=== PATIENT | female | born 1950 | race Two or more races ===

== ENCOUNTER 2024-05-07 12:50 | Inpatient (IN) | payer MEDICARE, BC ==
[~2024-05-07] VITALS: Ht 177.8 cm; Wt 71.5 kg
[2024-05-07] VITALS (29 sets, daily range): BP systolic 95–155; BP diastolic 56–80; PULSE 52–111; RESP 21–24; TEMP 95.5–99.7; O2SAT 87–100
--- NOTE | 2024-05-07 13:06 | ED.PDOC ---
CPR-HPI HPI Comments 74 year old female LINCOLN presents to the ED with chief complaint of cardiac arrest with ROSC. EMS reports patient was found unresponsive by son at home around 30 minutes ago, calling 911 right away. EMS relays that the last well known of the patient was around 10:30am. EMS states that the patient was receiving CPR from infantry weapons crewmember on scene before hooking her up to a monitor, showing ROSC. EMS notes patient was intubated, given an IO and IV before coming on route to the ED. EMS reports patient's only known history is of a recent remission of lung cancer. EMS denies any further history at this time. 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 History: Unknown Family History Family History: Unknown Social History Smoker: Unknown Alcohol: Unknown Drugs: Unknown Lives In: Home Unable to Obtain due to: Medical Urgency, Intubated All Other Systems: Reviewed and Negative Physical Exam General Appearance: Normal, Severe Distress HEENT: Other (Pupils sluggish) Neck: Full Range of Motion, Non-Tender, Normal, Normal Inspection Respiratory: Chest Non-Tender, Respiratory Distress (Intubated) Cardiovascular: No Edema, No JVD, No Murmur, No Gallop, Normal Peripheral Pulses, Regular Rate/Rhythm Breast Exam: Deferred Gastrointestinal: No Organomegaly, Non Tender, No Pulsatile Mass, Normal Bowel Sounds, Soft Genitalia: Deferred Pelvic: Deferred Rectal: Deferred Extremities: No calf tenderness, Normal capillary refill, Normal inspection, Normal range of motion, Non-tender, No pedal edema Musculoskeletal : Apperance: Normal Neurologic: Other (Intubated) Cerebellar Function: NOT DONE Reflexes: NOT DONE Skin: Dry, Normal Color, Warm Peripheral Pulses: 3+ Radial (R), 3+ Radial (L) Lymphatic: No Adenopathy Was a procedure done? Was a procedure done?: Yes Sedation Sedation?: Yes Informed consent obtained: Yes Sedation start time: 13:00 Sedation end time: 13:10 Sedation total time: 10 minutes Sedation provider statement: 5mg Versed IV Central Line Recorder of insertion practice: Observer Occupation of manager market intelligence: Other (Resident) Indication: Hypotension, CVP monitoring, Volume resuscitation Room prepared for procedure: Yes Color Print Inspector performed hand hygien: Yes Maximal sterile barrier precau: Mask/Eye shield, Sterile gown, Cap, Sterlie gloves, Large sterlie drape Skin Preparation: Chlorhexidine gluconate Skin preparation completely dr: Yes Insertion site: Right, Internal jugular Central line catheter type: [id number] dialysis Number of lumens: 3 Central line exchanged over a: No Antiseptic ointment applied to: No Post Assessment: Chest X-Ray, Proper placement Informed consent obtained: Yes Risks/benefits/alt described: Yes Intubation Indication: Respiratory Insufficiency, Airway Protection Prep: Preoxygenation Pretreated with: Nothing Intubation Approach: Orotracheal Intubation size: cm (7.5) Informed consent obtained: Yes Risks/benefits/alt described: Yes Notes Replaced 7cm tube placed by EMS with 7.5cm tube. Differential Dx CPR Differential Diagnosis: Cardiopulmonary arrest X-Ray, Labs, Meds, VS Vital Signs Date Time Temp Pulse Resp B/P (MAP) Pulse Ox O2 Delivery O2 Flow Rate FiO2 05/07/24 15:11 65 05/07/24 13:43 103/77 05/07/24 13:43 52/31 05/07/24 13:30 103/77 05/07/24 12:58 68 05/07/24 12:50 95.5 76 22 103/77 (86) 88 Lab Test 05/07/24 15:06 05/07/24 14:45 05/07/24 14:20 Range/Units Urine Color Dark-yellow Yellow Urine Clarity Turbid H Clear Urine pH 5.5 5.0-9.0 Urine Specific [place] 1.021 1.001-1.035 Urine Protein 2+ H Negative Urine Ketones Negative Negative Urine Blood 1+ H Negative /uL Urine Nitrite Negative Negative Urine Bilirubin Negative Negative Urine Urobilinogen 2 H Negative mg/dL Urine Leukocyte Esterase Negative Negative /uL Urine RBC 28 0 - 4 /hpf Urine Microscopic WBC 4 0-5 /HPF Urine Squamous Epithelial Cells Few <5 /hpf Urine Bacteria Few H None Seen /hpf Urine Hyaline Casts Many 0 - 2 /lpf Urine Mucus Few None Seen Urine Yeast (Budding) Occasional None Seen /hpf Urine Glucose 1+ H Normal mg/dL Urine Opiates Screen Pending Urine Fentanyl Screen Pending Urine Barbiturates Screen Pending Urine Phencyclidine Screen Pending Urine Amphetamines Screen Pending Urine Benzodiazepines Screen Pending Urine Cocaine Screen Pending Urine Cannabinoids Screen Pending Blood Gas Specimen Type Arterial Blood Gas Sample Site Right radial Blood Gas Patient Temperature 37.0 Arterial Blood Date Drawn [id number] Arterial Blood pH 7.092 *L 7.350-7.450 Arterial Blood Partial Pressure CO2 61.8 *H 32.0-45.0 mmHg Arterial Blood Partial Pressure O2 56.0 L 83.0-108.0 mmHg Arterial Blood HCO3 18.4 L 21.0-28.0 mmol/L Arterial Blood Oxygen Saturation 79.7 *L 94.0-98.0 % Arterial Blood Base Excess -12.3 L -2.0-3.0 mmol/L Arterial Blood Oxyhemoglobin 78.4 L 94.0-98.0 % Arterial Blood Carboxyhemoglobin 1.1 0.5-1.5 % Arterial Blood Methemoglobin 0.5 0.0-1.5 % Germán Test Modified Blood Gas Total Hemoglobin 16.10 H 12.0-16.0 g/dL Blood Gas Set Respiration Rate 24.0 Blood Gas Modality Vent - ac FiO2 % 100.0 Blood Gas Tidal Volume 450.0 Blood Gas PEEP or CPAP 5.0 Blood Gas Critical Value Read Back Yes Blood Gas Notified Whom Blood Gas Notified Time [id number] Blood Gas Notified By Pili hernandez rt White Blood Count 22.6 H 4.4-10.8 10^3/uL Red Blood Count 4.47 4.0-5.20 10^6/uL Hemoglobin 14.9 12.2-16.2 g/dL Hematocrit 45.2 36.0-46.0 % Mean Corpuscular Volume 101.3 H 80.0-100.0 fL Mean Corpuscular Hemoglobin 33.4 H 28.0-32.0 pg Mean Corpuscular Hemoglobin Concent 33.0 32.0-36.0 g/dL Red Cell Distribution Width 13.9 11.8-14.3 % Platelet Count 295 140-450 10^3/uL Mean Platelet Volume 7.7 6.9-10.8 fL Neutrophils (%) (Auto) 91.1 H 37.0-80.0 % Lymphocytes (%) (Auto) 6.3 L 10.0-50.0 % Monocytes (%) (Auto) 2.1 0.0-12.0 % Eosinophils (%) (Auto) 0.3 0.0-7.0 % Basophils (%) (Auto) 0.2 0.0-2.0 % Neutrophils # (Auto) 20.5 H 1.6-8.6 10 ^3/uL Lymphocytes # (Auto) 1.4 0.4-5.4 10 ^3/uL Monocytes # (Auto) 0.5 0-1.3 10 ^3/uL Eosinophils # (Auto) 0.1 0-0.8 10 ^3/uL Basophils # (Auto) 0 0-0.2 10 ^3/uL Nucleated Red Blood Cells 0.1 % Prothrombin Time Pending Prothrombin Time INR Pending Activated Partial Thromboplast Time Pending D-Dimer, Quantitative Pending Sodium Level Pending Potassium Level Pending Chloride Level Pending Carbon Dioxide Level Pending Anion Gap Pending Blood Urea Nitrogen Pending Creatinine Pending Glomerular Filtration Rate Calc Pending BUN/Creatinine Ratio Pending Serum Glucose Pending Lactic Acid Level Pending Calcium Level Pending Magnesium Level Pending Total Bilirubin Pending Aspartate Amino Transferase (AST) Pending Alanine Aminotransferase (ALT) Pending Alkaline Phosphatase Pending Troponin I High Sensitivity Pending Total Protein Pending Albumin Pending Current Medications Medications (Trade) Dose Ordered Sig/Jerome Route Start Time Stop Time Status Last Admin Sodium Chloride 1,000 ml @ 1,000 mls/hr Q1H ONCE IV 05/07/24 13:15 05/07/24 14:14 DC 05/07/24 13:42 Sodium Chloride 1,000 ml @ 150 mls/hr Q6H40M ONCE IV 05/07/24 13:15 05/07/24 19:54 05/07/24 13:15 Piperacillin Sod/ Tazobactam Sod 100 ml @ 100 mls/hr ONCE ONCE IV 05/07/24 13:15 05/07/24 14:14 DC 05/07/24 15:18 Insulin Human Regular (InsuLIN R) 2 units ONCE ONCE IV 05/07/24 13:15 05/07/24 13:16 DC 05/07/24 15:27 Norepinephrine Bitartrate 250 ml @ 3.75 mls/hr Q24H IV 05/07/24 13:30 05/07/24 13:43 Midazolam HCl 50 ml @ 1 mls/hr Q24H IV 05/07/24 13:30 05/07/24 13:43 Midazolam HCl (Versed Injection) 5 mg ONCE ONCE IV 05/07/24 13:30 05/07/24 13:31 DC 05/07/24 13:45 Chest XR: FINDINGS: Lines and Tubes: Endotracheal tube in satisfactory position. Right chest port in satisfactory position. Lungs: Multifocal airspace disease. Pleura: No effusion. No pneumothorax. Cardiomediastinal contours: Unremarkable Bones: Unremarkable IMPRESSION: Endotracheal tube in satisfactory position. Multifocal airspace disease. Patient unconscious. Has a need G-tube in place. Blood pressure in the low side. Good skin color. Had to exchange the tube. Placed a central line. Possible sepsis. Possible cardiac event. EKG reviewed does show left bundle branch block. Spoke with Cardiology. Possibly will need angiogram. Started Versed. Was given fluids. Was given insulin. WBC elevated. Hemoglobin within normal limits. She is having difficulty with ventilation. Was given Zosyn. Was given clindamycin. Waiting for family. Continue cardiac monitoring. Images Reviewed?: Images reviewed and evaluated by me Time of 1ST Reevaluation: 15:33 Reevaluation 1ST: Improved Patient Education/Counseling: Diagnosis, Treatment Family Education/Counseling: No Family Present Additional Information I reviewed the following notes from patient's past medical encounters: None The following tests were ordered, and results were reviewed by me: ABG, CBC, BMP I reviewed and agreed with the following test results read by other providers: Additional Information was gathered from interviewing the following independent historians: EMS I discussed treatment and results with medical personnel. Departure 1 Departure Time of Disposition: 15:35 Impression: Primary Impression: Cardiac arrest Additional Impressions: Uncontrolled diabetes mellitus Qualified Codes: E13.65 - Other specified diabetes mellitus with hyperglycemia Respiratory failure Qualified Codes: J96.21 - Acute and chronic respiratory failure with hypoxia Sepsis, unspecified organism Qualified Codes: A41.9 - Sepsis, unspecified organism Disposition: ADMITTED INPATIENT Admit to: ICU Condition: Guarded Critical Care Note Critical Care Time?: Yes (90 min-critical care time only) Heart Score Heart Score: Heart Score Response (Comments) Value History Slightly Suspicious 0 EKG Normal 0 Age >65 2 Risk Factors >3 or Hx ASHD 2 Troponin Normal limit 0 Total 4 Stability Stability form required: No I personally scribed for OMEGA MINAYA MD ([email or web address]) on 05/07/24 at 13:06. Electronically submitted by Edgardo Whipple ([email or web address]). I personally scribed for OMEGA MINAYA MD ([email or web address]) on 05/07/24 at 13:18. Electronically submitted by Edgardo Whipple ([email or web address]). I personally scribed for OMEGA MINAYA MD ([email or web address]) on 05/07/24 at 13:26. Electronically submitted by Edgardo Whipple ([email or web address]). OMEGA MINAYA MD May 07, 2024 13:06
[2024-05-07] MEDS: SODIUM CHLORIDE 0.9% 1,000 ML IV ONE ×2 (13:15→13:42)
--- NOTE | 2024-05-07 13:22 | DVH ---
CHEST RADIOGRAPH Indication: POST INTUBATION Technique: Single frontal view of the chest was obtained COMPARISON: None FINDINGS: Lines and Tubes: Endotracheal tube in satisfactory position. Right chest port in satisfactory positi on. Lungs: Multifocal airspace disease. Pleura: No effusion. No pneumothorax. Cardiomediastinal contours: Unremarkable Bones: Unremarkable IMPRESSION: Endotracheal tube in satisfactory position. Multifocal airspace disease.
[2024-05-07] MEDS: fentaNYL Drip 2500mCg/250mlNS 250 ML IV SCH (13:30)
[2024-05-07] MEDS: NOREPINEPHRINE 8 MG/250ML KIT 250 ML IV SCH (13:43)
[2024-05-07] MEDS: MIDAZOLAM DRIP 50 mg/50mL 50 ML IV SCH (13:43)
[2024-05-07] MEDS: MIDAZOLAM HCL 5 MG/ML-1ML VIAL IV ONE (13:45)
[2024-05-07 14:53] LABS: Base Excess -12.3 mmol/L (-2.0-3.0)
[2024-05-07 14:58] LABS: Basophils # (auto) 0 10 ^3/uL (0-0.2); Basophils % (auto) 0.2 % (0.0-2.0); Eosinophils # (auto) 0.1 10 ^3/uL (0-0.8); Eosinophils % (auto) 0.3 % (0.0-7.0); Hematocrit 45.2 % (36.0-46.0); Hemoglobin 14.9 g/dL (12.2-16.2); Lymphocytes # (auto) 1.4 10 ^3/uL (0.4-5.4); Lymphocytes % (auto) 6.3 % (10.0-50.0); Mean Corpuscular Hemoglobin 33.4 pg (28.0-32.0); Mean Corpuscular Volume 101.3 fL (80.0-100.0); Monocytes # (auto) 0.5 10 ^3/uL (0-1.3); Monocytes % (auto) 2.1 % (0.0-12.0); Neutrophils # (auto) 20.5 10 ^3/uL (1.6-8.6); Neutrophils % (auto) 91.1 % (37.0-80.0); Nucleated Red Blood Cells % 0.1 %; Platelet Count (auto) 295 10^3/uL (140-450); Red Blood Cells 4.47 10^6/uL (4.0-5.20); Red Cell Distribution Width 13.9 % (11.8-14.3); White Blood Cell 22.6 10^3/uL (4.4-10.8)
--- NOTE | 2024-05-07 15:07 | DVH ---
CHEST RADIOGRAPH Indication: POST INTUBATION Technique: Single frontal view of the chest was obtained Comparison: XY CHEST PORTABLE on DOS: 05/07/24, XY CHEST PORTABLE on DOS: 05/07/24 FINDINGS: Lines and Tubes: Endotracheal tube in satisfactory position. Right chest port in satisfactory positi on. Lungs: Multifocal airspace disease. Pleura: No effusion. No pneumothorax. Cardiomediastinal contours: Unremarkable Bones: Unremarkable IMPRESSION: Endotracheal tube in satisfactory position. Multifocal airspace disease.
[2024-05-07] MEDS: PIPERACILLIN-TAZOB 3.375GM 100 ML IV ONE (15:18)
[2024-05-07 15:22] LABS: Urine Bacteria FEW /hpf (None Seen); Urine Blood 1+ /uL (Negative); Urine Budding Yeast OCCASIONAL /hpf (None Seen); Urine Clarity Turbid (Clear); Urine Color Dark-Yellow (Yellow); Urine Hyaline Cast MANY /lpf (0 - 2); Urine Mucus FEW (None Seen); Urine Protein, UAD 2+ (Negative); Urine Specific Gravity 1.021 (1.001-1.035); Urine Squamous Epithelial Cell FEW /hpf (<5); Urine Urobilinogen 2 mg/dL (Negative); Urine WBC 4 /HPF (0-5); Urine pH 5.5 (5.0-9.0)
[2024-05-07 15:25] LABS: INR 1.08 (0.9-1.15); Partial Thromboplastin Time 27.3 SEC (24.5-34.5); Prothrombin Time 11.4 sec (9.3-11.8)
[2024-05-07] MEDS: InsuLIN REG 1unit/0.01ml Soln (100units/ml) IV ONE ×2 (15:27→19:32)
[2024-05-07 15:45] LABS: Anion Gap 9 (5-15); BUN/Creatinine Ratio 12.1 (10.0-20.0); Bilirubin, Total 0.4 mg/dL (0.2-1.0); Blood Urea Nitrogen 17 mg/dL (9-23); Calcium 9.1 mg/dL (8.7-10.4); Carbon Dioxide 22 mmol/L (20-31); Chloride 107 mmol/L (98-107); Magnesium 1.9 mg/dL (1.6-2.6); Sodium 138 mmol/L (136-145); Total Protein 6.2 g/dL (5.7-8.2)
[2024-05-07 15:49] LABS: Alanine Aminotransferase 364 U/L (7-40); Alkaline Phosphatase 129 U/L (46-116); Aspartate Aminotransferase 464 U/L (13-40); Glucose 212 mg/dL (74-106); Lactic Acid w/Reflex 3.4 mmol/L (0.4-2.0); Potassium 5.5 mmol/L (3.5-5.1)
[2024-05-07 16:01] LABS: Cocaine Screen, Urine Neg (NEGATIVE)
[2024-05-07 16:03] LABS: Amphetamine Screen, Urine Neg (NEGATIVE); Barbiturate Scree,Urine Neg (NEGATIVE); Benzodiazephine Screen, Urine Pos (NEGATIVE); Cannabinoid Screen, Urine Neg (NEGATIVE); Opiate Scree,Urine Neg (NEGATIVE); Phencyclidine Screen, Urine Neg (NEGATIVE)
[2024-05-07] MEDS: CLINDAMYCIN 600MG IV 50 ML IV ONE (16:40)
[2024-05-07] MEDS: SODIUM BICARB 50mEq/50ml Vial 150 ML in D5W 5% 1,000 ML IV SCH (17:15)
[2024-05-07] MEDS: VASOPRESSIN 20 UNITS in SODIUM CHL 0.9% 99 ML IV SCH (17:15)
[2024-05-07] MEDS ORDERED: VANCOMYCIN PER PHARMACY 0 MG IV SCH (17:15)
[2024-05-07] MEDS ORDERED: NITROGLYCERIN 0.4 MG SL TAB SL PRN (17:15)
--- NOTE | 2024-05-07 17:21 | DVHHP2 ---
History of Present Illness Reason for Visit: Unresponsive, cardiac arrest History of Present Illness The patient was a 74-year-old female transport to the emergency room by EMS after being found unresponsive. Bystander CPR was performed by the patient was son as well as the vacuum truck driver's, with the patient having ROSC min route to the hospital. Patient was endotracheally intubated in the field. According to the patient's daughters, the patient is visiting this area and only recalls the patient having some dyspnea walking up stairs. They deny any other symptoms prior to today's events. 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 Last treatment was two years ago. Patient was being followed by oncology services at [facility]. Patient was reported to have atrial fibrillation, currently being treated with Eliquis as well as hypertension. Cardiovascular: AFIB, HTN Heme/Onc: Cancer (Small-cell lung carcinoma) Past Surgical History: None Family History: None Smoke: No ALCOHOL: none Drugs: None Lives: with Family Review of Systems Review of Systems Patient intubated and sedated. Allergies: Coded Allergies: NO KNOWN ALLERGIES (Unverified , 05/07/24) Medications Current Medications Medications Dose Ordered Sig/Jerome Route Start Time Stop Time Status Last Admin Dose Admin Norepinephrine Bitartrate 250 ml @ 3.75 mls/hr Q24H IV 05/07/24 13:30 05/07/24 13:43 56.25 MLS/HR Midazolam HCl 50 ml @ 1 mls/hr Q24H IV 05/07/24 13:30 05/07/24 13:43 1 MLS/HR Fentanyl Citrate 250 ml @ 2.5 mls/hr Q24H IV 05/07/24 13:30 05/07/24 15:00 2.5 MLS/HR Nitroglycerin 0.4 mg Q5MINP PRN SL 05/07/24 17:15 UNV Morphine Sulfate 2 mg Q30M PRN IV 05/07/24 17:15 UNV Cefepime HCl 50 ml @ 12.5 mls/hr Q12HR IV 05/07/24 22:00 UNV Vancomycin HCl 0 ml @ 0 mls/hr UD IV 05/07/24 17:15 UNV Sodium Bicarbonate 150 ml/Dextrose 1,150 ml @ 100 mls/hr [id number] IV 05/07/24 17:15 UNV Albuterol 2.5 mg Q6HR NEB 05/07/24 18:00 UNV Ipratropium [place] 0.5 mg Q6HR NEB 05/07/24 18:00 UNV Pantoprazole Sodium 40 mg DAILY IV 05/08/24 10:00 UNV Enoxaparin Sodium 40 mg DAILY SC 05/08/24 10:00 UNV Vasopressin 20 units/Sodium Chloride 100 ml @ 9 mls/hr Q11H7M IV 05/07/24 17:15 UNV Exam Vital Signs Vital Signs Date Time Temp Pulse Resp B/P (MAP) Pulse Ox O2 Delivery O2 Flow Rate FiO2 05/07/24 15:15 68 24 114/55 (74) 05/07/24 14:45 73 05/07/24 14:15 100 05/07/24 13:00 95.5 95.5 General Appearance: severe distress, Other (Patient encephalopathic) HEENT: Atraumatic, PERRLA Respiratory: Other (Mechanical ventilation. Bilateral rhonchi) Cardiovascular: Normal S1, Normal S2, Other (Peaked T-waves) Neuro: Other (Pupils pinpoint, unreactive) Psych/Mental Status: Other (Unable to assess) Labs/Xrays Labs Test 05/07/24 16:22 05/07/24 15:26 05/07/24 15:06 05/07/24 14:20 Range/Units Blood Gas Specimen Type Arterial Blood Gas Sample Site Right radial Blood Gas Patient Temperature 37.0 Arterial Blood Date Drawn [id number] Arterial Blood pH 7.096 *L 7.350-7.450 Arterial Blood Partial Pressure CO2 62.1 *H 32.0-45.0 mmHg Arterial Blood Partial Pressure O2 80.4 L 83.0-108.0 mmHg Arterial Blood HCO3 18.7 L 21.0-28.0 mmol/L Arterial Blood Oxygen Saturation 92.0 L 94.0-98.0 % Arterial Blood Base Excess -12.0 L -2.0-3.0 mmol/L Arterial Blood Oxyhemoglobin 90.6 L 94.0-98.0 % Arterial Blood Carboxyhemoglobin 1.0 0.5-1.5 % Arterial Blood Methemoglobin 0.5 0.0-1.5 % Germán Test Modified Blood Gas Total Hemoglobin 16.00 12.0-16.0 g/dL Blood Gas Set Respiration Rate 24.0 Blood Gas Modality Vent - ac FiO2 % 100.0 Blood Gas Tidal Volume 550.0 Blood Gas PEEP or CPAP 8.0 Blood Gas Critical Value Read Back Yes Blood Gas Notified Whom ethan Calabrese Blood Gas Notified Time [id number] Blood Gas Notified By Private Secretary jorge a vela Troponin I High Sensitivity 183 *H </=34 ng/L Urine Color Dark-yellow Yellow Urine Clarity Turbid H Clear Urine pH 5.5 5.0-9.0 Urine Specific [place] 1.021 1.001-1.035 Urine Protein 2+ H Negative Urine Ketones Negative Negative Urine Blood 1+ H Negative /uL Urine Nitrite Negative Negative Urine Bilirubin Negative Negative Urine Urobilinogen 2 H Negative mg/dL Urine Leukocyte Esterase Negative Negative /uL Urine RBC 28 0 - 4 /hpf Urine Microscopic WBC 4 0-5 /HPF Urine Squamous Epithelial Cells Few <5 /hpf Urine Bacteria Few H None Seen /hpf Urine Hyaline Casts Many 0 - 2 /lpf Urine Mucus Few None Seen Urine Yeast (Budding) Occasional None Seen /hpf Urine Glucose 1+ H Normal mg/dL Urine Opiates Screen Neg NEGATIVE Urine Fentanyl Screen Pos NEGATIVE Urine Barbiturates Screen Neg NEGATIVE Urine Phencyclidine Screen Neg NEGATIVE Urine Amphetamines Screen Neg NEGATIVE Urine Benzodiazepines Screen Pos NEGATIVE Urine Cocaine Screen Neg NEGATIVE Urine Cannabinoids Screen Neg NEGATIVE White Blood Count 22.6 H 4.4-10.8 10^3/uL Red Blood Count 4.47 4.0-5.20 10^6/uL Hemoglobin 14.9 12.2-16.2 g/dL Hematocrit 45.2 36.0-46.0 % Mean Corpuscular Volume 101.3 H 80.0-100.0 fL Mean Corpuscular Hemoglobin 33.4 H 28.0-32.0 pg Mean Corpuscular Hemoglobin Concent 33.0 32.0-36.0 g/dL Red Cell Distribution Width 13.9 11.8-14.3 % Platelet Count 295 140-450 10^3/uL Mean Platelet Volume 7.7 6.9-10.8 fL Neutrophils (%) (Auto) 91.1 H 37.0-80.0 % Lymphocytes (%) (Auto) 6.3 L 10.0-50.0 % Monocytes (%) (Auto) 2.1 0.0-12.0 % Eosinophils (%) (Auto) 0.3 0.0-7.0 % Basophils (%) (Auto) 0.2 0.0-2.0 % Neutrophils # (Auto) 20.5 H 1.6-8.6 10 ^3/uL Lymphocytes # (Auto) 1.4 0.4-5.4 10 ^3/uL Monocytes # (Auto) 0.5 0-1.3 10 ^3/uL Eosinophils # (Auto) 0.1 0-0.8 10 ^3/uL Basophils # (Auto) 0 0-0.2 10 ^3/uL Nucleated Red Blood Cells 0.1 % Prothrombin Time 11.4 9.3-11.8 sec Prothrombin Time INR 1.08 0.9-1.15 Activated Partial Thromboplast Time 27.3 24.5-34.5 SEC D-Dimer, Quantitative 16.00 H 0.0-0.49 mg/L FEU Sodium Level 138 136-145 mmol/L Potassium Level 5.5 H 3.5-5.1 mmol/L Chloride Level 107 98-107 mmol/L Carbon Dioxide Level 22 20-31 mmol/L Anion Gap 9 5-15 Blood Urea Nitrogen 17 9-23 mg/dL Creatinine 1.40 H 0.550-1.02 mg/dL Glomerular Filtration Rate Calc 39 >90 mL/min BUN/Creatinine Ratio 12.1 10.0-20.0 Serum Glucose 212 H 74-106 mg/dL Lactic Acid Level 3.4 *H 0.4-2.0 mmol/L Calcium Level 9.1 8.7-10.4 mg/dL Magnesium Level 1.9 1.6-2.6 mg/dL Total Bilirubin 0.4 0.2-1.0 mg/dL Aspartate Amino Transferase (AST) 464 H 13-40 U/L Alanine Aminotransferase (ALT) 364 H 7-40 U/L Alkaline Phosphatase 129 H 46-116 U/L Total Protein 6.2 5.7-8.2 g/dL Albumin 4.0 3.2-4.8 g/dL Assessment/Plan Assessment/Plan Impression: -cardiopulmonary arrest in the field -acute hypoxic and hypercarbic respiratory failure with mechanical ventilation -full mouth pulmonary embolism -NSTEMI, rule out type 1 -hyperkalemia -acute kidney injury -shock liver -septic shock -community-acquired pneumonia, questionable aspiration etiology -primary hypertension -history of atrial fibrillation with anticoagulation Plan: -admit to ICU -continue vasopressor therapy with norepinephrine. Add vasopressin to keep map greater than 65 mmHg -CT angiogram of the chest -DVT study -CT scan of the head -sodium bicarbonate, two amps IV push now, followed by D5W with three amps sodium bicarbonate at 100 mL/hr -bronchodilators -cardiology consultation -echocardiogram -DVT prophylaxis, consider increasing to full anticoagulation if positive for DVT/PE -repeat BNP this evening -repeat labs, chest x-ray, ABG in a.m. -continue current ventilator settings until repeat ABG was performed. Critical care time spent with patient discussing and formulating plan of care: 90 minutes. This does not include time spent performing procedures. This medical document was created using an electronic medical record system with 1-[employer] All dictation system. Although this document has been carefully reviewed, there may still be some phonetic and typographical errors. These areas are purely typographical due to imperfections of the software programs, and do not reflect any compromise in the patient's medical care. Plan discussed with: Daughter, Other (RN) My Orders Orders - KELLEY GARCIA TIMBER ROBBER Procedure Category Date Status Time Admit ADMIT 05/07/24 Transmitted 17:02 Nitroglycerin PHA 05/07/24 Logged Sublingual (Ntrostat 17:15 Morphine Sulfate PHA 05/07/24 Logged Injection 17:15 Stat Ekg For Chest [facility] 05/07/24 In Process Pain 17:02 Notify Md Of Changes [facility] 05/07/24 In Process From Base 17:02 Pump Erector Helper For [facility] 05/07/24 In Process 24 Hours 17:02 Emergency Dysrhythmia [facility] 05/07/24 In Process Protocol 17:02 Rhythm Strips Once [facility] 05/07/24 In Process Every Shift 17:02 Oxygen By Nasal RT 05/07/24 Transmitted Cannula 17:02 Cefepime 1gm/ 50ml [facility] 05/07/24 Logged (Maxipime 1gm/50ml) 22:00 Vancomycin Per PHA 05/07/24 Logged Pharmacy 17:15 Urine Bacterial [facility] 05/07/24 Logged Culture 17:[address] 05/07/24 Logged 17:[address] 05/07/24 Logged Contrast 17:02 Echo 2d Mode Cardiac US 05/07/24 Logged DOP 17:02 Sodium Bicarb PHA 05/07/24 Logged 50meq/50ml Vial 17:15 D5w 5% (Dextrose 5%) [facility] 05/07/24 Logged W/Sodium Bicarb 50m 17:15 Albuterol Medneb PHA 05/07/24 Logged (Ventolin Medneb) 18:00 Ipratropium Medneb PHA 05/07/24 Logged (Atrovent Medneb) 18:00 Pantoprazole PHA 05/08/24 Transmitted (Protonix) 10:00 Enoxaparin Sodium PHA 05/08/24 Transmitted (Lovenox) 10:00 Basic Metabolic Panel LAB 05/07/24 Transmitted 19:00 Comprehensive LAB 05/08/24 Verified Metabolic Panel 04:00 Complete Blood Count LAB 05/08/24 Verified 04:00 Hemoglobin A1c LAB 05/07/24 Transmitted 17:08 Erythrocyte LAB 05/07/24 Transmitted Sedimentation Rate 17:08 C-Reactive Protein LAB 05/07/24 Transmitted 17:08 Vasopressin Drip PHA 05/07/24 Transmitted 17:15 Date of Service: May 07, 2024 Billing Provider: KELLEY GARCIA NP Common Visit Codes: [id number] CARE 30-74 MIN, [id number] CARE-EACH +30MIN KELLEY GARCIA NP May 07, 2024 17:21
[2024-05-07] MEDS: IPRATROPIUM BROM 0.5 MG/2.5ML INH SOL NEB SCH (18:00)
[2024-05-07] MEDS: SODIUM ZIRCONIUM CYCL 10 GM PAK PO ONE (18:00)
[2024-05-07] MEDS: ALBUTEROL SULF 2.5 MG/0.5ML(0.5%) NEB SOLN NEB SCH (18:00)
--- NOTE | 2024-05-07 18:06 | DVHINCON2 ---
PAULETTE QUINTERO [facility] 05/07/24 1805: Date Seen: May 07, 2024 Referring Physician MD Mercedez Reason for Consultation NSTEMI History of Present Illness This is a 74-year-old female patient who presents to the emergency room with cardiopulmonary arrest status post CPR with return of spontaneous circulation. At the time of assessment, the patient remains chemically sedated and mechanically ventilated. History obtained from patient's daughter, Sophie, who was at bedside. According to patient's daughter, the patient was last seen john g to the restroom. The patient was then found unresponsive and the family is estimating that her downtime is approximately 10 minutes, but they are not completely sure. CPR was initiated by the patient's son and 911 was called. ROSC was achieved prior to emergency room arrival. It is unclear how long the patient underwent CPR. Initial twelve lead electrocardiogram reveals normal sinus rhythm with right bundle branch block and and peaked T-waves. Initial troponin level of 120ng/L with peak level at 183ng/L (pending third troponin). Significant past medical history includes hypertension, unspecified atrial fibrillation (on Eliquis), lung cancer, brain tumor, colon cancer 18 year ago s/p colon resection, and tobacco use. The patient's daughter reports that the patient was recently told that she is in remission from her lung cancer and is being closely followed by the [facility]. She reports last treatment of chemo therapy and radiation approximately two years ago. The patient's daughter confirms that the patient previously saw a bill clerk in [place], but has not seen them within the last year. Past Medical History Past medical history reviewed. No other significant than mentioned above. Past Surgical History Colon resection approximately 18 years ago Hysterectomy Family History Family history reviewed. Social History Previous tobacco use (unable to calculate pack-year history), quit in 2020 per daughter Patient has a previous history of alcoholism, has been sober for 23 years according to daughter Denies any illicit drug use Allergies: Coded Allergies: NO KNOWN ALLERGIES (Unverified , 05/07/24) Home Meds Home medications reviewed. Current Medications Current Medications Medications (Trade) Dose Ordered Sig/Jerome Route PRN Reason Start Time Stop Time Status Last Admin Norepinephrine Bitartrate 250 ml @ 3.75 mls/hr Q24H IV 05/07/24 13:30 05/07/24 13:43 Midazolam HCl 50 ml @ 1 mls/hr Q24H IV 05/07/24 13:30 05/07/24 13:43 Fentanyl Citrate 250 ml @ 2.5 mls/hr Q24H IV 05/07/24 13:30 05/07/24 15:00 Nitroglycerin (Ntrostat Sublingual) 0.4 mg Q5MINP PRN SL FOR CHEST PAIN 05/07/24 17:15 Morphine Sulfate 2 mg Q30M PRN IV FOR CHEST PAIN 05/07/24 17:15 UNV Cefepime HCl 50 ml @ 12.5 mls/hr Q12HR IV 05/07/24 22:00 UNV Vancomycin HCl 0 ml @ 0 mls/hr UD IV 05/07/24 17:15 UNV Sodium Bicarbonate 150 ml/Dextrose 1,150 ml @ 100 mls/hr [id number] IV 05/07/24 17:15 UNV Albuterol (Ventolin Medneb) 2.5 mg Q6HR NEB 05/07/24 18:00 Ipratropium [place] (Atrovent Medneb) 0.5 mg Q6HR NEB 05/07/24 18:00 Pantoprazole Sodium (Protonix) 40 mg DAILY IV 05/08/24 10:00 Enoxaparin Sodium (Lovenox) 40 mg DAILY SC 05/08/24 10:00 UNV Vasopressin 20 units/Sodium Chloride 100 ml @ 9 mls/hr Q11H7M IV 05/07/24 17:15 UNV Review of Systems Constitutional: No symptom reported Ears, Nose, & Throat: No symptom reported Eyes: No symptom reported Neurological: No symptoms reported Pulmonary/Respiratory: Cardiopulmonary arrest Cardiovascular: Cardiopulmonary arrest Gastrointestinal: No symptom reported Genitourinary: No symptom reported Musculoskeletal: No symptom reported Skin: No symptom reported Psychiatric: No symptom reported Endocrine: No symptom reported Hematologic/Lymphatic: No symptom reported Vital Signs Vital Signs Date Time Temp Pulse Resp B/P (MAP) Pulse Ox O2 Delivery O2 Flow Rate FiO2 05/07/24 15:15 68 24 114/55 (74) 05/07/24 14:45 73 05/07/24 14:15 100 05/07/24 13:00 95.5 95.5 Physical Exam General Appearance: Calm, relaxed Pulmonary/Respiratory: Clear, bilateral breaths sounds. Mechanically ventilated Cardiovascular/Chest: Regular rate and rhythm. Peripheral Pulses: 2+ Radial (R). 2+ Radial (L). 2+ Pedal (R). 2+ Pedal (L) Abdominal Exam: Normal bowel sounds. Ankle Exam: Negative ankle edema Lower extremities: Negative lower extremity edema Neuro/Mental Status: Chemically sedated. Pupils sluggish bilaterally Thoughts/Psych: Defer Appearance: No acute distress. Skin Exam: Normal inspection. Normal color. Warm and dry. Labs/Diagnostic Data Labs Test 05/07/24 16:50 05/07/24 16:22 05/07/24 15:06 05/07/24 14:20 Range/Units Blood Gas Specimen Type Arterial Blood Gas Sample Site Right radial Blood Gas Patient Temperature 37.0 Arterial Blood Date Drawn [id number] Arterial Blood pH 7.096 *L 7.350-7.450 Arterial Blood Partial Pressure CO2 62.1 *H 32.0-45.0 mmHg Arterial Blood Partial Pressure O2 80.4 L 83.0-108.0 mmHg Arterial Blood HCO3 18.7 L 21.0-28.0 mmol/L Arterial Blood Oxygen Saturation 92.0 L 94.0-98.0 % Arterial Blood Base Excess -12.0 L -2.0-3.0 mmol/L Arterial Blood Oxyhemoglobin 90.6 L 94.0-98.0 % Arterial Blood Carboxyhemoglobin 1.0 0.5-1.5 % Arterial Blood Methemoglobin 0.5 0.0-1.5 % Germán Test Modified Blood Gas Total Hemoglobin 16.00 12.0-16.0 g/dL Blood Gas Set Respiration Rate 24.0 Blood Gas Modality Vent - ac FiO2 % 100.0 Blood Gas Tidal Volume 550.0 Blood Gas PEEP or CPAP 8.0 Blood Gas Critical Value Read Back Yes Blood Gas Notified Whom ethan Calabrese Blood Gas Notified Time [id number] Blood Gas Notified By Domestic Violence Advocate jorge a vela Urine Color Dark-yellow Yellow Urine Clarity Turbid H Clear Urine pH 5.5 5.0-9.0 Urine Specific [place] 1.021 1.001-1.035 Urine Protein 2+ H Negative Urine Ketones Negative Negative Urine Blood 1+ H Negative /uL Urine Nitrite Negative Negative Urine Bilirubin Negative Negative Urine Urobilinogen 2 H Negative mg/dL Urine Leukocyte Esterase Negative Negative /uL Urine RBC 28 0 - 4 /hpf Urine Microscopic WBC 4 0-5 /HPF Urine Squamous Epithelial Cells Few <5 /hpf Urine Bacteria Few H None Seen /hpf Urine Hyaline Casts Many 0 - 2 /lpf Urine Mucus Few None Seen Urine Yeast (Budding) Occasional None Seen /hpf Urine Glucose 1+ H Normal mg/dL Urine Opiates Screen Neg NEGATIVE Urine Fentanyl Screen Pos NEGATIVE Urine Barbiturates Screen Neg NEGATIVE Urine Phencyclidine Screen Neg NEGATIVE Urine Amphetamines Screen Neg NEGATIVE Urine Benzodiazepines Screen Pos NEGATIVE Urine Cocaine Screen Neg NEGATIVE Urine Cannabinoids Screen Neg NEGATIVE White Blood Count 22.6 H 4.4-10.8 10^3/uL Red Blood Count 4.47 4.0-5.20 10^6/uL Hemoglobin 14.9 12.2-16.2 g/dL Hematocrit 45.2 36.0-46.0 % Mean Corpuscular Volume 101.3 H 80.0-100.0 fL Mean Corpuscular Hemoglobin 33.4 H 28.0-32.0 pg Mean Corpuscular Hemoglobin Concent 33.0 32.0-36.0 g/dL Red Cell Distribution Width 13.9 11.8-14.3 % Platelet Count 295 140-450 10^3/uL Mean Platelet Volume 7.7 6.9-10.8 fL Neutrophils (%) (Auto) 91.1 H 37.0-80.0 % Lymphocytes (%) (Auto) 6.3 L 10.0-50.0 % Monocytes (%) (Auto) 2.1 0.0-12.0 % Eosinophils (%) (Auto) 0.3 0.0-7.0 % Basophils (%) (Auto) 0.2 0.0-2.0 % Neutrophils # (Auto) 20.5 H 1.6-8.6 10 ^3/uL Lymphocytes # (Auto) 1.4 0.4-5.4 10 ^3/uL Monocytes # (Auto) 0.5 0-1.3 10 ^3/uL Eosinophils # (Auto) 0.1 0-0.8 10 ^3/uL Basophils # (Auto) 0 0-0.2 10 ^3/uL Nucleated Red Blood Cells 0.1 % Prothrombin Time 11.4 9.3-11.8 sec Prothrombin Time INR 1.08 0.9-1.15 Activated Partial Thromboplast Time 27.3 24.5-34.5 SEC D-Dimer, Quantitative 16.00 H 0.0-0.49 mg/L FEU Sodium Level 138 136-145 mmol/L Potassium Level 5.5 H 3.5-5.1 mmol/L Chloride Level 107 98-107 mmol/L Carbon Dioxide Level 22 20-31 mmol/L Anion Gap 9 5-15 Blood Urea Nitrogen 17 9-23 mg/dL Creatinine 1.40 H 0.550-1.02 mg/dL Glomerular Filtration Rate Calc 39 >90 mL/min BUN/Creatinine Ratio 12.1 10.0-20.0 Serum Glucose 212 H 74-106 mg/dL Calcium Level 9.1 8.7-10.4 mg/dL Magnesium Level 1.9 1.6-2.6 mg/dL Total Bilirubin 0.4 0.2-1.0 mg/dL Aspartate Amino Transferase (AST) 464 H 13-40 U/L Alanine Aminotransferase (ALT) 364 H 7-40 U/L Alkaline Phosphatase 129 H 46-116 U/L Total Protein 6.2 5.7-8.2 g/dL Albumin 4.0 3.2-4.8 g/dL Assessment NSTEMI, rule out type 1 Cardiopulmonary arrest status post CPR with return of spontaneous circulation Rule out structural heart disease Hypertension Unspecified atrial fibrillation (on Eliquis) Rule out pulmonary embolism Septic shock Shock liver Acute kidney injury Hyperkalemia History of lung cancer History of brain tumor History of colon cancer status post resection Tobacco use Plan/Recommendation Continue with the following plan/recommendations (Dr. Mccauley): Case discussed and reviewed with . At this time, we will proceed with obtaining a transthoracic echocardiogram to evaluate cardiac function and assess for wall motion abnormalities. Continue with vasopressors for hemodynamic support, we will switch to quad strength concentration to prevent fluid overload. Continue with close cardiac surveillance. Given unknown length of downtime, we will need to further assess neurological status before proceeding with any invasive cardiac procedures. Pending CT angiogram and head CT results. Further recommendations per clinical course and progression. Thank you for allowing us to care for this patient. Please call with any questions or concerns. Critical care time spent: 44 minutes This medical document was created using an electronic medical record system with voice recognition software and computerized dictation system. Although this document has been carefully reviewed, there might still be some phonetic and typographical errors. Occasional wrong-word or ``sound-alike substitutions may have occurred due to the inherent limitations of voice recognition software. These areas are purely typographical due to imperfections of the software programs and do not reflect any compromise in the patient's medical care. Please read the chart carefully and recognize, using context, where these substitutions have occurred. Plan discussed with: Patient NYHA Physical activity limitations: NA Date of Service: May 07, 2024 Billing Provider: PAULETTE QUINTERO Cardiology Common Codes: 36200-CSXROYJ INP/OBS CARE (High) Cardiology Consultation Codes: 32930-[id number] CONSULT <45MIN NATE MCCAULEY MD 05/08/24 1547: Allergies: Coded Allergies: NO KNOWN ALLERGIES (Unverified , 05/07/24) Plan/Recommendation urgent eval for out of hospital code arrest recommend heat ct once stable and if negative consider anticoag for very high d dimer high risk pt check echo 40 mins critical care time spent PAULETTE QUINTERO May 07, 2024 18:05 NATE MCCAULEY MD May 08, 2024 15:47
[2024-05-07] MEDS: ALBUTEROL SULF 2.5 MG/0.5ML(0.5%) NEB SOLN NEB ONE (18:14)
--- NOTE | 2024-05-07 18:14 | DVHNC2 ---
Procedure - Central Line Location: Right Femoral Vein Procedure Bottling Line Attendant: Dr. Bianchi resident Attending Physician: Dr. Newsome Present During Procedure?: Yes PROCEDURE SUMMARY: The [facility] Central Line Insertion Practices form was completed by me during and immediately following the procedure. A time out was performed. My hands were washed immediately prior to the procedure. I wore a surgical cap, mask with protective eyewear, full gown and sterile gloves throughout the procedure. The patient was placed in Trendelenburg position. The Right groin was prepped using chlorhexidine scrub and draped in sterile fashion using a three quarter sheet drape and sterile towels. Skin preparation was allowed to dry prior to skin puncture. Anatomic landmarks were identified. Anesthesia was achieved over the vein using 1% lidocaine. Using real-time ultrasound, with sterile probe cover and sterile gel, the introducer needle was inserted into the vein under direct ultrasound visualization. Venous blood was withdrawn. The syringe was removed and a guidewire was advanced into the introducer needle. The guidewire was visualized in the appropriate vein by ultrasound. A small incision was made at the skin surface with a scalpel and the introducer needle was exchanged for a dilator over the guidewire. After appropriate dilation was obtained, the dilator was exchanged over the wire for a central venous catheter. The wire was removed and the catheter was sutured in place. A biopatch was placed at the insertion site. A sterile op-site was placed over the catheter and biopatch. The patient tolerated the procedure without any hemodynamic compromise. At time of procedure completion, all ports aspirated and flushed properly. Post-procedure chest x-ray : Shows adequate positioning of the catheter for use. DAMIÁN BIANCHI RESIDENT May 07, 2024 18:14
[2024-05-07] MEDS: NOREPINEPHRINE BITARTRATE 32 MG in SODIUM CHL 0.9% 218 ML IV SCH (18:25)
[2024-05-07] MEDS: CALCIUM GLUC 1,000mg/50ml-NS 50 ML IV ONE (19:01)
[2024-05-07] MEDS: FUROSEMIDE 20 MG/2 ML VIAL IV ONE (19:11)
[2024-05-07] MEDS: DEXTROSE (50%) 50ML SYRG IV ONE (19:11)
[2024-05-07 19:19] LABS: Erythrocyte Sedimentation Rate 30 mm/hr (0-20)
[2024-05-07] MEDS: SODIUM BICARB 8.4% 50Meq/50ml SYR Vial IV ONE (19:22)
[2024-05-07 19:25] LABS: Triglycerides 143 mg/dL (< 150)
[2024-05-07 19:26] LABS: LDL Cholesterol 85 mg/dL (< 100)
[2024-05-07 19:27] LABS: Cholesterol 177 mg/dL (< 200)
[2024-05-07 19:30] LABS: HDL Cholesterol 67 mg/dL (40-59)
--- NOTE | 2024-05-07 20:53 | ECG ---
[facility] Test Date: 2024-05-07 Test Time: 20:49:13 Pat Name: JONNA OLIVAREZ Department: Room: [address] [place] [address] A Gender: F Site Safety Representative: JAUN : 1950 Requested By: OMEGA MINAYA Order Number: [id number] Reading MD: Robin Betts Measurements Intervals [place] Rate: 98 P: 80 NM: 136 QRS: 58 QRSD: 76 T: 100 QT: 446 QTc: 569 Interpretive Statements Sinus rhythm with premature atrial complexes Possible Left atrial enlargement Nonspecific ST abnormality Prolonged QT Electronically Signed On 05-09-2024 21:07:49 PST by Robin Betts Please click the below link to view image of tracing.
[2024-05-07 20:56] LABS: Base Excess -9.3 mmol/L (-2.0-3.0)
[2024-05-07] MEDS ORDERED: CEFEPIME 1GM/ 50ML 50 ML IV SCH (22:00)
[2024-05-07] MEDS: VANCOMYCIN 1.25GM/250ML 250 ML IV ONE (22:11)
[2024-05-07] MEDS: SODIUM BICARB 8.4% 50Meq/50ml SYR INJ IV ONE (22:11)
[2024-05-07] MEDS: CEFEPIME 2GM/50ML NS 50 ML IV ONE (22:11)
[2024-05-07 22:35] LABS: Albumin 3.8 g/dL (3.2-4.8); Alkaline Phosphatase 95 U/L (46-116); Anion Gap 15 (5-15); BUN/Creatinine Ratio 12.7 (10.0-20.0); Blood Urea Nitrogen 22 mg/dL (9-23); Calcium 9.5 mg/dL (8.7-10.4); Carbon Dioxide 22 mmol/L (20-31); Chloride 107 mmol/L (98-107); Sodium 144 mmol/L (136-145)
[2024-05-07 22:36] LABS: Bilirubin, Total 0.4 mg/dL (0.2-1.0); Total Protein 6.1 g/dL (5.7-8.2)
[2024-05-07 22:40] LABS: Alanine Aminotransferase 280 U/L (7-40); Aspartate Aminotransferase 340 U/L (13-40); Glucose 191 mg/dL (74-106)
[2024-05-07 22:44] LABS: Potassium 2.4 mmol/L (3.5-5.1)
[2024-05-07 23:27] LABS: Lactic Acid w/Reflex 6.8 mmol/L (0.4-2.0)
[2024-05-08] VITALS (120 sets, daily range): BP systolic 89–145; BP diastolic 38–124; PULSE 69–123; RESP 12–82; TEMP 99.3–100.4; O2SAT 91–100
[2024-05-08] MEDS ORDERED: POTASSIUM CHLORIDE 40 MEQ, LIDOCAINE 1% (LOCAL ANESTH.) 4 ML in SODIUM CHL 0.9% 250 ML IV ONE (00:15)
[2024-05-08] MEDS: SODIUM CHLORIDE 0.9% 1,000 ML IV ONE (01:02)
[2024-05-08] MEDS: POTASSIUM CHL 20MEQ/100ML 100 ML IV SCH (01:06)
--- NOTE | 2024-05-08 06:27 | ECG ---
[facility] Test Date: 2024-05-07 Test Time: 12:58:17 Pat Name: JONNA OLIVAREZ Department: er Room: [address] [place] [address] A Gender: F Cloth Feeder: adela : 1950 Requested By: OMEGA MINAYA Order Number: [id number] Reading MD: Robin Betts Measurements Intervals [place] Rate: 68 P: 74 MS: 170 QRS: 112 QRSD: 141 T: 81 QT: 481 QTc: 512 Interpretive Statements Sinus rhythm Nonspecific intraventricular conduction delay Minimal ST depression, anterolateral leads Electronically Signed On 05-09-2024 22:07:47 PST by Robin Betts Please click the below link to view image of tracing.
[2024-05-08 07:03] LABS: Basophils # (auto) 0 10 ^3/uL (0-0.2); Eosinophils # (auto) 0 10 ^3/uL (0-0.8); Hematocrit 39.4 % (36.0-46.0); Hemoglobin 12.9 g/dL (12.2-16.2); Lymphocytes # (auto) 0.6 10 ^3/uL (0.4-5.4); Lymphocytes % (auto) 3.2 % (10.0-50.0); Mean Corpuscular Hemoglobin 32.6 pg (28.0-32.0); Mean Corpuscular Hgb Conc. 32.7 g/dL (32.0-36.0); Mean Corpuscular Volume 99.8 fL (80.0-100.0); Monocytes # (auto) 0.6 10 ^3/uL (0-1.3); Monocytes % (auto) 3.1 % (0.0-12.0); Neutrophils # (auto) 18.9 10 ^3/uL (1.6-8.6); Neutrophils % (auto) 93.7 % (37.0-80.0); Platelet Count (auto) 249 10^3/uL (140-450); Red Blood Cells 3.95 10^6/uL (4.0-5.20); Red Cell Distribution Width 13.7 % (11.8-14.3); White Blood Cell 20.1 10^3/uL (4.4-10.8)
[2024-05-08 07:12] LABS: Albumin 3.6 g/dL (3.2-4.8); Alkaline Phosphatase 75 U/L (46-116); Anion Gap 15 (5-15); BUN/Creatinine Ratio 16.8 (10.0-20.0); Calcium 8.7 mg/dL (8.7-10.4); Carbon Dioxide 25 mmol/L (20-31); Chloride 104 mmol/L (98-107); Sodium 144 mmol/L (136-145)
[2024-05-08 07:13] LABS: Bilirubin, Total 0.5 mg/dL (0.2-1.0)
[2024-05-08 07:14] LABS: Alanine Aminotransferase 210 U/L (7-40); Aspartate Aminotransferase 187 U/L (13-40); Blood Urea Nitrogen 23 mg/dL (9-23); Glucose 234 mg/dL (74-106); Potassium 3.2 mmol/L (3.5-5.1); Total Protein 5.6 g/dL (5.7-8.2)
[2024-05-08 08:16] LABS: Base Excess -1.3 mmol/L (-2.0-3.0)
[2024-05-08] MEDS: POTASSIUM CHLORIDE 40 MEQ in SOD CHL 0.45% 1,000 ML IV SCH (08:30)
--- NOTE | 2024-05-08 08:34 | DVH ---
CHEST RADIOGRAPH Indication: PT intubated Technique: Single frontal view of the chest was obtained Comparison: XY CHEST XRAY 1 VIEW on DOS: 05/07/24, XY CHEST PORTABLE on DOS: 05/07/24, XY CHEST XRAY 1 VIEW on DOS: 05/07/24 FINDINGS: Lines and Tubes: Endotracheal tube in satisfactory position. Right chest port in satisfactory positi on. Lungs: Multifocal airspace disease. Pleura: No effusion. No pneumothorax. Cardiomediastinal contours: Unremarkable Bones: Unremarkable IMPRESSION: Endotracheal tube in satisfactory position. Multifocal airspace disease.
--- NOTE | 2024-05-08 08:35 | DVHPN2 ---
Subjective Patient chemically sedated Reviewed: Care Plan, H&P, Labs Changes from previous H/P or p: No Changes General: Per HPI Objective Vitals Vital Signs Date Time Temp Pulse Resp B/P (MAP) Pulse Ox O2 Delivery O2 Flow Rate FiO2 05/08/24 06:58 71 24 123/82 (96) 100 50 05/08/24 06:43 100.0 100.0 05/07/24 21:58 Mechanical Ventilator+ Intake/Output Intake and Output 05/08/24 07:00 Intake Total 3815.503 ml Output Total 925 ml Balance 2890.503 ml Intake Oral 20 ml IV Total 3795.503 ml Output Urine Total 925 ml General Appearance: moderate distress, Other (Encephalopathic) HEENT: Atraumatic, PERRLA Lungs: Other (Mechanical ventilation. Bilateral rhonchi) Cardiovascular: Normal S1, Normal S2 Genitourinary: No Apparent Abnormalities (Case catheter) Neuro: Other (Withdraws to painful stimuli. Positive coughing gag) Skin: Dry, Intact Medications Current Medications Medications Dose Ordered Sig/Jerome Route Start Time Stop Time Status Last Admin Dose Admin Midazolam HCl 50 ml @ 1 mls/hr Q24H IV 05/07/24 13:30 05/08/24 06:37 6 MLS/HR Fentanyl Citrate 250 ml @ 2.5 mls/hr Q24H IV 05/07/24 13:30 05/07/24 15:00 2.5 MLS/HR Nitroglycerin 0.4 mg Q5MINP PRN SL 05/07/24 17:15 Morphine Sulfate 2 mg Q30M PRN IV 05/07/24 17:15 Cefepime HCl 50 ml @ 12.5 mls/hr Q12HR IV 05/07/24 22:00 UNV Vancomycin HCl 0 ml @ 0 mls/hr UD IV 05/07/24 17:15 Sodium Bicarbonate 150 ml/Dextrose 1,150 ml @ 100 mls/hr [id number] IV 05/07/24 17:15 05/08/24 06:39 100 MLS/HR Albuterol 2.5 mg Q6HR NEB 05/07/24 18:00 05/08/24 06:58 2.5 MG Ipratropium [place] 0.5 mg Q6HR NEB 05/07/24 18:00 05/08/24 06:58 0.5 MG Pantoprazole Sodium 40 mg DAILY IV 05/08/24 10:00 Enoxaparin Sodium 40 mg DAILY SC 05/08/24 10:00 Vasopressin 20 units/Sodium Chloride 100 ml @ 9 mls/hr Q11H7M IV 05/07/24 17:15 Norepinephrine Bitartrate 32 mg/ Sodium Chloride 250 ml @ 0.938 mls/ hr Q24H IV 05/07/24 18:00 05/07/24 18:25 13.125 MLS/HR Cefepime HCl 50 ml @ 12.5 mls/hr Q12HR IV 05/08/24 10:00 Laboratory Results Laboratory Tests 05/08/24 06:20 Chemistry Test 05/07/24 14:20 05/07/24 22:00 05/08/24 06:20 Albumin 4.0 g/dL (3.2-4.8) 3.8 g/dL (3.2-4.8) 3.6 g/dL (3.2-4.8) Calcium Level 9.1 mg/dL (8.7-10.4) 9.5 mg/dL (8.7-10.4) 8.7 mg/dL (8.7-10.4) Magnesium Level 1.9 mg/dL (1.6-2.6) Total Protein 6.2 g/dL (5.7-8.2) 6.1 g/dL (5.7-8.2) 5.6 g/dL (5.7-8.2) L Coagulation Test 05/07/24 14:20 Prothrombin Time 11.4 sec (9.3-11.8) Prothrombin Time INR 1.08 (0.9-1.15) Activated Partial Thromboplast Time 27.3 SEC (24.5-34.5) D-Dimer, Quantitative 16.00 mg/L FEU (0.0-0.49) H Lipid panel Test 05/07/24 16:50 Cholesterol Level 177 mg/dL (< 200) HDL Cholesterol 67 mg/dL (40-59) H Triglycerides Level 143 mg/dL (< 150) Cardiac Markers Test 05/08/24 06:20 B-Type Natriuretic Peptide 560.10 pg/mL (0-100) LFT Test 05/07/24 14:20 05/07/24 22:00 05/08/24 06:20 Alanine Aminotransferase (ALT) 364 U/L (7-40) H 280 U/L (7-40) H 210 U/L (7-40) H Alkaline Phosphatase 129 U/L (46-116) H 95 U/L (46-116) 75 U/L (46-116) Aspartate Amino Transferase (AST) 464 U/L (13-40) H 340 U/L (13-40) H 187 U/L (13-40) H Total Bilirubin 0.4 mg/dL (0.2-1.0) 0.4 mg/dL (0.2-1.0) 0.5 mg/dL (0.2-1.0) HgA1c, TSH Test 05/07/24 14:20 05/07/24 16:50 Hemoglobin A1c 5.4 % A1C (<5.7) Thyroid Stimulating Hormone (TSH) 3.46 uIU/mL (0.55-4.78) Urinalysis Test 05/07/24 15:06 Urine Color Dark-yellow (Yellow) Urine Clarity Turbid (Clear) H Urine pH 5.5 (5.0-9.0) Urine Specific [place] 1.021 (1.001-1.035) Urine Protein 2+ (Negative) H Urine Ketones Negative (Negative) Urine Blood 1+ /uL (Negative) H Urine Nitrite Negative (Negative) Urine Bilirubin Negative (Negative) Urine Urobilinogen 2 mg/dL (Negative) H Urine Leukocyte Esterase Negative /uL (Negative) Urine RBC 28 /hpf (0 - 4) Urine Microscopic WBC 4 /HPF (0-5) Urine Squamous Epithelial Cells Few /hpf (<5) Urine Bacteria Few /hpf (None Seen) H Urine Hyaline Casts Many /lpf (0 - 2) Urine Mucus Few (None Seen) Urine Yeast (Budding) Occasional /hpf (None Urine Glucose 1+ mg/dL (Normal) H Blood Gas Results Test 05/07/24 14:45 05/07/24 16:22 05/07/24 20:52 05/08/24 08:03 Arterial Blood pH 7.092 (7.350-7.450) 7.096 (7.350-7.450) 7.276 (7.350-7.450) 7.451 (7.350-7.450) FiO2 % 100.0 100.0 85.0 50.0 Labs and/or images reviewed: Labs reviewed by me, Image(s) reviewed by me Assessment/Plan Assessment/Plan Impression: -cardiopulmonary arrest in the field -acute hypoxic and hypercarbic respiratory failure with mechanical ventilation -full mouth pulmonary embolism -NSTEMI, rule out type 1 -hyperkalemia -acute kidney injury -shock liver -septic shock -community-acquired pneumonia, questionable aspiration etiology -primary hypertension -history of atrial fibrillation with anticoagulation Plan: Events: No events overnight. Patient with improvement with neurological status. Acidosis improved. Patient was found to be hypokalemic. Continues to be on norepinephrine. -continue vasopressor therapy with norepinephrine. Add vasopressin to keep map greater than 65 mmHg -CT angiogram of the chest: Pending -DVT study -CT scan of the head -ABG reviewed. A sodium bicarbonate drip will be stopped at this time. -IV fluids with potassium replacement -bronchodilators -cardiology consultation : Recommendations reviewed -echocardiogram: Pending -DVT prophylaxis, consider increasing to full anticoagulation if positive for DVT/PE -repeat labs, chest x-ray, ABG in a.m. Critical care time spent with patient discussing and formulating plan of care: 40 minutes. This does not include time spent performing procedures. This medical document was created using an electronic medical record system with [employer] dictation system. Although this document has been carefully reviewed, there may still be some phonetic and typographical errors. These areas are purely typographical due to imperfections of the software programs, and do not reflect any compromise in the patient's medical care. Plan discussed with: Patient, Other (RN) My Orders Orders - KELLEY GARCIA MD SENIOR RESEARCH SCIENTIST Procedure Category Date Status Time Admit ADMIT 05/07/24 Transmitted 17:02 Nitroglycerin PHA 05/07/24 In Process Sublingual (Ntrostat 17:15 Morphine Sulfate PHA 05/07/24 In Process Injection 17:15 Stat Ekg For Chest SHANIQUA 05/07/24 In Process Pain 17:02 Notify Of Changes SHANIQUA 05/07/24 In Process From Base 17:02 Aircraft De Icer Installer For SHANIQUA 05/07/24 In Process 24 Hours 17:02 Emergency Dysrhythmia SHANIQUA 05/07/24 In Process Protocol 17:02 Rhythm Strips Once SHANIQUA 05/07/24 In Process Every Shift 17:02 Oxygen By Nasal RT 05/07/24 Transmitted Cannula 17:02 Vancomycin Per PHA 05/07/24 In Process Pharmacy 17:15 Urine Bacterial RUDOLPH 05/07/24 In Process Culture 17:[address] 05/07/24 Logged 17:02 D5w 5% (Dextrose 5%) PHA 05/07/24 In Process W/Sodium Bicarb 50m 17:15 Albuterol Medneb PHA 05/07/24 In Process (Ventolin Medneb) 18:00 Ipratropium Medneb PHA 05/07/24 In Process (Atrovent Medneb) 18:00 Pantoprazole PHA 05/08/24 In Process (Protonix) 10:00 Enoxaparin Sodium PHA 05/08/24 In Process (Lovenox) 10:00 Sodium Chl 0.9% PHA 05/07/24 In Process (So... W/Vasopressin 17:15 Pharmacy SHANIQUA 05/07/24 In Process Clarification: 17:55 Vancomycin Per SHANIQUA 05/07/24 In Process Pharmacy Protoc 17:55 Cefepime 2gm/50ml Ns PHA 05/08/24 In Process (Maxipime 2gm/50ml) 10:00 Mrsa Screen RUDOLPH 05/07/24 In Process 19:10 Abg W/ Co-Ox RT 05/08/24 Logged 06:00 Ct Chest/Ab/Pl W Con- CT 05/07/24 Logged Iv Only 17:02 Chest Portable XY 05/08/24 Taken 07:50 Ventilator Orders RT 05/08/24 Transmitted 08:25 Troponin-I Hs LAB 05/08/24 Transmitted 08:25 1/2 Ns W Potassium PHA 05/08/24 Transmitted 40meq 08:30 Acetaminophen PHA 05/08/24 Transmitted Solution Oral 08:30 Date of Service: May 08, 2024 Billing Provider: KELLEY GARCIA NP Common Visit Codes: [id number] CARE 30-74 MIN KELLEY GARCIA NP May 08, 2024 08:35
[2024-05-08] MEDS: PANTOPRAZOLE 40 MG/10 ML VIAL INJ IV SCH (10:06)
[2024-05-08] MEDS: ENOXAPARIN SOD 40 MG/0.4 ML SYRINGE SC SCH (10:07)
[2024-05-08] MEDS: CEFEPIME 2GM/50ML NS 50 ML IV SCH (10:08)
--- NOTE | 2024-05-08 10:28 | DVHPN2 ---
PAULETTE QUINTERO PROSTHETIST 05/08/24 1028: Consult Progress Note Subjective Other Systems: The patient remains in normal sinus rhythm on library monitor. No events reported overnight Objective vital signs Vital Sign Date Time Temp Pulse Resp B/P (MAP) Pulse Ox O2 Delivery O2 Flow Rate FiO2 05/08/24 09:37 100.0 83 24 114/57 (76) 99 212.0 05/08/24 08:47 40 05/08/24 08:00 Mechanical Ventilator+ Total Intake and Output 05/07/24 05/07/24 05/08/24 15:00 23:00 07:00 Intake Total 1203.5 ml 1327.877 ml 1347.626 ml Output Total 925 ml Balance 1203.5 ml 1327.877 ml 422.626 ml medications Current Medications Medications Dose Ordered Sig/Jerome Route Start Time Stop Time Status Last Admin Dose Admin Midazolam HCl 50 ml @ 1 mls/hr Q24H IV 05/07/24 13:30 05/08/24 06:37 6 MLS/HR Fentanyl Citrate 250 ml @ 2.5 mls/hr Q24H IV 05/07/24 13:30 05/07/24 15:00 2.5 MLS/HR Nitroglycerin 0.4 mg Q5MINP PRN SL 05/07/24 17:15 Morphine Sulfate 2 mg Q30M PRN IV 05/07/24 17:15 Cefepime HCl 50 ml @ 12.5 mls/hr Q12HR IV 05/07/24 22:00 UNV Vancomycin HCl 0 ml @ 0 mls/hr UD IV 05/07/24 17:15 Albuterol 2.5 mg Q6HR NEB 05/07/24 18:00 05/08/24 06:58 2.5 MG Ipratropium [place] 0.5 mg Q6HR NEB 05/07/24 18:00 05/08/24 06:58 0.5 MG Pantoprazole Sodium 40 mg DAILY IV 05/08/24 10:00 05/08/24 10:06 40 MG Enoxaparin Sodium 40 mg DAILY SC 05/08/24 10:00 05/08/24 10:07 40 MG Vasopressin 20 units/Sodium Chloride 100 ml @ 9 mls/hr Q11H7M IV 05/07/24 17:15 Norepinephrine Bitartrate 32 mg/ Sodium Chloride 250 ml @ 0.938 mls/ hr Q24H IV 05/07/24 18:00 05/07/24 18:25 13.125 MLS/HR Cefepime HCl 50 ml @ 12.5 mls/hr Q12HR IV 05/08/24 10:00 05/08/24 10:08 12.5 MLS/HR Potassium Chloride 40 meq/ Sodium Chloride 1,020 ml @ 100 mls/hr [id number] IV 05/08/24 08:30 05/08/24 18:41 05/08/24 08:30 100 MLS/HR Acetaminophen 650 mg Q6HP PRN GT 05/08/24 08:30 Examination: GENERAL:Abnormal, LUNGS:Abnormal (Mechanically ventilated), CVS:Normal, NEURO:Abnormal (Chemically sedated) laboratory and microbiology Laboratory Tests 05/08/24 06:20 Test 05/08/24 06:20 Range/Units Serum Glucose 234 H 74-106 mg/dL Problem List/Assessment/Plan Problem List/Assessment/Plan NSTEMI, rule out type 1 Cardiopulmonary arrest status post CPR with return of spontaneous circulation Hypertension Unspecified atrial fibrillation (on Eliquis) Septic shock Pneumonia Shock liver Rule out acute CVA Bilateral adrenal masses Acute kidney injury Hyperkalemia, now with hypokalemia History of lung cancer History of brain tumor History of colon cancer status post resection Tobacco use Plan/Recommendation (Dr. cMcauley): Patient seen and examined at bedside with . Transthoracic echocardiogram reveals EF 55% with severe septal hypertrophy. Continue with vasopressors for hemodynamic support. Continue with close cardiac surveillance. Head CT reveals age-indeterminate infarcts in the left basal ganglia, possibly subacute. Patient now pending brain MRI. Chest/abdominal CT angiogram reveals no pulmonary embolism. Further recommendations per clinical course and progression. Thank you for allowing us to care for this patient. Please call with any questions or concerns. Critical care time spent: 38 minutes. This medical document was created using an electronic medical record system with voice recognition software and computerized dictation system. Although this document has been carefully reviewed, there might still be some phonetic and typographical errors. Occasional wrong-word or ``sound-alike substitutions may have occurred due to the inherent limitations of voice recognition software. These areas are purely typographical due to imperfections of the software programs and do not reflect any compromise in the patient's medical care. Please read the chart carefully and recognize, using context, where these substitutions have occurred. Plan discussed with: Son, Other (Bedside RN) Date of Service: May 08, 2024 Billing Provider: PAULETTE QUINTERO Common Visit Codes: 87771-GXEOGILA CARE 30-74 MIN NATE MCCAULEY MD 05/08/24 1552: Consult Progress Note Problem List/Assessment/Plan Problem List/Assessment/Plan pt seen with CV team and RN, head ct shows infarcts, cta was - for PE , venous US done, cont supportive care , echo done normal lvef PAULETTE QUINTERO May 08, 2024 10:28 NATE MCCAULEY MD May 08, 2024 15:52
--- NOTE | 2024-05-08 11:06 | DVH ---
US BiLat Lower DVT HISTORY: rule out DVT COMPARISON: None TECHNIQUE: Duplex Doppler evaluation of the deep venous system of the lower extremity from the common femoral veins, superficial femoral vein, great saphenous vein, deep femoral vein, popliteal vein, an d calf veins, including color Doppler and spectral/pulsed waveform analysis, was performed. FINDINGS: Right: - Common femoral vein: Compressible - Deep femoral vein: Compressible - Femoral vein: Compressible - Popliteal vein: Compressible - Posterior tibial vein: Waveforms present - Other: Nothing Left: - Common femoral vein: Compressible - Deep femoral vein: Compressible - Femoral vein: Compressible - Popliteal vein: Compressible - Posterior tibial vein: Waveforms present - Other: Nothing IMPRESSION: No right or left lower extremity deep venous thrombosis.
[2024-05-08] MEDS: IOHEXOL 350 MG/ML 100ML IJ ONE (11:11)
--- NOTE | 2024-05-08 11:36 | DVHSR ---
APPROVED REPORT EXAM: Two-dimensional and M-mode echocardiogram with Doppler and color Doppler. Blood Pressure: 114/55 mmHg INDICATION Cardiac arrest NSTEMI RISK FACTORS Height: 5'10", Weight: 170 DIMENSIONS LVDd3.4 (3.8-5.7cm)LA (2D)3.2 (1.9-4.0cm)Aortic Root2.7 (2.0-3.7cm) LVDs2.3 (2.5-4.0cm)LA (MM) (1.9-4.0cm)Aortic Cusp Exc1.6 (1.5-2.0cm) EF (%) 55.0 (55-70%)Rt. Atrium3.2 (1.9-4.0cm)Asc. Aorta cm IVSd1.0 (0.7-1.1cm)RV (D) (1.8-2.4cm) PWd1.1 (0.7-1.1cm) Mitral Valve MitralMitral Stenosis E wave0.54m/sMV Mean GR.mmHg A wave0.74m/sMV Peak GR.mmHg E/A ratio0.72D MVAcm2 DECEL [id number] 1/2 Timems Aortic Valve Aortic ValveAortic Stenosis V11.02m/Yulissa Mean GR.3mmHg V21.37m/Yulissa Peak GR.7mmHg LVOT Diameter1.8 (1.8-2.4cm)Doppler AVA1.89cm2 AI P 1/2 Dgfx322.76ms Pulmonic Valve V20.75m/s Tricuspid Valve TR Velocity3.25m/s [id number] Conclusion lvef 55% by visaul estimate severe septal hypertrophy RV enlarged mild, normal function left atrium enlarged mild aortic sclerosis
--- NOTE | 2024-05-08 12:08 | DVH ---
EXAM: CT HEAD WITHOUT CONTRAST INDICATION: S/P cardiac arrest TECHNIQUE: CT of the head without intravenous contrast. Coronal and sagittal reformatted images are submitted. Radiation Dose : 1. Head: CT Dose: CTDI volume is 23.1 mGy. Dose-length product is 442.5 mGy*cm The dose indicators for CT are the volume Computed Tomography (CT) Dose Index (CTDIvol) and the Dose Length Product (DLP), and are measured in units of mGy and mGy-cm, respectively. These indicators are not patient dose, but values generated from the CT scanner acquisition factors. The report includes radiation exposure data for exposures received during this examination. All CT scans at this medical facility are performed using dose modulation techniques as appropriate to a performed exam including the following: Automated exposure control was utilized; adjustment of the MA and/or KV according to patient size; and use of iterative reconstruction technique. COMPARISON: None FINDINGS: There is no evidence of acute intracranial hemorrhage, extra-axial collection, mass effect, midline s hift, herniation or hydrocephalus. There are periventricular and subcortical hypodensities, nonspecific, but likely reflecting sequelae of chronic microvascular ischemic changes. The ventricles, sulci and cisterns are age appropriate. The selby-white differentiation is intact. There is age-indeterminate infarct in the left basal gangli a. The bilateral mastoid sinuses are under pneumatized. Mucosal thickening in the right maxillary sinus . Bilateral lens replacements. No depressed calvarial fracture. The surrounding soft tissues are unremarkable. IMPRESSION: 1. Age-indeterminate infarcts in the left basal ganglia, possibly subacute. MRI of the brain without intravenous contrast is recommended for further evaluation. 2. No evidence of acute intracranial hemorrhage.
--- NOTE | 2024-05-08 12:59 | DVH ---
Procedure: CT CT CHEST/AB/PL W CON- IV ONLY 05/08/2024 11:35 AM Indication: Rule out PE Comparison Study: None Technique: Axial images were obtained and reformatted in coronal and sagittal planes. All CT scans at this medical facility are performed using dose modulation techniques as appropriate t o a performed exam including the following: Automated exposure control was utilized; adjustment of th e MA and/or KV according to patient size; and use of iterative reconstruction technique. CT Dose: CTDI volume is 52 mGy. Dose-length product is 2932 mGy*cm FINDINGS: Vasculature: No pulmonary emboli. No aortic aneurysm or dissection. Scattered calcified plaques of the aorta noted. Coronary artery calcification. The abdominal aorta is normal in caliber with no ev idence of aneurysm or dissection. Diffuse atherosclerotic calcification of mid to distal abdominal ao rta noted. Mild calcified plaque formation at the origin of the bilateral renal arteries and celiac trunk. The SMA and JAIMEE are unremarkable. Lower neck: Unremarkable. Cardiomediastinal: The heart is normal in size. Soft tissue fullness subcentimeter calcifications in the left anterior mediastinum uncertain etiology. Adjacent sclerotic changes of the ribs from old fra ctures noted. Mild mediastinal lymphadenopathy measuring up to 1.4 x 1 cm. Right IJ line ends in the distal SVC. Respiratory: The ETT ends above the level of filemon. Moderate bilateral pulmonary opacities, more pro minent in the left lower lobe. Few scattered nodular opacities are seen. No pleural effusion. No pneu mothorax. Hepatobiliary: Moderately distended gallbladder. No calcified gallstone. No gallbladder wall thickeni ng. No intrahepatic or extrahepatic ductal dilatation. Spleen: Unremarkable. Pancreas: Unremarkable. Adrenal Glands: A 2.7 cm heterogeneous left adrenal mass is seen. A 1 cm right adrenal nodule noted. tract: The kidneys are normal in size bilaterally without hydronephrosis or nephrolithiasis. Blad chung is decompressed with a Case catheter and cannot be adequately assessed. GI tract: The NG tube extends to the stomach. Some contrast is seen in the gastric lumen. The stomac h is grossly normal in appearance. No evidence of small bowel obstruction. Suboptimal evaluation of t he large bowel due to lack of distention. No pericolonic inflammation noted. A rectal tube is in leilani ce. Suggestion of prior appendectomy. Lymphatics: No mesenteric, retroperitoneal or periportal lymphadenopathy. Vasculature: The abdominal aorta is normal in in caliber. Pelvic Organs: Unremarkable. Bones/soft tissues: Acute appearing fractures of the anterior 3rd, 4th and 5th ribs with displacement of the 4th rib noted. Sclerotic changes of the 3rd and 4th ribs at the costochondral junction noted . Flowing anterior ossification is noted in the thoracic spine at several levels with preservation of disc spaces contiguous compatible with diffuse idiopathic skeletal hyperostosis. Multilevel degenera tive disc disease and posterior facet arthropathy of the lumbar spine. Other: None. IMPRESSION: 1. No pulmonary emboli, aortic aneurysm or dissection. 2. Bilateral pulmonary opacities, severe in the left lower lobe most compatible with pneumonia. Few s cattered nodules noted which may reflect metastasis. Recommend clinical correlation and follow-up to ensure resolution no underlying mass. No significant pleural effusion. No pneumothorax. 3. Moderate soft tissue fullness and calcification in the left anterior upper mediastinum with areas of calcification and adjacent sclerotic changes of the 3rd and 4th ribs and acute appearing fractures of the 3rd, 4th and 5th ribs. This is of uncertain etiology. Correlate with history of prior radiat ion therapy. No evidence of pneumothorax. 4. Bilateral adrenal masses measuring 2.7 cm in the left adrenal gland concerning for metastasis.
[2024-05-08] MEDS: ACETAMINOPHEN 650 mg PER 20.3 mL UD GT PRN (13:53)
[2024-05-08] MEDS: VANCOMYCIN 1.25GM/250ML 250 ML IV SCH (20:14)
--- NOTE | 2024-05-08 20:58 | DVHINCON2 ---
Date of service: May 08, 2024 Referring Physician Ananth Reason for Consultation Acute stroke History of Present Illness Ms. Aquino is a 74 years old right-handed female with a history of hypertension, AFib, colon cancer, lung cancer with brain metastatic disease status post chemo and radiation treatment, she was brought to the [facility] on 05/07/2024 with a chief complaint of cardiac arrest with ROSC. The history is obtained from her daughter, I have also reviewed the chart and talked to her nurse Her son found her down nonresponsive and he started CPR right away, when EMS came over, the took over the CPR and the patient was intubated in the ambulance. She was lung cancer with brain metastatic disease, she went through chemotherapy and radiation with good results UDS, 05/07/2024: Fentanyl, benzo Urinalysis, 05/07/2024: WBC: 4, urine leukocyte esterase: Negative ABG, 05/07/2024: Combined metabolic and respiratory acidosis, WBC/HB/PLT/MCV, 04/28/2024: 20.1/12.9/249/99.8 K, 05/07/2024: 2.4, 205, 05/08/2024: 3.2 BUN/CR, 05/07/2024: 22/1.73, 05/08/2024: 23/1.37 TBI/AST/ALT/AP, 05/08/2024: 0.5/187/210/75 TG/HDL/LDL/HDL, 05/07/2024: 143/177/85/67 TSH, 05/07/2024: 3.46 Venous Doppler, 05/08/2024: No right or left lower extremity deep venous thrombosis Echocardiogram, 05/08/2024: lvef 55% by visaul estimate severe septal hypertrophy RV enlarged mild, normal function left atrium enlarged mild aortic sclerosis CT head, 05/08/2024: 1. Age-indeterminate infarcts in the left basal ganglia, possibly subacute. MRI of the brain without intravenous contrast is recommended for further evaluation. 2. No evidence of acute intracranial hemorrhage Past Medical History Hypertension, AFib, colon cancer, lung cancer with brain metastatic disease Past Surgical History Colon cancer resection Family History: Colon cancer G8 FATHER, Onset:50's - 60 Myocardial infarction G8 MOTHER, Onset:50's - 60 Family History Heart disease, cancer Social History She was tobacco smoke, but no history of alcohol or recreational substance abuse Allergies: Coded Allergies: NO KNOWN ALLERGIES (Unverified , 05/07/24) Current Medications Current Medications Medications (Trade) Dose Ordered Sig/Jerome Route PRN Reason Start Time Stop Time Status Last Admin Cefepime HCl 50 ml @ 12.5 mls/hr Q12HR IV 05/07/24 22:00 UNV Pantoprazole Sodium (Protonix) 40 mg DAILY IV 05/08/24 10:00 05/08/24 10:06 Enoxaparin Sodium (Lovenox) 40 mg DAILY SC 05/08/24 10:00 05/08/24 10:07 Cefepime HCl 50 ml @ 12.5 mls/hr Q12HR IV 05/08/24 10:00 05/08/24 10:08 Potassium Chloride 100 ml @ 50 mls/hr Q2H IV 05/08/24 00:30 05/08/24 04:29 DC 05/08/24 03:00 Potassium Chloride 40 meq/ Sodium Chloride 1,020 ml @ 100 mls/hr [id number] IV 05/08/24 08:30 05/08/24 18:41 DC 05/08/24 08:30 Acetaminophen (Tylenol Solution Oral) 650 mg Q6HP PRN GT PAIN SCALE 1-3 OR TEMP>100.4 05/08/24 08:30 05/08/24 13:53 Vancomycin HCl 250 ml @ 200 mls/hr Q24H IV 05/08/24 20:00 05/08/24 20:14 Review of Systems As above, the other systems are negative Vital Signs Vital Signs Date Time Temp Pulse Resp B/P (MAP) Pulse Ox O2 Delivery O2 Flow Rate FiO2 05/08/24 20:06 94 24 109/45 (66) 93 30 05/08/24 18:37 100.0 212.0 05/08/24 08:00 Mechanical Ventilator+ Physical Exam The patient is well-nourished and well-developed with no distress. The patient is intubated HEENT: Normocephalic, neck supple, no carotid bruits Lungs: Clear to auscultation Cardiovascular: Regular rate and region, S1, S2, no murmurs Abdomen: Soft, nontender, normal bowel sounds MENTAL STATUS: She was responsive to light painful stimuli, CRANIAL NERVES: Pupils are equal, round and slightly reactive.There are corneal reflexes and doll's eyes phenomenon. No signs of facial weakness. There are gagging or coughing reflexes SENSATION: Responses to pain stimuli. MOTOR: Normal tone in the upper and lower extremity. Normal muscle bulk. No fasciculations. A little bit of movement in the lower extremities noticed. REFLEXES: Deep tendon reflexes are symmetrical. No pathological reflexes. CEREBELLAR/COORDINATION: Deferred GAIT/STATION: deferred. Labs/Diagnostic Data Labs Test 05/08/24 08:03 05/08/24 06:20 05/07/24 22:00 05/07/24 19:05 Range/Units Blood Gas Specimen Type Arterial Blood Gas Sample Site Right brachial Blood Gas Patient Temperature 37.0 Arterial Blood Date Drawn [id number] Arterial Blood pH 7.451 H 7.350-7.450 Arterial Blood Partial Pressure CO2 32.0 32.0-45.0 mmHg Arterial Blood Partial Pressure O2 98.1 83.0-108.0 mmHg Arterial Blood HCO3 21.8 21.0-28.0 mmol/L Arterial Blood Oxygen Saturation 97.5 94.0-98.0 % Arterial Blood Base Excess -1.3 -2.0-3.0 mmol/L Arterial Blood Oxyhemoglobin 95.9 94.0-98.0 % Arterial Blood Carboxyhemoglobin 1.5 0.5-1.5 % Arterial Blood Methemoglobin 0.1 0.0-1.5 % Germán Test N/a Blood Gas Total Hemoglobin 13.30 12.0-16.0 g/dL Blood Gas Set Respiration Rate 24.0 Blood Gas Modality Vent - ac FiO2 % 50.0 Blood Gas Tidal Volume 600.0 Blood Gas PEEP or CPAP 8.0 White Blood Count 20.1 H 4.4-10.8 10^3/uL Red Blood Count 3.95 L 4.0-5.20 10^6/uL Hemoglobin 12.9 12.2-16.2 g/dL Hematocrit 39.4 # 36.0-46.0 % Mean Corpuscular Volume 99.8 80.0-100.0 fL Mean Corpuscular Hemoglobin 32.6 H 28.0-32.0 pg Mean Corpuscular Hemoglobin Concent 32.7 32.0-36.0 g/dL Red Cell Distribution Width 13.7 11.8-14.3 % Platelet Count 249 140-450 10^3/uL Mean Platelet Volume 7.3 6.9-10.8 fL Neutrophils (%) (Auto) 93.7 H 37.0-80.0 % Lymphocytes (%) (Auto) 3.2 L 10.0-50.0 % Monocytes (%) (Auto) 3.1 0.0-12.0 % Eosinophils (%) (Auto) 0.0 0.0-7.0 % Basophils (%) (Auto) 0.0 0.0-2.0 % Neutrophils # (Auto) 18.9 H 1.6-8.6 10 ^3/uL Lymphocytes # (Auto) 0.6 0.4-5.4 10 ^3/uL Monocytes # (Auto) 0.6 0-1.3 10 ^3/uL Eosinophils # (Auto) 0 0-0.8 10 ^3/uL Basophils # (Auto) 0 0-0.2 10 ^3/uL Nucleated Red Blood Cells 0.0 % Sodium Level 144 136-145 mmol/L Potassium Level 3.2 L 3.5-5.1 mmol/L Chloride Level 104 98-107 mmol/L Carbon Dioxide Level 25 20-31 mmol/L Anion Gap 15 5-15 Blood Urea Nitrogen 23 9-23 mg/dL Creatinine 1.37 H 0.550-1.02 mg/dL Glomerular Filtration Rate Calc 41 >90 mL/min BUN/Creatinine Ratio 16.8 10.0-20.0 Serum Glucose 234 H 74-106 mg/dL Calcium Level 8.7 8.7-10.4 mg/dL Total Bilirubin 0.5 0.2-1.0 mg/dL Aspartate Amino Transferase (AST) 187 H 13-40 U/L Alanine Aminotransferase (ALT) 210 H 7-40 U/L Alkaline Phosphatase 75 46-116 U/L Troponin I High Sensitivity 172 *H </=34 ng/L B-Type Natriuretic Peptide 560.10 0-100 pg/mL Total Protein 5.6 L 5.7-8.2 g/dL Albumin 3.6 3.2-4.8 g/dL Random Vancomycin Level 13.1 H 5-10 ug/mL Lactic Acid Level 6.8 *H 0.4-2.0 mmol/L POC Glucose 142 H 70-106 mg/dl Test 05/07/24 16:50 05/07/24 16:22 05/07/24 15:06 05/07/24 14:20 Range/Units Triglycerides Level 143 < 150 mg/dL Cholesterol Level 177 < 200 mg/dL LDL Cholesterol 85 < 100 mg/dL HDL Cholesterol 67 H 40-59 mg/dL Thyroid Stimulating Hormone (TSH) 3.46 0.55-4.78 uIU/mL Blood Gas Critical Value Read Back Yes Blood Gas Notified Whom ethan Calabrese Blood Gas Notified Time [id number] Blood Gas Notified By [facility]ist jorge a vela Urine Color Dark-yellow Yellow Urine Clarity Turbid H Clear Urine pH 5.5 5.0-9.0 Urine Specific [place] 1.021 1.001-1.035 Urine Protein 2+ H Negative Urine Ketones Negative Negative Urine Blood 1+ H Negative /uL Urine Nitrite Negative Negative Urine Bilirubin Negative Negative Urine Urobilinogen 2 H Negative mg/dL Urine Leukocyte Esterase Negative Negative /uL Urine RBC 28 0 - 4 /hpf Urine Microscopic WBC 4 0-5 /HPF Urine Squamous Epithelial Cells Few <5 /hpf Urine Bacteria Few H None Seen /hpf Urine Hyaline Casts Many 0 - 2 /lpf Urine Mucus Few None Seen Urine Yeast (Budding) Occasional None Seen /hpf Urine Glucose 1+ H Normal mg/dL Urine Opiates Screen Neg NEGATIVE Urine Fentanyl Screen Pos NEGATIVE Urine Barbiturates Screen Neg NEGATIVE Urine Phencyclidine Screen Neg NEGATIVE Urine Amphetamines Screen Neg NEGATIVE Urine Benzodiazepines Screen Pos NEGATIVE Urine Cocaine Screen Neg NEGATIVE Urine Cannabinoids Screen Neg NEGATIVE Erythrocyte Sedimentation Rate 30 H 0-20 mm/hr Prothrombin Time 11.4 9.3-11.8 sec Prothrombin Time INR 1.08 0.9-1.15 Activated Partial Thromboplast Time 27.3 24.5-34.5 SEC D-Dimer, Quantitative 16.00 H 0.0-0.49 mg/L FEU Hemoglobin A1c 5.4 <5.7 % A1C Magnesium Level 1.9 1.6-2.6 mg/dL C-Reactive Protein High Sensitivity 0.75 <1.0 mg/dL Microbiology Date/Time Source Procedure Growth Status 05/08/24 02:17 Sputum Gram Stain - Final Resulted 05/08/24 02:17 Sputum Respiratory Culture - Preliminary Resulted 05/07/24 19:10 Nose MRSA Screen - Final Methicillin Resistant S.aureus Complete 05/07/24 15:06 Urine - Case Port Urine Culture - Preliminary Resulted 05/07/24 14:20 Blood Blood Culture - Preliminary NO GROWTH AFTER 24 HOURS OF INCUBATION. Resulted Assessment Abnormal brain CT scan ? Acute/subacute stroke ? Secondary to brain metastatic disease Cardiopulmonary arrest Respiratory failure Metabolic acidosis Respiratory acidosis History of lung cancer with brain metastatic disease Plan/Recommendation Monitoring Supportive treatment Follow-up labs EEG MR brain scan ICU care Stabilize vitals/pressor drip Respiratory support/vent management Oxygen IV antibiotics DVT prophylaxis GI prophylaxis More recommendation per clinical course Prognosis: Guarded Critical care time spent is 45 minutes This medical document was created using an electronic medical record system with [employer] computerized dictation system. Although this document has been carefully reviewed, there may still be some phonetic and typographical errors. These areas are purely typographical due to imperfections of the software programs, and do not reflect any compromise in the patient's medical care. Plan discussed with: Daughter, Other CE FERREIRA MD May 08, 2024 20:58
[2024-05-09] VITALS (145 sets, daily range): BP systolic 77–154; BP diastolic 37–88; PULSE 54–179; RESP 18–26; TEMP 99–101.3; O2SAT 86–100
[2024-05-09 04:01] LABS: Basophils # (auto) 0 10 ^3/uL (0-0.2); Basophils % (auto) 0.1 % (0.0-2.0); Eosinophils # (auto) 0 10 ^3/uL (0-0.8); Eosinophils % (auto) 0.2 % (0.0-7.0); Hematocrit 32.8 % (36.0-46.0); Lymphocytes # (auto) 0.9 10 ^3/uL (0.4-5.4); Lymphocytes % (auto) 5.5 % (10.0-50.0); Mean Corpuscular Hemoglobin 33.2 pg (28.0-32.0); Mean Corpuscular Hgb Conc. 33.6 g/dL (32.0-36.0); Mean Corpuscular Volume 98.9 fL (80.0-100.0); Monocytes # (auto) 0.8 10 ^3/uL (0-1.3); Monocytes % (auto) 4.8 % (0.0-12.0); Neutrophils # (auto) 14.1 10 ^3/uL (1.6-8.6); Neutrophils % (auto) 89.4 % (37.0-80.0); Platelet Count (auto) 207 10^3/uL (140-450); Red Blood Cells 3.32 10^6/uL (4.0-5.20); White Blood Cell 15.8 10^3/uL (4.4-10.8)
[2024-05-09 04:12] LABS: Albumin 3.3 g/dL (3.2-4.8); Alkaline Phosphatase 80 U/L (46-116); Anion Gap 9 (5-15); BUN/Creatinine Ratio 22.5 (10.0-20.0); Blood Urea Nitrogen 20 mg/dL (9-23); Carbon Dioxide 26 mmol/L (20-31); Chloride 107 mmol/L (98-107); Potassium 3.9 mmol/L (3.5-5.1); Sodium 142 mmol/L (136-145)
[2024-05-09 04:13] LABS: Alanine Aminotransferase 126 U/L (7-40); Aspartate Aminotransferase 83 U/L (13-40); Bilirubin, Total 0.9 mg/dL (0.2-1.0); Calcium 8.7 mg/dL (8.7-10.4); Glucose 132 mg/dL (74-106); Total Protein 5.4 g/dL (5.7-8.2)
--- NOTE | 2024-05-09 05:18 | DVH ---
EXAM: XR Cervical Spine, 6 or More Views CLINICAL INDICATION: pna TECHNIQUE: Frontal, lateral, oblique and flexion/extension views of the cervical spine. COMPARISON: XY CHEST PORTABLE on DOS: 05/08/24, XY CHEST XRAY 1 VIEW on DOS: 05/07/24, XY CHEST ERNIE BLE on DOS: 05/07/24 FINDINGS: VERTEBRAE: Unremarkable. No acute fracture. Normal alignment. No instability. DISC SPACES: No acute findings. No significant narrowing. SOFT TISSUES: Congestion and edema, greater on the left. TUBES, LINES AND DEVICES: The endotracheal tube (ETT) is in satisfactory position. Enteric tube ti p in the stomach. Right-sided Mediport with the distal tip in the SVC. No pneumothorax. OTHER FINDINGS: . None. ... IMPRESSION: Congestion and edema, greater on the left.
[2024-05-09] MEDS: MIDAZOLAM HCL 5 MG/ML-1ML VIAL ONE (07:45)
[2024-05-09] MEDS: NOREPINEPHRINE 8 MG/250ML KIT 250 ML IV ONE (07:46)
[2024-05-09 07:58] LABS: Base Excess 1.4 mmol/L (-2.0-3.0)
--- NOTE | 2024-05-09 09:05 | DVHPN2 ---
Subjective Patient chemically sedated Reviewed: Care Plan, H&P, Labs Changes from previous H/P or p: No Changes General: Per HPI Objective Vitals Vital Signs Date Time Temp Pulse Resp B/P (MAP) Pulse Ox O2 Delivery O2 Flow Rate FiO2 05/09/24 06:53 99.9 94 24 99/55 (70) 100 99.9 05/09/24 06:06 30 05/09/24 06:00 Mechanical Ventilator+ Intake/Output Intake and Output 05/09/24 07:00 Intake Total 1842.693 ml Output Total 1050 ml Balance 792.693 ml Intake Oral 20 ml IV Total 1822.693 ml Output Urine Total 1050 ml General Appearance: moderate distress, Other (Encephalopathic) HEENT: Atraumatic, PERRLA Lungs: Other (Mechanical ventilation. Bilateral rhonchi) Cardiovascular: Normal S1, Normal S2 Genitourinary: No Apparent Abnormalities (Case catheter) Neuro: Other (Withdraws to painful stimuli. Positive coughing gag) Skin: Dry, Intact Psych/Mental Status: Other (Unable to assess) Medications Current Medications Medications Dose Ordered Sig/Jerome Route Start Time Stop Time Status Last Admin Dose Admin Midazolam HCl 50 ml @ 1 mls/hr Q24H IV 05/07/24 13:30 05/09/24 03:51 7 MLS/HR Fentanyl Citrate 250 ml @ 2.5 mls/hr Q24H IV 05/07/24 13:30 05/09/24 02:01 10 MLS/HR Nitroglycerin 0.4 mg Q5MINP PRN SL 05/07/24 17:15 Morphine Sulfate 2 mg Q30M PRN IV 05/07/24 17:15 Cefepime HCl 50 ml @ 12.5 mls/hr Q12HR IV 05/07/24 22:00 UNV Vancomycin HCl 0 ml @ 0 mls/hr UD IV 05/07/24 17:15 Albuterol 2.5 mg Q6HR NEB 05/07/24 18:00 05/09/24 06:06 2.5 MG Ipratropium [place] 0.5 mg Q6HR NEB 05/07/24 18:00 05/09/24 06:06 0.5 MG Pantoprazole Sodium 40 mg DAILY IV 05/08/24 10:00 05/08/24 10:06 40 MG Enoxaparin Sodium 40 mg DAILY SC 05/08/24 10:00 05/08/24 10:07 40 MG Vasopressin 20 units/Sodium Chloride 100 ml @ 9 mls/hr Q11H7M IV 05/07/24 17:15 Norepinephrine Bitartrate 32 mg/ Sodium Chloride 250 ml @ 0.938 mls/ hr Q24H IV 05/07/24 18:00 05/09/24 00:01 5.625 MLS/HR Cefepime HCl 50 ml @ 12.5 mls/hr Q12HR IV 05/08/24 10:00 05/08/24 21:54 12.5 MLS/HR Acetaminophen 650 mg Q6HP PRN GT 05/08/24 08:30 05/08/24 21:55 650 MG Vancomycin HCl 250 ml @ 200 mls/hr Q24H IV 05/08/24 20:00 05/08/24 20:14 200 MLS/HR Enteral Nutritional Formula 1,000 ml 30ML/HR GT 05/09/24 08:30 UNV Laboratory Results Laboratory Tests 05/09/24 03:20 Chemistry Test 05/09/24 03:20 Albumin 3.3 g/dL (3.2-4.8) Calcium Level 8.7 mg/dL (8.7-10.4) Total Protein 5.4 g/dL (5.7-8.2) L LFT Test 05/09/24 03:20 Alanine Aminotransferase (ALT) 126 U/L (7-40) H Alkaline Phosphatase 80 U/L (46-116) Aspartate Amino Transferase (AST) 83 U/L (13-40) H Total Bilirubin 0.9 mg/dL (0.2-1.0) Urinalysis Test 05/07/24 15:06 Urine Color Dark-yellow (Yellow) Urine Clarity Turbid (Clear) H Urine pH 5.5 (5.0-9.0) Urine Specific [place] 1.021 (1.001-1.035) Urine Protein 2+ (Negative) H Urine Ketones Negative (Negative) Urine Blood 1+ /uL (Negative) H Urine Nitrite Negative (Negative) Urine Bilirubin Negative (Negative) Urine Urobilinogen 2 mg/dL (Negative) H Urine Leukocyte Esterase Negative /uL (Negative) Urine RBC 28 /hpf (0 - 4) Urine Microscopic WBC 4 /HPF (0-5) Urine Squamous Epithelial Cells Few /hpf (<5) Urine Bacteria Few /hpf (None Seen) H Urine Hyaline Casts Many /lpf (0 - 2) Urine Mucus Few (None Seen) Urine Yeast (Budding) Occasional /hpf (None Urine Glucose 1+ mg/dL (Normal) H Blood Gas Results Test 05/09/24 07:51 Arterial Blood pH 7.442 (7.350-7.450) FiO2 % 30.0 Microbiology Microbiology Date/Time Source Procedure Growth Status 05/08/24 02:17 Sputum Gram Stain - Final Complete 05/08/24 02:17 Respiratory Culture - Final Klebsiella pneumoniae Complete 05/07/24 19:10 Nose MRSA Screen - Final Methicillin Resistant S.aureus Complete 05/07/24 15:06 Urine - Case Port Urine Culture - Preliminary Resulted 05/07/24 14:20 Blood Blood Culture - Preliminary NO GROWTH AFTER 24 HOURS OF INCUBATION. Resulted Labs and/or images reviewed: Labs reviewed by me, Image(s) reviewed by me Assessment/Plan Assessment/Plan Impression: -cardiopulmonary arrest in the field -acute hypoxic and hypercarbic respiratory failure with mechanical ventilation -full mouth pulmonary embolism -NSTEMI, rule out type 1 -hyperkalemia -acute kidney injury -shock liver -septic shock -community-acquired pneumonia, Klebsiella pneumoniae -primary hypertension -history of atrial fibrillation with anticoagulation Plan: Events: No events overnight. Long discussion made with the patient's children yesterday evening. Updated them on CT scans of head, chest, abdomen, pelvis, DVT study, as well as lab work. Plans for MRI today. Pending neurology consultation. Continues to be on vasopressor therapy. Decrease FiO2 requirements. -continue vasopressor therapy with norepinephrine. Add vasopressin to keep map greater than 65 mmHg -MRI of the brain -continue antibiotic therapy with vancomycin and cefepime -restart tube feeding -bronchodilators -cardiology consultation : Recommendations reviewed -PUD, DVT prophylaxis -repeat labs, chest x-ray, ABG in a.m. Critical care time spent with patient discussing and formulating plan of care: 40 minutes. This does not include time spent performing procedures. This medical document was created using an electronic medical record system with [employer] system. Although this document has been carefully reviewed, there may still be some phonetic and typographical errors. These areas are purely typographical due to imperfections of the software programs, and do not reflect any compromise in the patient's medical care. Plan discussed with: Patient, Other (RN) My Orders Orders - KELLEY GARCIA NP Procedure Category Date Status Time Vancomycin PHA 05/08/24 In Process 1.25gm/250ml 20:00 Vancomycin,Trough LAB 05/10/24 Verified 19:00 Vancomycin Per SHANIQUA 05/10/24 In Process Pharmacy Protoc 20:00 * Neurology Consult CONS 05/08/24 Transmitted 13:19 Brain Head Wo Contrast MRI 05/09/24 Logged 13:19 Nutritional PHA 05/09/24 Logged Supplements (Jevity 08:30 Furosemide Injection PHA 05/09/24 Logged (Lasix Injection) 08:30 Complete Blood Count LAB 05/10/24 Verified 05:00 Complete Blood Count LAB 05/11/24 Verified 05:00 Complete Blood Count LAB 05/12/24 Verified 05:00 Comprehensive LAB 05/10/24 Verified Metabolic Panel 05:00 Comprehensive LAB 05/11/24 Verified Metabolic Panel 05:00 Comprehensive LAB 05/12/24 Verified Metabolic Panel 05:00 Chest Portable XY 05/10/24 Logged 05:00 Chest Portable XY 05/11/24 Logged 05:00 Chest Portable XY 05/12/24 Logged 05:00 Abg W/ Co-Ox RT 05/10/24 Logged 05:00 Abg W/ Co-Ox RT 05/11/24 Logged 05:00 Abg W/ Co-Ox RT 05/12/24 Logged 05:00 Ventilator Orders RT 05/09/24 Transmitted 09:00 Date of Service: May 09, 2024 Billing Provider: KELLEY GARCIA NP Common Visit Codes: [id number] CARE 30-74 MIN KELLEY GARCIA NP May 09, 2024 09:05
--- NOTE | 2024-05-09 09:19 | DVHPN2 ---
Progress Note - Dictate Date Seen: May 09, 2024 Medical Necessity Reason Pt with a Central, PICC or Fol: Yes The following are medically ne: Central Line, Case Catheter Subjective Ms. Aquino is a 74 years old right-handed female with a history of hypertension, AFib, colon cancer, lung cancer with brain metastatic disease status post chemo and radiation treatment, she was brought to the [facility] on 05/07/2024 with a chief complaint of cardiac arrest with ROSC. I have seen and examined the patient, I have discussed with her daughter, nurse and other medical staff, the case was discussed with Ananth She responds to painful stimuli, she has gag reflexes and other brainstem reflexes UDS, 05/07/2024: Fentanyl, benzo Urinalysis, 05/07/2024: WBC: 4, urine leukocyte esterase: Negative ABG, 05/07/2024: Combined metabolic and respiratory acidosis, WBC/HB/PLT/MCV, 04/28/2024: 20.1/12.9/249/99.8 K, 05/07/2024: 2.4, 205, 05/08/2024: 3.2 BUN/CR, 05/07/2024: 22/1.73, 05/08/2024: 23/1.37 TBI/AST/ALT/AP, 05/08/2024: 0.5/187/210/75 TG/HDL/LDL/HDL, 05/07/2024: 143/177/85/67 TSH, 05/07/2024: 3.46 Venous Doppler, 05/08/2024: No right or left lower extremity deep venous thrombosis Echocardiogram, 05/08/2024: lvef 55% by visaul estimate severe septal hypertrophy RV enlarged mild, normal function left atrium enlarged mild aortic sclerosis CT head, 05/08/2024: 1. Age-indeterminate infarcts in the left basal ganglia, possibly subacute. MRI of the brain without intravenous contrast is recommended for further evaluation. 2. No evidence of acute intracranial hemorrhage vital signs Vital Sign Date Time Temp Pulse Resp B/P (MAP) Pulse Ox O2 Delivery O2 Flow Rate FiO2 05/09/24 06:53 99.9 94 24 99/55 (70) 100 99.9 05/09/24 06:06 30 05/09/24 06:00 Mechanical Ventilator+ Total Intake and Output 05/08/24 05/08/24 05/09/24 15:00 23:00 07:00 Intake Total 807.690 ml 805.690 ml 229.313 ml Output Total 500 ml 550 ml Balance 807.690 ml 305.690 ml -320.687 ml medications Current Medications Medications Dose Ordered Sig/Jerome Route Start Time Stop Time Status Last Admin Dose Admin Midazolam HCl 50 ml @ 1 mls/hr Q24H IV 05/07/24 13:30 05/09/24 03:51 7 MLS/HR Fentanyl Citrate 250 ml @ 2.5 mls/hr Q24H IV 05/07/24 13:30 05/09/24 02:01 10 MLS/HR Nitroglycerin 0.4 mg Q5MINP PRN SL 05/07/24 17:15 Morphine Sulfate 2 mg Q30M PRN IV 05/07/24 17:15 Cefepime HCl 50 ml @ 12.5 mls/hr Q12HR IV 05/07/24 22:00 UNV Vancomycin HCl 0 ml @ 0 mls/hr UD IV 05/07/24 17:15 Albuterol 2.5 mg Q6HR NEB 05/07/24 18:00 05/09/24 06:06 2.5 MG Ipratropium [place] 0.5 mg Q6HR NEB 05/07/24 18:00 05/09/24 06:06 0.5 MG Pantoprazole Sodium 40 mg DAILY IV 05/08/24 10:00 05/08/24 10:06 40 MG Enoxaparin Sodium 40 mg DAILY SC 05/08/24 10:00 05/08/24 10:07 40 MG Vasopressin 20 units/Sodium Chloride 100 ml @ 9 mls/hr Q11H7M IV 05/07/24 17:15 Norepinephrine Bitartrate 32 mg/ Sodium Chloride 250 ml @ 0.938 mls/ hr Q24H IV 05/07/24 18:00 05/09/24 00:01 5.625 MLS/HR Cefepime HCl 50 ml @ 12.5 mls/hr Q12HR IV 05/08/24 10:00 05/08/24 21:54 12.5 MLS/HR Acetaminophen 650 mg Q6HP PRN GT 05/08/24 08:30 2/19/25 21:55 650 MG Vancomycin HCl 250 ml @ 200 mls/hr Q24H IV 05/08/24 20:00 05/08/24 20:14 200 MLS/HR Enteral Nutritional Formula 1,000 ml 30ML/HR GT 05/09/24 08:30 objective The patient is well-nourished and well-developed with no distress. The patient is intubated MENTAL STATUS: Subjective CRANIAL NERVES: Pupils are equal, round and slightly reactive.There are corneal reflexes and doll's eyes phenomenon. No signs of facial weakness. There are gagging or coughing reflexes SENSATION: Responses to pain stimuli. MOTOR: Normal tone in the upper and lower extremity. Normal muscle bulk. No fasciculations. No spontaneous extremity movement noticed REFLEXES: Deep tendon reflexes are symmetrical. No pathological reflexes. CEREBELLAR/COORDINATION: Deferred GAIT/STATION: deferred. laboratory and microbiology Laboratory Tests 05/09/24 03:20 Test 05/09/24 03:20 Range/Units Serum Glucose 132 H 74-106 mg/dL Problem List Abnormal brain CT scan ? Acute/subacute stroke ? Secondary to brain metastatic disease Cardiopulmonary arrest Respiratory failure Metabolic acidosis Respiratory acidosis History of lung cancer with brain metastatic disease Assessment/Plan Monitoring Supportive treatment Follow-up labs EEG MR brain scan ICU care Stabilize vitals/pressor drip Respiratory support/vent management Oxygen IV antibiotics DVT prophylaxis GI prophylaxis More recommendation per clinical course This medical document was created using an electronic medical record system with [employer] dictation system. Although this document has been carefully reviewed, there may still be some phonetic and typographical errors. These areas are purely typographical due to imperfections of the software programs, and do not reflect any compromise in the patient's medical care Prognosis guarded Plan discussed with: Daughter, Other Critical Care Time(min): 35 CE FERREIRA MD May 09, 2024 09:19
[2024-05-09] MEDS: FUROSEMIDE 20 MG/2 ML VIAL IV ONE (10:18)
[2024-05-09] MEDS: AMIODARONE 360mg/200mL PREMIX 200 ML IV ONE (10:42)
[2024-05-09] MEDS: AMIODARONE BOLUS KIT 100 ML IV ONE (10:44)
--- NOTE | 2024-05-09 12:55 | DVHPN2 ---
Consult Progress Note Subjective Other Systems: Patient went into atrial fibrillation with rapid ventricular response this morning Objective vital signs Vital Sign Date Time Temp Pulse Resp B/P (MAP) Pulse Ox O2 Delivery O2 Flow Rate FiO2 05/09/24 12:05 132/71 05/09/24 11:56 100.6 05/09/24 10:30 164 23 94 30 05/09/24 06:00 Mechanical Ventilator+ Total Intake and Output 05/08/24 05/08/24 05/09/24 15:00 23:00 07:00 Intake Total 807.690 ml 805.690 ml 229.313 ml Output Total 500 ml 550 ml Balance 807.690 ml 305.690 ml -320.687 ml medications Current Medications Medications Dose Ordered Sig/Jerome Route Start Time Stop Time Status Last Admin Dose Admin Midazolam HCl 50 ml @ 1 mls/hr Q24H IV 05/07/24 13:30 05/09/24 12:05 6 MLS/HR Fentanyl Citrate 250 ml @ 2.5 mls/hr Q24H IV 05/07/24 13:30 05/09/24 02:01 10 MLS/HR Nitroglycerin 0.4 mg Q5MINP PRN SL 05/07/24 17:15 Morphine Sulfate 2 mg Q30M PRN IV 05/07/24 17:15 Cefepime HCl 50 ml @ 12.5 mls/hr Q12HR IV 05/07/24 22:00 UNV Vancomycin HCl 0 ml @ 0 mls/hr UD IV 05/07/24 17:15 Albuterol 2.5 mg Q6HR NEB 05/07/24 18:00 05/09/24 12:22 2.5 MG Ipratropium [place] 0.5 mg Q6HR NEB 05/07/24 18:00 05/09/24 12:22 0.5 MG Pantoprazole Sodium 40 mg DAILY IV 05/08/24 10:00 05/09/24 10:02 40 MG Enoxaparin Sodium 40 mg DAILY SC 05/08/24 10:00 05/09/24 10:05 40 MG Vasopressin 20 units/Sodium Chloride 100 ml @ 9 mls/hr Q11H7M IV 05/07/24 17:15 Norepinephrine Bitartrate 32 mg/ Sodium Chloride 250 ml @ 0.938 mls/ hr Q24H IV 05/07/24 18:00 05/09/24 00:01 5.625 MLS/HR Cefepime HCl 50 ml @ 12.5 mls/hr Q12HR IV 05/08/24 10:00 05/09/24 10:03 12.5 MLS/HR Acetaminophen 650 mg Q6HP PRN GT 05/08/24 08:30 05/09/24 10:25 650 MG Vancomycin HCl 250 ml @ 200 mls/hr Q24H IV 05/08/24 20:00 05/08/24 20:14 200 MLS/HR Enteral Nutritional Formula 1,000 ml 30ML/HR GT 05/09/24 08:30 Examination: GENERAL:Abnormal, LUNGS:Abnormal (Mechanically ventilated), CVS:Abnormal (Atrial fibrillation with rapid ventricular response), NEURO:Abnormal (Chemically sedated) laboratory and microbiology Laboratory Tests 05/09/24 03:20 Test 05/09/24 03:20 Range/Units Serum Glucose 132 H 74-106 mg/dL Problem List/Assessment/Plan Problem List/Assessment/Plan NSTEMI, rule out type 1 Cardiopulmonary arrest status post CPR with return of spontaneous circulation Hypertension Atrial fibrillation rapid ventricular response Septic shock Pneumonia Shock liver Rule out acute CVA Bilateral adrenal masses Acute kidney injury History of lung cancer History of brain tumor History of colon cancer status post resection Tobacco use Plan/Recommendation (Dr. Arzate): * Transthoracic echocardiogram reveals EF 55% with severe septal hypertrophy * Continue with vasopressors for hemodynamic support. * The patient went into atrial fibrillation with rapid ventricular response this morning. Patient has a previous history of atrial fibrillation. [id number] VASc score: 5 points: * Initiate antiarrhythmic agent amiodarone * Initiate digoxin loading dose * Unable to initiate beta-azalia given the patient is on vasopressor support * We will recommend to initiate patient on full therapeutic dose Lovenox and transition back to Eliquis when appropriate * Monitor and replete electrolytes as needed, keep potassium greater than four and magnesium greater than two * Close Cardiac surveillance Patient seen and examined at bedside with . At time of assessment, the patient was in atrial fibrillation with rapid ventricular response and heart rate sustaining 160's. The patient was initiated on an amiodarone bolus and amiodarone drip per pharmacy protocol. After approximately 1 hour, the patient is still remains with uncontrolled rate. Loading dose digoxin given. Thank you for allowing us to care for this patient. Please call with any questions or concerns. Critical care time spent: 38 minutes. This medical document was created using an electronic medical record system with voice recognition software and computerized dictation system. Although this document has been carefully reviewed, there might still be some phonetic and typographical errors. Occasional wrong-word or ``sound-alike substitutions may have occurred due to the inherent limitations of voice recognition software. These areas are purely typographical due to imperfections of the software programs and do not reflect any compromise in the patient's medical care. Please read the chart carefully and recognize, using context, where these substitutions have occurred. Plan discussed with: Daughter, Other (Bedside RN) Date of Service: May 09, 2024 Billing Provider: PAULETTE QUINTERO Common Visit Codes: [id number] CARE 30-74 MIN PAULETTE QUINTERO May 09, 2024 12:55
[2024-05-09] MEDS: DIGOXIN (250MCG/ML) 2 ML AMPULE IV ONE (13:22)
[2024-05-09] MEDS: MAGNESIUM SULFATE 1GM/100ML 100 ML IV SCH (14:15)
[2024-05-09] MEDS ORDERED: PHENYLEPHRINE IV 250 ML IV SCH (15:45)
[2024-05-09] MEDS: AMIODARONE 360mg/200mL PREMIX 200 ML IV SCH ×2 (16:00→17:32)
[2024-05-09] MEDS: PHENYLEPHRINE INJ 80 MG in SODIUM CHL 0.9% 242 ML IV SCH (16:58)
[2024-05-09] MEDS: CEFEPIME 2GM/50ML NS 50 ML IV SCH (22:01)
[2024-05-10] VITALS (111 sets, daily range): BP systolic 74–154; BP diastolic 28–76; PULSE 57–90; RESP 11–23; TEMP 98.6–100.8; O2SAT 87–100
[2024-05-10 04:30] LABS: Basophils # (auto) 0 10 ^3/uL (0-0.2); Basophils % (auto) 0.1 % (0.0-2.0); Eosinophils # (auto) 0.2 10 ^3/uL (0-0.8); Eosinophils % (auto) 1.2 % (0.0-7.0); Hematocrit 31.5 % (36.0-46.0); Hemoglobin 10.4 g/dL (12.2-16.2); Lymphocytes # (auto) 0.7 10 ^3/uL (0.4-5.4); Lymphocytes % (auto) 5.7 % (10.0-50.0); Mean Corpuscular Hemoglobin 32.9 pg (28.0-32.0); Mean Corpuscular Hgb Conc. 32.9 g/dL (32.0-36.0); Mean Corpuscular Volume 99.8 fL (80.0-100.0); Monocytes # (auto) 0.4 10 ^3/uL (0-1.3); Monocytes % (auto) 3.2 % (0.0-12.0); Neutrophils # (auto) 11.3 10 ^3/uL (1.6-8.6); Neutrophils % (auto) 89.8 % (37.0-80.0); Platelet Count (auto) 182 10^3/uL (140-450); Red Blood Cells 3.16 10^6/uL (4.0-5.20); Red Cell Distribution Width 13.7 % (11.8-14.3); White Blood Cell 12.6 10^3/uL (4.4-10.8)
[2024-05-10 04:50] LABS: Alkaline Phosphatase 102 U/L (46-116); Anion Gap 8 (5-15); BUN/Creatinine Ratio 20.5 (10.0-20.0); Blood Urea Nitrogen 17 mg/dL (9-23); Calcium 9.1 mg/dL (8.7-10.4); Carbon Dioxide 27 mmol/L (20-31); Chloride 105 mmol/L (98-107); Magnesium 2.2 mg/dL (1.6-2.6); Potassium 3.6 mmol/L (3.5-5.1); Sodium 140 mmol/L (136-145)
[2024-05-10 04:51] LABS: Albumin 3.4 g/dL (3.2-4.8)
[2024-05-10 04:52] LABS: Bilirubin, Total 0.9 mg/dL (0.2-1.0)
[2024-05-10 05:23] LABS: Alanine Aminotransferase 85 U/L (7-40); Aspartate Aminotransferase 60 U/L (13-40); Glucose 115 mg/dL (74-106); Total Protein 5.6 g/dL (5.7-8.2)
--- NOTE | 2024-05-10 05:30 | DVH ---
EXAM: XR Chest, 1 View CLINICAL INDICATION: pna TECHNIQUE: Frontal view of the chest. COMPARISON: XY CHEST PORTABLE on DOS: 05/09/24, XY CHEST PORTABLE on DOS: 05/08/24, XY CHEST XRAY 1 V IEW on DOS: 05/07/24, XY CHEST PORTABLE on DOS: 05/07/24 FINDINGS: LUNGS AND PLEURAL SPACES: Decreasing airspace disease of the left lung field. HEART: Cardiomegaly with mild congestion. MEDIASTINUM: Unremarkable. Normal mediastinal contour. BONES/JOINTS: Unremarkable. No acute fracture. TUBES, LINES AND DEVICES: Stable tubes and lines. OTHER FINDINGS: . None. ... IMPRESSION: 1. Decreasing airspace disease of the left lung field. 2. Cardiomegaly with mild congestion.
[2024-05-10 07:34] LABS: Base Excess 0.4 mmol/L (-2.0-3.0)
--- NOTE | 2024-05-10 10:01 | DVHPN2 ---
Subjective Patient chemically sedated Reviewed: Care Plan, H&P, Labs Changes from previous H/P or p: No Changes General: Per HPI Objective Vitals Vital Signs Date Time Temp Pulse Resp B/P (MAP) Pulse Ox O2 Delivery O2 Flow Rate FiO2 05/10/24 08:47 107/46 05/10/24 07:38 78 22 92 50 05/10/24 06:43 100.0 212.0 05/10/24 06:00 Mechanical Ventilator+ Intake/Output Intake and Output 05/10/24 07:00 Intake Total 1790.791 ml Output Total 2750 ml Balance -959.209 ml IV Total 1606.791 ml Tube Feeding 184 ml Output Urine Total 2750 ml General Appearance: moderate distress, Other (Encephalopathic) HEENT: Atraumatic, PERRLA Lungs: Other (Mechanical ventilation. Bilateral rhonchi) Cardiovascular: Normal S1, Normal S2 Genitourinary: No Apparent Abnormalities (Case catheter) Neuro: Other (Withdraws to painful stimuli. Positive coughing gag) Skin: Dry, Intact Psych/Mental Status: Other (Unable to assess) Medications Current Medications Medications Dose Ordered Sig/Jerome Route Start Time Stop Time Status Last Admin Dose Admin Midazolam HCl 50 ml @ 1 mls/hr Q24H IV 05/07/24 13:30 05/10/24 08:47 6 MLS/HR Fentanyl Citrate 250 ml @ 2.5 mls/hr Q24H IV 05/07/24 13:30 05/09/24 22:09 10 MLS/HR Nitroglycerin 0.4 mg Q5MINP PRN SL 05/07/24 17:15 Morphine Sulfate 2 mg Q30M PRN IV 05/07/24 17:15 Cefepime HCl 50 ml @ 12.5 mls/hr Q12HR IV 05/07/24 22:00 UNV Vancomycin HCl 0 ml @ 0 mls/hr UD IV 05/07/24 17:15 Ipratropium [place] 0.5 mg Q6HR NEB 05/07/24 18:00 05/10/24 06:13 0.5 MG Pantoprazole Sodium 40 mg DAILY IV 05/08/24 10:00 05/09/24 10:02 40 MG Vasopressin 20 units/Sodium Chloride 100 ml @ 9 mls/hr Q11H7M IV 05/07/24 17:15 Norepinephrine Bitartrate 32 mg/ Sodium Chloride 250 ml @ 0.938 mls/ hr Q24H IV 05/07/24 18:00 05/09/24 00:01 5.625 MLS/HR Acetaminophen 650 mg Q6HP PRN GT 05/08/24 08:30 05/09/24 17:09 650 MG Vancomycin HCl 250 ml @ 200 mls/hr Q24H IV 05/08/24 20:00 05/09/24 20:04 200 MLS/HR Enteral Nutritional Formula 1,000 ml 30ML/HR GT 05/09/24 08:30 Phenylephrine HCl 80 mg/Sodium Chloride 250 ml @ 7.5 mls/hr Q24H IV 05/09/24 16:00 05/10/24 02:27 16.875 MLS/HR Cefepime HCl 50 ml @ 12.5 mls/hr Q8HR IV 05/09/24 22:00 05/10/24 06:04 12.5 MLS/HR Levalbuterol HCl 1.25 mg Q6HR NEB 05/10/24 12:00 Acetylcysteine 100 mg Q6HR NEB 05/10/24 12:00 Apixaban 5 mg BID PO 05/10/24 10:00 Laboratory Results Laboratory Tests 05/10/24 03:10 Chemistry Test 05/10/24 03:10 Albumin 3.4 g/dL (3.2-4.8) Calcium Level 9.1 mg/dL (8.7-10.4) Magnesium Level 2.2 mg/dL (1.6-2.6) Total Protein 5.6 g/dL (5.7-8.2) L LFT Test 05/10/24 03:10 Alanine Aminotransferase (ALT) 85 U/L (7-40) H Alkaline Phosphatase 102 U/L (46-116) Aspartate Amino Transferase (AST) 60 U/L (13-40) H Total Bilirubin 0.9 mg/dL (0.2-1.0) Urinalysis Test 05/07/24 15:06 Urine Color Dark-yellow (Yellow) Urine Clarity Turbid (Clear) H Urine pH 5.5 (5.0-9.0) Urine Specific [place] 1.021 (1.001-1.035) Urine Protein 2+ (Negative) H Urine Ketones Negative (Negative) Urine Blood 1+ /uL (Negative) H Urine Nitrite Negative (Negative) Urine Bilirubin Negative (Negative) Urine Urobilinogen 2 mg/dL (Negative) H Urine Leukocyte Esterase Negative /uL (Negative) Urine RBC 28 /hpf (0 - 4) Urine Microscopic WBC 4 /HPF (0-5) Urine Squamous Epithelial Cells Few /hpf (<5) Urine Bacteria Few /hpf (None Seen) H Urine Hyaline Casts Many /lpf (0 - 2) Urine Mucus Few (None Seen) Urine Yeast (Budding) Occasional /hpf (None Urine Glucose 1+ mg/dL (Normal) H Blood Gas Results Test 05/10/24 06:41 Arterial Blood pH 7.399 (7.350-7.450) FiO2 % 40.0 Microbiology Microbiology Date/Time Source Procedure Growth Status 05/08/24 02:17 Sputum Gram Stain - Final Complete 05/08/24 02:17 Respiratory Culture - Final Klebsiella pneumoniae Complete 05/07/24 19:10 Nose MRSA Screen - Final Methicillin Resistant S.aureus Complete 05/07/24 15:06 Urine - Case Port Urine Culture - Preliminary Resulted 05/07/24 14:20 Blood Blood Culture - Preliminary NO GROWTH AFTER 48 HOURS OF INCUBATION. Resulted Labs and/or images reviewed: Labs reviewed by me, Image(s) reviewed by me Assessment/Plan Assessment/Plan Impression: -cardiopulmonary arrest in the field -acute hypoxic and hypercarbic respiratory failure with mechanical ventilation -full mouth pulmonary embolism -NSTEMI, rule out type 1 -hyperkalemia -acute kidney injury -shock liver -septic shock -community-acquired pneumonia, Klebsiella pneumoniae -primary hypertension -history of atrial fibrillation with anticoagulation Plan: Events: No events overnight. Patient now back in sinus rhythm. Patient on Fernando-Synephrine at 140 micrograms/minute. WBC improving. Continues to be febrile. -change amiodarone 20.5 milligrams/minute -continue vasopressor therapy with Fernando-Synephrine and vasopressin -change bronchodilators to Xopenex and Atrovent given AFib with RVR. Add Pulmicort and Mucomyst. -MRI of the brain: Plans to be performed today. -continue antibiotic therapy with vancomycin and cefepime -continue tube feedings -potassium replacement -bronchodilators -cardiology consultation : Recommendations reviewed -PUD, DVT prophylaxis -repeat labs, chest x-ray, ABG in a.m. -discussed case with patient's daughter was bedside. All questions answered. Critical care time spent with patient discussing and formulating plan of care: 40 minutes. This does not include time spent performing procedures. This medical document was created using an electronic medical record system with [employer] system. Although this document has been carefully reviewed, there may still be some phonetic and typographical errors. These areas are purely typographical due to imperfections of the software programs, and do not reflect any compromise in the patient's medical care. Plan discussed with: Patient, Other (RN) My Orders Orders - KELLEY GARCIA NP Procedure Category Date Status Time Communication Order ORDERS 05/09/24 Transmitted 15:36 Sodium Chl 0.9% PHA 05/09/24 In Process (Ns... 16:00 Cefepime 2gm/50ml Ns PHA 05/09/24 In Process (Maxipime 2gm/50ml) 22:00 Levalbuterol Hcl PHA 05/10/24 In Process (Xopenex Medneb) 12:00 Acetylcysteine PHA 05/10/24 In Process Inhalation 10% 12:00 Apixaban (Eliquis) PHA 05/10/24 In Process 10:00 Amiodarone Drip 0.5 PHA 05/10/24 Transmitted Mg/Min 16:15 Potassium Effervesent PHA 05/10/24 Transmitted Tab (Klor-Con/Ef) 10:00 Date of Service: May 10, 2024 Billing Provider: KELLEY GARCIA NP Common Visit Codes: [id number] CARE 30-74 MIN KELLEY GARCIA NP May 10, 2024 10:01
[2024-05-10] MEDS: APIXABAN 5 MG TAB PO SCH (10:07)
--- NOTE | 2024-05-10 10:15 | MEDREC ---
[facility] Intervention Section I [facility] Intervention: Deescalate AB based on CS (THE FINAL SPUTUM CULTURE SHOWED KLEBSIELLA PNEUMONIAE. PLEASE CONSIDER DE-ESCALATING CEFEPIME BASED ON CULTURE RESULT) TASHA GONZALEZ May 10, 2024 10:15
[2024-05-10] MEDS: LEVALBUTEROL HCL 1.25 MG/3 ML NEB NEB SCH (12:12)
[2024-05-10] MEDS: ACETYLCYSTEINE 10 %(100MG/ML) SOL 4ML NEB SCH (12:12)
[2024-05-10] MEDS: POTASSIUM EFFERVESENT TAB 25 MEQ PO ONE (12:22)
--- NOTE | 2024-05-10 12:33 | DVHPN2 ---
Consult Progress Note Subjective Other Systems: Patient in normal sinus rhythm on process artist Objective vital signs Vital Sign Date Time Temp Pulse Resp B/P (MAP) Pulse Ox O2 Delivery O2 Flow Rate FiO2 05/10/24 12:13 71 22 114/51 (72) 100 50 05/10/24 11:43 100.4 05/10/24 10:00 Mechanical Ventilator+ Total Intake and Output 05/09/24 05/09/24 05/10/24 15:00 23:00 07:00 Intake Total 408.15 ml 826.65 ml 591.054 ml Output Total 1750 ml 1000 ml Balance 408.15 ml -923.35 ml -408.946 ml medications Current Medications Medications Dose Ordered Sig/Jerome Route Start Time Stop Time Status Last Admin Dose Admin Midazolam HCl 50 ml @ 1 mls/hr Q24H IV 05/07/24 13:30 05/10/24 08:47 6 MLS/HR Fentanyl Citrate 250 ml @ 2.5 mls/hr Q24H IV 05/07/24 13:30 05/09/24 22:09 10 MLS/HR Nitroglycerin 0.4 mg Q5MINP PRN SL 05/07/24 17:15 Morphine Sulfate 2 mg Q30M PRN IV 05/07/24 17:15 Cefepime HCl 50 ml @ 12.5 mls/hr Q12HR IV 05/07/24 22:00 UNV Vancomycin HCl 0 ml @ 0 mls/hr UD IV 05/07/24 17:15 Ipratropium [place] 0.5 mg Q6HR NEB 05/07/24 18:00 05/10/24 12:13 0.5 MG Pantoprazole Sodium 40 mg DAILY IV 05/08/24 10:00 05/10/24 10:07 40 MG Vasopressin 20 units/Sodium Chloride 100 ml @ 9 mls/hr Q11H7M IV 05/07/24 17:15 Norepinephrine Bitartrate 32 mg/ Sodium Chloride 250 ml @ 0.938 mls/ hr Q24H IV 05/07/24 18:00 05/09/24 00:01 5.625 MLS/HR Acetaminophen 650 mg Q6HP PRN GT 05/08/24 08:30 05/10/24 10:08 650 MG Vancomycin HCl 250 ml @ 200 mls/hr Q24H IV 05/08/24 20:00 05/09/24 20:04 200 MLS/HR Enteral Nutritional Formula 1,000 ml 30ML/HR GT 05/09/24 08:30 Phenylephrine HCl 80 mg/Sodium Chloride 250 ml @ 7.5 mls/hr Q24H IV 05/09/24 16:00 05/10/24 02:27 16.875 MLS/HR Cefepime HCl 50 ml @ 12.5 mls/hr Q8HR IV 05/09/24 22:00 05/10/24 06:04 12.5 MLS/HR Levalbuterol HCl 1.25 mg Q6HR NEB 05/10/24 12:00 05/10/24 12:12 1.25 MG Acetylcysteine 100 mg Q6HR NEB 05/10/24 12:00 05/10/24 12:12 100 MG Apixaban 5 mg BID PO 05/10/24 10:00 05/10/24 10:07 5 MG Budesonide 0.5 mg BID NEB 05/10/24 22:00 Examination: GENERAL:Abnormal, LUNGS:Abnormal (Mechanically ventilated), CVS:Normal, NEURO:Abnormal (Chemically sedated) laboratory and microbiology Laboratory Tests 05/10/24 03:10 Test 05/10/24 03:10 Range/Units Serum Glucose 115 H 74-106 mg/dL Problem List/Assessment/Plan Problem List/Assessment/Plan NSTEMI, rule out type 1 Cardiopulmonary arrest status post CPR with return of spontaneous circulation Hypertension Atrial fibrillation rapid ventricular response, now normal sinus rhythm Septic shock Pneumonia Shock liver Rule out acute CVA Bilateral adrenal masses Acute kidney injury History of lung cancer History of brain tumor History of colon cancer status post resection Tobacco use Plan/Recommendation (Dr. Arzate): * Transthoracic echocardiogram reveals EF 55% with severe septal hypertrophy * Continue with vasopressors for hemodynamic support. * [id number] VASc score: 5 points * Amiodarone stopped due to increased QTc, restart oral Amio with QTc less than 500 * Unable to initiate beta-azalia given the patient is on vasopressor support * NOAC therapy, Eliquis * Monitor and replete electrolytes as needed, keep potassium greater than four and magnesium greater than two * Close Cardiac surveillance Plan discussed with . Thank you for allowing us to care for this patient. Please call with any questions or concerns. Critical care time spent: 38 minutes. This medical document was created using an electronic medical record system with voice recognition software and computerized dictation system. Although this document has been carefully reviewed, there might still be some phonetic and typographical errors. Occasional wrong-word or ``sound-alike substitutions may have occurred due to the inherent limitations of voice recognition software. These areas are purely typographical due to imperfections of the software programs and do not reflect any compromise in the patient's medical care. Please read the chart carefully and recognize, using context, where these substitutions have occurred. Plan discussed with: Daughter, Other (Bedside RN) Date of Service: May 10, 2024 Billing Provider: PAULETTE QUINTERO Common Visit Codes: 62378-FIBJACSA CARE 30-74 MIN PAULETTE QUINTERO May 10, 2024 12:33
--- NOTE | 2024-05-10 14:50 | DVH ---
EXAMINATION: MRI BRAIN HEAD WO CONTRAST INDICATION: Status post cardiac arrest; acute cva COMPARISON: 05/08/2024 TECHNIQUE: Multiplanar, multisequence magnetic resonance imaging of the brain was performed without the use of i ntravenous contrast. FINDINGS: There is a acute infarct in the left basal ganglia.. No intracranial hemorrhage. No mass effect. There is periventricular/deep white matter T2/FLAIR hyperintensity is nonspecific, but most commonly associated with chronic microvascular disease. The ventricles and sulci are normal in size for age. Clear basal cisterns. Foci of susceptibility art ifact in the posterior right frontal lobe which may represent a chronic microhemorrhage. Flow voids in the major intracranial vessels are maintained. No abnormality of the orbits. The mastoid air cells are clear. There is a mucosal polyp in the right maxillary sinus. No abnormality of the visualized osseous structures and extracranial soft tissues. IMPRESSION: Acute infarct in the left basal ganglia as seen on prior CT.
--- NOTE | 2024-05-10 15:11 | ECG ---
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
[2024-05-10] MEDS ORDERED: AMIODARONE 360mg/200mL PREMIX 200 ML IV SCH (16:15)
[2024-05-10] MEDS: AMIODARONE HCL 200 MG TAB PO ONE (17:00)
--- NOTE | 2024-05-10 17:24 | DVHPN2 ---
Progress Note - Dictate Date Seen: May 10, 2024 Medical Necessity Reason Pt with a Central, PICC or Fol: Yes The following are medically ne: Central Line, Case Catheter Subjective Ms. Aquino is a 74 years old right-handed female with a history of hypertension, AFib, colon cancer, lung cancer with brain metastatic disease status post chemo and radiation treatment, she was brought to the [facility] on 05/07/2024 with a chief complaint of cardiac arrest with ROSC. I have seen and examined the patient, I have discussed with her daughter, nurse and other medical staff, the case was discussed with Ananth. She had AFib yesterday. We have resumed Eliquis She responds to painful stimuli, she has gag reflexes and other brainstem reflexes UDS, 05/07/2024: Fentanyl, benzo Urinalysis, 05/07/2024: WBC: 4, urine leukocyte esterase: Negative ABG, 05/07/2024: Combined metabolic and respiratory acidosis, WBC/HB/PLT/MCV, 04/28/2024: 20.1/12.9/249/99.8 K, 05/07/2024: 2.4, 205, 05/08/2024: 3.2 BUN/CR, 05/07/2024: 22/1.73, 05/08/2024: 23/1.37 TBI/AST/ALT/AP, 05/08/2024: 0.5/187/210/75 TG/HDL/LDL/HDL, 05/07/2024: 143/177/85/67 TSH, 05/07/2024: 3.46 Venous Doppler, 05/08/2024: No right or left lower extremity deep venous thrombosis Echocardiogram, 05/08/2024: lvef 55% by visaul estimate severe septal hypertrophy RV enlarged mild, normal function left atrium enlarged mild aortic sclerosis CT head, 05/08/2024: 1. Age-indeterminate infarcts in the left basal ganglia, possibly subacute. MRI of the brain without intravenous contrast is recommended for further evaluation. 2. No evidence of acute intracranial hemorrhage MRI headache, 05/10/2024: Acute infarct in the left basal ganglia as seen on prior CT vital signs Vital Sign Date Time Temp Pulse Resp B/P (MAP) Pulse Ox O2 Delivery O2 Flow Rate FiO2 05/10/24 17:15 89/47 05/10/24 16:27 71 22 100 40 05/10/24 16:00 Mechanical Ventilator+ 05/10/24 12:57 100.2 212.4 Total Intake and Output 05/09/24 05/09/24 05/10/24 14:59 22:59 06:59 Intake Total 378.12 ml 791.28 ml 643.991 ml Output Total 1750 ml 1000 ml Balance 378.12 ml -958.72 ml -356.009 ml medications Current Medications Medications Dose Ordered Sig/Jerome Route Start Time Stop Time Status Last Admin Dose Admin Midazolam HCl 50 ml @ 1 mls/hr Q24H IV 05/07/24 13:30 05/10/24 17:15 5 MLS/HR Fentanyl Citrate 250 ml @ 2.5 mls/hr Q24H IV 05/07/24 13:30 05/09/24 22:09 10 MLS/HR Nitroglycerin 0.4 mg Q5MINP PRN SL 05/07/24 17:15 Morphine Sulfate 2 mg Q30M PRN IV 05/07/24 17:15 Cefepime HCl 50 ml @ 12.5 mls/hr Q12HR IV 05/07/24 22:00 UNV Vancomycin HCl 0 ml @ 0 mls/hr UD IV 05/07/24 17:15 Ipratropium [place] 0.5 mg Q6HR NEB 05/07/24 18:00 05/10/24 12:13 0.5 MG Pantoprazole Sodium 40 mg DAILY IV 05/08/24 10:00 05/10/24 10:07 40 MG Vasopressin 20 units/Sodium Chloride 100 ml @ 9 mls/hr Q11H7M IV 05/07/24 17:15 Norepinephrine Bitartrate 32 mg/ Sodium Chloride 250 ml @ 0.938 mls/ hr Q24H IV 05/07/24 18:00 05/09/24 00:01 5.625 MLS/HR Acetaminophen 650 mg Q6HP PRN GT 05/08/24 08:30 05/10/24 10:08 650 MG Vancomycin HCl 250 ml @ 200 mls/hr Q24H IV 05/08/24 20:00 05/09/24 20:04 200 MLS/HR Enteral Nutritional Formula 1,000 ml 30ML/HR GT 05/09/24 08:30 Phenylephrine HCl 80 mg/Sodium Chloride 250 ml @ 7.5 mls/hr Q24H IV 05/09/24 16:00 05/10/24 13:31 21.563 MLS/HR Levalbuterol HCl 1.25 mg Q6HR NEB 05/10/24 12:00 05/10/24 12:12 1.25 MG Acetylcysteine 100 mg Q6HR NEB 05/10/24 12:00 05/10/24 12:12 100 MG Apixaban 5 mg BID PO 05/10/24 10:00 05/10/24 10:07 5 MG Budesonide 0.5 mg BID NEB 05/10/24 22:00 Amiodarone HCl 200 mg Q12HR PO 05/10/24 22:00 Ceftriaxone Sodium 50 ml @ 100 mls/hr DAILY@09 IV 05/11/24 09:00 objective The patient is well-nourished and well-developed with no distress. The patient is intubated MENTAL STATUS: Subjective CRANIAL NERVES: Pupils are equal, round and slightly reactive.There are corneal reflexes and doll's eyes phenomenon. No signs of facial weakness. There are gagging or coughing reflexes SENSATION: Responses to pain stimuli. MOTOR: Normal tone in the upper and lower extremity. Normal muscle bulk. No fasciculations. No spontaneous extremity movement noticed REFLEXES: Deep tendon reflexes are symmetrical. No pathological reflexes. CEREBELLAR/COORDINATION: Deferred GAIT/STATION: deferred. laboratory and microbiology Laboratory Tests 05/10/24 03:10 Test 05/10/24 03:10 Range/Units Serum Glucose 115 H 74-106 mg/dL Problem List Abnormal brain CT scan Acute/subacute stroke Cardiopulmonary arrest Respiratory failure Metabolic acidosis Respiratory acidosis Atrial fibrillation History of lung cancer with brain metastatic disease Assessment/Plan Monitoring Supportive treatment Follow-up labs Carotid Doppler ICU care Stabilize vitals/pressor drip Respiratory support/vent management Oxygen IV antibiotics Eliquis 5 mg b.i.d. GI prophylaxis More recommendation per clinical course This medical document was created using an electronic medical record system with [employer] system. Although this document has been carefully reviewed, there may still be some phonetic and typographical errors. These areas are purely typographical due to imperfections of the software programs, and do not reflect any compromise in the patient's medical care Prognosis guarded Plan discussed with: Other Critical Care Time(min): 30 CE FERREIRA MD May 10, 2024 17:24
--- NOTE | 2024-05-10 18:18 | DVH ---
Carotid Duplex Clinical History: CVA Comparison: None Technique: Duplex Doppler evaluation of the extracranial carotid and vertebral arteries including color Doppler and spectral/pulsed waveform analysis was performed. Findings: RIGHT SIDE: The peak systolic velocities are 89 cm/s in the CCA, 77 cm/s in the ICA. The external carotid artery is patent with peak systolic velocity of 91 cm/s proximally. There is appropriate antegrade flow in the right vertebral artery. LEFT SIDE: The peak systolic velocities are 76 cm/s in the CCA, 107 cm/s in the ICA. The external carotid artery is patent with peak systolic velocity of 109 cm/s proximally. There is appropriate antegrade flow in the left vertebral artery. IMPRESSION: No hemodynamically significant stenosis noted in the right carotid system. No hemodynamically significant stenosis noted in the left carotid system. Reference: Radiology 2003; 229:340-346 Normal ICA PSV is <125 cm/sec and no plaque or intimal thickening is visible sonographically additional criteria include ICA/CCA PSV ratio <2.0 and ICA EDV <40 cm/sec <50% ICA stenosis ICA PSV is <125 cm/sec and plaque or intimal thickening is visible sonographically additional criteria include ICA/CCA PSV ratio <2.0 and ICA EDV <40 cm/sec 50-69% ICA stenosis ICA PSV is 125-230 cm/sec and plaque is visible sonographically additional criteria include ICA/CCA PSV ratio of 2.0-4.0 and ICA EDV of 40-100 cm/sec 70% ICA stenosis but less than near occlusion ICA PSV is >230 cm/sec and visible plaque and luminal narrowing are seen at selby-scale and color Dopp ler ultrasound (the higher the Doppler parameters lie above the threshold of 230 cm/sec, the greater the likelihood of severe disease) additional criteria include ICA/CCA PSV ratio >4 and ICA EDV >100 cm/sec
[2024-05-10] MEDS: Jevity 1.2 Cal/Fiber 1 Liter GT SCH (20:26)
[2024-05-10] MEDS: BUDESONIDE (INHALATION) 0.5 MG/2 ML NEB NEB SCH (21:31)
[2024-05-10] MEDS ORDERED: AMIODARONE HCL 200 MG TAB PO SCH (22:00)
--- NOTE | 2024-05-10 23:47 | DVHINCON2 ---
Date of service: May 10, 2024 Referring Physician Spencer Bonilla NP Reason for Consultation Acute hypoxic respiratory failure requiring mechanical ventilator History of Present Illness A 74-year-old woman with PMHx that includes small-cell lung carcinoma, atrial fibrillation (on Eliquis), and hypertension who was brought in to ED by EMS on 05/07/24 after being found unresponsive. Bystander CPR was performed by the pedro ent's son as well as the sterling nowak achieving ROSC en route to the hospital. Patient was endotracheally intubated in the field. According to the patient's daughters, patient is visiting this area and they only recall patient having some dyspnea walking up stairs. They denied any other symptoms prior to the events on day of presentation. She is followed at [facility] ([place]) for small-cell lung carcinoma that is currently in remission - last treatment being 2 years ago. Patient was admitted for further care and pulmonary consultation is requested for evaluation and management d/t the above findings. Review of Systems: Unable to obtain d/t intubated status Past Medical History: Small-cell lung carcinoma, atrial fibrillation and hypertension Past Surgical History: Colon resection approximately 18 years ago, hysterectomy Medications: Reviewed. Allergies: No known drug allergies. Family History: No family history of premature CAD. No family history of lung disorders. Social History: Previous tobacco use (unable to calculate pack-year history), quit in 2020 per daughter Patient has a previous history of alcoholism, has been sober for 23 years according to daughter Denies any illicit drug use Family History: Colon cancer G8 FATHER, Onset:50's - 60 Myocardial infarction G8 MOTHER, Onset:50's - 60 Allergies: Coded Allergies: NO KNOWN ALLERGIES (Unverified , 05/07/24) Current Medications Current Medications Medications (Trade) Dose Ordered Sig/Jerome Route PRN Reason Start Time Stop Time Status Last Admin Levalbuterol HCl (Xopenex Medneb) 1.25 mg Q6HR NEB 05/10/24 12:00 05/10/24 18:23 Acetylcysteine (Mucomyst Inahalation 10%) 100 mg Q6HR NEB 05/10/24 12:00 05/10/24 18:23 Apixaban (Eliquis) 5 mg BID PO 05/10/24 10:00 05/10/24 21:56 Budesonide (Pulmicort) 0.5 mg BID NEB 05/10/24 22:00 05/10/24 21:31 Amiodarone HCl (Cordarone Tablet) 200 mg Q12HR PO 05/10/24 22:00 05/10/24 17:28 DC Ceftriaxone Sodium 50 ml @ 100 mls/hr DAILY@09 IV 05/11/24 09:00 Vancomycin HCl 250 ml @ 200 mls/hr Q18H IV 05/11/24 14:00 Vital Signs Vital Signs Date Time Temp Pulse Resp B/P (MAP) Pulse Ox O2 Delivery O2 Flow Rate FiO2 05/10/24 23:15 99.1 66 22 121/56 (77) 98 210.4 05/10/24 22:00 Mechanical Ventilator+ 40 40 Physical Exam Gen.: Patient lying in bed in medical ICU. Sedated, intubated on mechanical ventilator. Head: Normocephalic, atraumatic. Eyes: PERRLA. Ears: Normal external anatomy. Throat: Endotracheal tube and orogastric tube in place. Neck: Supple, trachea midline. Chest: Transmitted breath sounds bilaterally. Decreased air entry bilaterally. No wheezing. Bibasilar crackles. Cardiovascular: Positive S1, positive S2. Regular rate and rhythm. Abdomen: Positive bowel sounds in all 4 quadrants. Soft, nontender, nondistended. : Case in place. Normal external genitalia. Rectal: Deferred. Skin: Warm, dry. Intact. Extremities: 2+ radial pulses bilaterally. No lower extremity edema. Neuro: Sedated. Labs/Diagnostic Data Labs Test 05/10/24 18:00 05/10/24 06:41 05/10/24 03:10 05/09/24 07:51 Range/Units Vancomycin Level Trough 10.6 H 5-10 ug/mL Blood Gas Specimen Type Arterial Blood Gas Sample Site Right radial Blood Gas Patient Temperature 37.0 Arterial Blood Date Drawn [id number] Arterial Blood pH 7.399 7.350-7.450 Arterial Blood Partial Pressure CO2 41.9 32.0-45.0 mmHg Arterial Blood Partial Pressure O2 60.3 L 83.0-108.0 mmHg Arterial Blood HCO3 25.3 21.0-28.0 mmol/L Arterial Blood Oxygen Saturation 89.5 L 94.0-98.0 % Arterial Blood Base Excess 0.4 -2.0-3.0 mmol/L Arterial Blood Oxyhemoglobin 89.1 L 94.0-98.0 % Arterial Blood Carboxyhemoglobin 0.3 L 0.5-1.5 % Arterial Blood Methemoglobin 0.1 0.0-1.5 % Germán Test Modified Blood Gas Total Hemoglobin 10.60 L 12.0-16.0 g/dL Blood Gas Set Respiration Rate 22.0 Blood Gas Modality Vent - aprv FiO2 % 40.0 Blood Gas Tidal Volume 550.0 Blood Gas PEEP or CPAP 6.0 White Blood Count 12.6 H 4.4-10.8 10^3/uL Red Blood Count 3.16 L 4.0-5.20 10^6/uL Hemoglobin 10.4 L 12.2-16.2 g/dL Hematocrit 31.5 L 36.0-46.0 % Mean Corpuscular Volume 99.8 80.0-100.0 fL Mean Corpuscular Hemoglobin 32.9 H 28.0-32.0 pg Mean Corpuscular Hemoglobin Concent 32.9 32.0-36.0 g/dL Red Cell Distribution Width 13.7 11.8-14.3 % Platelet Count 182 140-450 10^3/uL Mean Platelet Volume 7.4 6.9-10.8 fL Neutrophils (%) (Auto) 89.8 H 37.0-80.0 % Lymphocytes (%) (Auto) 5.7 L 10.0-50.0 % Monocytes (%) (Auto) 3.2 0.0-12.0 % Eosinophils (%) (Auto) 1.2 0.0-7.0 % Basophils (%) (Auto) 0.1 0.0-2.0 % Neutrophils # (Auto) 11.3 H 1.6-8.6 10 ^3/uL Lymphocytes # (Auto) 0.7 0.4-5.4 10 ^3/uL Monocytes # (Auto) 0.4 0-1.3 10 ^3/uL Eosinophils # (Auto) 0.2 0-0.8 10 ^3/uL Basophils # (Auto) 0 0-0.2 10 ^3/uL Nucleated Red Blood Cells 0.0 % Sodium Level 140 136-145 mmol/L Potassium Level 3.6 3.5-5.1 mmol/L Chloride Level 105 98-107 mmol/L Carbon Dioxide Level 27 20-31 mmol/L Anion Gap 8 5-15 Blood Urea Nitrogen 17 9-23 mg/dL Creatinine 0.83 0.550-1.02 mg/dL Glomerular Filtration Rate Calc 74 >90 mL/min BUN/Creatinine Ratio 20.5 H 10.0-20.0 Serum Glucose 115 H 74-106 mg/dL Calcium Level 9.1 8.7-10.4 mg/dL Magnesium Level 2.2 1.6-2.6 mg/dL Total Bilirubin 0.9 0.2-1.0 mg/dL Aspartate Amino Transferase (AST) 60 H 13-40 U/L Alanine Aminotransferase (ALT) 85 H 7-40 U/L Alkaline Phosphatase 102 46-116 U/L Total Protein 5.6 L 5.7-8.2 g/dL Albumin 3.4 3.2-4.8 g/dL Blood Gas Spontaneous Rate 24 Blood Gas Inspiratory Pressure 27.0 Bl Gas Inspiratory/Expiratory Ratio 1:1.5 Specimen Drawn By tomy rt Test 05/08/24 06:20 05/07/24 22:00 05/07/24 19:05 05/07/24 16:50 Range/Units Troponin I High Sensitivity 172 *H </=34 ng/L B-Type Natriuretic Peptide 560.10 0-100 pg/mL Random Vancomycin Level 13.1 H 5-10 ug/mL Lactic Acid Level 6.8 *H 0.4-2.0 mmol/L POC Glucose 142 H 70-106 mg/dl Triglycerides Level 143 < 150 mg/dL Cholesterol Level 177 < 200 mg/dL LDL Cholesterol 85 < 100 mg/dL HDL Cholesterol 67 H 40-59 mg/dL Thyroid Stimulating Hormone (TSH) 3.46 0.55-4.78 uIU/mL Test 05/07/24 16:22 05/07/24 15:06 05/07/24 14:20 Range/Units Blood Gas Critical Value Read Back Yes Blood Gas Notified Whom ethan Calabrese Blood Gas Notified Time [id number] Blood Gas Notified By Software Design Analyst jorge a vela Urine Color Dark-yellow Yellow Urine Clarity Turbid H Clear Urine pH 5.5 5.0-9.0 Urine Specific [place] 1.021 1.001-1.035 Urine Protein 2+ H Negative Urine Ketones Negative Negative Urine Blood 1+ H Negative /uL Urine Nitrite Negative Negative Urine Bilirubin Negative Negative Urine Urobilinogen 2 H Negative mg/dL Urine Leukocyte Esterase Negative Negative /uL Urine RBC 28 0 - 4 /hpf Urine Microscopic WBC 4 0-5 /HPF Urine Squamous Epithelial Cells Few <5 /hpf Urine Bacteria Few H None Seen /hpf Urine Hyaline Casts Many 0 - 2 /lpf Urine Mucus Few None Seen Urine Yeast (Budding) Occasional None Seen /hpf Urine Glucose 1+ H Normal mg/dL Urine Opiates Screen Neg NEGATIVE Urine Fentanyl Screen Pos NEGATIVE Urine Barbiturates Screen Neg NEGATIVE Urine Phencyclidine Screen Neg NEGATIVE Urine Amphetamines Screen Neg NEGATIVE Urine Benzodiazepines Screen Pos NEGATIVE Urine Cocaine Screen Neg NEGATIVE Urine Cannabinoids Screen Neg NEGATIVE Erythrocyte Sedimentation Rate 30 H 0-20 mm/hr Prothrombin Time 11.4 9.3-11.8 sec Prothrombin Time INR 1.08 0.9-1.15 Activated Partial Thromboplast Time 27.3 24.5-34.5 SEC D-Dimer, Quantitative 16.00 H 0.0-0.49 mg/L FEU Hemoglobin A1c 5.4 <5.7 % A1C C-Reactive Protein High Sensitivity 0.75 <1.0 mg/dL Microbiology Date/Time Source Procedure Growth Status 05/08/24 02:17 Sputum Gram Stain - Final Complete 05/08/24 02:17 Respiratory Culture - Final Klebsiella pneumoniae Complete 05/07/24 19:10 Nose MRSA Screen - Final Methicillin Resistant S.aureus Complete 05/07/24 15:06 Urine - Case Port Urine Culture - Final Complete 05/07/24 14:20 Blood Blood Culture - Preliminary NO GROWTH AFTER 72 HOURS OF INCUBATION. Resulted Assessment Impression: Acute hypoxic respiratory failure On mechanical ventilator Acute kidney injury Septic shock Non-ST elevation myocardial infarction Hx of nicotine dependence Metabolic acidosis CVA stroke in left basal ganglia Pulmonary hypertension, RVSP 45 mmHg, moderate COPD/emphysema Plan: s/p intubation on mechanical ventilator. CXR image and report reviewed. Devices in place. Decreasing airspace disease of the left lung field. Cardiomegaly with mild congestion. ABG reviewed, compensated. ECHO report Reviewed: Left ventricular ejection fraction 55%. RV enlarged, right ventricular systolic pressure 45 mmHg On AC mode; RR 22, VT 550, PEEP 6, FiO2 40% Titrate FIO2 to keep O2 saturation above 90%. VAP bundle. Daily ABG and CXR while intubated Sedate for ventilator synchrony -on Versed Brain MRI demonstrates acute infarct in the left basal ganglia as seen on prior CT. Off amiodarone drip. Continue antibiotics. Patient is febrile. F/u cultures. On pressors for hemodynamic support On Fernando-Synephrine 140 mcg/min Titrate to keep mean arterial pressure greater than 65 mmHg Taper pressors as tolerated Tube feeds for nutritional support Monitor renal function d/t acute kidney injury Monitor electrolytes. Supplement as necessary. Monitor ins and outs. Maintain euvolemia. GI prophylaxis. DVT prophylaxis. Prognosis: Poor given patient's multiple co-morbidities. Condition: Critical Rest of plan per hospitalist and other consultants. A total of 35 minutes of critical care time was spent reviewing the patient record, examining the patient, making a diagnostic and therapeutic plan, discussing this plan with the medical personnel, following up on diagnostic studies and following the patient for clinical stability excluding any and all procedures. At least 50% of this time was spent in direct, [id number] contact . Thank you, ADORE Bonilla, for allowing me to participate in this patient's care. Further recommendations will depend on the patient's clinical course. Please do not hesitate to contact me if you have any questions or concerns. This medical document was created using an electronic medical record system with [facility] computerized dictation system. Although these documentations are being carefully reviewed, there may still be some phonetic and typographical changes. The errors are purely typographical, due to imperfection on the software program, and do not reflect any compromise in the patient's medical care. Plan discussed with: Other (BENJA Damon/ADORE Boinlla/) EFRA DALE MD May 10, 2024 23:47
[2024-05-11] VITALS (110 sets, daily range): BP systolic 61–140; BP diastolic 41–93; PULSE 60–131; RESP 16–27; TEMP 98.6–101.1; O2SAT 87–100
[2024-05-11 03:44] LABS: Basophils # (auto) 0 10 ^3/uL (0-0.2); Basophils % (auto) 0.1 % (0.0-2.0); Eosinophils # (auto) 0.3 10 ^3/uL (0-0.8); Eosinophils % (auto) 2.6 % (0.0-7.0); Hematocrit 30.6 % (36.0-46.0); Hemoglobin 10.3 g/dL (12.2-16.2); Lymphocytes # (auto) 0.5 10 ^3/uL (0.4-5.4); Lymphocytes % (auto) 4.4 % (10.0-50.0); Mean Corpuscular Hemoglobin 33.7 pg (28.0-32.0); Mean Corpuscular Hgb Conc. 33.7 g/dL (32.0-36.0); Monocytes # (auto) 0.6 10 ^3/uL (0-1.3); Monocytes % (auto) 5.5 % (0.0-12.0); Neutrophils % (auto) 87.4 % (37.0-80.0); Nucleated Red Blood Cells % 0.1 %; Platelet Count (auto) 188 10^3/uL (140-450); Red Blood Cells 3.06 10^6/uL (4.0-5.20); Red Cell Distribution Width 13.9 % (11.8-14.3); White Blood Cell 10.3 10^3/uL (4.4-10.8)
[2024-05-11 04:07] LABS: Albumin 3.4 g/dL (3.2-4.8); Alkaline Phosphatase 111 U/L (46-116); Anion Gap 8 (5-15); Blood Urea Nitrogen 15 mg/dL (9-23); Calcium 9.6 mg/dL (8.7-10.4); Carbon Dioxide 26 mmol/L (20-31); Chloride 107 mmol/L (98-107); Glucose 101 mg/dL (74-106); Potassium 3.9 mmol/L (3.5-5.1); Sodium 141 mmol/L (136-145)
[2024-05-11 04:08] LABS: Alanine Aminotransferase 64 U/L (7-40); Aspartate Aminotransferase 62 U/L (13-40); Total Protein 5.7 g/dL (5.7-8.2)
--- NOTE | 2024-05-11 05:25 | DVH ---
EXAM: XY CHEST PORTABLE HISTORY: pna COMPARISON: XY CHEST PORTABLE on DOS: 05/10/24, XY CHEST PORTABLE on DOS: 05/09/24, XY CHEST PORTABLE o n DOS: 05/08/24, XY CHEST XRAY 1 VIEW on DOS: 05/07/24, XY CHEST PORTABLE on DOS: 05/07/24, chest CT earnest ed 05/08/2024 TECHNIQUE: Portable AP view of the chest was performed. FINDINGS: Endotracheal tube is re-identified with its tip 3 cm above the filemon. OG tube and right chest port-A -Cath are re-identified. There are hazy opacities throughout the left lung, increased versus prior ch est x-ray. There are interstitial opacities throughout the right lung, stable. No pneumothorax. Emphy sematous changes are better characterized prior CT scan. The heart is not enlarged. The aortic arch i s calcific. The central pulmonary arteries are ectatic. IMPRESSION: 1. Mechanical ventilation with tubes and lines as above. 2. Bilateral pneumonia, left greater than right. 3. Emphysema. 4. Pulmonary arterial hypertension.
[2024-05-11 07:47] LABS: Base Excess -1.2 mmol/L (-2.0-3.0)
--- NOTE | 2024-05-11 07:48 | DVHPN2 ---
Consult Progress Note Subjective Review of Systems: Deferred (Intubated and sedated) Objective vital signs Vital Sign Date Time Temp Pulse Resp B/P (MAP) Pulse Ox O2 Delivery O2 Flow Rate FiO2 05/11/24 06:43 99.3 76 22 99/49 (66) 97 99.3 05/11/24 06:42 45 05/11/24 06:00 Mechanical Ventilator+ Total Intake and Output 05/10/24 05/10/24 05/11/24 15:00 23:00 07:00 Intake Total 273.501 ml 735.002 ml 307.063 ml Output Total 900 ml 1350 ml Balance 273.501 ml -164.998 ml -1042.937 ml medications Current Medications Medications Dose Ordered Sig/Jerome Route Start Time Stop Time Status Last Admin Dose Admin Midazolam HCl 50 ml @ 1 mls/hr Q24H IV 05/07/24 13:30 05/11/24 02:50 5 MLS/HR Fentanyl Citrate 250 ml @ 2.5 mls/hr Q24H IV 05/07/24 13:30 05/11/24 01:03 7.5 MLS/HR Nitroglycerin 0.4 mg Q5MINP PRN SL 05/07/24 17:15 Morphine Sulfate 2 mg Q30M PRN IV 05/07/24 17:15 Cefepime HCl 50 ml @ 12.5 mls/hr Q12HR IV 05/07/24 22:00 UNV Vancomycin HCl 0 ml @ 0 mls/hr UD IV 05/07/24 17:15 Ipratropium [place] 0.5 mg Q6HR NEB 05/07/24 18:00 05/11/24 06:42 0.5 MG Pantoprazole Sodium 40 mg DAILY IV 05/08/24 10:00 05/10/24 10:07 40 MG Vasopressin 20 units/Sodium Chloride 100 ml @ 9 mls/hr Q11H7M IV 05/07/24 17:15 Norepinephrine Bitartrate 32 mg/ Sodium Chloride 250 ml @ 0.938 mls/ hr Q24H IV 05/07/24 18:00 05/09/24 00:01 5.625 MLS/HR Acetaminophen 650 mg Q6HP PRN GT 05/08/24 08:30 05/10/24 18:11 650 MG Enteral Nutritional Formula 1,000 ml 30ML/HR GT 05/09/24 08:30 05/10/24 20:26 1,000 ML Phenylephrine HCl 80 mg/Sodium Chloride 250 ml @ 7.5 mls/hr Q24H IV 05/09/24 16:00 05/10/24 23:24 21.563 MLS/HR Levalbuterol HCl 1.25 mg Q6HR NEB 05/10/24 12:00 05/11/24 06:42 1.25 MG Acetylcysteine 100 mg Q6HR NEB 05/10/24 12:00 05/11/24 06:42 100 MG Apixaban 5 mg BID PO 05/10/24 10:00 05/10/24 21:56 5 MG Budesonide 0.5 mg BID NEB 05/10/24 22:00 05/11/24 06:42 0.5 MG Ceftriaxone Sodium 50 ml @ 100 mls/hr DAILY@09 IV 05/11/24 09:00 Vancomycin HCl 250 ml @ 200 mls/hr Q18H IV 05/11/24 14:00 Examination: LUNGS:Abnormal (Vent FiO2 45%), CVS:Normal (Tele reviewed consistent with Normal sinus rhythm), NEURO:Abnormal (Sedated) laboratory and microbiology Laboratory Tests 05/11/24 03:00 Test 05/11/24 03:00 Range/Units Serum Glucose 101 74-106 mg/dL Problem List/Assessment/Plan Problem List/Assessment/Plan Problem List/Assessment/Plan NSTEMI, rule out type 1 Cardiopulmonary arrest status post CPR with return of spontaneous circulation Hypertension Atrial fibrillation rapid ventricular response, now normal sinus rhythm Septic shock Pneumonia Shock liver Acute/Subacute CVA Bilateral adrenal masses Acute kidney injury History of small-cell lung carcinoma that is currently in remission - last treatment 2 years ago History of brain tumor History of colon cancer status post resection Tobacco use Plan/Recommendation (Dr. Arzate): * Transthoracic echocardiogram reveals EF 55% with severe septal hypertrophy * Continue with vasopressors for hemodynamic support. * [id number] VASc score: 5 points * Repeat EKG this am with QTc 406, Amiodarone 200 mg po twice daily restarted. * Unable to initiate beta-azalia given the patient is on vasopressor support * NOAC therapy, Eliquis * Monitor and replete electrolytes as needed, keep potassium greater than four and magnesium greater than two * MRI showing Acute infarct in the left basal ganglia as seen on prior CT * Close Cardiac surveillance Plan discussed with . Thank you for allowing us to care for this patient. Please call with any questions or concerns. Critical care time spent: 38 minutes. This medical document was created using an electronic medical record system with voice recognition software and computerized dictation system. Although this document has been carefully reviewed, there might still be some phonetic and typographical errors. Occasional wrong-word or ``sound-alike substitutions may have occurred due to the inherent limitations of voice recognition software. These areas are purely typographical due to imperfections of the software programs and do not reflect any compromise in the patient's medical care. Please read the chart carefully and recognize, using context, where these substitutions have occurred. Plan discussed with: Other (Bedside RN) Date of Service: May 11, 2024 Billing Provider: RAKESH SHANE Common Visit Codes: [id number] INP/OBS CARE(HIGH), [id number] CARE 30-74 MIN RAKESH SHANE May 11, 2024 07:48
--- NOTE | 2024-05-11 07:49 | ECG ---
[facility] Test Date: 2024-05-11 Test Time: 07:44:03 Pat Name: JONNA OLIVAREZ Department: ICU [place] Room: [address] [place] [address] A Gender: F It Operations Manager: Sandra Ruth : 1950 Requested By: PAULETTE QUINTERO Order Number: [id number] Reading MD: Robin Betts Measurements Intervals [place] Rate: 86 P: 75 MN: 155 QRS: 43 QRSD: 78 T: 165 QT: 339 QTc: 406 Interpretive Statements Sinus rhythm Borderline low voltage, extremity leads RSR' in V1 or V2, right VCD or RVH Nonspecific T abnrm, anterolateral leads Electronically Signed On 05-14-2024 21:29:13 PST by Robin Betts Please click the below link to view image of tracing.
--- NOTE | 2024-05-11 07:49 | ECG ---
[facility] Test Date: 2024-05-11 Test Time: 07:46:03 Pat Name: JONNA OLIVAREZ Department: ICU [place] Room: [address] [place] [address] A Gender: F Key Maker: Sandra Ruth : 1950 Requested By: RAKESH SHANE Order Number: [id number] Reading MD: Robin Betts Measurements Intervals [place] Rate: 86 P: 79 [place]: 144 QRS: 46 QRSD: 79 T: 166 QT: 339 QTc: 406 Interpretive Statements Sinus rhythm Borderline low voltage, extremity leads RSR' in V1 or V2, right VCD or RVH Nonspecific T abnrm, anterolateral leads Electronically Signed On 05-14-2024 21:29:26 PST by Robin Betts Please click the below link to view image of tracing.
[2024-05-11] MEDS: cefTRIAXone 1GM/50ML D5W 50 ML IV SCH (08:41)
--- NOTE | 2024-05-11 10:16 | ECG ---
[facility] Test Date: 2024-05-09 Test Time: 09:52:03 Pat Name: JONNA OLIVAREZ Department: Room: [address] [place] [address] A Gender: F Airways Control Specialist: : 1950 Requested By: KELLEY GARCIA Order Number: [id number] Reading MD: Robin Betts Measurements Intervals [place] Rate: 165 P: 0 [place]: 0 QRS: 31 QRSD: 62 T: 178 QT: 262 QTc: 434 Interpretive Statements Atrial fibrillation with rapid ventricular response Posterior infarct , age undetermined ST & T wave abnormality, consider inferolateral ischemia or digitalis effect Electronically Signed On 05-14-2024 21:22:57 PST by Robin Betts Please click the below link to view image of tracing.
[2024-05-11] MEDS: AMIODARONE HCL 200 MG TAB PO SCH (10:35)
--- NOTE | 2024-05-11 13:45 | DVHPN2 ---
Progress Note Date Seen: May 11, 2024 Medical Necessity Reason Pt with a Central, PICC or Fol: Yes The following are medically ne: Central Line, Case Catheter Subjective Patient reports: Feels better Objective vital signs Vital Sign Date Time Temp Pulse Resp B/P (MAP) Pulse Ox O2 Delivery O2 Flow Rate FiO2 05/11/24 13:25 97/52 05/11/24 12:00 45 05/11/24 12:00 22 95 Mechanical Ventilator+ 05/11/24 11:53 88 05/11/24 10:37 100.6 Total Intake and Output 05/10/24 05/10/24 05/11/24 15:00 23:00 07:00 Intake Total 273.501 ml 735.002 ml 307.063 ml Output Total 900 ml 1350 ml Balance 273.501 ml -164.998 ml -1042.937 ml medications Current Medications Medications Dose Ordered Sig/Jerome Route Start Time Stop Time Status Last Admin Dose Admin Midazolam HCl 50 ml @ 1 mls/hr Q24H IV 05/07/24 13:30 05/11/24 13:25 5 MLS/HR Fentanyl Citrate 250 ml @ 2.5 mls/hr Q24H IV 05/07/24 13:30 05/11/24 01:03 7.5 MLS/HR Nitroglycerin 0.4 mg Q5MINP PRN SL 05/07/24 17:15 Morphine Sulfate 2 mg Q30M PRN IV 05/07/24 17:15 Cefepime HCl 50 ml @ 12.5 mls/hr Q12HR IV 05/07/24 22:00 UNV Vancomycin HCl 0 ml @ 0 mls/hr UD IV 05/07/24 17:15 Ipratropium [place] 0.5 mg Q6HR NEB 05/07/24 18:00 05/11/24 11:53 0.5 MG Pantoprazole Sodium 40 mg DAILY IV 05/08/24 10:00 05/11/24 10:34 40 MG Vasopressin 20 units/Sodium Chloride 100 ml @ 9 mls/hr Q11H7M IV 05/07/24 17:15 Norepinephrine Bitartrate 32 mg/ Sodium Chloride 250 ml @ 0.938 mls/ hr Q24H IV 05/07/24 18:00 05/09/24 00:01 5.625 MLS/HR Acetaminophen 650 mg Q6HP PRN GT 05/08/24 08:30 05/11/24 10:37 650 MG Enteral Nutritional Formula 1,000 ml 30ML/HR GT 05/09/24 08:30 05/10/24 20:26 1,000 ML Phenylephrine HCl 80 mg/Sodium Chloride 250 ml @ 7.5 mls/hr Q24H IV 05/09/24 16:00 05/11/24 10:59 21.563 MLS/HR Levalbuterol HCl 1.25 mg Q6HR NEB 05/10/24 12:00 05/11/24 11:53 1.25 MG Acetylcysteine 100 mg Q6HR NEB 05/10/24 12:00 05/11/24 11:53 100 MG Apixaban 5 mg BID PO 05/10/24 10:00 05/11/24 10:35 5 MG Budesonide 0.5 mg BID NEB 05/10/24 22:00 05/11/24 06:42 0.5 MG Ceftriaxone Sodium 50 ml @ 100 mls/hr DAILY@09 IV 05/11/24 09:00 05/11/24 08:41 100 MLS/HR Vancomycin HCl 250 ml @ 200 mls/hr Q18H IV 05/11/24 14:00 Amiodarone HCl 200 mg Q12HR PO 05/11/24 10:00 05/11/24 10:35 200 MG Examination: GENERAL:Abnormal, HEENT:Abnormal, LUNGS:Abnormal, CVS:Abnormal, ABDOMEN:Abnormal laboratory and microbiology Laboratory Tests 05/11/24 03:00 Test 05/11/24 03:00 Range/Units Serum Glucose 101 74-106 mg/dL Microbiology Date/Time Source Procedure Growth Status 05/08/24 02:17 Sputum Gram Stain - Final Complete 05/08/24 02:17 Respiratory Culture - Final Klebsiella pneumoniae Complete 05/07/24 19:10 Nose MRSA Screen - Final Methicillin Resistant S.aureus Complete 05/07/24 15:06 Urine - Case Port Urine Culture - Final Complete 05/07/24 14:20 Blood Blood Culture - Preliminary NO GROWTH AFTER 72 HOURS OF INCUBATION. Resulted Problem List/Assessment/Plan Problem List/Assessment/Plan atrial fib prolnged qtc htn HL held amio for now afib rate controlled pressors as needed cont supportive care Plan discussed with: Patient Date of Service: May 11, 2024 Billing Provider: NATE MCCAULEY MD Common Visit Codes: NOT BILLABLE NATE MCCAULEY MD May 11, 2024 13:45
[2024-05-11] MEDS: AMIODARONE 360mg/200mL PREMIX 200 ML IV ONE (13:50)
[2024-05-11] MEDS: VANCOMYCIN 1.25GM/250ML 250 ML IV SCH (14:23)
[2024-05-11] MEDS: methylPREDNISolone SOD SUCC 1,000 MG in SODIUM CHL 0.9% 250 ML IV ONE (15:15)
--- NOTE | 2024-05-11 15:25 | DVHPN2 ---
Subjective chart reviwed Reviewed: Care Plan, H&P, Labs Changes from previous H/P or p: No Changes General: Per HPI Objective Vitals Vital Signs Date Time Temp Pulse Resp B/P (MAP) Pulse Ox O2 Delivery O2 Flow Rate FiO2 05/11/24 14:04 106 22 111/59 (76) 99 45 05/11/24 12:00 Mechanical Ventilator+ 05/11/24 10:37 100.6 Intake/Output Intake and Output 05/11/24 07:00 Intake Total 1315.566 ml Output Total 2250 ml Balance -934.434 ml IV Total 1117.566 ml Tube Feeding 198 ml Output Urine Total 2250 ml General Appearance: Other (intubated/sedated on ventilator) HEENT: Atraumatic, PERRLA Lungs: Clear to auscultation, Other (Mechanical ventilation. Bilateral rhonchi) Cardiovascular: Normal S1, Normal S2 Abdomen: No tenderness, No hepatospenomegaly, Other (bowel sounds heard - little hypo) Genitourinary: No Apparent Abnormalities (Case catheter) Extremities: No edema Neuro: Other (Withdraws to painful stimuli. Positive coughing gag) Skin: Dry, Intact Psych/Mental Status: Other (Unable to assess) Medications Current Medications Medications Dose Ordered Sig/Jerome Route Start Time Stop Time Status Last Admin Dose Admin Midazolam HCl 50 ml @ 1 mls/hr Q24H IV 05/07/24 13:30 05/11/24 13:25 5 MLS/HR Fentanyl Citrate 250 ml @ 2.5 mls/hr Q24H IV 05/07/24 13:30 05/11/24 01:03 7.5 MLS/HR Nitroglycerin 0.4 mg Q5MINP PRN SL 05/07/24 17:15 Morphine Sulfate 2 mg Q30M PRN IV 05/07/24 17:15 Cefepime HCl 50 ml @ 12.5 mls/hr Q12HR IV 05/07/24 22:00 UNV Vancomycin HCl 0 ml @ 0 mls/hr UD IV 05/07/24 17:15 Ipratropium [place] 0.5 mg Q6HR NEB 05/07/24 18:00 05/11/24 11:53 0.5 MG Pantoprazole Sodium 40 mg DAILY IV 05/08/24 10:00 05/11/24 10:34 40 MG Vasopressin 20 units/Sodium Chloride 100 ml @ 9 mls/hr Q11H7M IV 05/07/24 17:15 Norepinephrine Bitartrate 32 mg/ Sodium Chloride 250 ml @ 0.938 mls/ hr Q24H IV 05/07/24 18:00 05/09/24 00:01 5.625 MLS/HR Acetaminophen 650 mg Q6HP PRN GT 05/08/24 08:30 05/11/24 10:37 650 MG Enteral Nutritional Formula 1,000 ml 30ML/HR GT 05/09/24 08:30 05/10/24 20:26 1,000 ML Phenylephrine HCl 80 mg/Sodium Chloride 250 ml @ 7.5 mls/hr Q24H IV 05/09/24 16:00 05/11/24 10:59 21.563 MLS/HR Levalbuterol HCl 1.25 mg Q6HR NEB 05/10/24 12:00 05/11/24 11:53 1.25 MG Acetylcysteine 100 mg Q6HR NEB 05/10/24 12:00 05/11/24 11:53 100 MG Apixaban 5 mg BID PO 05/10/24 10:00 05/11/24 10:35 5 MG Budesonide 0.5 mg BID NEB 05/10/24 22:00 05/11/24 06:42 0.5 MG Ceftriaxone Sodium 50 ml @ 100 mls/hr DAILY@09 IV 05/11/24 09:00 05/11/24 08:41 100 MLS/HR Vancomycin HCl 250 ml @ 200 mls/hr Q18H IV 05/11/24 14:00 05/11/24 14:23 200 MLS/HR Amiodarone HCl 200 mg Q12HR PO 05/11/24 10:00 05/11/24 10:35 200 MG Docusate Sodium 100 mg BID PO 05/11/24 22:00 UNV Lactulose 30 ml BID PO 05/11/24 22:00 UNV Laboratory Results Laboratory Tests 05/11/24 03:00 Chemistry Test 05/11/24 03:00 Albumin 3.4 g/dL (3.2-4.8) Calcium Level 9.6 mg/dL (8.7-10.4) Total Protein 5.7 g/dL (5.7-8.2) LFT Test 05/11/24 03:00 Alanine Aminotransferase (ALT) 64 U/L (7-40) H Alkaline Phosphatase 111 U/L (46-116) Aspartate Amino Transferase (AST) 62 U/L (13-40) H Total Bilirubin 1.0 mg/dL (0.2-1.0) Urinalysis Test 05/07/24 15:06 Urine Color Dark-yellow (Yellow) Urine Clarity Turbid (Clear) H Urine pH 5.5 (5.0-9.0) Urine Specific [place] 1.021 (1.001-1.035) Urine Protein 2+ (Negative) H Urine Ketones Negative (Negative) Urine Blood 1+ /uL (Negative) H Urine Nitrite Negative (Negative) Urine Bilirubin Negative (Negative) Urine Urobilinogen 2 mg/dL (Negative) H Urine Leukocyte Esterase Negative /uL (Negative) Urine RBC 28 /hpf (0 - 4) Urine Microscopic WBC 4 /HPF (0-5) Urine Squamous Epithelial Cells Few /hpf (<5) Urine Bacteria Few /hpf (None Seen) H Urine Hyaline Casts Many /lpf (0 - 2) Urine Mucus Few (None Seen) Urine Yeast (Budding) Occasional /hpf (None Urine Glucose 1+ mg/dL (Normal) H Blood Gas Results Test 05/11/24 07:06 Arterial Blood pH 7.409 (7.350-7.450) FiO2 % 45.0 Microbiology Microbiology Date/Time Source Procedure Growth Status 05/08/24 02:17 Sputum Gram Stain - Final Complete 05/08/24 02:17 Respiratory Culture - Final Klebsiella pneumoniae Complete 05/07/24 19:10 Nose MRSA Screen - Final Methicillin Resistant S.aureus Complete 05/07/24 15:06 Urine - Case Port Urine Culture - Final Complete 05/07/24 14:20 Blood Blood Culture - Preliminary NO GROWTH AFTER 72 HOURS OF INCUBATION. Resulted Labs and/or images reviewed: Labs reviewed by me Assessment/Plan Assessment/Plan s/p cardiac arrest sepsis- sputum cultures positive for klebsiella and blood culture shows staph warneri- on antibiotics per sensitivity persistent fevers- repeat cultures/pulmonary consulted on need for bronch/urine cultures negative/no diarrhea copd/copd exacerbation/- add steroids rib fractures- new/sos did start cpr at home/family aware of this-pain control acute respiratory failure metabolic encephalopathy secondary to sepsis recent basal ganglia cva atrial fibrillation on anticoagulation h/o small cell lung cancer left lung- had radiation and chemo adrenal nodule- daughter states aware/followed by [facility] dvt prophylaxis gi prophylaxis Plan discussed with: Daughter, Other My Orders Orders - SHIRA CARTWRIGHT MD Procedure Category Date Status Time Blood Culture RUDOLPH 05/11/24 Logged 15:02 Kub Abdomen Single XY 05/11/24 Logged View 15:02 Docusate Sodium PHA 05/11/24 Logged Capsule (Colace 15:15 Docusate Sodium PHA 05/11/24 Logged Capsule (Colace 22:00 Lactulose Oral PHA 05/11/24 Logged 22:00 Methyprednis PHA 05/11/24 Verified 1000mgivpb Solume 15:15 Date of Service: May 11, 2024 Billing Provider: SHIRA CARTWRIGHT MD Common Visit Codes: [id number]-[id number] CARE 30-74 MIN SHIRA CARTWRIGHT MD May 11, 2024 15:25
--- NOTE | 2024-05-11 15:35 | DVH ---
Date: 05/11/2024 03:18 PM Examination: XY KUB ABDOMEN SINGLE VIEW History: constipation/ Comparison: None TECHNIQUE: Frontal views of the abdomen was obtained. FINDINGS: Bowel gas pattern is unremarkable. Enteric tube in the stomach. Catheter in the right inguinal area. The lung bases are unremarkable. No acute osseous abnormality identified. IMPRESSION: 1. Nonobstructive bowel gas pattern. 2. Enteric tube in the stomach 3. Right inguinal catheter overlying the L5-S1 vertebral level on the right.
--- NOTE | 2024-05-11 16:14 | DVHNC2 ---
Procedure - Bronchoscopy procedure note: Indications: Possible mucous plugging. Medicines: See INSTRUMENT MAINTENANCE SUPERVISOR notes. Complications: None Procedure: Patient medications and allergies reviewed. The risks and benefits of the proce dure and the sedation options and risk were discussed with the patient's healthcare proxy. All questions were answered and informed consent was obtained. Patient identification and proposed procedure were verified prior to the procedure by the physician, and a nurse, and the respiratory therapist in ICU room. The heart rate, respiratory rate, oxygen saturations, blood pressure, adequacy of pulmonary ventilation, and response to care were monitored throughout the procedure. The physical status of the patient was reassessed after the procedure. After obtaining informed consent, the bronchoscope was introduced through the endotracheal tube and advanced into the trachea bronchial tree of both lungs. The procedure was accomplished without difficulty. The patient tolerated the procedure well. Findings: The trachea is in normal caliber. The filemon is sharp. The tracheobronchial cheryl e of the right lung was examined to at least the first subsegmental level. The bronchial mucosa was inflamed. The anatomy in the right lung are normal. There are no endobronchial lesions. There was copious whitish secretions from right main stem bronchus onward throughout R4-R10. Right middle lobe (RML) Bronchoalveolar lavage (BAL) obtained. RML BAL sent for gram stain and culture, and fungal culture. The left upper lobe, lingula, and left lower lobe were examined to at least the first subsegmental level. Bronchial mucosa and anatomy in the left upper lobe and lingula are normal. There were no endobronchial lesions. There was copious whitish secretions from left main stem bronchus onward throughout L5-L10. Mucous plugging removed from L5-L10. There was no active bleeding at the completion of the procedure. Estimated blood loss: Less than 5 mL. Impression: Right and Left lower lobe atelectasis due to mucous plugging Mucous plugging from L5-L10 and R4-R10 RML BAL performed Recommendation: Follow-up RML BAL results. Procedure codes: 55793, bronchoscopy, rigid and flexible, including fluoroscopic guidance, one performed; with bronchial endobronchial broncho-alveolar lavage, single or multiple sites EFRA DALE MD May 11, 2024 16:14
--- NOTE | 2024-05-11 16:15 | DVHNC2 ---
Procedure - Radial arterial line procedure note Indication: Hemodynamic monitoring, frequent blood ABG draws. Shank Boner: Dr. Robins Date: 05/11/24 Time: 1603 pm Consent: Consent was obtained from patient's healthcare proxy prior to procedure. Indications, risks, and benefits were explained at length. Patient medications and allergies reviewed. The risks and benefits of the procedure and the sedation options and risk were discussed with the patient's healthcare proxy. All questions were answered and informed consent was obtained. Patient identification and proposed procedure were verified prior to the procedure by the physician, and a nurse in the patient's room. The heart rate, respiratory rate, oxygen saturations, blood pressure, adequacy of pulmonary ventilation, and response to care were monitored throughout the procedure. The physical status of the patient was reassessed after the procedure. Procedure summary: A time-out was performed. My hands were washed immediately prior to the procedure. I wore surgical cap, mask with protective eyewear, sterile gown and sterile gloves throughout the procedure. After an Germán test was performed to ensure adequate perfusion, the LEFT wrist was prepped using chlorhexidine scrub and draped in sterile fashion using sterile towels. The radial pulse was identified with the use of ultrasound. The wrist was positioned in the usual fashion. Anesthesia was achieved using 1% lidocaine. Using the radial arterial line kit, needle was inserted into the radial artery using ultrasound guidance. Arterial blood flow was seen to pulsate in the flash chamber. The internal guidewire was advanced easily into the radial artery. The catheter was then advanced over the wire and the needle and wire were withdrawn. The catheter was sutured into place with 1 sutures. A sterile Biopatch and Tegaderm was placed over the catheter at the insertion site. The patient tolerated the procedure without any hemodynamic compromise. At the time of procedure completion, the catheter was connected to the photographic process screen maker and calibrated. Appropriate waveform and blood pressure tracing was observed. Estimated blood loss is less than 5 mL. CPT: 28606 Arterial line insertion CPT: 92893 add-on EFRA ROBINS MD May 11, 2024 16:15
[2024-05-11] MEDS: DOCUSATE SOD 100 MG CAP PO ONE (16:32)
[2024-05-11] MEDS ORDERED: methylPREDNISolone SOD SUCC 125 MG/2 ML VL IV ONE (18:30)
[2024-05-11] MEDS ORDERED: AMIODARONE 360mg/200mL PREMIX 200 ML IV SCH (18:45)
[2024-05-11] MEDS: methylPREDNISolone SOD SUCC 40 MG/ML VL IV ONE ×2 (19:00→21:11)
[2024-05-11] MEDS: AMIODARONE 360mg/200mL PREMIX 200 ML IV SCH (21:10)
[2024-05-11] MEDS: LACTULOSE 20Gm/30ML SOLN PO SCH (21:11)
[2024-05-11] MEDS: DOCUSATE SOD 100 MG CAP PO SCH (21:12)
--- NOTE | 2024-05-11 21:49 | DVHPN2 ---
Progress Note - Dictate Date Seen: May 11, 2024 Medical Necessity Reason Pt with a Central, PICC or Fol: Yes The following are medically ne: Central Line, West Catheter Reason for west catheter: Strict I&O Subjective Patient seen and examined at bedside. Sedated, intubated on mechanical ventilator. Overnight events reviewed. vital signs Vital Sign Date Time Temp Pulse Resp B/P (MAP) Pulse Ox O2 Delivery O2 Flow Rate FiO2 05/11/24 20:12 79 22 119/59 (79) 98 40 05/11/24 18:42 99.0 210.2 05/11/24 18:00 Mechanical Ventilator+ Total Intake and Output 05/10/24 05/10/24 05/11/24 15:00 23:00 07:00 Intake Total 273.501 ml 735.002 ml 341.126 ml Output Total 900 ml 1350 ml Balance 273.501 ml -164.998 ml -1008.874 ml medications Current Medications Medications Dose Ordered Sig/Jerome Route Start Time Stop Time Status Last Admin Dose Admin Midazolam HCl 50 ml @ 1 mls/hr Q24H IV 05/07/24 13:30 05/11/24 13:25 5 MLS/HR Fentanyl Citrate 250 ml @ 2.5 mls/hr Q24H IV 05/07/24 13:30 05/11/24 01:03 7.5 MLS/HR Nitroglycerin 0.4 mg Q5MINP PRN SL 05/07/24 17:15 Morphine Sulfate 2 mg Q30M PRN IV 05/07/24 17:15 Cefepime HCl 50 ml @ 12.5 mls/hr Q12HR IV 05/07/24 22:00 UNV Vancomycin HCl 0 ml @ 0 mls/hr UD IV 05/07/24 17:15 Ipratropium [place] 0.5 mg Q6HR NEB 05/07/24 18:00 05/11/24 18:29 0.5 MG Pantoprazole Sodium 40 mg DAILY IV 05/08/24 10:00 05/11/24 10:34 40 MG Vasopressin 20 units/Sodium Chloride 100 ml @ 9 mls/hr Q11H7M IV 05/07/24 17:15 Norepinephrine Bitartrate 32 mg/ Sodium Chloride 250 ml @ 0.938 mls/ hr Q24H IV 05/07/24 18:00 05/09/24 00:01 5.625 MLS/HR Acetaminophen 650 mg Q6HP PRN GT 05/08/24 08:30 05/11/24 10:37 650 MG Enteral Nutritional Formula 1,000 ml 30ML/HR GT 05/09/24 08:30 05/10/24 20:26 1,000 ML Phenylephrine HCl 80 mg/Sodium Chloride 250 ml @ 7.5 mls/hr Q24H IV 05/09/24 16:00 05/11/24 10:59 21.563 MLS/HR Levalbuterol HCl 1.25 mg Q6HR NEB 05/10/24 12:00 05/11/24 18:29 1.25 MG Acetylcysteine 100 mg Q6HR NEB 05/10/24 12:00 05/11/24 18:29 100 MG Apixaban 5 mg BID PO 05/10/24 10:00 05/11/24 10:35 5 MG Budesonide 0.5 mg BID NEB 05/10/24 22:00 05/11/24 06:42 0.5 MG Ceftriaxone Sodium 50 ml @ 100 mls/hr DAILY@09 IV 05/11/24 09:00 05/11/24 08:41 100 MLS/HR Vancomycin HCl 250 ml @ 200 mls/hr Q18H IV 05/11/24 14:00 05/11/24 14:23 200 MLS/HR Docusate Sodium 100 mg BID PO 05/11/24 22:00 Lactulose 30 ml BID PO 05/11/24 22:00 objective Gen.: Patient lying in bed in medical ICU. Sedated, intubated on mechanical ventilator. Head: Normocephalic, atraumatic. Eyes: PERRLA. Ears: Normal external anatomy. Throat: Endotracheal tube and orogastric tube in place. Neck: Supple, trachea midline. Chest: Transmitted breath sounds bilaterally. Decreased air entry bilaterally. No wheezing. Bibasilar crackles. Cardiovascular: Positive S1, positive S2. Regular rate and rhythm. Abdomen: Positive bowel sounds in all 4 quadrants. Soft, nontender, nondistended. : West in place. Normal external genitalia. Rectal: Deferred. Skin: Warm, dry. Intact. Extremities: 2+ radial pulses bilaterally. No lower extremity edema. Neuro: Sedated. laboratory and microbiology Laboratory Tests 05/11/24 03:00 Test 05/11/24 03:00 Range/Units Serum Glucose 101 74-106 mg/dL Assessment/Plan Impression: Acute hypoxic respiratory failure On mechanical ventilator Acute kidney injury Septic shock Non-ST elevation myocardial infarction Hx of nicotine dependence Metabolic acidosis CVA stroke in left basal ganglia Pulmonary hypertension, RVSP 45 mmHg, moderate COPD/emphysema Hx of small cell lung CA Events: Remains on vent support On AC mode; RR 22, VT 550, PEEP 6, FiO2 45% ABG reviewed, compensated. CXR image and report reviewed. Emphysema, bilateral opacities. Devices in place. Plan for arterial line placement for hemodynamic monitoring Sedated on Versed On pressors for hemodynamic support On Fernando-Synephrine 115 mcg/min Titrate to keep mean arterial pressure greater than 65 mmHg Taper pressors as tolerated AFib with RVR - cardiology recs appreciated On amio PO Started on amio drip Continue antibiotics. WB now 10.3 K Tube feeds for nutritional support Plan for bronchoscopy with BAL Labs and imaging reviewed. Rest of plan as noted below. Plan: s/p intubation on mechanical ventilator. CXR image and report reviewed. Devices in place. Decreasing airspace disease of the left lung field. Cardiomegaly with mild congestion. ABG reviewed, compensated. ECHO report Reviewed: Left ventricular ejection fraction 55%. RV enlarged, r ight ventricular systolic pressure 45 mmHg On AC mode; RR 22, VT 550, PEEP 6, FiO2 45% Titrate FIO2 to keep O2 saturation above 90%. VAP bundle. Daily ABG and CXR while intubated Sedate for ventilator synchrony -on Versed Brain MRI demonstrates acute infarct in the left basal ganglia as seen on prior CT. Amiodarone d/t AFib Cardiology recs appreciated Continue antibiotics. Patient is febrile. F/u cultures. On pressors for hemodynamic support Titrate to keep mean arterial pressure greater than 65 mmHg Taper pressors as tolerated Tube feeds for nutritional support Monitor renal function d/t acute kidney injury Monitor electrolytes. Supplement as necessary. Monitor ins and outs. Maintain euvolemia. GI prophylaxis. DVT prophylaxis. Prognosis: Poor given patient's multiple co-morbidities. Condition: Critical Rest of plan per hospitalist and other consultants. A total of 35 minutes of critical care time was spent reviewing the patient record, examining the patient, making a diagnostic and therapeutic plan, discussing this plan with the medical personnel, following up on diagnostic studies and following the patient for clinical stability excluding any and all procedures. At least 50% of this time was spent in direct, [id number] contact. Thank you, ADORE Bonilla, for allowing me to participate in this patient's care. Further recommendations will depend on the patient's clinical course. Please do not hesitate to contact me if you have any questions or concerns. This medical document was created using an electronic medical record system with [employer] dictation system. Although these documentations are being carefully reviewed, there may still be some phonetic and typographical changes. The errors are purely typographical, due to imperfection on the software program, and do not reflect any compromise in the patient's medical care. Plan discussed with: Other (RN) Critical Care Time(min): 35 EFRA DALE MD May 11, 2024 21:48
[2024-05-12] VITALS (108 sets, daily range): BP systolic 90–172; BP diastolic 39–82; PULSE 62–102; RESP 7–26; TEMP 97.3–99.5; O2SAT 90–100
[2024-05-12 04:09] LABS: Basophils # (auto) 0 10 ^3/uL (0-0.2); Eosinophils # (auto) 0.1 10 ^3/uL (0-0.8); Eosinophils % (auto) 0.5 % (0.0-7.0); Hematocrit 32.1 % (36.0-46.0); Hemoglobin 10.7 g/dL (12.2-16.2); Lymphocytes # (auto) 0.3 10 ^3/uL (0.4-5.4); Lymphocytes % (auto) 2.8 % (10.0-50.0); Mean Corpuscular Hemoglobin 33.4 pg (28.0-32.0); Mean Corpuscular Hgb Conc. 33.4 g/dL (32.0-36.0); Mean Corpuscular Volume 99.8 fL (80.0-100.0); Monocytes # (auto) 0.2 10 ^3/uL (0-1.3); Monocytes % (auto) 1.9 % (0.0-12.0); Neutrophils # (auto) 10.5 10 ^3/uL (1.6-8.6); Neutrophils % (auto) 94.8 % (37.0-80.0); Platelet Count (auto) 212 10^3/uL (140-450); Red Blood Cells 3.22 10^6/uL (4.0-5.20); Red Cell Distribution Width 14.3 % (11.8-14.3); White Blood Cell 11.1 10^3/uL (4.4-10.8)
[2024-05-12 04:43] LABS: Albumin 3.5 g/dL (3.2-4.8); Anion Gap 12 (5-15); BUN/Creatinine Ratio 20.3 (10.0-20.0); Bilirubin, Total 0.6 mg/dL (0.2-1.0); Blood Urea Nitrogen 14 mg/dL (9-23); Calcium 9.9 mg/dL (8.7-10.4); Carbon Dioxide 22 mmol/L (20-31); Chloride 107 mmol/L (98-107); Potassium 3.9 mmol/L (3.5-5.1); Sodium 141 mmol/L (136-145)
[2024-05-12 04:48] LABS: Alanine Aminotransferase 53 U/L (7-40); Alkaline Phosphatase 132 U/L (46-116); Aspartate Aminotransferase 48 U/L (13-40); Glucose 157 mg/dL (74-106)
--- NOTE | 2024-05-12 05:46 | DVH ---
EXAM: XY CHEST PORTABLE Indication: pna Technique: Portable AP view of the chest was performed. Comparison: XY CHEST PORTABLE on DOS: 05/11/24, XY CHEST PORTABLE on DOS: 05/10/24, XY CHEST PORTABLE o n DOS: 05/09/24, XY CHEST PORTABLE on DOS: 05/08/24, XY CHEST XRAY 1 VIEW on DOS: 05/07/24, XY CHEST POR TABLE on DOS: 05/11/24 FINDINGS: Endotracheal tube is re-identified with its tip 3 cm above the filemon. OG tube and right chest port-A -Cath are re-identified. There are hazy opacities throughout the left lung. There are interstitial op acities throughout the right lung, stable. No pneumothorax. Emphysematous changes are better characte rized prior CT scan. The heart is not enlarged. The aortic arch is calcific. The central pulmonary ar teries are ectatic. IMPRESSION: No significant change compared to prior exam.
[2024-05-12 07:10] LABS: Base Excess -1.8 mmol/L (-2.0-3.0)
--- NOTE | 2024-05-12 07:57 | DVHPN2 ---
Progress Note Date Seen: May 12, 2024 Medical Necessity Reason Pt with a Central, PICC or Fol: Yes The following are medically ne: Central Line, Case Catheter Subjective Other Systems: intubated pt is SR now Objective vital signs Vital Sign Date Time Temp Pulse Resp B/P (MAP) Pulse Ox O2 Delivery O2 Flow Rate FiO2 05/12/24 07:00 98.1 63 22 123/54 (77) 98 208.6 05/12/24 06:39 40 05/12/24 06:00 Mechanical Ventilator+ Total Intake and Output 05/11/24 05/11/24 05/12/24 15:00 23:00 07:00 Intake Total 277.504 ml 953.511 ml 538.595 ml Output Total 550 ml 1550 ml Balance 277.504 ml 403.511 ml -1011.405 ml medications Current Medications Medications Dose Ordered Sig/Jerome Route Start Time Stop Time Status Last Admin Dose Admin Midazolam HCl 50 ml @ 1 mls/hr Q24H IV 05/07/24 13:30 05/12/24 02:53 6 MLS/HR Fentanyl Citrate 250 ml @ 2.5 mls/hr Q24H IV 05/07/24 13:30 05/12/24 04:40 10 MLS/HR Nitroglycerin 0.4 mg Q5MINP PRN SL 05/07/24 17:15 Morphine Sulfate 2 mg Q30M PRN IV 05/07/24 17:15 Cefepime HCl 50 ml @ 12.5 mls/hr Q12HR IV 05/07/24 22:00 UNV Vancomycin HCl 0 ml @ 0 mls/hr UD IV 05/07/24 17:15 Ipratropium [place] 0.5 mg Q6HR NEB 05/07/24 18:00 05/12/24 00:16 0.5 MG Pantoprazole Sodium 40 mg DAILY IV 05/08/24 10:00 05/11/24 10:34 40 MG Vasopressin 20 units/Sodium Chloride 100 ml @ 9 mls/hr Q11H7M IV 05/07/24 17:15 Norepinephrine Bitartrate 32 mg/ Sodium Chloride 250 ml @ 0.938 mls/ hr Q24H IV 05/07/24 18:00 05/09/24 00:01 5.625 MLS/HR Acetaminophen 650 mg Q6HP PRN GT 05/08/24 08:30 05/11/24 10:37 650 MG Enteral Nutritional Formula 1,000 ml 30ML/HR GT 05/09/24 08:30 05/11/24 21:14 1,000 ML Phenylephrine HCl 80 mg/Sodium Chloride 250 ml @ 7.5 mls/hr Q24H IV 05/09/24 16:00 05/11/24 22:34 26.25 MLS/HR Levalbuterol HCl 1.25 mg Q6HR NEB 05/10/24 12:00 05/12/24 06:38 1.25 MG Acetylcysteine 100 mg Q6HR NEB 05/10/24 12:00 05/12/24 06:38 100 MG Apixaban 5 mg BID PO 05/10/24 10:00 05/11/24 21:12 5 MG Budesonide 0.5 mg BID NEB 05/10/24 22:00 05/12/24 06:38 0.5 MG Ceftriaxone Sodium 50 ml @ 100 mls/hr DAILY@09 IV 05/11/24 09:00 05/11/24 08:41 100 MLS/HR Vancomycin HCl 250 ml @ 200 mls/hr Q18H IV 05/11/24 14:00 05/11/24 14:23 200 MLS/HR Docusate Sodium 100 mg BID PO 05/11/24 22:00 05/11/24 21:12 100 MG Lactulose 30 ml BID PO 05/11/24 22:00 05/11/24 21:11 30 ML Examination: GENERAL:Abnormal, HEENT:Abnormal, LUNGS:Abnormal, CVS:Abnormal, ABDOMEN:Abnormal laboratory and microbiology Laboratory Tests 05/12/24 03:12 Test 05/12/24 03:12 Range/Units Serum Glucose 157 H 74-106 mg/dL Microbiology Date/Time Source Procedure Growth Status 05/11/24 15:54 Other Pending Resulted 05/11/24 15:54 Other Pending Resulted 05/11/24 15:54 Other Pending Resulted 05/11/24 15:54 Other Pending Resulted 05/11/24 15:54 Other - Final See Separate Report... Resulted 05/10/24 18:10 Blood Blood Culture - Preliminary NO GROWTH AFTER 24 HOURS OF INCUBATION. Resulted 05/08/24 02:17 Sputum Gram Stain - Final Complete 05/08/24 02:17 Respiratory Culture - Final Klebsiella pneumoniae Complete 05/07/24 15:06 Urine - Case Port Urine Culture - Final Complete Problem List/Assessment/Plan Problem List/Assessment/Plan atrial fib prolnged qtc htn HL dc amio gtt again pt has pAF and will go in and out anticoag per primary team prolonged qtc--consider adding BB once pressors are off 35 mins critical care time spent Plan discussed with: Patient Date of Service: May 12, 2024 Billing Provider: NATE MCCAULEY MD Common Visit Codes: NOT BILLABLE NATE MCCAULEY MD May 12, 2024 07:57
--- NOTE | 2024-05-12 08:01 | DVH ---
EXAM: XY CHEST XRAY 1 VIEW HISTORY: Chest tube placement confirmation. COMPARISON: XY CHEST PORTABLE on DOS: 05/12/24, XY CHEST PORTABLE on DOS: 05/11/24, XY CHEST PORTABLE o n DOS: 05/10/24, XY CHEST PORTABLE on DOS: 05/09/24, XY CHEST PORTABLE on DOS: 05/08/[address] dated 05/08/2024. TECHNIQUE: Portable AP view of the chest was performed. FINDINGS: Endotracheal tube is re-identified with its tip 2.9 cm above the filemon. OG tube and right chest port a catheter re-identified. No pneumothorax. There are diffuse bilateral infiltrates, greatest in the l eft lung base. Left hemidiaphragm is obscured. The heart is not enlarged. The aortic arch is calcific . The central pulmonary arteries are ectatic. IMPRESSION: 1. Mechanical ventilation with tubes and lines as above. 2. Stable bilateral pneumonia, left greater than right. Can not exclude superimposed CHF. 3. Atherosclerotic vascular disease and pulmonary arterial hypertension.
--- NOTE | 2024-05-12 11:22 | ECG ---
[facility] Test Date: 2024-05-11 Test Time: 14:15:04 Pat Name: JONNA OLIVAREZ Department: ICU Room: [address] [place] [address] A Gender: F Hand Candy Dipper: GAY : 1950 Requested By: RAKESH SHANE Order Number: [id number] Reading MD: Robin Betts Measurements Intervals [place] Rate: 135 P: 0 ND: 0 QRS: 58 QRSD: 80 T: 125 QT: 281 QTc: 422 Interpretive Statements Atrial fibrillation Abnormal R-wave progression, early transition Nonspecific repol abnormality, diffuse leads Minimal ST elevation, inferior leads Electronically Signed On 05-14-2024 21:29:30 PST by Robin Betts Please click the below link to view image of tracing.
--- NOTE | 2024-05-12 15:44 | DVHPN2 ---
Subjective chart reviwed/d/w daughter at bedside Reviewed: Care Plan, H&P, Labs Changes from previous H/P or p: No Changes General: Per HPI Objective Vitals Vital Signs Date Time Temp Pulse Resp B/P (MAP) Pulse Ox O2 Delivery O2 Flow Rate FiO2 05/12/24 14:21 88 22 112/51 (71) 95 30 05/12/24 14:00 99.0 210.2 05/12/24 14:00 Mechanical Ventilator+ Intake/Output Intake and Output 05/12/24 07:00 Intake Total 1769.610 ml Output Total 2100 ml Balance -330.390 ml Intake Oral 120 ml IV Total 1402.610 ml Tube Feeding 247 ml Output Urine Total 2100 ml General Appearance: Other (intubated/sedated on ventilator) HEENT: Atraumatic, PERRLA Lungs: Clear to auscultation, Other (Mechanical ventilation. Bilateral rhonchi) Cardiovascular: Normal S1, Normal S2 Abdomen: No tenderness, No hepatospenomegaly, Other (bowel sounds heard - little hypo) Genitourinary: No Apparent Abnormalities (Case catheter) Extremities: No edema Neuro: Other (Withdraws to painful stimuli. Positive coughing gag) Skin: Dry, Intact Psych/Mental Status: Other (Unable to assess) Medications Current Medications Medications Dose Ordered Sig/Jerome Route Start Time Stop Time Status Last Admin Dose Admin Midazolam HCl 50 ml @ 1 mls/hr Q24H IV 05/07/24 13:30 05/12/24 10:46 3 MLS/HR Fentanyl Citrate 250 ml @ 2.5 mls/hr Q24H IV 05/07/24 13:30 05/12/24 04:40 10 MLS/HR Nitroglycerin 0.4 mg Q5MINP PRN SL 05/07/24 17:15 Morphine Sulfate 2 mg Q30M PRN IV 05/07/24 17:15 Cefepime HCl 50 ml @ 12.5 mls/hr Q12HR IV 05/07/24 22:00 UNV Vancomycin HCl 0 ml @ 0 mls/hr UD IV 05/07/24 17:15 Ipratropium [place] 0.5 mg Q6HR NEB 05/07/24 18:00 05/12/24 11:52 0.5 MG Pantoprazole Sodium 40 mg DAILY IV 05/08/24 10:00 05/12/24 10:44 40 MG Vasopressin 20 units/Sodium Chloride 100 ml @ 9 mls/hr Q11H7M IV 05/07/24 17:15 Norepinephrine Bitartrate 32 mg/ Sodium Chloride 250 ml @ 0.938 mls/ hr Q24H IV 05/07/24 18:00 05/09/24 00:01 5.625 MLS/HR Acetaminophen 650 mg Q6HP PRN GT 05/08/24 08:30 05/11/24 10:37 650 MG Enteral Nutritional Formula 1,000 ml 30ML/HR GT 05/09/24 08:30 05/11/24 21:14 1,000 ML Phenylephrine HCl 80 mg/Sodium Chloride 250 ml @ 7.5 mls/hr Q24H IV 05/09/24 16:00 05/12/24 12:25 12.188 MLS/HR Levalbuterol HCl 1.25 mg Q6HR NEB 05/10/24 12:00 05/12/24 11:52 1.25 MG Acetylcysteine 100 mg Q6HR NEB 05/10/24 12:00 05/12/24 11:52 100 MG Apixaban 5 mg BID PO 05/10/24 10:00 05/12/24 10:44 5 MG Budesonide 0.5 mg BID NEB 05/10/24 22:00 05/12/24 06:38 0.5 MG Ceftriaxone Sodium 50 ml @ 100 mls/hr DAILY@09 IV 05/11/24 09:00 05/12/24 10:45 100 MLS/HR Docusate Sodium 100 mg BID PO 05/11/24 22:00 05/11/24 21:12 100 MG Lactulose 30 ml BID PO 05/11/24 22:00 05/12/24 10:44 30 ML Vancomycin HCl 250 ml @ 250 mls/hr Q12H IV 05/12/24 23:00 Laboratory Results Laboratory Tests 05/12/24 03:12 Chemistry Test 05/12/24 03:12 Albumin 3.5 g/dL (3.2-4.8) Calcium Level 9.9 mg/dL (8.7-10.4) Total Protein 6.0 g/dL (5.7-8.2) LFT Test 05/12/24 03:12 Alanine Aminotransferase (ALT) 53 U/L (7-40) H Alkaline Phosphatase 132 U/L (46-116) H Aspartate Amino Transferase (AST) 48 U/L (13-40) H Total Bilirubin 0.6 mg/dL (0.2-1.0) Urinalysis Test 05/07/24 15:06 Urine Color Dark-yellow (Yellow) Urine Clarity Turbid (Clear) H Urine pH 5.5 (5.0-9.0) Urine Specific [place] 1.021 (1.001-1.035) Urine Protein 2+ (Negative) H Urine Ketones Negative (Negative) Urine Blood 1+ /uL (Negative) H Urine Nitrite Negative (Negative) Urine Bilirubin Negative (Negative) Urine Urobilinogen 2 mg/dL (Negative) H Urine Leukocyte Esterase Negative /uL (Negative) Urine RBC 28 /hpf (0 - 4) Urine Microscopic WBC 4 /HPF (0-5) Urine Squamous Epithelial Cells Few /hpf (<5) Urine Bacteria Few /hpf (None Seen) H Urine Hyaline Casts Many /lpf (0 - 2) Urine Mucus Few (None Seen) Urine Yeast (Budding) Occasional /hpf (None Urine Glucose 1+ mg/dL (Normal) H Blood Gas Results Test 05/12/24 06:58 Arterial Blood pH 7.468 (7.350-7.450) FiO2 % 40.0 Microbiology Microbiology Date/Time Source Procedure Growth Status 05/11/24 15:54 Other Pending Resulted 05/11/24 15:54 Other Pending Resulted 05/11/24 15:54 Other Pending Resulted 05/11/24 15:54 Other Pending Resulted 05/11/24 15:54 Other - Final See Separate Report... Resulted 05/10/24 18:10 Blood Blood Culture - Preliminary NO GROWTH AFTER 24 HOURS OF INCUBATION. Resulted 05/08/24 02:17 Sputum Gram Stain - Final Complete 05/08/24 02:17 Respiratory Culture - Final Klebsiella pneumoniae Complete 05/07/24 15:06 Urine - Case [place] Urine Culture - Final Complete Labs and/or images reviewed: Labs reviewed by me Assessment/Plan Assessment/Plan s/p cardiac arrest at home sepsis- sputum cultures positive for klebsiella and blood culture shows staph warneri- on antibiotics per sensitivity persistent fevers- repeat cultures/pulmonary consulted on need for bronch/urine cultures negative/no diarrhea copd/copd exacerbation/- added steroids rib fractures- new/son did start cpr at home/family aware of this-pain control acute respiratory failure community acquired pneumonia metabolic encephalopathy secondary to sepsis recent basal ganglia cva-faamily aware/neuro following atrial fibrillation on anticoagulation h/o SMALL cell lung cancer left lung-in 2022 had radiation and chemo PER FAMILY adrenal nodule- daughter states aware/followed by [facility] constipation treat dvt prophylaxis gi prophylaxis Plan discussed with: Daughter, Other Date of Service: May 12, 2024 Billing Provider: SHIRA CARTWRIGHT MD Common Visit Codes: [id number] CARE 30-74 MIN SHIRA CARTWRIGHT MD May 12, 2024 15:44
[2024-05-12] MEDS: BISACODYL 10 MG RECT SUPP PR ONE (15:45)
[2024-05-12] MEDS: METOCLOPRAMIDE HCL 5MG/ml INJ 2ml VIAL IV ONE (15:45)
[2024-05-12] MEDS: methylPREDNISolone SOD SUCC 40 MG/ML VL IV SCH (18:00)
--- NOTE | 2024-05-12 19:35 | DVHPN2 ---
Progress Note - Dictate Date Seen: May 12, 2024 Medical Necessity Reason Pt with a Central, PICC or Fol: Yes The following are medically ne: Central Line, West Catheter Reason for west catheter: Strict I&O Subjective Ms. Aquino is a 74 years old right-handed female with a history of hypertension, AFib, colon cancer, lung cancer with brain metastatic disease status post chemo and radiation treatment, she was brought to the [facility] on 05/07/2024 with a chief complaint of cardiac arrest with ROSC. I have seen and examined the patient, I have discussed with her nurse. She was intubated, responds to strong painful stimuli She was on CPAP for 1 hour earlier today Neosyn: 40 mcg/min UDS, 05/07/2024: Fentanyl, benzo Urinalysis, 05/07/2024: WBC: 4, urine leukocyte esterase: Negative ABG, 05/07/2024: Combined metabolic and respiratory acidosis, WBC/HB/PLT/MCV, 04/28/2024: 20.1/12.9/249/99.8 K, 05/07/2024: 2.4, 205, 05/08/2024: 3.2 BUN/CR, 05/07/2024: 22/1.73, 05/08/2024: 23/1.37 TBI/AST/ALT/AP, 05/08/2024: 0.5/187/210/75 TG/HDL/LDL/HDL, 05/07/2024: 143/177/85/67 TSH, 05/07/2024: 3.46 Venous Doppler, 05/08/2024: No right or left lower extremity deep venous thrombosis Echocardiogram, 05/08/2024: lvef 55% by visaul estimate severe septal hypertrophy RV enlarged mild, normal function left atrium enlarged mild aortic sclerosis Carotid Doppler, 05/10/2024: No hemodynamically significant stenosis noted in the right carotid system. No hemodynamically significant stenosis noted in the left carotid system. CT head, 05/08/2024: 1. Age-indeterminate infarcts in the left basal ganglia, possibly subacute. MRI of the brain without intravenous contrast is recommended for further evaluation. 2. No evidence of acute intracranial hemorrhage MRI headache, 05/10/2024: Acute infarct in the left basal ganglia as seen on prior CT vital signs Vital Sign Date Time Temp Pulse Resp B/P (MAP) Pulse Ox O2 Delivery O2 Flow Rate FiO2 05/12/24 18:32 73 22 126/73 (90) 97 30 05/12/24 18:30 97.3 207.1 05/12/24 18:00 Mechanical Ventilator+ Total Intake and Output 05/11/24 05/11/24 05/12/24 15:00 23:00 07:00 Intake Total 277.504 ml 953.511 ml 538.595 ml Output Total 550 ml 1550 ml Balance 277.504 ml 403.511 ml -1011.405 ml medications Current Medications Medications Dose Ordered Sig/Jerome Route Start Time Stop Time Status Last Admin Dose Admin Midazolam HCl 50 ml @ 1 mls/hr Q24H IV 05/07/24 13:30 05/12/24 10:46 3 MLS/HR Fentanyl Citrate 250 ml @ 2.5 mls/hr Q24H IV 05/07/24 13:30 05/12/24 04:40 10 MLS/HR Nitroglycerin 0.4 mg Q5MINP PRN SL 05/07/24 17:15 Morphine Sulfate 2 mg Q30M PRN IV 05/07/24 17:15 Cefepime HCl 50 ml @ 12.5 mls/hr Q12HR IV 05/07/24 22:00 UNV Vancomycin HCl 0 ml @ 0 mls/hr UD IV 05/07/24 17:15 Ipratropium [place] 0.5 mg Q6HR NEB 05/07/24 18:00 05/12/24 18:19 0.5 MG Pantoprazole Sodium 40 mg DAILY IV 05/08/24 10:00 05/12/24 10:44 40 MG Vasopressin 20 units/Sodium Chloride 100 ml @ 9 mls/hr Q11H7M IV 05/07/24 17:15 Norepinephrine Bitartrate 32 mg/ Sodium Chloride 250 ml @ 0.938 mls/ hr Q24H IV 05/07/24 18:00 05/09/24 00:01 5.625 MLS/HR Acetaminophen 650 mg Q6HP PRN GT 05/08/24 08:30 05/11/24 10:37 650 MG Enteral Nutritional Formula 1,000 ml 30ML/HR GT 05/09/24 08:30 05/11/24 21:14 1,000 ML Phenylephrine HCl 80 mg/Sodium Chloride 250 ml @ 7.5 mls/hr Q24H IV 05/09/24 16:00 05/12/24 12:25 12.188 MLS/HR Levalbuterol HCl 1.25 mg Q6HR NEB 05/10/24 12:00 05/12/24 18:19 1.25 MG Acetylcysteine 100 mg Q6HR NEB 05/10/24 12:00 05/12/24 18:19 100 MG Apixaban 5 mg BID PO 05/10/24 10:00 05/12/24 10:44 5 MG Budesonide 0.5 mg BID NEB 05/10/24 22:00 05/12/24 06:38 0.5 MG Ceftriaxone Sodium 50 ml @ 100 mls/hr DAILY@09 IV 05/11/24 09:00 05/12/24 10:45 100 MLS/HR Docusate Sodium 100 mg BID PO 05/11/24 22:00 05/11/24 21:12 100 MG Lactulose 30 ml BID PO 05/11/24 22:00 05/12/24 10:44 30 ML Vancomycin HCl 250 ml @ 250 mls/hr Q12H IV 05/12/24 23:00 Methylprednisolone Sodium Succinate 40 mg Q8HR IV 05/12/24 18:00 05/12/24 18:00 40 MG Docusate Sodium 200 mg BID GT 05/12/24 22:00 Lactulose 30 ml BID PO 05/12/24 22:00 objective The patient is well-nourished and well-developed with no distress. The patient is intubated MENTAL STATUS: Subjective CRANIAL NERVES: Pupils are equal, round and slightly reactive.There are corneal reflexes and doll's eyes phenomenon. No signs of facial weakness. There are gagging or coughing reflexes SENSATION: Responses to pain stimuli. MOTOR: Normal tone in the upper and lower extremity. Normal muscle bulk. No fasciculations. No spontaneous extremity movement noticed REFLEXES: Deep tendon reflexes are symmetrical. No pathological reflexes. CEREBELLAR/COORDINATION: Deferred GAIT/STATION: deferred. laboratory and microbiology Laboratory Tests 05/12/24 03:12 Test 05/12/24 03:12 Range/Units Serum Glucose 157 H 74-106 mg/dL Problem List Acute/subacute stroke Cardiopulmonary arrest Respiratory failure Metabolic acidosis Respiratory acidosis Atrial fibrillation History of lung cancer with brain metastatic disease Assessment/Plan Monitoring Supportive treatment Follow-up labs ICU care Stabilize vitals/pressor drip Respiratory support/vent management Oxygen IV antibiotics Eliquis 5 mg b.i.d. Lipitor 10mg Qd GI prophylaxis More recommendation per clinical course This medical document was created using an electronic medical record system with [employer] dictation system. Although this document has been carefully reviewed, there may still be some phonetic and typographical errors. These areas are purely typographical due to imperfections of the software programs, and do not reflect any compromise in the patient's medical care Prognosis guarded Dietary Evaluation Review Recommendations by RD: PPN/TPN Comments: 1) Increase TF rate as tolerated to goal rate of 50 mL/hr. Goal rate will provide 1440 kcals, 67g Pro, and 1768 mL free H2O (including flushes) per 24 hours. Goal TF rate will meet ~ 90% daily estimated energy needs and 70% daily esimated protein needs. 2) Flush with 200 mL free H2O Q6 3) Adance to 2g Na diet when medically feasible, pending MATCHER OPERATOR approval 4) Continue current plan of care Expected Outcomes/Goals: 1) labs to improve 2) diet to advance 3) f/u in 2 days Plan discussed with: Other Critical Care Time(min): 30 CE FERREIRA MD May 12, 2024 19:35
[2024-05-12] MEDS: DOCUSATE ORAL LIQUID 100 MG/10 ML UD GT SCH (21:20)
[2024-05-12] MEDS: LACTULOSE 20Gm/30ML SOLN PO SCH (21:22)
[2024-05-12] MEDS: VANCOMYCIN 1GM/250ML KIT 250 ML IV SCH (23:15)
--- NOTE | 2024-05-12 23:26 | DVHPN2 ---
Progress Note - Dictate Date Seen: May 12, 2024 Medical Necessity Reason Pt with a Central, PICC or Fol: Yes The following are medically ne: Central Line, West Catheter Reason for west catheter: Strict I&O Subjective Patient seen and examined at bedside. Sedated, intubated on mechanical ventilator. Overnight events reviewed. vital signs Vital Sign Date Time Temp Pulse Resp B/P (MAP) Pulse Ox O2 Delivery O2 Flow Rate FiO2 05/12/24 22:10 75 22 109/52 (71) 100 40 05/12/24 18:30 97.3 207.1 05/12/24 18:00 Mechanical Ventilator+ Total Intake and Output 05/11/24 05/11/24 05/12/24 15:00 23:00 07:00 Intake Total 277.504 ml 953.511 ml 538.595 ml Output Total 550 ml 1550 ml Balance 277.504 ml 403.511 ml -1011.405 ml medications Current Medications Medications Dose Ordered Sig/Jerome Route Start Time Stop Time Status Last Admin Dose Admin Midazolam HCl 50 ml @ 1 mls/hr Q24H IV 05/07/24 13:30 05/12/24 10:46 3 MLS/HR Fentanyl Citrate 250 ml @ 2.5 mls/hr Q24H IV 05/07/24 13:30 05/12/24 04:40 10 MLS/HR Nitroglycerin 0.4 mg Q5MINP PRN SL 05/07/24 17:15 Morphine Sulfate 2 mg Q30M PRN IV 05/07/24 17:15 Cefepime HCl 50 ml @ 12.5 mls/hr Q12HR IV 05/07/24 22:00 UNV Vancomycin HCl 0 ml @ 0 mls/hr UD IV 05/07/24 17:15 Ipratropium [place] 0.5 mg Q6HR NEB 05/07/24 18:00 05/12/24 18:19 0.5 MG Pantoprazole Sodium 40 mg DAILY IV 05/08/24 10:00 05/12/24 10:44 40 MG Vasopressin 20 units/Sodium Chloride 100 ml @ 9 mls/hr Q11H7M IV 05/07/24 17:15 Norepinephrine Bitartrate 32 mg/ Sodium Chloride 250 ml @ 0.938 mls/ hr Q24H IV 05/07/24 18:00 05/09/24 00:01 5.625 MLS/HR Acetaminophen 650 mg Q6HP PRN GT 05/08/24 08:30 05/11/24 10:37 650 MG Enteral Nutritional Formula 1,000 ml 30ML/HR GT 05/09/24 08:30 05/12/24 21:21 1,000 ML Phenylephrine HCl 80 mg/Sodium Chloride 250 ml @ 7.5 mls/hr Q24H IV 05/09/24 16:00 05/12/24 12:25 12.188 MLS/HR Levalbuterol HCl 1.25 mg Q6HR NEB 05/10/24 12:00 05/12/24 18:19 1.25 MG Acetylcysteine 100 mg Q6HR NEB 05/10/24 12:00 05/12/24 18:19 100 MG Apixaban 5 mg BID PO 05/10/24 10:00 05/12/24 21:20 5 MG Budesonide 0.5 mg BID NEB 05/10/24 22:00 05/12/24 22:13 0.5 MG Ceftriaxone Sodium 50 ml @ 100 mls/hr DAILY@09 IV 05/11/24 09:00 05/12/24 10:45 100 MLS/HR Docusate Sodium 100 mg BID PO 05/11/24 22:00 05/11/24 21:12 100 MG Lactulose 30 ml BID PO 05/11/24 22:00 05/12/24 21:22 30 ML Vancomycin HCl 250 ml @ 250 mls/hr Q12H IV 05/12/24 23:00 05/12/24 23:15 250 MLS/HR Methylprednisolone Sodium Succinate 40 mg Q8HR IV 05/12/24 18:00 05/12/24 21:20 40 MG Docusate Sodium 200 mg BID GT 05/12/24 22:00 05/12/24 21:20 200 MG Lactulose 30 ml BID PO 05/12/24 22:00 Atorvastatin Calcium 10 mg HS PO 05/13/24 22:00 objective Gen.: Patient lying in bed in medical ICU. Sedated, intubated on mechanical ventilator. Head: Normocephalic, atraumatic. Eyes: PERRLA. Ears: Normal external anatomy. Throat: Endotracheal tube and orogastric tube in place. Neck: Supple, trachea midline. Chest: Transmitted breath sounds bilaterally. Decreased air entry bilaterally. No wheezing. Bibasilar crackles. Cardiovascular: Positive S1, positive S2. Regular rate and rhythm. Abdomen: Positive bowel sounds in all 4 quadrants. Soft, nontender, nondistended. : West in place. Normal external genitalia. Rectal: Deferred. Skin: Warm, dry. Intact. Extremities: 2+ radial pulses bilaterally. No lower extremity edema. Neuro: Sedated. laboratory and microbiology Laboratory Tests 05/12/24 03:12 Test 05/12/24 03:12 Range/Units Serum Glucose 157 H 74-106 mg/dL Assessment/Plan Impression: Acute hypoxic respiratory failure On mechanical ventilator Acute kidney injury Septic shock Non-ST elevation myocardial infarction Hx of nicotine dependence Metabolic acidosis CVA stroke in left basal ganglia Pulmonary hypertension, RVSP 45 mmHg, moderate COPD/emphysema Hx of small cell lung CA Events: Remains on vent support On AC mode; RR 22, VT 550, PEEP 6, FiO2 40% Taper RR to 18 BPM Fio2 improved to 40% ABG reviewed, notable for alkalemia d/t respiratory alkalosis CXR image and report reviewed. Emphysema, bilateral opacities. Devices in place. Pt awake, following simple commands Sedated on Versed On pressors for hemodynamic support On Fernando-Synephrine 65 mcg/min Titrate to keep mean arterial pressure greater than 65 mmHg Taper pressors as tolerated Continue antibiotics. IV steroids WBC now 11.1 K, slightly elevated Blood cultures show no growth after 24 hours Follow up BAL culture results Monitor Hgb - 10.7 g/dl Tube feeds for nutritional support Taper sedation CPAP in AM with PS 8, PEEP 5. Plan for bronchoscopy with BAL Labs and imaging reviewed. Rest of plan as noted below. Plan: s/p intubation on mechanical ventilator. CXR image and report reviewed. Devices in place. Decreasing airspace disease of the left lung field. Cardiomegaly with mild congestion. ABG reviewed, compensated. ECHO report Reviewed: Left ventricular ejection fraction 55%. RV enlarged, r ight ventricular systolic pressure 45 mmHg On AC mode; RR 22, VT 550, PEEP 6, FiO2 40% Taper RR to 18 BPM Titrate FIO2 to keep O2 saturation above 90%. VAP bundle. Daily ABG and CXR while intubated Sedate for ventilator synchrony -on Versed Brain MRI demonstrates acute infarct in the left basal ganglia as seen on prior CT. Cardiology recs appreciated Continue antibiotics. F/u cultures. On pressors for hemodynamic support Titrate to keep mean arterial pressure greater than 65 mmHg Taper pressors as tolerated Tube feeds for nutritional support Monitor renal function d/t acute kidney injury Monitor electrolytes. Supplement as necessary. Monitor ins and outs. Maintain euvolemia. GI prophylaxis. DVT prophylaxis. Prognosis: Poor given patient's multiple co-morbidities. Condition: Critical Rest of plan per hospitalist and other consultants. A total of 35 minutes of critical care time was spent reviewing the patient record, examining the patient, making a diagnostic and therapeutic plan, discussing this plan with the medical personnel, following up on diagnostic studies and following the patient for clinical stability excluding any and all procedures. At least 50% of this time was spent in direct, [id number] contact. Thank you, ADORE Bonilla, for allowing me to participate in this patient's care. Further recommendations will depend on the patient's clinical course. Please do not hesitate to contact me if you have any questions or concerns. This medical document was created using an electronic medical record system with [employer] dictation system. Although these documentations are being carefully reviewed, there may still be some phonetic and typographical changes. The errors are purely typographical, due to imperfection on the software program, and do not reflect any compromise in the patient's medical care. Dietary Evaluation Review Recommendations by RD: PPN/TPN Comments: 1) Increase TF rate as tolerated to goal rate of 50 mL/hr. Goal rate will provide 1440 kcals, 67g Pro, and 1768 mL free H2O (including flushes) per 24 hours. Goal TF rate will meet ~ 90% daily estimated energy needs and 70% daily esimated protein needs. 2) Flush with 200 mL free H2O Q6 3) Adance to 2g Na diet when medically feasible, pending RACE STEWARD approval 4) Continue current plan of care Expected Outcomes/Goals: 1) labs to improve 2) diet to advance 3) f/u in 2 days Plan discussed with: Other (BENJA Reynoso) Critical Care Time(min): 35 EFRA DALE MD May 12, 2024 23:26
[2024-05-13] VITALS (106 sets, daily range): BP systolic 70–154; BP diastolic 35–70; PULSE 61–86; RESP 13–30; TEMP 94.8–99.3; O2SAT 91–100
[2024-05-13 03:45] LABS: Basophils # (auto) 0 10 ^3/uL (0-0.2); Eosinophils # (auto) 0 10 ^3/uL (0-0.8); Hemoglobin 10.2 g/dL (12.2-16.2); Lymphocytes # (auto) 0.5 10 ^3/uL (0.4-5.4); Lymphocytes % (auto) 4.9 % (10.0-50.0); Mean Corpuscular Hemoglobin 33.6 pg (28.0-32.0); Mean Corpuscular Volume 98.8 fL (80.0-100.0); Monocytes # (auto) 0.6 10 ^3/uL (0-1.3); Monocytes % (auto) 5.6 % (0.0-12.0); Neutrophils # (auto) 9.8 10 ^3/uL (1.6-8.6); Neutrophils % (auto) 89.5 % (37.0-80.0); Nucleated Red Blood Cells % 0.1 %; Platelet Count (auto) 248 10^3/uL (140-450); Red Blood Cells 3.04 10^6/uL (4.0-5.20); Red Cell Distribution Width 13.8 % (11.8-14.3); White Blood Cell 10.9 10^3/uL (4.4-10.8)
[2024-05-13] MEDS: POTASSIUM CHL 20MEQ/100ML 100 ML IV ONE (05:48)
[2024-05-13 07:02] LABS: Base Excess 0.2 mmol/L (-2.0-3.0)
--- NOTE | 2024-05-13 08:15 | DVHPN2 ---
Subjective Patient unresponsive Reviewed: Care Plan, H&P, Labs Changes from previous H/P or p: No Changes General: Per HPI Objective Vitals Vital Signs Date Time Temp Pulse Resp B/P (MAP) Pulse Ox O2 Delivery O2 Flow Rate FiO2 05/13/24 07:45 64 22 120/67 (84) 96 30 05/13/24 07:30 97.9 208.2 05/13/24 06:00 Mechanical Ventilator+ Intake/Output Intake and Output 05/13/24 07:00 Intake Total 791.257 ml Output Total 1000 ml Balance -208.743 ml IV Total 661.257 ml Tube Feeding 130 ml Output Urine Total 1000 ml General Appearance: Other (intubated/sedated on ventilator) HEENT: Atraumatic, PERRLA Lungs: Clear to auscultation, Other (Mechanical ventilation. Bilateral rhonchi) Cardiovascular: Normal S1, Normal S2 Abdomen: No tenderness, No hepatospenomegaly, Other (bowel sounds heard - little hypo) Genitourinary: No Apparent Abnormalities (Case catheter) Extremities: No edema Neuro: Other (Withdraws to painful stimuli. Positive coughing gag) Skin: Dry, Intact Psych/Mental Status: Other (Unable to assess) Medications Current Medications Medications Dose Ordered Sig/Jerome Route Start Time Stop Time Status Last Admin Dose Admin Midazolam HCl 50 ml @ 1 mls/hr Q24H IV 05/07/24 13:30 05/12/24 10:46 3 MLS/HR Fentanyl Citrate 250 ml @ 2.5 mls/hr Q24H IV 05/07/24 13:30 05/12/24 04:40 10 MLS/HR Nitroglycerin 0.4 mg Q5MINP PRN SL 05/07/24 17:15 Morphine Sulfate 2 mg Q30M PRN IV 05/07/24 17:15 Cefepime HCl 50 ml @ 12.5 mls/hr Q12HR IV 05/07/24 22:00 UNV Vancomycin HCl 0 ml @ 0 mls/hr UD IV 05/07/24 17:15 Ipratropium [place] 0.5 mg Q6HR NEB 05/07/24 18:00 05/13/24 06:40 0.5 MG Pantoprazole Sodium 40 mg DAILY IV 05/08/24 10:00 05/12/24 10:44 40 MG Vasopressin 20 units/Sodium Chloride 100 ml @ 9 mls/hr Q11H7M IV 05/07/24 17:15 Norepinephrine Bitartrate 32 mg/ Sodium Chloride 250 ml @ 0.938 mls/ hr Q24H IV 05/07/24 18:00 05/09/24 00:01 5.625 MLS/HR Acetaminophen 650 mg Q6HP PRN GT 05/08/24 08:30 05/11/24 10:37 650 MG Enteral Nutritional Formula 1,000 ml 30ML/HR GT 05/09/24 08:30 05/12/24 21:21 1,000 ML Phenylephrine HCl 80 mg/Sodium Chloride 250 ml @ 7.5 mls/hr Q24H IV 05/09/24 16:00 05/12/24 12:25 12.188 MLS/HR Levalbuterol HCl 1.25 mg Q6HR NEB 05/10/24 12:00 05/13/24 06:40 1.25 MG Acetylcysteine 100 mg Q6HR NEB 05/10/24 12:00 05/13/24 06:40 100 MG Apixaban 5 mg BID PO 05/10/24 10:00 05/12/24 21:20 5 MG Budesonide 0.5 mg BID NEB 05/10/24 22:00 05/13/24 06:40 0.5 MG Ceftriaxone Sodium 50 ml @ 100 mls/hr DAILY@09 IV 05/11/24 09:00 05/12/24 10:45 100 MLS/HR Lactulose 30 ml BID PO 05/11/24 22:00 05/12/24 21:22 30 ML Vancomycin HCl 250 ml @ 250 mls/hr Q12H IV 05/12/24 23:00 05/12/24 23:15 250 MLS/HR Methylprednisolone Sodium Succinate 40 mg Q8HR IV 05/12/24 18:00 05/13/24 05:48 40 MG Docusate Sodium 200 mg BID GT 05/12/24 22:00 05/12/24 21:20 200 MG Atorvastatin Calcium 10 mg HS PO 05/13/24 22:00 Laboratory Results Laboratory Tests 05/13/24 03:15 Chemistry Test 05/13/24 03:15 Calcium Level Pending Urinalysis Test 05/07/24 15:06 Urine Color Dark-yellow (Yellow) Urine Clarity Turbid (Clear) H Urine pH 5.5 (5.0-9.0) Urine Specific [place] 1.021 (1.001-1.035) Urine Protein 2+ (Negative) H Urine Ketones Negative (Negative) Urine Blood 1+ /uL (Negative) H Urine Nitrite Negative (Negative) Urine Bilirubin Negative (Negative) Urine Urobilinogen 2 mg/dL (Negative) H Urine Leukocyte Esterase Negative /uL (Negative) Urine RBC 28 /hpf (0 - 4) Urine Microscopic WBC 4 /HPF (0-5) Urine Squamous Epithelial Cells Few /hpf (<5) Urine Bacteria Few /hpf (None Seen) H Urine Hyaline Casts Many /lpf (0 - 2) Urine Mucus Few (None Seen) Urine Yeast (Budding) Occasional /hpf (None Urine Glucose 1+ mg/dL (Normal) H Blood Gas Results Test 05/12/24 19:27 05/13/24 06:53 Arterial Blood pH 7.308 (7.350-7.450) 7.507 (7.350-7.450) FiO2 % 40.0 30.0 Microbiology Microbiology Date/Time Source Procedure Growth Status 05/11/24 15:54 Other Pending Resulted 05/11/24 15:54 Other Pending Resulted 05/11/24 15:54 Other Pending Resulted 05/11/24 15:54 Other Pending Resulted 05/11/24 15:54 Other - Final See Separate Report... Resulted 05/10/24 18:10 Blood Blood Culture - Preliminary NO GROWTH AFTER 48 HOURS OF INCUBATION. Resulted 05/08/24 02:17 Sputum Gram Stain - Final Complete 05/08/24 02:17 Respiratory Culture - Final Klebsiella pneumoniae Complete 05/07/24 15:06 Urine - [place] Urine Culture - Final Complete Labs and/or images reviewed: Labs reviewed by me, Image(s) reviewed by me Assessment/Plan Assessment/Plan Impression: -cardiopulmonary arrest in the field -acute hypoxic and hypercarbic respiratory failure with mechanical ventilation -full mouth pulmonary embolism -NSTEMI, rule out type 1 -hyperkalemia -acute kidney injury -shock liver -septic shock -community-acquired pneumonia, Klebsiella pneumoniae -primary hypertension -history of atrial fibrillation with anticoagulation Plan: Events: Patient off sedation. Failed CPAP trial yesterday evening. Currently on low-dose Fernando-Synephrine. EEG. We will discuss case with Neurology -continue vasopressor therapy with Fernando-Synephrine and vasopressin -change bronchodilators to Xopenex and Atrovent given AFib with RVR. Add Pulmicort and Mucomyst. -MRI of the brain: Plans to be performed today. -repeat blood culture negative for growth. Probable contamination with 1st set. Discontinue vancomycin, continue Rocephin. -continue tube feedings -potassium replacement -bronchodilators -cardiology consultation : Recommendations reviewed -PUD, DVT prophylaxis -repeat labs, chest x-ray, ABG in a.m. Critical care time spent with patient discussing and formulating plan of care: 40 minutes. This does not include time spent performing procedures. This medical document was created using an electronic medical record system with [employer] system. Although this document has been carefully reviewed, there may still be some phonetic and typographical errors. These areas are purely typographical due to imperfections of the software programs, and do not reflect any compromise in the patient's medical care. Plan discussed with: Patient, Other (RN) My Orders Orders - KELLEY GARCIA NP Procedure Category Date Status Time Vancomycin 1gm/250ml PHA 05/12/24 In Process Kit 23:00 Vancomycin Per SHANIQUA 05/12/24 In Process Pharmacy Protoc 10:00 Vancomycin,Trough LAB 05/13/24 Logged 22:00 Basic Metabolic Panel LAB 05/13/24 In Process 07:54 Basic Metabolic Panel LAB 05/14/24 Verified 04:00 Complete Blood Count LAB 05/14/24 Verified 04:00 Eeg Awake/Sleep/Act EEG 05/13/24 Verified 08:10 Ammonia LAB 05/13/24 Verified 08:10 Vitamin D 25-Hydroxy LAB 05/13/24 Verified D2 + D3 08:10 Date of Service: May 13, 2024 Billing Provider: KELLEY GARCIA NP Common Visit Codes: [id number] CARE 30-74 MIN KELLEY GARCIA NP May 13, 2024 08:15
[2024-05-13 08:17] LABS: Sodium 143 mmol/L (136-145)
[2024-05-13 08:18] LABS: Anion Gap 9 (5-15); Calcium 9.6 mg/dL (8.7-10.4); Carbon Dioxide 24 mmol/L (20-31)
[2024-05-13 08:23] LABS: BUN/Creatinine Ratio 26.5 (10.0-20.0); Blood Urea Nitrogen 18 mg/dL (9-23)
[2024-05-13 08:24] LABS: Chloride 110 mmol/L (98-107); Glucose 216 mg/dL (74-106); Potassium 3.4 mmol/L (3.5-5.1)
--- NOTE | 2024-05-13 11:02 | DVHPN2 ---
Progress Note - Dictate Date Seen: May 13, 2024 Medical Necessity Reason Pt with a Central, PICC or Fol: Yes The following are medically ne: Central Line, West Catheter Reason for west catheter: Strict I&O Subjective Ms. Aquino is a 74 years old right-handed female with a history of hypertension, AFib, colon cancer, lung cancer with brain metastatic disease status post chemo and radiation treatment, she was brought to the [facility] on 05/07/2024 with a chief complaint of cardiac arrest with ROSC. I have seen and examined the patient, I have discussed with her nurse, her daughter in the room with her. She is intubated, but she was awake, she follows verbal commands. She is still weak in the extremities The case was discussed with Ananth Lunan: 35 mcg/min UDS, 05/07/2024: Fentanyl, benzo Urinalysis, 05/07/2024: WBC: 4, urine leukocyte esterase: Negative ABG, 05/07/2024: Combined metabolic and respiratory acidosis, WBC/HB/PLT/MCV, 04/28/2024: 20.1/12.9/249/99.8 K, 05/07/2024: 2.4, 205, 05/08/2024: 3.2 BUN/CR, 05/07/2024: 22/1.73, 05/08/2024: 23/1.37 TBI/AST/ALT/AP, 05/08/2024: 0.5/187/210/75 TG/HDL/LDL/HDL, 05/07/2024: 143/177/85/67 TSH, 05/07/2024: 3.46 Venous Doppler, 05/08/2024: No right or left lower extremity deep venous thrombosis Echocardiogram, 05/08/2024: lvef 55% by visaul estimate severe septal hypertrophy RV enlarged mild, normal function left atrium enlarged mild aortic sclerosis Carotid Doppler, 05/10/2024: No hemodynamically significant stenosis noted in the right carotid system. No hemodynamically significant stenosis noted in the left carotid system. CT head, 05/08/2024: 1. Age-indeterminate infarcts in the left basal ganglia, possibly subacute. MRI of the brain without intravenous contrast is recommended for further evaluation. 2. No evidence of acute intracranial hemorrhage MRI headache, 05/10/2024: Acute infarct in the left basal ganglia as seen on prior CT vital signs Vital Sign Date Time Temp Pulse Resp B/P (MAP) Pulse Ox O2 Delivery O2 Flow Rate FiO2 05/13/24 07:45 64 22 120/67 (84) 96 30 05/13/24 07:30 97.9 208.2 05/13/24 06:00 Mechanical Ventilator+ Total Intake and Output 05/12/24 05/12/24 05/13/24 15:00 23:00 07:00 Intake Total 158.004 ml 187.940 ml 445.313 ml Output Total 700 ml 300 ml Balance 158.004 ml -512.060 ml 145.313 ml medications Current Medications Medications Dose Ordered Sig/Jerome Route Start Time Stop Time Status Last Admin Dose Admin Midazolam HCl 50 ml @ 1 mls/hr Q24H IV 05/07/24 13:30 05/12/24 10:46 3 MLS/HR Fentanyl Citrate 250 ml @ 2.5 mls/hr Q24H IV 05/07/24 13:30 05/12/24 04:40 10 MLS/HR Nitroglycerin 0.4 mg Q5MINP PRN SL 05/07/24 17:15 Morphine Sulfate 2 mg Q30M PRN IV 05/07/24 17:15 Cefepime HCl 50 ml @ 12.5 mls/hr Q12HR IV 05/07/24 22:00 UNV Vancomycin HCl 0 ml @ 0 mls/hr UD IV 05/07/24 17:15 Ipratropium [place] 0.5 mg Q6HR NEB 05/07/24 18:00 05/13/24 06:40 0.5 MG Pantoprazole Sodium 40 mg DAILY IV 05/08/24 10:00 05/13/24 09:34 40 MG Vasopressin 20 units/Sodium Chloride 100 ml @ 9 mls/hr Q11H7M IV 05/07/24 17:15 Norepinephrine Bitartrate 32 mg/ Sodium Chloride 250 ml @ 0.938 mls/ hr Q24H IV 05/07/24 18:00 05/09/24 00:01 5.625 MLS/HR Acetaminophen 650 mg Q6HP PRN GT 05/08/24 08:30 05/11/24 10:37 650 MG Enteral Nutritional Formula 1,000 ml 30ML/HR GT 05/09/24 08:30 05/12/24 21:21 1,000 ML Phenylephrine HCl 80 mg/Sodium Chloride 250 ml @ 7.5 mls/hr Q24H IV 05/09/24 16:00 05/12/24 12:25 12.188 MLS/HR Levalbuterol HCl 1.25 mg Q6HR NEB 05/10/24 12:00 05/13/24 06:40 1.25 MG Acetylcysteine 100 mg Q6HR NEB 05/10/24 12:00 05/13/24 06:40 100 MG Apixaban 5 mg BID PO 05/10/24 10:00 05/13/24 09:34 5 MG Budesonide 0.5 mg BID NEB 05/10/24 22:00 05/13/24 06:40 0.5 MG Ceftriaxone Sodium 50 ml @ 100 mls/hr DAILY@09 IV 05/11/24 09:00 05/13/24 09:02 100 MLS/HR Lactulose 30 ml BID PO 05/11/24 22:00 05/12/24 21:22 30 ML Methylprednisolone Sodium Succinate 40 mg Q8HR IV 05/12/24 18:00 05/13/24 05:48 40 MG Docusate Sodium 200 mg BID GT 05/12/24 22:00 05/12/24 21:20 200 MG Atorvastatin Calcium 10 mg HS PO 05/13/24 22:00 objective The patient is well-nourished and well-developed with no distress. The patient is intubated MENTAL STATUS: Subjective CRANIAL NERVES: Pupils are equal, round and reactive.There are gait eye movement. No signs of facial weakness. There are gagging or coughing reflexes SENSATION: Okay to painful stimuli and light touch MOTOR: Normal tone in the upper and lower extremity. Normal muscle bulk. No fasciculations. No spontaneous extremity movement noticed REFLEXES: Deep tendon reflexes are symmetrical. No pathological reflexes. CEREBELLAR/COORDINATION: Deferred GAIT/STATION: deferred. laboratory and microbiology Laboratory Tests 05/13/24 03:15 Test 05/13/24 03:15 Range/Units Serum Glucose 216 H 74-106 mg/dL Problem List Acute/subacute stroke Cardiopulmonary arrest Respiratory failure Metabolic acidosis Respiratory acidosis Atrial fibrillation History of lung cancer with brain metastatic disease Assessment/Plan Monitoring Supportive treatment Follow-up labs ICU care Stabilize vitals/pressor drip Respiratory support/vent management Oxygen IV antibiotics Eliquis 5 mg b.i.d. Lipitor 10mg Qd GI prophylaxis CPAP trial More recommendation per clinical course This medical document was created using an electronic medical record system with [employer] dictation system. Although this document has been carefully reviewed, there may still be some phonetic and typographical errors. These areas are purely typographical due to imperfections of the software programs, and do not reflect any compromise in the patient's medical care Prognosis guarded Dietary Evaluation Review Recommendations by RD: PPN/TPN Comments: 1) Increase TF rate as tolerated to goal rate of 50 mL/hr. Goal rate will provide 1440 kcals, 67g Pro, and 1768 mL free H2O (including flushes) per 24 hours. Goal TF rate will meet ~ 90% daily estimated energy needs and 70% daily esimated protein needs. 2) Flush with 200 mL free H2O Q6 3) Adance to 2g Na diet when medically feasible, pending DIST[employer] approval 4) Continue current plan of care Expected Outcomes/Goals: 1) labs to improve 2) diet to advance 3) f/u in 2 days Plan discussed with: Daughter, Other Critical Care Time(min): 30 CE FERREIRA MD May 13, 2024 11:02
--- NOTE | 2024-05-13 11:37 | DVHPN2 ---
Progress Note Date Seen: May 13, 2024 Medical Necessity Reason Pt with a Central, PICC or Fol: Yes The following are medically ne: Central Line, West Catheter Reason for west catheter: Strict I&O Subjective Other Systems: intubated seen by neuro HR controlled Objective vital signs Vital Sign Date Time Temp Pulse Resp B/P (MAP) Pulse Ox O2 Delivery O2 Flow Rate FiO2 05/13/24 11:15 96.6 64 22 111/49 (69) 94 205.9 05/13/24 10:55 30 05/13/24 06:00 Mechanical Ventilator+ Total Intake and Output 05/12/24 05/12/24 05/13/24 15:00 23:00 07:00 Intake Total 158.004 ml 187.940 ml 445.313 ml Output Total 700 ml 300 ml Balance 158.004 ml -512.060 ml 145.313 ml medications Current Medications Medications Dose Ordered Sig/Jerome Route Start Time Stop Time Status Last Admin Dose Admin Midazolam HCl 50 ml @ 1 mls/hr Q24H IV 05/07/24 13:30 05/12/24 10:46 3 MLS/HR Fentanyl Citrate 250 ml @ 2.5 mls/hr Q24H IV 05/07/24 13:30 05/12/24 04:40 10 MLS/HR Nitroglycerin 0.4 mg Q5MINP PRN SL 05/07/24 17:15 Morphine Sulfate 2 mg Q30M PRN IV 05/07/24 17:15 Cefepime HCl 50 ml @ 12.5 mls/hr Q12HR IV 05/07/24 22:00 UNV Vancomycin HCl 0 ml @ 0 mls/hr UD IV 05/07/24 17:15 Ipratropium [place] 0.5 mg Q6HR NEB 05/07/24 18:00 05/13/24 06:40 0.5 MG Pantoprazole Sodium 40 mg DAILY IV 05/08/24 10:00 05/13/24 09:34 40 MG Vasopressin 20 units/Sodium Chloride 100 ml @ 9 mls/hr Q11H7M IV 05/07/24 17:15 Norepinephrine Bitartrate 32 mg/ Sodium Chloride 250 ml @ 0.938 mls/ hr Q24H IV 05/07/24 18:00 05/09/24 00:01 5.625 MLS/HR Acetaminophen 650 mg Q6HP PRN GT 05/08/24 08:30 05/11/24 10:37 650 MG Enteral Nutritional Formula 1,000 ml 30ML/HR GT 05/09/24 08:30 05/12/24 21:21 1,000 ML Phenylephrine HCl 80 mg/Sodium Chloride 250 ml @ 7.5 mls/hr Q24H IV 05/09/24 16:00 05/12/24 12:25 12.188 MLS/HR Levalbuterol HCl 1.25 mg Q6HR NEB 05/10/24 12:00 05/13/24 06:40 1.25 MG Acetylcysteine 100 mg Q6HR NEB 05/10/24 12:00 05/13/24 06:40 100 MG Apixaban 5 mg BID PO 05/10/24 10:00 05/13/24 09:34 5 MG Budesonide 0.5 mg BID NEB 05/10/24 22:00 05/13/24 06:40 0.5 MG Ceftriaxone Sodium 50 ml @ 100 mls/hr DAILY@09 IV 05/11/24 09:00 05/13/24 09:02 100 MLS/HR Lactulose 30 ml BID PO 05/11/24 22:00 05/12/24 21:22 30 ML Methylprednisolone Sodium Succinate 40 mg Q8HR IV 05/12/24 18:00 05/13/24 05:48 40 MG Docusate Sodium 200 mg BID GT 05/12/24 22:00 05/12/24 21:20 200 MG Atorvastatin Calcium 10 mg HS PO 05/13/24 22:00 Examination: GENERAL:Abnormal, HEENT:Abnormal, LUNGS:Abnormal, CVS:Abnormal, ABDOMEN:Abnormal laboratory and microbiology Laboratory Tests 05/13/24 03:15 Test 05/13/24 03:15 Range/Units Serum Glucose 216 H 74-106 mg/dL Microbiology Date/Time Source Procedure Growth Status 05/11/24 15:54 Other Pending Resulted 05/11/24 15:54 Other Pending Resulted 05/11/24 15:54 Other Pending Resulted 05/11/24 15:54 Other Pending Resulted 05/11/24 15:54 Other - Final See Separate Report... Resulted 05/10/24 18:10 Blood Blood Culture - Preliminary NO GROWTH AFTER 48 HOURS OF INCUBATION. Resulted 05/08/24 02:17 Sputum Gram Stain - Final Complete 05/08/24 02:17 Respiratory Culture - Final Klebsiella pneumoniae Complete 05/07/24 15:06 Urine - [place] Urine Culture - Final Complete Problem List/Assessment/Plan Problem List/Assessment/Plan atrial fib prolnged qtc htn HL dc amio gtt again pt has pAF and will go in and out anticoag per primary team prolonged qtc--consider adding BB once pressors are off 35 mins critical care time spent Plan discussed with: Other (rn) Dietary Evaluation Review Recommendations by RD: PPN/TPN Comments: 1) Increase TF rate as tolerated to goal rate of 50 mL/hr. Goal rate will provide 1440 kcals, 67g Pro, and 1768 mL free H2O (including flushes) per 24 hours. Goal TF rate will meet ~ 90% daily estimated energy needs and 70% daily esimated protein needs. 2) Flush with 200 mL free H2O Q6 3) Adance to 2g Na diet when medically feasible, pending [employer] approval 4) Continue current plan of care Expected Outcomes/Goals: 1) labs to improve 2) diet to advance 3) f/u in 2 days Date of Service: May 13, 2024 Billing Provider: NATE MCCAULEY MD Common Visit Codes: NOT BILLABLE NATE MCCAULEY MD May 13, 2024 11:37
--- NOTE | 2024-05-13 21:10 | DVHEEG2 ---
Neurology EEG Procedural Note Procedural Note EXAM DATE: 05/13/2024 REFERRING DOCTOR: Dr. Ferreira TECHNIQUE: Eighteen channels of EEG, 2 channels of EOG, and 1 channel of EKG were recorded using the [employer] 10/20 system. CLINICAL DATA: The patient was referred for an EEG evaluation for the evidence of seizure disorder. MEDICATIONS: See chart BACKGROUND ACTIVITY: The record showed brief spells of low amplitude semirhythmic theta activity with long intervals of low amplitude mixed delta and theta activity over both hemispheres ACTIVATION: Hyperventilation: Not done Photic Stimulation: Not done Sleep: Unresponsiveness IMPRESSION: This is a moderate remarkably abnormal EEG, this EEG seen in moderate to severe cerebral dysfunction due to metabolic/hypoxic encephalopathy or medication effect, please correlate clinically The EKG channel showed a regular heart rate of 66 per minute[place] [address] CE FERREIRA MD May 13, 2024 21:10
[2024-05-13] MEDS: ATORVASTATIN 20 MG TAB PO SCH (22:04)
--- NOTE | 2024-05-13 23:06 | DVHPN2 ---
Progress Note - Dictate Date Seen: May 13, 2024 Medical Necessity Reason Pt with a Central, PICC or Fol: Yes The following are medically ne: Central Line, West Catheter Reason for west catheter: Strict I&O Subjective Patient seen and examined at bedside. intubated on mechanical ventilator. Overnight events reviewed. vital signs Vital Sign Date Time Temp Pulse Resp B/P (MAP) Pulse Ox O2 Delivery O2 Flow Rate FiO2 05/13/24 22:45 99.0 70 19 126/57 (80) 97 210.2 05/13/24 22:13 30 05/13/24 22:00 Mechanical Ventilator+ Total Intake and Output 05/12/24 05/12/24 05/13/24 15:00 23:00 07:00 Intake Total 158.004 ml 187.940 ml 445.313 ml Output Total 700 ml 300 ml Balance 158.004 ml -512.060 ml 145.313 ml medications Current Medications Medications Dose Ordered Sig/Jerome Route Start Time Stop Time Status Last Admin Dose Admin Midazolam HCl 50 ml @ 1 mls/hr Q24H IV 05/07/24 13:30 05/12/24 10:46 3 MLS/HR Fentanyl Citrate 250 ml @ 2.5 mls/hr Q24H IV 05/07/24 13:30 05/12/24 04:40 10 MLS/HR Nitroglycerin 0.4 mg Q5MINP PRN SL 05/07/24 17:15 Morphine Sulfate 2 mg Q30M PRN IV 05/07/24 17:15 Cefepime HCl 50 ml @ 12.5 mls/hr Q12HR IV 05/07/24 22:00 UNV Ipratropium [place] 0.5 mg Q6HR NEB 05/07/24 18:00 05/13/24 18:09 0.5 MG Pantoprazole Sodium 40 mg DAILY IV 05/08/24 10:00 05/13/24 09:34 40 MG Vasopressin 20 units/Sodium Chloride 100 ml @ 9 mls/hr Q11H7M IV 05/07/24 17:15 Norepinephrine Bitartrate 32 mg/ Sodium Chloride 250 ml @ 0.938 mls/ hr Q24H IV 05/07/24 18:00 05/09/24 00:01 5.625 MLS/HR Acetaminophen 650 mg Q6HP PRN GT 05/08/24 08:30 05/11/24 10:37 650 MG Enteral Nutritional Formula 1,000 ml 30ML/HR GT 05/09/24 08:30 05/12/24 21:21 1,000 ML Phenylephrine HCl 80 mg/Sodium Chloride 250 ml @ 7.5 mls/hr Q24H IV 05/09/24 16:00 05/13/24 17:29 7.5 MLS/HR Levalbuterol HCl 1.25 mg Q6HR NEB 05/10/24 12:00 05/13/24 18:09 1.25 MG Acetylcysteine 100 mg Q6HR NEB 05/10/24 12:00 05/13/24 18:09 100 MG Apixaban 5 mg BID PO 05/10/24 10:00 05/13/24 22:04 5 MG Budesonide 0.5 mg BID NEB 05/10/24 22:00 05/13/24 22:15 0.5 MG Ceftriaxone Sodium 50 ml @ 100 mls/hr DAILY@09 IV 05/11/24 09:00 05/13/24 09:02 100 MLS/HR Lactulose 30 ml BID PO 05/11/24 22:00 05/12/24 21:22 30 ML Methylprednisolone Sodium Succinate 40 mg Q8HR IV 05/12/24 18:00 05/13/24 22:04 40 MG Docusate Sodium 200 mg BID GT 05/12/24 22:00 05/12/24 21:20 200 MG Atorvastatin Calcium 10 mg HS PO 05/13/24 22:00 05/13/24 22:04 10 MG objective Gen.: Patient lying in bed in medical ICU. Intubated on mechanical ventilator. Head: Normocephalic, atraumatic. Eyes: PERRLA. Ears: Normal external anatomy. Throat: Endotracheal tube and orogastric tube in place. Neck: Supple, trachea midline. Chest: Transmitted breath sounds bilaterally. Decreased air entry bilaterally. No wheezing. Bibasilar crackles. Cardiovascular: Positive S1, positive S2. Regular rate and rhythm. Abdomen: Positive bowel sounds in all 4 quadrants. Soft, nontender, nondistended. : West in place. Normal external genitalia. Rectal: Deferred. Skin: Warm, dry. Intact. Extremities: 2+ radial pulses bilaterally. No lower extremity edema. Neuro: Off sedation laboratory and microbiology Laboratory Tests 05/13/24 03:15 Test 05/13/24 03:15 Range/Units Serum Glucose 216 H 74-106 mg/dL Assessment/Plan Impression: Acute hypoxic respiratory failure On mechanical ventilator Acute kidney injury Septic shock Non-ST elevation myocardial infarction Hx of nicotine dependence Metabolic acidosis CVA stroke in left basal ganglia Pulmonary hypertension, RVSP 45 mmHg, moderate COPD/emphysema Hx of small cell lung CA Events: Remains on vent support On AC mode; RR 22, VT 550, PEEP 6, FiO2 30% ABG reviewed, alkalemia CXR reviewed. Emphysema, bilateral opacities. Devices in place. Pt awake, following simple commands Patient failed CPAP trial Continue daily SBT/ALETHEA. Off Versed On pressors for hemodynamic support On Fernando-Synephrine Titrate to keep mean arterial pressure greater than 65 mmHg Continue antibiotics. WBC now 10.9 K, trending down Blood cultures show no growth after 48 hours Follow up BAL culture results Monitor Hgb - 10.2 g/dl Tube feeds for nutritional support SBT/ALETHEA CPAP trial with PS 8, PEEP 5. Plan for bronchoscopy with BAL Labs and imaging reviewed. Rest of plan as noted below. Plan: s/p intubation on mechanical ventilator. CXR image and report reviewed. Devices in place. Decreasing airspace disease of the left lung field. Cardiomegaly with mild congestion. ABG reviewed, compensated. ECHO report Reviewed: Left ventricular ejection fraction 55%. RV enlarged, r ight ventricular systolic pressure 45 mmHg On AC mode; RR 22, VT 550, PEEP 6, FiO2 30% Titrate FIO2 to keep O2 saturation above 90%. VAP bundle. Daily ABG and CXR while intubated Off sedation Brain MRI demonstrates acute infarct in the left basal ganglia as seen on prior CT. Cardiology recs appreciated Continue antibiotics. F/u cultures. On pressors for hemodynamic support Titrate to keep mean arterial pressure greater than 65 mmHg Taper pressors as tolerated Tube feeds for nutritional support Monitor renal function d/t acute kidney injury Monitor electrolytes. Supplement as necessary. Monitor ins and outs. Maintain euvolemia. GI prophylaxis. DVT prophylaxis. Prognosis: Poor given patient's multiple co-morbidities. Condition: Critical Rest of plan per hospitalist and other consultants. A total of 35 minutes of critical care time was spent reviewing the patient record, examining the patient, making a diagnostic and therapeutic plan, discussing this plan with the medical personnel, following up on diagnostic studies and following the patient for clinical stability excluding any and all procedures. At least 50% of this time was spent in direct, [id number] contact. Thank you, ADORE Bonilla, for allowing me to participate in this patient's care. Further recommendations will depend on the patient's clinical course. Please do not hesitate to contact me if you have any questions or concerns. This medical document was created using an electronic medical record system with [employer] dictation system. Although these documentations are being carefully reviewed, there may still be some phonetic and typographical changes. The errors are purely typographical, due to imperfection on the software program, and do not reflect any compromise in the patient's medical care. Dietary Evaluation Review Recommendations by RD: PPN/TPN Comments: 1) Increase TF rate as tolerated to goal rate of 50 mL/hr. Goal rate will provide 1440 kcals, 67g Pro, and 1768 mL free H2O (including flushes) per 24 hours. Goal TF rate will meet ~ 90% daily estimated energy needs and 70% daily esimated protein needs. 2) Flush with 200 mL free H2O Q6 3) Adance to 2g Na diet when medically feasible, pending POST DOC FELLOWSHIP approval 4) Continue current plan of care Expected Outcomes/Goals: 1) labs to improve 2) diet to advance 3) f/u in 2 days Plan discussed with: Other (BENJA Khan) Critical Care Time(min): 35 EFRA DALE MD May 13, 2024 23:06
[2024-05-14] VITALS (111 sets, daily range): BP systolic 98–172; BP diastolic 43–97; PULSE 68–123; RESP 10–27; TEMP 96.4–99.7; O2SAT 92–100
[2024-05-14 04:14] LABS: Potassium 3.8 mmol/L (3.5-5.1); Sodium 145 mmol/L (136-145)
[2024-05-14 04:15] LABS: Anion Gap 9 (5-15); Calcium 9.8 mg/dL (8.7-10.4); Carbon Dioxide 26 mmol/L (20-31)
[2024-05-14 04:16] LABS: Basophils # (auto) 0 10 ^3/uL (0-0.2); Eosinophils # (auto) 0 10 ^3/uL (0-0.8); Hematocrit 28.2 % (36.0-46.0); Hemoglobin 9.8 g/dL (12.2-16.2); Lymphocytes # (auto) 0.6 10 ^3/uL (0.4-5.4); Lymphocytes % (auto) 7.3 % (10.0-50.0); Mean Corpuscular Hemoglobin 34.4 pg (28.0-32.0); Mean Corpuscular Hgb Conc. 34.6 g/dL (32.0-36.0); Mean Corpuscular Volume 99.6 fL (80.0-100.0); Monocytes # (auto) 0.5 10 ^3/uL (0-1.3); Monocytes % (auto) 5.5 % (0.0-12.0); Neutrophils # (auto) 7.3 10 ^3/uL (1.6-8.6); Neutrophils % (auto) 87.2 % (37.0-80.0); Nucleated Red Blood Cells % 0.1 %; Platelet Count (auto) 244 10^3/uL (140-450); Red Blood Cells 2.84 10^6/uL (4.0-5.20); Red Cell Distribution Width 14.3 % (11.8-14.3); White Blood Cell 8.4 10^3/uL (4.4-10.8)
[2024-05-14 04:20] LABS: BUN/Creatinine Ratio 37.5 (10.0-20.0)
[2024-05-14 04:36] LABS: Blood Urea Nitrogen 27 mg/dL (9-23); Chloride 110 mmol/L (98-107); Glucose 167 mg/dL (74-106)
--- NOTE | 2024-05-14 05:49 | DVHPN2 ---
Progress Note Date Seen: May 14, 2024 Medical Necessity Reason Pt with a Central, PICC or Fol: Yes The following are medically ne: Central Line, West Catheter Reason for west catheter: Strict I&O Subjective Other Systems: HR and BP stable Objective vital signs Vital Sign Date Time Temp Pulse Resp B/P (MAP) Pulse Ox O2 Delivery O2 Flow Rate FiO2 05/14/24 04:53 146/77 05/14/24 04:45 98.4 94 22 96 209.1 05/14/24 04:13 30 05/14/24 04:00 Mechanical Ventilator+ Total Intake and Output 05/13/24 05/13/24 05/14/24 15:00 23:00 07:00 Intake Total 110.0 ml 56.565 ml 0 ml Output Total 377 ml Balance 110.0 ml -320.435 ml 0 ml medications Current Medications Medications Dose Ordered Sig/Jerome Route Start Time Stop Time Status Last Admin Dose Admin Midazolam HCl 50 ml @ 1 mls/hr Q24H IV 05/07/24 13:30 05/12/24 10:46 3 MLS/HR Fentanyl Citrate 250 ml @ 2.5 mls/hr Q24H IV 05/07/24 13:30 05/12/24 04:40 10 MLS/HR Nitroglycerin 0.4 mg Q5MINP PRN SL 05/07/24 17:15 Morphine Sulfate 2 mg Q30M PRN IV 05/07/24 17:15 Cefepime HCl 50 ml @ 12.5 mls/hr Q12HR IV 05/07/24 22:00 UNV Ipratropium [place] 0.5 mg Q6HR NEB 05/07/24 18:00 05/14/24 00:12 0.5 MG Pantoprazole Sodium 40 mg DAILY IV 05/08/24 10:00 05/13/24 09:34 40 MG Vasopressin 20 units/Sodium Chloride 100 ml @ 9 mls/hr Q11H7M IV 05/07/24 17:15 Norepinephrine Bitartrate 32 mg/ Sodium Chloride 250 ml @ 0.938 mls/ hr Q24H IV 05/07/24 18:00 05/09/24 00:01 5.625 MLS/HR Acetaminophen 650 mg Q6HP PRN GT 05/08/24 08:30 05/11/24 10:37 650 MG Enteral Nutritional Formula 1,000 ml 30ML/HR GT 05/09/24 08:30 05/12/24 21:21 1,000 ML Phenylephrine HCl 80 mg/Sodium Chloride 250 ml @ 7.5 mls/hr Q24H IV 05/09/24 16:00 05/13/24 17:29 7.5 MLS/HR Levalbuterol HCl 1.25 mg Q6HR NEB 05/10/24 12:00 05/14/24 00:12 1.25 MG Acetylcysteine 100 mg Q6HR NEB 05/10/24 12:00 05/14/24 00:12 100 MG Apixaban 5 mg BID PO 05/10/24 10:00 05/13/24 22:04 5 MG Budesonide 0.5 mg BID NEB 05/10/24 22:00 05/13/24 22:15 0.5 MG Ceftriaxone Sodium 50 ml @ 100 mls/hr DAILY@09 IV 05/11/24 09:00 05/13/24 09:02 100 MLS/HR Lactulose 30 ml BID PO 05/11/24 22:00 05/12/24 21:22 30 ML Methylprednisolone Sodium Succinate 40 mg Q8HR IV 05/12/24 18:00 05/13/24 22:04 40 MG Docusate Sodium 200 mg BID GT 05/12/24 22:00 05/12/24 21:20 200 MG Atorvastatin Calcium 10 mg HS PO 05/13/24 22:00 05/13/24 22:04 10 MG Examination: GENERAL:Abnormal, HEENT:Abnormal, LUNGS:Abnormal, CVS:Abnormal, ABDOMEN:Abnormal laboratory and microbiology Laboratory Tests 05/14/24 03:40 Test 05/14/24 03:40 Range/Units Serum Glucose 167 H 74-106 mg/dL Microbiology Date/Time Source Procedure Growth Status 05/11/24 15:54 Other Pending Resulted 05/11/24 15:54 Other Pending Resulted 05/11/24 15:54 Other Pending Resulted 05/11/24 15:54 Other Pending Resulted 05/11/24 15:54 Other - Final See Separate Report... Resulted 05/10/24 18:10 Blood Blood Culture - Preliminary NO GROWTH AFTER 72 HOURS OF INCUBATION. Resulted 05/08/24 02:17 Sputum Gram Stain - Final Complete 05/08/24 02:17 Respiratory Culture - Final Klebsiella pneumoniae Complete 05/07/24 15:06 Urine - [place] Urine Culture - Final Complete Problem List/Assessment/Plan Problem List/Assessment/Plan atrial fib prolnged qtc htn HL dc amio gtt again pt has pAF and will go in and out anticoag per primary team prolonged qtc--consider adding BB once pressors are off will sign off please call for ?s Plan discussed with: Other (rn) Dietary Evaluation Review Recommendations by RD: PPN/TPN Comments: 1) Increase TF rate as tolerated to goal rate of 50 mL/hr. Goal rate will provide 1440 kcals, 67g Pro, and 1768 mL free H2O (including flushes) per 24 hours. Goal TF rate will meet ~ 90% daily estimated energy needs and 70% daily esimated protein needs. 2) Flush with 200 mL free H2O Q6 3) Adance to 2g Na diet when medically feasible, pending [employer] MANAGEMENT approval 4) Continue current plan of care Expected Outcomes/Goals: 1) labs to improve 2) diet to advance 3) f/u in 2 days Date of Service: May 14, 2024 Billing Provider: NATE MCCAULEY MD Common Visit Codes: NOT BILLABLE NATE MCCAULEY MD May 14, 2024 05:49
[2024-05-14 07:25] LABS: Base Excess 0.3 mmol/L (-2.0-3.0)
--- NOTE | 2024-05-14 10:05 | DVHPN2 ---
Subjective Patient following some commands. Reviewed: Care Plan, H&P, Labs Changes from previous H/P or p: No Changes General: Per HPI Objective Vitals Vital Signs Date Time Temp Pulse Resp B/P (MAP) Pulse Ox O2 Delivery O2 Flow Rate FiO2 05/14/24 07:49 103 22 118/64 (82) 96 30 05/14/24 06:45 98.4 209.1 05/14/24 06:00 Mechanical Ventilator+ Intake/Output Intake and Output 05/14/24 07:00 Intake Total 284.565 ml Output Total 728 ml Balance -443.435 ml Intake Oral 20 ml IV Total 146.565 ml Tube Feeding 118 ml Output Urine Total 725 ml Stool Total 3 ml General Appearance: Alert, moderate distress HEENT: Atraumatic, PERRLA Lungs: Clear to auscultation, Other (Mechanical ventilation. Bilateral rhonchi) Cardiovascular: Normal S1, Normal S2 Abdomen: No tenderness, No hepatospenomegaly, Other (bowel sounds heard - little hypo) Genitourinary: No Apparent Abnormalities (Case catheter) Extremities: No edema Neuro: Other (Withdraws to painful stimuli. Positive coughing gag) Skin: Dry, Intact Psych/Mental Status: Other (Unable to assess) Medications Current Medications Medications Dose Ordered Sig/Jerome Route Start Time Stop Time Status Last Admin Dose Admin Midazolam HCl 50 ml @ 1 mls/hr Q24H IV 05/07/24 13:30 05/12/24 10:46 3 MLS/HR Fentanyl Citrate 250 ml @ 2.5 mls/hr Q24H IV 05/07/24 13:30 05/12/24 04:40 10 MLS/HR Nitroglycerin 0.4 mg Q5MINP PRN SL 05/07/24 17:15 Morphine Sulfate 2 mg Q30M PRN IV 05/07/24 17:15 Cefepime HCl 50 ml @ 12.5 mls/hr Q12HR IV 05/07/24 22:00 UNV Ipratropium [place] 0.5 mg Q6HR NEB 05/07/24 18:00 05/14/24 06:38 0.5 MG Pantoprazole Sodium 40 mg DAILY IV 05/08/24 10:00 05/13/24 09:34 40 MG Vasopressin 20 units/Sodium Chloride 100 ml @ 9 mls/hr Q11H7M IV 05/07/24 17:15 Norepinephrine Bitartrate 32 mg/ Sodium Chloride 250 ml @ 0.938 mls/ hr Q24H IV 05/07/24 18:00 05/09/24 00:01 5.625 MLS/HR Acetaminophen 650 mg Q6HP PRN GT 05/08/24 08:30 05/11/24 10:37 650 MG Enteral Nutritional Formula 1,000 ml 30ML/HR GT 05/09/24 08:30 05/12/24 21:21 1,000 ML Phenylephrine HCl 80 mg/Sodium Chloride 250 ml @ 7.5 mls/hr Q24H IV 05/09/24 16:00 05/13/24 17:29 7.5 MLS/HR Levalbuterol HCl 1.25 mg Q6HR NEB 05/10/24 12:00 05/14/24 06:38 1.25 MG Acetylcysteine 100 mg Q6HR NEB 05/10/24 12:00 05/14/24 06:39 100 MG Apixaban 5 mg BID PO 05/10/24 10:00 05/13/24 22:04 5 MG Budesonide 0.5 mg BID NEB 05/10/24 22:00 05/14/24 06:38 0.5 MG Ceftriaxone Sodium 50 ml @ 100 mls/hr DAILY@09 IV 05/11/24 09:00 05/14/24 09:03 100 MLS/HR Lactulose 30 ml BID PO 05/11/24 22:00 05/12/24 21:22 30 ML Methylprednisolone Sodium Succinate 40 mg Q8HR IV 05/12/24 18:00 05/14/24 05:57 40 MG Docusate Sodium 200 mg BID GT 05/12/24 22:00 05/12/24 21:20 200 MG Atorvastatin Calcium 10 mg HS PO 05/13/24 22:00 05/13/24 22:04 10 MG Laboratory Results Laboratory Tests 05/14/24 03:40 Chemistry Test 05/14/24 03:40 Calcium Level 9.8 mg/dL (8.7-10.4) Urinalysis Test 05/07/24 15:06 Urine Color Dark-yellow (Yellow) Urine Clarity Turbid (Clear) H Urine pH 5.5 (5.0-9.0) Urine Specific [place] 1.021 (1.001-1.035) Urine Protein 2+ (Negative) H Urine Ketones Negative (Negative) Urine Blood 1+ /uL (Negative) H Urine Nitrite Negative (Negative) Urine Bilirubin Negative (Negative) Urine Urobilinogen 2 mg/dL (Negative) H Urine Leukocyte Esterase Negative /uL (Negative) Urine RBC 28 /hpf (0 - 4) Urine Microscopic WBC 4 /HPF (0-5) Urine Squamous Epithelial Cells Few /hpf (<5) Urine Bacteria Few /hpf (None Seen) H Urine Hyaline Casts Many /lpf (0 - 2) Urine Mucus Few (None Seen) Urine Yeast (Budding) Occasional /hpf (None Urine Glucose 1+ mg/dL (Normal) H Blood Gas Results Test 05/14/24 07:14 Arterial Blood pH 7.496 (7.350-7.450) FiO2 % 30.0 Microbiology Microbiology Date/Time Source Procedure Growth Status 05/11/24 15:54 Other Pending Resulted 05/11/24 15:54 Other Pending Resulted 05/11/24 15:54 Other Pending Resulted 05/11/24 15:54 Other Pending Resulted 05/11/24 15:54 Other - Final See Separate Report... Resulted 05/10/24 18:10 Blood Blood Culture - Preliminary NO GROWTH AFTER 72 HOURS OF INCUBATION. Resulted 05/08/24 02:17 Sputum Gram Stain - Final Complete 05/08/24 02:17 Respiratory Culture - Final Klebsiella pneumoniae Complete 05/07/24 15:06 Urine - [place] Urine Culture - Final Complete Labs and/or images reviewed: Labs reviewed by me, Image(s) reviewed by me Assessment/Plan Assessment/Plan Impression: -cardiopulmonary arrest in the field -acute hypoxic and hypercarbic respiratory failure with mechanical ventilation -full mouth pulmonary embolism -NSTEMI, rule out type 1 -hyperkalemia -acute kidney injury -shock liver -septic shock -community-acquired pneumonia, Klebsiella pneumoniae -primary hypertension -AFib with RVR Plan: Events: Patient more awake today. Currently on CPAP with sustaining respiratory dry for over 1 hour. Continue current spontaneous breathing trial. -vasopressor therapy as needed. Currently off all support -continue Xopenex and Atrovent, Pulmicort, Mucomyst -MRI of the brain: Plans to be performed today. -repeat blood culture negative for growth. Probable contamination with 1st set. Discontinue vancomycin, continue Rocephin. -continue tube feedings -PUD, DVT prophylaxis -repeat labs, chest x-ray, ABG in a.m. Discussed care with the patient's daughter who was bedside. Critical care time spent with patient discussing and formulating plan of care: 40 minutes. This does not include time spent performing procedures. This medical document was created using an electronic medical record system with [employer] dictation system. Although this document has been carefully reviewed, there may still be some phonetic and typographical errors. These areas are purely typographical due to imperfections of the software programs, and do not reflect any compromise in the patient's medical care. Plan discussed with: Patient, Daughter, Other (RN) My Orders Orders - KELLEY GARCIA NP Procedure Category Date Status Time Basic Metabolic Panel LAB 05/15/24 Verified 05:00 Basic Metabolic Panel LAB 05/16/24 Verified 05:00 Basic Metabolic Panel LAB 05/17/24 Verified 05:00 Complete Blood Count LAB 05/15/24 Verified 05:00 Complete Blood Count LAB 05/16/24 Verified 05:00 Complete Blood Count LAB 05/17/24 Verified 05:00 * Rig Builder Helper CONS 05/14/24 Transmitted Consult Date of Service: May 14, 2024 Billing Provider: KELLEY GARCIA NP Common Visit Codes: [id number] CARE 30-74 MIN KELLEY GARCIA NP May 14, 2024 10:05
[2024-05-14 10:45] LABS: Base Excess 1.8 mmol/L (-2.0-3.0)
--- NOTE | 2024-05-14 10:56 | DVHPN2 ---
Progress Note - Dictate Date Seen: May 14, 2024 Medical Necessity Reason Pt with a Central, PICC or Fol: Yes The following are medically ne: Central Line, West Catheter Reason for west catheter: Strict I&O Subjective Ms. Aquino is a 74 years old right-handed female with a history of hypertension, AFib, colon cancer, lung cancer with brain metastatic disease status post chemo and radiation treatment, she was brought to the [facility] on 05/07/2024 with a chief complaint of cardiac arrest with ROSC. I have seen and examined the patient, I have discussed with her nurse, her daughter in the room with her. She is intubated, but she was awake, she follows verbal commands. Stronger than yesterday She was apnea during the CPAP trial yesterday UDS, 05/07/2024: Fentanyl, benzo Urinalysis, 05/07/2024: WBC: 4, urine leukocyte esterase: Negative ABG, 05/07/2024: Combined metabolic and respiratory acidosis, WBC/HB/PLT/MCV, 04/28/2024: 20.1/12.9/249/99.8 K, 05/07/2024: 2.4, 205, 05/08/2024: 3.2 BUN/CR, 05/07/2024: 22/1.73, 05/08/2024: 23/1.37 TBI/AST/ALT/AP, 05/08/2024: 0.5/187/210/75 TG/HDL/LDL/HDL, 05/07/2024: 143/177/85/67 TSH, 05/07/2024: 3.46 Venous Doppler, 05/08/2024: No right or left lower extremity deep venous thrombosis Echocardiogram, 05/08/2024: lvef 55% by visaul estimate severe septal hypertrophy RV enlarged mild, normal function left atrium enlarged mild aortic sclerosis Carotid Doppler, 05/10/2024: No hemodynamically significant stenosis noted in the right carotid system. No hemodynamically significant stenosis noted in the left carotid system. CT head, 05/08/2024: 1. Age-indeterminate infarcts in the left basal ganglia, possibly subacute. MRI of the brain without intravenous contrast is recommended for further evaluation. 2. No evidence of acute intracranial hemorrhage MRI headache, 05/10/2024: Acute infarct in the left basal ganglia as seen on prior CT vital signs Vital Sign Date Time Temp Pulse Resp B/P (MAP) Pulse Ox O2 Delivery O2 Flow Rate FiO2 05/14/24 09:49 105 19 141/66 (91) 97 35 05/14/24 06:45 98.4 209.1 05/14/24 06:00 Mechanical Ventilator+ Total Intake and Output 05/13/24 05/13/24 05/14/24 15:00 23:00 07:00 Intake Total 110.0 ml 56.565 ml 118 ml Output Total 377 ml 351 ml Balance 110.0 ml -320.435 ml -233 ml medications Current Medications Medications Dose Ordered Sig/Jerome Route Start Time Stop Time Status Last Admin Dose Admin Midazolam HCl 50 ml @ 1 mls/hr Q24H IV 05/07/24 13:30 05/12/24 10:46 3 MLS/HR Fentanyl Citrate 250 ml @ 2.5 mls/hr Q24H IV 05/07/24 13:30 05/12/24 04:40 10 MLS/HR Nitroglycerin 0.4 mg Q5MINP PRN SL 05/07/24 17:15 Morphine Sulfate 2 mg Q30M PRN IV 05/07/24 17:15 Cefepime HCl 50 ml @ 12.5 mls/hr Q12HR IV 05/07/24 22:00 UNV Ipratropium [place] 0.5 mg Q6HR NEB 05/07/24 18:00 05/14/24 06:38 0.5 MG Pantoprazole Sodium 40 mg DAILY IV 05/08/24 10:00 05/14/24 10:32 40 MG Vasopressin 20 units/Sodium Chloride 100 ml @ 9 mls/hr Q11H7M IV 05/07/24 17:15 Norepinephrine Bitartrate 32 mg/ Sodium Chloride 250 ml @ 0.938 mls/ hr Q24H IV 05/07/24 18:00 05/09/24 00:01 5.625 MLS/HR Acetaminophen 650 mg Q6HP PRN GT 05/08/24 08:30 05/11/24 10:37 650 MG Enteral Nutritional Formula 1,000 ml 30ML/HR GT 05/09/24 08:30 05/12/24 21:21 1,000 ML Phenylephrine HCl 80 mg/Sodium Chloride 250 ml @ 7.5 mls/hr Q24H IV 05/09/24 16:00 05/13/24 17:29 7.5 MLS/HR Levalbuterol HCl 1.25 mg Q6HR NEB 05/10/24 12:00 05/14/24 06:38 1.25 MG Acetylcysteine 100 mg Q6HR NEB 05/10/24 12:00 05/14/24 06:39 100 MG Apixaban 5 mg BID PO 05/10/24 10:00 05/14/24 10:32 5 MG Budesonide 0.5 mg BID NEB 05/10/24 22:00 05/14/24 06:38 0.5 MG Ceftriaxone Sodium 50 ml @ 100 mls/hr DAILY@09 IV 05/11/24 09:00 05/14/24 09:03 100 MLS/HR Lactulose 30 ml BID PO 05/11/24 22:00 05/12/24 21:22 30 ML Methylprednisolone Sodium Succinate 40 mg Q8HR IV 05/12/24 18:00 05/14/24 05:57 40 MG Docusate Sodium 200 mg BID GT 05/12/24 22:00 05/12/24 21:20 200 MG Atorvastatin Calcium 10 mg HS PO 05/13/24 22:00 05/13/24 22:04 10 MG objective The patient is well-nourished and well-developed with no distress. The patient is intubated MENTAL STATUS: Subjective CRANIAL NERVES: Pupils are equal, round and reactive.There are gait eye movement. No signs of facial weakness. There are gagging or coughing reflexes SENSATION: Okay to painful stimuli and light touch MOTOR: Normal tone in the upper and lower extremity. Normal muscle bulk. No fasciculations. No spontaneous extremity movement noticed REFLEXES: Deep tendon reflexes are symmetrical. No pathological reflexes. CEREBELLAR/COORDINATION: Deferred GAIT/STATION: deferred. laboratory and microbiology Laboratory Tests 05/14/24 03:40 Test 05/14/24 03:40 Range/Units Serum Glucose 167 H 74-106 mg/dL Problem List Acute/subacute stroke Cardiopulmonary arrest Respiratory failure Metabolic acidosis Respiratory acidosis Atrial fibrillation History of lung cancer with brain metastatic disease Assessment/Plan Monitoring Supportive treatment Follow-up labs ICU care Stabilize vitals/pressor drip Respiratory support/vent management Oxygen IV antibiotics Eliquis 5 mg b.i.d. Lipitor 10mg Qd GI prophylaxis CPAP trial More recommendation per clinical course This medical document was created using an electronic medical record system with [employer] computerized dictation system. Although this document has been carefully reviewed, there may still be some phonetic and typographical errors. These areas are purely typographical due to imperfections of the software programs, and do not reflect any compromise in the patient's medical care Prognosis poor Dietary Evaluation Review Recommendations by RD: PPN/TPN Comments: 1) Increase TF rate as tolerated to goal rate of 50 mL/hr. Goal rate will provide 1440 kcals, 67g Pro, and 1768 mL free H2O (including flushes) per 24 hours. Goal TF rate will meet ~ 90% daily estimated energy needs and 70% daily esimated protein needs. 2) Flush with 200 mL free H2O Q6 3) Adance to 2g Na diet when medically feasible, pending STRIKE ON MACHINE OPERATOR approval 4) Continue current plan of care Expected Outcomes/Goals: 1) labs to improve 2) diet to advance 3) f/u in 2 days Plan discussed with: Daughter, Other CE FERREIRA MD May 14, 2024 10:56
[2024-05-14] MEDS: LORazepam 2MG/ML-1ML VIAL IV PRN (17:12)
[2024-05-14] MEDS: METOPROLOL TARTRATE 25 MG TAB GT SCH (21:55)
--- NOTE | 2024-05-14 22:49 | DVHPN2 ---
Progress Note - Dictate Date Seen: May 14, 2024 Medical Necessity Reason Pt with a Central, PICC or Fol: Yes The following are medically ne: Central Line, West Catheter Reason for west catheter: Strict I&O Subjective Patient seen and examined at bedside. intubated on mechanical ventilator. Overnight events reviewed. vital signs Vital Sign Date Time Temp Pulse Resp B/P (MAP) Pulse Ox O2 Delivery O2 Flow Rate FiO2 05/14/24 22:15 99.5 102 24 153/91 (111) 97 211.1 143/59 (87) 05/14/24 22:00 Mechanical Ventilator+ 30 30 Total Intake and Output 05/13/24 05/13/24 05/14/24 15:00 23:00 07:00 Intake Total 110.0 ml 56.565 ml 118 ml Output Total 377 ml 351 ml Balance 110.0 ml -320.435 ml -233 ml medications Current Medications Medications Dose Ordered Sig/Jerome Route Start Time Stop Time Status Last Admin Dose Admin Midazolam HCl 50 ml @ 1 mls/hr Q24H IV 05/07/24 13:30 05/12/24 10:46 3 MLS/HR Fentanyl Citrate 250 ml @ 2.5 mls/hr Q24H IV 05/07/24 13:30 05/12/24 04:40 10 MLS/HR Nitroglycerin 0.4 mg Q5MINP PRN SL 05/07/24 17:15 Morphine Sulfate 2 mg Q30M PRN IV 05/07/24 17:15 Cefepime HCl 50 ml @ 12.5 mls/hr Q12HR IV 05/07/24 22:00 UNV Ipratropium [place] 0.5 mg Q6HR NEB 05/07/24 18:00 05/14/24 18:19 0.5 MG Pantoprazole Sodium 40 mg DAILY IV 05/08/24 10:00 05/14/24 10:32 40 MG Vasopressin 20 units/Sodium Chloride 100 ml @ 9 mls/hr Q11H7M IV 05/07/24 17:15 Norepinephrine Bitartrate 32 mg/ Sodium Chloride 250 ml @ 0.938 mls/ hr Q24H IV 05/07/24 18:00 05/09/24 00:01 5.625 MLS/HR Acetaminophen 650 mg Q6HP PRN GT 05/08/24 08:30 05/11/24 10:37 650 MG Enteral Nutritional Formula 1,000 ml 30ML/HR GT 05/09/24 08:30 05/12/24 21:21 1,000 ML Phenylephrine HCl 80 mg/Sodium Chloride 250 ml @ 7.5 mls/hr Q24H IV 05/09/24 16:00 05/13/24 17:29 7.5 MLS/HR Levalbuterol HCl 1.25 mg Q6HR NEB 05/10/24 12:00 05/14/24 18:19 1.25 MG Acetylcysteine 100 mg Q6HR NEB 05/10/24 12:00 05/14/24 18:20 100 MG Apixaban 5 mg BID PO 05/10/24 10:00 05/14/24 21:55 5 MG Budesonide 0.5 mg BID NEB 05/10/24 22:00 05/14/24 22:07 0.5 MG Ceftriaxone Sodium 50 ml @ 100 mls/hr DAILY@09 IV 05/11/24 09:00 05/14/24 09:03 100 MLS/HR Lactulose 30 ml BID PO 05/11/24 22:00 05/14/24 21:55 30 ML Methylprednisolone Sodium Succinate 40 mg Q8HR IV 05/12/24 18:00 05/14/24 21:54 40 MG Docusate Sodium 200 mg BID GT 05/12/24 22:00 05/14/24 21:54 200 MG Atorvastatin Calcium 10 mg HS PO 05/13/24 22:00 05/14/24 21:55 10 MG Metoprolol Tartrate 25 mg BID GT 05/14/24 22:00 05/14/24 21:55 25 MG Lorazepam 1 mg Q2HP PRN IV 05/14/24 16:30 05/14/24 19:47 1 MG objective Gen.: Patient lying in bed in medical ICU. Intubated on mechanical ventilator. Head: Normocephalic, atraumatic. Eyes: PERRLA. Ears: Normal external anatomy. Throat: Endotracheal tube and orogastric tube in place. Neck: Supple, trachea midline. Chest: Transmitted breath sounds bilaterally. Decreased air entry bilaterally. No wheezing. Bibasilar crackles. Cardiovascular: Positive S1, positive S2. Regular rate and rhythm. Abdomen: Positive bowel sounds in all 4 quadrants. Soft, nontender, nondistended. : West in place. Normal external genitalia. Rectal: Deferred. Skin: Warm, dry. Intact. Extremities: 2+ radial pulses bilaterally. No lower extremity edema. Neuro: Off sedation laboratory and microbiology Laboratory Tests 05/14/24 03:40 Test 05/14/24 03:40 Range/Units Serum Glucose 167 H 74-106 mg/dL Assessment/Plan Impression: Acute hypoxic respiratory failure On mechanical ventilator Acute kidney injury Septic shock Non-ST elevation myocardial infarction Hx of nicotine dependence Metabolic acidosis CVA stroke in left basal ganglia Pulmonary hypertension, RVSP 45 mmHg, moderate COPD/emphysema Hx of small cell lung CA Events: Remains on vent support On AC mode; RR 22, VT 550, PEEP 6, FiO2 40% Taper respiratory rate to 18 BPM FiO2 improved to 40% Off sedation Continue daily SBT/ALETHEA. CPAP tolerated ABG reviewed for CPAP trial, compensated. Continue antibiotics. WBC now 8.4 K, trending down Blood cultures show no growth after 72 hours Follow up BAL culture results - Klebsiella pneumoniae Monitor Hgb Tube feeds for nutritional support SBT/ALETHEA CPAP trial with PS 8, PEEP 5. Labs and imaging reviewed. Rest of plan as noted below. Plan: s/p intubation on mechanical ventilator. CXR image and report reviewed. Devices in place. Decreasing airspace disease of the left lung field. Cardiomegaly with mild congestion. ABG reviewed, compensated. ECHO report Reviewed: Left ventricular ejection fraction 55%. RV enlarged, r ight ventricular systolic pressure 45 mmHg On AC mode; RR 22, VT 550, PEEP 6, FiO2 40% Titrate FIO2 to keep O2 saturation above 90%. VAP bundle. Daily ABG and CXR while intubated Off sedation Brain MRI demonstrates acute infarct in the left basal ganglia as seen on prior CT. Cardiology recs appreciated Continue antibiotics. F/u cultures. Pressors as necessary for hemodynamic support Titrate to keep mean arterial pressure greater than 65 mmHg Taper pressors as tolerated Tube feeds for nutritional support Monitor renal function d/t acute kidney injury Monitor electrolytes. Supplement as necessary. Monitor ins and outs. Maintain euvolemia. GI prophylaxis. DVT prophylaxis. Prognosis: Poor given patient's multiple co-morbidities. Condition: Critical Rest of plan per hospitalist and other consultants. A total of 35 minutes of critical care time was spent reviewing the patient record, examining the patient, making a diagnostic and therapeutic plan, discussing this plan with the medical personnel, following up on diagnostic studies and following the patient for clinical stability excluding any and all procedures. At least 50% of this time was spent in direct, [id number] contact. Thank you, ADORE Bonilla, for allowing me to participate in this patient's care. Further recommendations will depend on the patient's clinical course. Please do not hesitate to contact me if you have any questions or concerns. This medical document was created using an electronic medical record system with [employer] dictation system. Although these documentations are being carefully reviewed, there may still be some phonetic and typographical changes. The errors are purely typographical, due to imperfection on the software program, and do not reflect any compromise in the patient's medical care. Dietary Evaluation Review Recommendations by RD: PPN/TPN Comments: 1) Increase TF rate as tolerated to goal rate of 50 mL/hr. Goal rate will provide 1440 kcals, 67g Pro, and 1768 mL free H2O (including flushes) per 24 hours. Goal TF rate will meet ~ 90% daily estimated energy needs and 70% daily esimated protein needs. 2) Flush with 200 mL free H2O Q6 3) Adance to 2g Na diet when medically feasible, pending BOTTLE [employer]ER approval 4) Continue current plan of care Expected Outcomes/Goals: 1) labs to improve 2) diet to advance 3) f/u in 2 days Plan discussed with: Other (BENJA Khan) Critical Care Time(min): 35 EFRA DAEL MD May 14, 2024 22:49
[2024-05-15] VITALS (107 sets, daily range): BP systolic 105–181; BP diastolic 46–107; PULSE 72–114; RESP 14–28; TEMP 99–100.4; O2SAT 91–100
[2024-05-15 04:46] LABS: Basophils # (auto) 0 10 ^3/uL (0-0.2); Eosinophils # (auto) 0 10 ^3/uL (0-0.8); Hematocrit 32.8 % (36.0-46.0); Hemoglobin 10.9 g/dL (12.2-16.2); Lymphocytes # (auto) 0.6 10 ^3/uL (0.4-5.4); Lymphocytes % (auto) 5.3 % (10.0-50.0); Mean Corpuscular Hemoglobin 33.5 pg (28.0-32.0); Mean Corpuscular Hgb Conc. 33.3 g/dL (32.0-36.0); Mean Corpuscular Volume 100.5 fL (80.0-100.0); Monocytes # (auto) 0.7 10 ^3/uL (0-1.3); Monocytes % (auto) 6.1 % (0.0-12.0); Neutrophils # (auto) 9.9 10 ^3/uL (1.6-8.6); Neutrophils % (auto) 88.6 % (37.0-80.0); Nucleated Red Blood Cells % 0.2 %; Platelet Count (auto) 284 10^3/uL (140-450); Red Blood Cells 3.26 10^6/uL (4.0-5.20); Red Cell Distribution Width 14.2 % (11.8-14.3); White Blood Cell 11.2 10^3/uL (4.4-10.8)
[2024-05-15 05:00] LABS: Potassium 3.9 mmol/L (3.5-5.1)
[2024-05-15 05:01] LABS: Anion Gap 11 (5-15); Calcium 9.8 mg/dL (8.7-10.4); Carbon Dioxide 24 mmol/L (20-31)
[2024-05-15 05:06] LABS: BUN/Creatinine Ratio 41.6 (10.0-20.0)
[2024-05-15 05:35] LABS: Blood Urea Nitrogen 32 mg/dL (9-23); Chloride 110 mmol/L (98-107); Glucose 167 mg/dL (74-106); Sodium 145 mmol/L (136-145)
[2024-05-15 07:16] LABS: Base Excess 2.9 mmol/L (-2.0-3.0)
--- NOTE | 2024-05-15 09:23 | DVHPN2 ---
Subjective Patient following some commands. Reviewed: Care Plan, H&P, Labs Changes from previous H/P or p: No Changes General: Per HPI Objective Vitals Vital Signs Date Time Temp Pulse Resp B/P (MAP) Pulse Ox O2 Delivery O2 Flow Rate FiO2 05/15/24 07:55 81 18 152/85 (107) 94 30 05/15/24 06:45 99.0 210.2 05/15/24 06:00 Mechanical Ventilator+ Intake/Output Intake and Output 05/15/24 07:00 Intake Total 255 ml Output Total 800 ml Balance -545 ml Intake Oral 120 ml IV Total 50 ml Tube Feeding 85 ml Output Urine Total 800 ml General Appearance: Alert, Cooperative, moderate distress HEENT: Atraumatic, PERRLA Lungs: Clear to auscultation, Other (Mechanical ventilation. Bilateral rhonchi) Cardiovascular: Normal S1, Normal S2 Abdomen: No tenderness, No hepatospenomegaly, Other (bowel sounds heard - little hypo) Genitourinary: No Apparent Abnormalities (Case catheter) Extremities: No edema Neuro: Other (Withdraws to painful stimuli. Positive coughing gag) Skin: Dry, Intact Psych/Mental Status: Other (Unable to assess) Medications Current Medications Medications Dose Ordered Sig/Jerome Route Start Time Stop Time Status Last Admin Dose Admin Midazolam HCl 50 ml @ 1 mls/hr Q24H IV 05/07/24 13:30 05/12/24 10:46 3 MLS/HR Fentanyl Citrate 250 ml @ 2.5 mls/hr Q24H IV 05/07/24 13:30 05/12/24 04:40 10 MLS/HR Nitroglycerin 0.4 mg Q5MINP PRN SL 05/07/24 17:15 Morphine Sulfate 2 mg Q30M PRN IV 05/07/24 17:15 Cefepime HCl 50 ml @ 12.5 mls/hr Q12HR IV 05/07/24 22:00 UNV Ipratropium [place] 0.5 mg Q6HR NEB 05/07/24 18:00 05/15/24 06:14 0.5 MG Pantoprazole Sodium 40 mg DAILY IV 05/08/24 10:00 05/14/24 10:32 40 MG Vasopressin 20 units/Sodium Chloride 100 ml @ 9 mls/hr Q11H7M IV 05/07/24 17:15 Norepinephrine Bitartrate 32 mg/ Sodium Chloride 250 ml @ 0.938 mls/ hr Q24H IV 05/07/24 18:00 05/09/24 00:01 5.625 MLS/HR Acetaminophen 650 mg Q6HP PRN GT 05/08/24 08:30 05/11/24 10:37 650 MG Enteral Nutritional Formula 1,000 ml 30ML/HR GT 05/09/24 08:30 05/12/24 21:21 1,000 ML Phenylephrine HCl 80 mg/Sodium Chloride 250 ml @ 7.5 mls/hr Q24H IV 05/09/24 16:00 05/13/24 17:29 7.5 MLS/HR Levalbuterol HCl 1.25 mg Q6HR NEB 05/10/24 12:00 05/15/24 06:15 1.25 MG Acetylcysteine 100 mg Q6HR NEB 05/10/24 12:00 05/15/24 06:15 100 MG Apixaban 5 mg BID PO 05/10/24 10:00 05/14/24 21:55 5 MG Budesonide 0.5 mg BID NEB 05/10/24 22:00 05/15/24 06:15 0.5 MG Ceftriaxone Sodium 50 ml @ 100 mls/hr DAILY@09 IV 05/11/24 09:00 05/14/24 09:03 100 MLS/HR Lactulose 30 ml BID PO 05/11/24 22:00 05/14/24 21:55 30 ML Methylprednisolone Sodium Succinate 40 mg Q8HR IV 05/12/24 18:00 05/15/24 05:50 40 MG Docusate Sodium 200 mg BID GT 05/12/24 22:00 05/14/24 21:54 200 MG Atorvastatin Calcium 10 mg HS PO 05/13/24 22:00 05/14/24 21:55 10 MG Metoprolol Tartrate 25 mg BID GT 05/14/24 22:00 05/14/24 21:55 25 MG Lorazepam 1 mg Q2HP PRN IV 05/14/24 16:30 05/15/24 03:33 1 MG Laboratory Results Laboratory Tests 05/15/24 04:03 Chemistry Test 05/15/24 04:03 Calcium Level 9.8 mg/dL (8.7-10.4) Urinalysis Test 05/07/24 15:06 Urine Color Dark-yellow (Yellow) Urine Clarity Turbid (Clear) H Urine pH 5.5 (5.0-9.0) Urine Specific [place] 1.021 (1.001-1.035) Urine Protein 2+ (Negative) H Urine Ketones Negative (Negative) Urine Blood 1+ /uL (Negative) H Urine Nitrite Negative (Negative) Urine Bilirubin Negative (Negative) Urine Urobilinogen 2 mg/dL (Negative) H Urine Leukocyte Esterase Negative /uL (Negative) Urine RBC 28 /hpf (0 - 4) Urine Microscopic WBC 4 /HPF (0-5) Urine Squamous Epithelial Cells Few /hpf (<5) Urine Bacteria Few /hpf (None Seen) H Urine Hyaline Casts Many /lpf (0 - 2) Urine Mucus Few (None Seen) Urine Yeast (Budding) Occasional /hpf (None Urine Glucose 1+ mg/dL (Normal) H Blood Gas Results Test 05/14/24 10:38 05/15/24 07:07 Arterial Blood pH 7.445 (7.350-7.450) 7.512 (7.350-7.450) FiO2 % 35.0 30.0 Microbiology Microbiology Date/Time Source Procedure Growth Status 05/11/24 15:54 Other Pending Resulted 05/11/24 15:54 Other Pending Resulted 05/11/24 15:54 Other Pending Resulted 05/11/24 15:54 Other Pending Resulted 05/11/24 15:54 Other - Final See Separate Report... Resulted 05/10/24 18:10 Blood Blood Culture - Preliminary NO GROWTH AFTER 72 HOURS OF INCUBATION. Resulted 05/08/24 02:17 Sputum Gram Stain - Final Complete 05/08/24 02:17 Respiratory Culture - Final Klebsiella pneumoniae Complete 05/07/24 15:06 Urine - Case Port Urine Culture - Final Complete Labs and/or images reviewed: Labs reviewed by me, Image(s) reviewed by me Assessment/Plan Assessment/Plan Impression: -cardiopulmonary arrest in the field -acute hypoxic and hypercarbic respiratory failure with mechanical ventilation -full mouth pulmonary embolism -NSTEMI, rule out type 1 -hyperkalemia -acute kidney injury -shock liver -septic shock -community-acquired pneumonia, Klebsiella pneumoniae -primary hypertension -AFib with RVR Plan: Events: Patient more awake and able to follow commands. Now hypertensive. -p.r.n. antihypertensives. -continue Xopenex and Atrovent, Pulmicort, Mucomyst -MRI of the brain: Plans to be performed today. -continue current antibiotic therapy -continue tube feedings -PUD, DVT prophylaxis -repeat labs, chest x-ray, ABG in a.m. Discussed care with the patient's [id number] who was bedside. Critical care time spent with patient discussing and formulating plan of care: 40 minutes. This does not include time spent performing procedures. This medical document was created using an electronic medical record system with [employer] dictation system. Although this document has been carefully reviewed, there may still be some phonetic and typographical errors. These areas are purely typographical due to imperfections of the software programs, and do not reflect any compromise in the patient's medical care. Plan discussed with: Patient, Other (RN) My Orders Orders - KELLEY GARCIA NP Procedure Category Date Status Time * [employer] Demonstrator CONS 05/14/24 Transmitted Consult Abg W/ Co-Ox RT 05/14/24 Logged 10:30 Metoprolol Tartrate PHA 05/14/24 In Process Tablet (Lopressor Ta 22:00 Lorazepam 2mg/Ml Inj PHA 05/14/24 In Process (Ativan Inj) 16:30 Date of Service: May 15, 2024 Billing Provider: KELLEY GARCIA NP Common Visit Codes: [id number] CARE 30-74 MIN KELLEY GARCIA NP May 15, 2024 09:23
--- NOTE | 2024-05-15 09:27 | DVHPN2 ---
Subjective Patient following some commands. Reviewed: Care Plan, H&P, Labs Changes from previous H/P or p: No Changes General: Per HPI Objective Vitals Vital Signs Date Time Temp Pulse Resp B/P (MAP) Pulse Ox O2 Delivery O2 Flow Rate FiO2 05/15/24 07:55 81 18 152/85 (107) 94 30 05/15/24 06:45 99.0 210.2 05/15/24 06:00 Mechanical Ventilator+ Intake/Output Intake and Output 05/15/24 07:00 Intake Total 255 ml Output Total 800 ml Balance -545 ml Intake Oral 120 ml IV Total 50 ml Tube Feeding 85 ml Output Urine Total 800 ml General Appearance: Alert, Cooperative, moderate distress HEENT: Atraumatic, PERRLA Lungs: Clear to auscultation, Other (Mechanical ventilation. Bilateral rhonchi) Cardiovascular: Normal S1, Normal S2 Abdomen: No tenderness, No hepatospenomegaly, Other (bowel sounds heard - little hypo) Genitourinary: No Apparent Abnormalities (Case catheter) Extremities: No edema Neuro: Other (Withdraws to painful stimuli. Positive coughing gag) Skin: Dry, Intact Psych/Mental Status: Other (Unable to assess) Medications Current Medications Medications Dose Ordered Sig/Jerome Route Start Time Stop Time Status Last Admin Dose Admin Midazolam HCl 50 ml @ 1 mls/hr Q24H IV 05/07/24 13:30 05/12/24 10:46 3 MLS/HR Fentanyl Citrate 250 ml @ 2.5 mls/hr Q24H IV 05/07/24 13:30 05/12/24 04:40 10 MLS/HR Nitroglycerin 0.4 mg Q5MINP PRN SL 05/07/24 17:15 Morphine Sulfate 2 mg Q30M PRN IV 05/07/24 17:15 Cefepime HCl 50 ml @ 12.5 mls/hr Q12HR IV 05/07/24 22:00 UNV Ipratropium [place] 0.5 mg Q6HR NEB 05/07/24 18:00 05/15/24 06:14 0.5 MG Pantoprazole Sodium 40 mg DAILY IV 05/08/24 10:00 05/14/24 10:32 40 MG Vasopressin 20 units/Sodium Chloride 100 ml @ 9 mls/hr Q11H7M IV 05/07/24 17:15 Norepinephrine Bitartrate 32 mg/ Sodium Chloride 250 ml @ 0.938 mls/ hr Q24H IV 05/07/24 18:00 05/09/24 00:01 5.625 MLS/HR Acetaminophen 650 mg Q6HP PRN GT 05/08/24 08:30 05/11/24 10:37 650 MG Enteral Nutritional Formula 1,000 ml 30ML/HR GT 05/09/24 08:30 05/12/24 21:21 1,000 ML Phenylephrine HCl 80 mg/Sodium Chloride 250 ml @ 7.5 mls/hr Q24H IV 05/09/24 16:00 05/13/24 17:29 7.5 MLS/HR Levalbuterol HCl 1.25 mg Q6HR NEB 05/10/24 12:00 05/15/24 06:15 1.25 MG Acetylcysteine 100 mg Q6HR NEB 05/10/24 12:00 05/15/24 06:15 100 MG Apixaban 5 mg BID PO 05/10/24 10:00 05/14/24 21:55 5 MG Budesonide 0.5 mg BID NEB 05/10/24 22:00 05/15/24 06:15 0.5 MG Ceftriaxone Sodium 50 ml @ 100 mls/hr DAILY@09 IV 05/11/24 09:00 05/14/24 09:03 100 MLS/HR Lactulose 30 ml BID PO 05/11/24 22:00 05/14/24 21:55 30 ML Methylprednisolone Sodium Succinate 40 mg Q8HR IV 05/12/24 18:00 05/15/24 05:50 40 MG Docusate Sodium 200 mg BID GT 05/12/24 22:00 05/14/24 21:54 200 MG Atorvastatin Calcium 10 mg HS PO 05/13/24 22:00 05/14/24 21:55 10 MG Metoprolol Tartrate 25 mg BID GT 05/14/24 22:00 05/14/24 21:55 25 MG Lorazepam 1 mg Q2HP PRN IV 05/14/24 16:30 05/15/24 03:33 1 MG Laboratory Results Laboratory Tests 05/15/24 04:03 Chemistry Test 05/15/24 04:03 Calcium Level 9.8 mg/dL (8.7-10.4) Urinalysis Test 05/07/24 15:06 Urine Color Dark-yellow (Yellow) Urine Clarity Turbid (Clear) H Urine pH 5.5 (5.0-9.0) Urine Specific [place] 1.021 (1.001-1.035) Urine Protein 2+ (Negative) H Urine Ketones Negative (Negative) Urine Blood 1+ /uL (Negative) H Urine Nitrite Negative (Negative) Urine Bilirubin Negative (Negative) Urine Urobilinogen 2 mg/dL (Negative) H Urine Leukocyte Esterase Negative /uL (Negative) Urine RBC 28 /hpf (0 - 4) Urine Microscopic WBC 4 /HPF (0-5) Urine Squamous Epithelial Cells Few /hpf (<5) Urine Bacteria Few /hpf (None Seen) H Urine Hyaline Casts Many /lpf (0 - 2) Urine Mucus Few (None Seen) Urine Yeast (Budding) Occasional /hpf (None Urine Glucose 1+ mg/dL (Normal) H Blood Gas Results Test 05/14/24 10:38 05/15/24 07:07 Arterial Blood pH 7.445 (7.350-7.450) 7.512 (7.350-7.450) FiO2 % 35.0 30.0 Microbiology Microbiology Date/Time Source Procedure Growth Status 05/11/24 15:54 Other Pending Resulted 05/11/24 15:54 Other Pending Resulted 05/11/24 15:54 Other Pending Resulted 05/11/24 15:54 Other Pending Resulted 05/11/24 15:54 Other - Final See Separate Report... Resulted 05/10/24 18:10 Blood Blood Culture - Preliminary NO GROWTH AFTER 72 HOURS OF INCUBATION. Resulted 05/08/24 02:17 Sputum Gram Stain - Final Complete 05/08/24 02:17 Respiratory Culture - Final Klebsiella pneumoniae Complete 05/07/24 15:06 Urine - Case Port Urine Culture - Final Complete Assessment/Plan Assessment/Plan Impression: -cardiopulmonary arrest in the field -acute hypoxic and hypercarbic respiratory failure with mechanical ventilation -full mouth pulmonary embolism -NSTEMI, rule out type 1 -hyperkalemia -acute kidney injury -shock liver -septic shock -community-acquired pneumonia, Klebsiella pneumoniae -primary hypertension -AFib with RVR Plan: Events: Patient more awake and able to follow commands. Now hypertensive. -p.r.n. antihypertensives. -continue Xopenex and Atrovent, Pulmicort, Mucomyst -MRI of the brain: Plans to be performed today. -continue current antibiotic therapy -continue tube feedings -PUD, DVT prophylaxis -repeat labs, chest x-ray, ABG in a.m. Discussed care with the patient's [id number] who was bedside. Critical care time spent with patient discussing and formulating plan of care: 40 minutes. This does not include time spent performing procedures. This medical document was created using an electronic medical record system with [employer] dictation system. Although this document has been carefully reviewed, there may still be some phonetic and typographical errors. These areas are purely typographical due to imperfections of the software programs, and do not reflect any compromise in the patient's medical care. Plan discussed with: Patient, Other (RN) My Orders Orders - KELLEY GARCIA NP Procedure Category Date Status Time * [employer]er CONS 05/14/24 Transmitted Consult Abg W/ Co-Ox RT 05/14/24 Logged 10:30 Metoprolol Tartrate PHA 05/14/24 In Process Tablet (Lopressor Ta 22:00 Lorazepam 2mg/Ml Inj PHA 05/14/24 In Process (Ativan Inj) 16:30 Date of Service: May 15, 2024 Billing Provider: KELLEY GARCIA NP Common Visit Codes: [id number] CARE 30-74 MIN KELLEY GARCIA NP May 15, 2024 09:27
--- NOTE | 2024-05-15 09:33 | DVH ---
CHEST RADIOGRAPH Indication: pt intubated Technique: Portable AP view of the chest was performed. Comparison: XY CHEST XRAY 1 VIEW on DOS: 05/12/24, XY CHEST PORTABLE on DOS: 05/12/24, XY CHEST PORTABL E on DOS: 05/11/24, XY CHEST PORTABLE on DOS: 05/10/24, XY CHEST PORTABLE on DOS: 05/09/24, XY CHEST XRA Y 1 VIEW on DOS: 05/12/24 FINDINGS: Endotracheal tube is re-identified with its tip 2.9 cm above the filemon. OG tube and right chest port a catheter re-identified. No pneumothorax. There are diffuse bilateral infiltrates, greatest in the l eft lung base. Left hemidiaphragm is obscured. The heart is not enlarged. The aortic arch is calcific . The central pulmonary arteries are ectatic. IMPRESSION: 1. Mechanical ventilation with tubes and lines as above. 2. Stable bilateral pneumonia, left greater than right. Can not exclude superimposed CHF. 3. Atherosclerotic vascular disease and pulmonary arterial hypertension.
[2024-05-15] MEDS: METOPROLOL TARTRATE 25 MG TAB GT SCH (10:00)
[2024-05-15 10:23] LABS: Base Excess 0.9 mmol/L (-2.0-3.0)
--- NOTE | 2024-05-15 11:27 | DVHPN2 ---
Progress Note - Dictate Date Seen: May 15, 2024 Medical Necessity Reason Pt with a Central, PICC or Fol: Yes The following are medically ne: Central Line, West Catheter Reason for west catheter: Strict I&O Subjective Ms. Aquino is a 74 years old right-handed female with a history of hypertension, AFib, colon cancer, lung cancer with brain metastatic disease status post chemo and radiation treatment, she was brought to the [facility] on 05/07/2024 with a chief complaint of cardiac arrest with ROSC. I have seen and examined the patient, I have discussed with her nurse, her daughter in the room with her. She is intubated, looks very tired, eyes closed most time, she does not follow verbal commands but she was appropriate facial expression. She failed CPAP trial yesterday UDS, 05/07/2024: Fentanyl, benzo Urinalysis, 05/07/2024: WBC: 4, urine leukocyte esterase: Negative ABG, 05/07/2024: Combined metabolic and respiratory acidosis, WBC/HB/PLT/MCV, 04/28/2024: 20.1/12.9/249/99.8 K, 05/07/2024: 2.4, 205, 05/08/2024: 3.2 BUN/CR, 05/07/2024: 22/1.73, 05/08/2024: 23/1.37 TBI/AST/ALT/AP, 05/08/2024: 0.5/187/210/75 TG/HDL/LDL/HDL, 05/07/2024: 143/177/85/67 TSH, 05/07/2024: 3.46 Venous Doppler, 05/08/2024: No right or left lower extremity deep venous thrombosis Echocardiogram, 05/08/2024: lvef 55% by visaul estimate severe septal hypertrophy RV enlarged mild, normal function left atrium enlarged mild aortic sclerosis Carotid Doppler, 05/10/2024: No hemodynamically significant stenosis noted in the right carotid system. No hemodynamically significant stenosis noted in the left carotid system. CT head, 05/08/2024: 1. Age-indeterminate infarcts in the left basal ganglia, possibly subacute. MRI of the brain without intravenous contrast is recommended for further evaluation. 2. No evidence of acute intracranial hemorrhage MRI headache, 05/10/2024: Acute infarct in the left basal ganglia as seen on prior CT vital signs Vital Sign Date Time Temp Pulse Resp B/P (MAP) Pulse Ox O2 Delivery O2 Flow Rate FiO2 05/15/24 11:15 99.3 84 19 164/93 (116) 98 210.7 168/78 (108) 05/15/24 10:00 40 05/15/24 10:00 Mechanical Ventilator+ Total Intake and Output 05/14/24 05/14/24 05/15/24 15:00 23:00 07:00 Intake Total 50 ml 40 ml 165 ml Output Total 325 ml 475 ml Balance 50 ml -285 ml -310 ml medications Current Medications Medications Dose Ordered Sig/Jerome Route Start Time Stop Time Status Last Admin Dose Admin Midazolam HCl 50 ml @ 1 mls/hr Q24H IV 05/07/24 13:30 05/12/24 10:46 3 MLS/HR Fentanyl Citrate 250 ml @ 2.5 mls/hr Q24H IV 05/07/24 13:30 05/12/24 04:40 10 MLS/HR Nitroglycerin 0.4 mg Q5MINP PRN SL 05/07/24 17:15 Morphine Sulfate 2 mg Q30M PRN IV 05/07/24 17:15 Cefepime HCl 50 ml @ 12.5 mls/hr Q12HR IV 05/07/24 22:00 UNV Ipratropium [place] 0.5 mg Q6HR NEB 05/07/24 18:00 05/15/24 06:14 0.5 MG Pantoprazole Sodium 40 mg DAILY IV 05/08/24 10:00 05/15/24 09:32 40 MG Vasopressin 20 units/Sodium Chloride 100 ml @ 9 mls/hr Q11H7M IV 05/07/24 17:15 Norepinephrine Bitartrate 32 mg/ Sodium Chloride 250 ml @ 0.938 mls/ hr Q24H IV 05/07/24 18:00 05/09/24 00:01 5.625 MLS/HR Acetaminophen 650 mg Q6HP PRN GT 05/08/24 08:30 05/11/24 10:37 650 MG Enteral Nutritional Formula 1,000 ml 30ML/HR GT 05/09/24 08:30 05/12/24 21:21 1,000 ML Phenylephrine HCl 80 mg/Sodium Chloride 250 ml @ 7.5 mls/hr Q24H IV 05/09/24 16:00 05/13/24 17:29 7.5 MLS/HR Levalbuterol HCl 1.25 mg Q6HR NEB 05/10/24 12:00 05/15/24 06:15 1.25 MG Acetylcysteine 100 mg Q6HR NEB 05/10/24 12:00 05/15/24 06:15 100 MG Apixaban 5 mg BID PO 05/10/24 10:00 05/15/24 09:33 5 MG Budesonide 0.5 mg BID NEB 05/10/24 22:00 05/15/24 06:15 0.5 MG Ceftriaxone Sodium 50 ml @ 100 mls/hr DAILY@09 IV 05/11/24 09:00 05/15/24 09:32 100 MLS/HR Lactulose 30 ml BID PO 05/11/24 22:00 05/14/24 21:55 30 ML Methylprednisolone Sodium Succinate 40 mg Q8HR IV 05/12/24 18:00 05/15/24 05:50 40 MG Docusate Sodium 200 mg BID GT 05/12/24 22:00 05/15/24 09:32 200 MG Atorvastatin Calcium 10 mg HS PO 05/13/24 22:00 05/14/24 21:55 10 MG Lorazepam 1 mg Q2HP PRN IV 05/14/24 16:30 05/15/24 03:33 1 MG Metoprolol Tartrate 50 mg BID GT 05/15/24 10:00 Labetalol HCl 10 mg Q2HPRN PRN IV 05/15/24 09:30 objective The patient is well-nourished and well-developed with no distress. The patient is intubated MENTAL STATUS: Subjective CRANIAL NERVES: Pupils are equal, round and reactive.There are gait eye movement. No signs of facial weakness. There are gagging or coughing reflexes SENSATION: Okay to painful stimuli and light touch MOTOR: Normal tone in the upper and lower extremity. Normal muscle bulk. No fasciculations. No spontaneous extremity movement noticed REFLEXES: Deep tendon reflexes are symmetrical. No pathological reflexes. CEREBELLAR/COORDINATION: Deferred GAIT/STATION: deferred. laboratory and microbiology Laboratory Tests 05/15/24 04:03 Test 05/15/24 04:03 Range/Units Serum Glucose 167 H 74-106 mg/dL Problem List Acute/subacute stroke Cardiopulmonary arrest Respiratory failure Metabolic acidosis Respiratory acidosis Atrial fibrillation History of lung cancer with brain metastatic disease Assessment/Plan Monitoring Supportive treatment Follow-up labs ICU care Stabilize vitals/pressor drip Respiratory support/vent management Oxygen IV antibiotics Eliquis 5 mg b.i.d. Lipitor 10mg Qd GI prophylaxis CPAP trial More recommendation per clinical course This medical document was created using an electronic medical record system with [employer] dictation system. Although this document has been carefully reviewed, there may still be some phonetic and typographical errors. These areas are purely typographical due to imperfections of the software programs, and do not reflect any compromise in the patient's medical care Prognosis guarded Dietary Evaluation Review Recommendations by RD: PPN/TPN Comments: 1) Increase TF rate as tolerated to goal rate of 50 mL/hr. Goal rate will provide 1440 kcals, 67g Pro, and 1768 mL free H2O (including flushes) per 24 hours. Goal TF rate will meet ~ 90% daily estimated energy needs and 70% daily esimated protein needs. 2) Flush with 200 mL free H2O Q6 3) Adance to 2g Na diet when medically feasible, pending PLATER HELPER approval 4) Continue current plan of care Expected Outcomes/Goals: 1) labs to improve 2) diet to advance 3) f/u in 2 days Plan discussed with: Daughter, Other CE FERREIRA MD May 15, 2024 11:27
[2024-05-15] MEDS: LABETALOL HCL 20 MG/4 ML VL IV PRN (11:40)
[2024-05-15] MEDS: MORPHINE SULFATE INJ 2 MG/ml SYRG IV PRN ×2 (18:17→22:16)
--- NOTE | 2024-05-15 23:23 | DVHPN2 ---
Progress Note - Dictate Date Seen: May 15, 2024 Medical Necessity Reason Pt with a Central, PICC or Fol: Yes The following are medically ne: Central Line, West Catheter Reason for west catheter: Strict I&O Subjective Patient seen and examined at bedside. intubated on mechanical ventilator. Overnight events reviewed. vital signs Vital Sign Date Time Temp Pulse Resp B/P (MAP) Pulse Ox O2 Delivery O2 Flow Rate FiO2 05/15/24 23:17 100.4 05/15/24 23:00 82 24 142/64 (90) 100 05/15/24 22:20 35 05/15/24 22:00 Mechanical Ventilator+ Total Intake and Output 05/14/24 05/14/24 05/15/24 15:00 23:00 07:00 Intake Total 50 ml 40 ml 165 ml Output Total 325 ml 475 ml Balance 50 ml -285 ml -310 ml medications Current Medications Medications Dose Ordered Sig/Jerome Route Start Time Stop Time Status Last Admin Dose Admin Midazolam HCl 50 ml @ 1 mls/hr Q24H IV 05/07/24 13:30 05/12/24 10:46 3 MLS/HR Fentanyl Citrate 250 ml @ 2.5 mls/hr Q24H IV 05/07/24 13:30 05/12/24 04:40 10 MLS/HR Nitroglycerin 0.4 mg Q5MINP PRN SL 05/07/24 17:15 Morphine Sulfate 2 mg Q30M PRN IV 05/07/24 17:15 05/15/24 22:16 2 MG Cefepime HCl 50 ml @ 12.5 mls/hr Q12HR IV 05/07/24 22:00 UNV Ipratropium [place] 0.5 mg Q6HR NEB 05/07/24 18:00 05/15/24 18:23 0.5 MG Pantoprazole Sodium 40 mg DAILY IV 05/08/24 10:00 05/15/24 09:32 40 MG Vasopressin 20 units/Sodium Chloride 100 ml @ 9 mls/hr Q11H7M IV 05/07/24 17:15 Norepinephrine Bitartrate 32 mg/ Sodium Chloride 250 ml @ 0.938 mls/ hr Q24H IV 05/07/24 18:00 05/09/24 00:01 5.625 MLS/HR Acetaminophen 650 mg Q6HP PRN GT 05/08/24 08:30 05/15/24 23:17 650 MG Enteral Nutritional Formula 1,000 ml 30ML/HR GT 05/09/24 08:30 05/15/24 20:07 1,000 ML Phenylephrine HCl 80 mg/Sodium Chloride 250 ml @ 7.5 mls/hr Q24H IV 05/09/24 16:00 05/13/24 17:29 7.5 MLS/HR Levalbuterol HCl 1.25 mg Q6HR NEB 05/10/24 12:00 05/15/24 18:23 1.25 MG Acetylcysteine 100 mg Q6HR NEB 05/10/24 12:00 05/15/24 18:23 100 MG Apixaban 5 mg BID PO 05/10/24 10:00 05/15/24 21:41 5 MG Budesonide 0.5 mg BID NEB 05/10/24 22:00 05/15/24 18:23 0.5 MG Ceftriaxone Sodium 50 ml @ 100 mls/hr DAILY@09 IV 05/11/24 09:00 05/15/24 09:32 100 MLS/HR Lactulose 30 ml BID PO 05/11/24 22:00 05/15/24 21:41 30 ML Methylprednisolone Sodium Succinate 40 mg Q8HR IV 05/12/24 18:00 05/15/24 21:42 40 MG Docusate Sodium 200 mg BID GT 05/12/24 22:00 05/15/24 21:39 200 MG Atorvastatin Calcium 10 mg HS PO 05/13/24 22:00 05/15/24 21:41 10 MG Metoprolol Tartrate 50 mg BID GT 05/15/24 10:00 05/15/24 21:42 50 MG Labetalol HCl 10 mg Q2HPRN PRN IV 05/15/24 09:30 05/15/24 17:12 10 MG Morphine Sulfate 2 mg Q4HPRN PRN IV 05/15/24 17:45 05/15/24 18:17 2 MG Dexmedetomidine HCl 400 mcg/ Dextrose 100 ml @ 4.21 mls/hr [id number] IV 05/15/24 17:45 objective Gen.: Patient lying in bed in medical ICU. Intubated on mechanical ventilator. Head: Normocephalic, atraumatic. Eyes: PERRLA. Ears: Normal external anatomy. Throat: Endotracheal tube and orogastric tube in place. Neck: Supple, trachea midline. Chest: Transmitted breath sounds bilaterally. Decreased air entry bilaterally. No wheezing. Bibasilar crackles. Cardiovascular: Positive S1, positive S2. Regular rate and rhythm. Abdomen: Positive bowel sounds in all 4 quadrants. Soft, nontender, nondistended. : West in place. Normal external genitalia. Rectal: Deferred. Skin: Warm, dry. Intact. Extremities: 2+ radial pulses bilaterally. No lower extremity edema. Neuro: Off sedation laboratory and microbiology Laboratory Tests 05/15/24 04:03 Test 05/15/24 04:03 Range/Units Serum Glucose 167 H 74-106 mg/dL Assessment/Plan Impression: Acute hypoxic respiratory failure On mechanical ventilator Acute kidney injury Septic shock Non-ST elevation myocardial infarction Hx of nicotine dependence Metabolic acidosis CVA stroke in left basal ganglia Pulmonary hypertension, RVSP 45 mmHg, moderate COPD/emphysema Hx of small cell lung CA Events: Remains on vent support On AC mode; RR 22, VT 550, PEEP 6, FiO2 40% Off sedation Off Fernando-Synephrine since yesterday Patient is groggy CPAP tolerated Awaiting for mentation to improve Opens eyes spontaneously Continue antibiotics. WBC now 11.2 K, trending up Blood cultures show no growth after 72 hours Follow up BAL culture results - Klebsiella pneumoniae Monitor Hgb Tube feeds for nutritional support SBT/ALETHEA CPAP trial with PS 8, PEEP 5. Labs and imaging reviewed. Rest of plan as noted below. Plan: s/p intubation on mechanical ventilator. CXR image and report reviewed. Devices in place. Decreasing airspace disease of the left lung field. Cardiomegaly with mild congestion. ABG reviewed, compensated. ECHO report Reviewed: Left ventricular ejection fraction 55%. RV enlarged, r ight ventricular systolic pressure 45 mmHg On AC mode; RR 22, VT 550, PEEP 6, FiO2 40% Titrate FIO2 to keep O2 saturation above 90%. VAP bundle. Daily ABG and CXR while intubated Off sedation Brain MRI demonstrates acute infarct in the left basal ganglia as seen on prior CT. Cardiology recs appreciated Continue antibiotics. F/u cultures. Pressors as necessary for hemodynamic support Titrate to keep mean arterial pressure greater than 65 mmHg Taper pressors as tolerated Tube feeds for nutritional support Monitor renal function d/t acute kidney injury Monitor electrolytes. Supplement as necessary. Monitor ins and outs. Maintain euvolemia. GI prophylaxis. DVT prophylaxis. Prognosis: Poor given patient's multiple co-morbidities. Condition: Critical Rest of plan per hospitalist and other consultants. A total of 35 minutes of critical care time was spent reviewing the patient record, examining the patient, making a diagnostic and therapeutic plan, discussing this plan with the medical personnel, following up on diagnostic studies and following the patient for clinical stability excluding any and all procedures. At least 50% of this time was spent in direct, [id number] contact. Thank you, ADORE Bonilla, for allowing me to participate in this patient's care. Further recommendations will depend on the patient's clinical course. Please do not hesitate to contact me if you have any questions or concerns. This medical document was created using an electronic medical record system with [facility] system. Although these documentations are being carefully reviewed, there may still be some phonetic and typographical changes. The errors are purely typographical, due to imperfection on the software program, and do not reflect any compromise in the patient's medical care. Dietary Evaluation Review Recommendations by RD: PPN/TPN Comments: 1) Increase TF rate as tolerated to goal rate of 50 mL/hr. Goal rate will provide 1440 kcals, 67g Pro, and 1768 mL free H2O (including flushes) per 24 hours. Goal TF rate will meet ~ 90% daily estimated energy needs and 70% daily esimated protein needs. 2) Flush with 200 mL free H2O Q6 3) Adance to 2g Na diet when medically feasible, pending SENIOR LINUX SYSTEMS ENGINEER approval 4) Continue current plan of care Expected Outcomes/Goals: 1) labs to improve 2) diet to advance 3) f/u in 2 days Plan discussed with: Other (BENJA Rai/Krysta) Critical Care Time(min): 35 EFRA DALE MD May 15, 2024 23:23
[2024-05-16] VITALS (104 sets, daily range): BP systolic 122–177; BP diastolic 53–94; PULSE 68–90; RESP 11–28; TEMP 99.1–100.2; O2SAT 91–100
[2024-05-16 03:51] LABS: Basophils # (auto) 0 10 ^3/uL (0-0.2); Eosinophils # (auto) 0 10 ^3/uL (0-0.8); Hemoglobin 10.7 g/dL (12.2-16.2); Lymphocytes # (auto) 0.5 10 ^3/uL (0.4-5.4); Mean Corpuscular Hemoglobin 32.8 pg (28.0-32.0); Mean Corpuscular Hgb Conc. 32.6 g/dL (32.0-36.0); Mean Corpuscular Volume 100.7 fL (80.0-100.0); Monocytes # (auto) 0.6 10 ^3/uL (0-1.3); Neutrophils # (auto) 12.6 10 ^3/uL (1.6-8.6); Platelet Count (auto) 323 10^3/uL (140-450); Red Blood Cells 3.27 10^6/uL (4.0-5.20); Red Cell Distribution Width 14.3 % (11.8-14.3); White Blood Cell 13.7 10^3/uL (4.4-10.8)
[2024-05-16 03:53] LABS: Anion Gap 9 (5-15); Carbon Dioxide 27 mmol/L (20-31); Potassium 4.3 mmol/L (3.5-5.1); Sodium 145 mmol/L (136-145)
[2024-05-16 03:54] LABS: Calcium 9.7 mg/dL (8.7-10.4)
[2024-05-16 03:59] LABS: BUN/Creatinine Ratio 36.3 (10.0-20.0)
[2024-05-16 04:04] LABS: Blood Urea Nitrogen 29 mg/dL (9-23); Chloride 109 mmol/L (98-107); Glucose 171 mg/dL (74-106)
--- NOTE | 2024-05-16 05:35 | DVH ---
EXAM: XR Chest, 1 View CLINICAL INDICATION: Pneumonia TECHNIQUE: Frontal view of the chest. COMPARISON: XY CHEST PORTABLE on DOS: 05/15/24, XY CHEST XRAY 1 VIEW on DOS: 05/12/24, XY CHEST ERNIE BLE on DOS: 05/12/24, XY CHEST PORTABLE on DOS: 05/11/24, XY CHEST PORTABLE on DOS: 05/10/24 FINDINGS: LUNGS AND PLEURAL SPACES: [id number] congestive heart failure. HEART: Unremarkable. No cardiomegaly. MEDIASTINUM: Unremarkable. Normal mediastinal contour. BONES/JOINTS: Unremarkable. No acute fracture. TUBES, LINES AND DEVICES: The endotracheal tube (ETT) is in satisfactory position. Enteric tube ti p cannot be seen but is below the diaphragm. Right-sided Mediport with the distal tip in the SVC. No pneumothorax. OTHER FINDINGS: . IMPRESSION: [id number] congestive heart failure.
--- NOTE | 2024-05-16 10:46 | DVHPN2 ---
Progress Note - Dictate Date Seen: May 16, 2024 Medical Necessity Reason Pt with a Central, PICC or Fol: Yes The following are medically ne: Central Line, West Catheter Reason for west catheter: Strict I&O Subjective Ms. Aquino is a 74 years old right-handed female with a history of hypertension, AFib, colon cancer, lung cancer with brain metastatic disease status post chemo and radiation treatment, she was brought to the [facility] on 05/07/2024 with a chief complaint of cardiac arrest with ROSC. I have seen and examined the patient, I have discussed with her nurse, her grand daughter in the room with her. She is intubated, but she was awake, she follows verbal commands, she waved her right hand when I was entering her room We will consider CPAP trial today UDS, 05/07/2024: Fentanyl, benzo Urinalysis, 05/07/2024: WBC: 4, urine leukocyte esterase: Negative ABG, 05/07/2024: Combined metabolic and respiratory acidosis, WBC/HB/PLT/MCV, 04/28/2024: 20.1/12.9/249/99.8 K, 05/07/2024: 2.4, 205, 05/08/2024: 3.2 BUN/CR, 05/07/2024: 22/1.73, 05/08/2024: 23/1.37 TBI/AST/ALT/AP, 05/08/2024: 0.5/187/210/75 TG/HDL/LDL/HDL, 05/07/2024: 143/177/85/67 TSH, 05/07/2024: 3.46 Venous Doppler, 05/08/2024: No right or left lower extremity deep venous thrombosis Echocardiogram, 05/08/2024: lvef 55% by visaul estimate severe septal hypertrophy RV enlarged mild, normal function left atrium enlarged mild aortic sclerosis Carotid Doppler, 05/10/2024: No hemodynamically significant stenosis noted in the right carotid system. No hemodynamically significant stenosis noted in the left carotid system. CT head, 05/08/2024: 1. Age-indeterminate infarcts in the left basal ganglia, possibly subacute. MRI of the brain without intravenous contrast is recommended for further evaluation. 2. No evidence of acute intracranial hemorrhage MRI headache, 05/10/2024: Acute infarct in the left basal ganglia as seen on prior CT vital signs Vital Sign Date Time Temp Pulse Resp B/P (MAP) Pulse Ox O2 Delivery O2 Flow Rate FiO2 05/16/24 10:31 70 133/60 05/16/24 10:30 18 99 30 05/16/24 06:45 99.5 211.1 05/16/24 06:00 Mechanical Ventilator+ Total Intake and Output 05/15/24 05/15/24 05/16/24 15:00 23:00 07:00 Intake Total 50 ml 30 ml 240 ml Output Total 500 ml 470 ml Balance 50 ml -470 ml -230 ml medications Current Medications Medications Dose Ordered Sig/Jerome Route Start Time Stop Time Status Last Admin Dose Admin Midazolam HCl 50 ml @ 1 mls/hr Q24H IV 05/07/24 13:30 05/12/24 10:46 3 MLS/HR Fentanyl Citrate 250 ml @ 2.5 mls/hr Q24H IV 05/07/24 13:30 05/12/24 04:40 10 MLS/HR Nitroglycerin 0.4 mg Q5MINP PRN SL 05/07/24 17:15 Morphine Sulfate 2 mg Q30M PRN IV 05/07/24 17:15 05/15/24 22:16 2 MG Cefepime HCl 50 ml @ 12.5 mls/hr Q12HR IV 05/07/24 22:00 UNV Ipratropium [place] 0.5 mg Q6HR NEB 05/07/24 18:00 05/16/24 06:19 0.5 MG Pantoprazole Sodium 40 mg DAILY IV 05/08/24 10:00 05/16/24 10:29 40 MG Vasopressin 20 units/Sodium Chloride 100 ml @ 9 mls/hr Q11H7M IV 05/07/24 17:15 Norepinephrine Bitartrate 32 mg/ Sodium Chloride 250 ml @ 0.938 mls/ hr Q24H IV 05/07/24 18:00 05/09/24 00:01 5.625 MLS/HR Acetaminophen 650 mg Q6HP PRN GT 05/08/24 08:30 05/15/24 23:17 650 MG Enteral Nutritional Formula 1,000 ml 30ML/HR GT 05/09/24 08:30 05/15/24 20:07 1,000 ML Phenylephrine HCl 80 mg/Sodium Chloride 250 ml @ 7.5 mls/hr Q24H IV 05/09/24 16:00 05/13/24 17:29 7.5 MLS/HR Levalbuterol HCl 1.25 mg Q6HR NEB 05/10/24 12:00 05/16/24 06:19 1.25 MG Acetylcysteine 100 mg Q6HR NEB 05/10/24 12:00 05/16/24 06:19 100 MG Apixaban 5 mg BID PO 05/10/24 10:00 05/16/24 10:31 5 MG Budesonide 0.5 mg BID NEB 05/10/24 22:00 05/16/24 06:19 0.5 MG Ceftriaxone Sodium 50 ml @ 100 mls/hr DAILY@09 IV 05/11/24 09:00 05/16/24 08:30 100 MLS/HR Lactulose 30 ml BID PO 05/11/24 22:00 05/16/24 10:30 30 ML Docusate Sodium 200 mg BID GT 05/12/24 22:00 05/16/24 10:30 200 MG Atorvastatin Calcium 10 mg HS PO 05/13/24 22:00 05/15/24 21:41 10 MG Metoprolol Tartrate 50 mg BID GT 05/15/24 10:00 05/16/24 10:31 50 MG Labetalol HCl 10 mg Q2HPRN PRN IV 05/15/24 09:30 05/16/24 00:54 10 MG Morphine Sulfate 2 mg Q4HPRN PRN IV 05/15/24 17:45 05/16/24 02:15 2 MG Dexmedetomidine HCl 400 mcg/ Dextrose 100 ml @ 4.21 mls/hr [id number] IV 05/15/24 17:45 Methylprednisolone Sodium Succinate 40 mg Q12H IV 05/16/24 18:00 objective The patient is well-nourished and well-developed with no distress. The patient is intubated MENTAL STATUS: Subjective CRANIAL NERVES: Pupils are equal, round and reactive.There are conjugated eye movement. No signs of facial weakness. There are gagging or coughing reflexes during oral care SENSATION: Okay to painful stimuli and light touch MOTOR: Normal tone in the upper and lower extremity. Normal muscle bulk. No fasciculations. She moves her extremities REFLEXES: Deep tendon reflexes are symmetrical. No pathological reflexes. CEREBELLAR/COORDINATION: Deferred GAIT/STATION: deferred. laboratory and microbiology Laboratory Tests 05/16/24 03:00 Test 05/16/24 03:00 Range/Units Serum Glucose 171 H 74-106 mg/dL Problem List Acute/subacute stroke Cardiopulmonary arrest Respiratory failure Metabolic acidosis Respiratory acidosis Atrial fibrillation History of lung cancer with brain metastatic disease Assessment/Plan Monitoring Supportive treatment Follow-up labs ICU care Stabilize vitals/pressor drip Respiratory support/vent management Oxygen IV antibiotics Eliquis 5 mg b.i.d. Lipitor 10mg Qd GI prophylaxis CPAP trial More recommendation per clinical course This medical document was created using an electronic medical record system with [employer] dictation system. Although this document has been carefully reviewed, there may still be some phonetic and typographical errors. These areas are purely typographical due to imperfections of the software programs, and do not reflect any compromise in the patient's medical care Prognosis guarded Dietary Evaluation Review Recommendations by RD: PPN/TPN Comments: 1) Increase TF rate as tolerated to goal rate of 50 mL/hr. Goal rate will provide 1440 kcals, 67g Pro, and 1768 mL free H2O (including flushes) per 24 hours. Goal TF rate will meet ~ 90% daily estimated energy needs and 70% daily esimated protein needs. 2) Flush with 200 mL free H2O Q6 3) Adance to 2g Na diet when medically feasible, pending READING ASSISTANT approval 4) Continue current plan of care Expected Outcomes/Goals: 1) labs to improve 2) diet to advance 3) f/u in 2 days Plan discussed with: Other CE FERREIRA MD May 16, 2024 10:46
--- NOTE | 2024-05-16 11:18 | DVHPN2 ---
Subjective Patient following some commands. Reviewed: Care Plan, H&P, Labs Changes from previous H/P or p: No Changes General: Per HPI Objective Vitals Vital Signs Date Time Temp Pulse Resp B/P (MAP) Pulse Ox O2 Delivery O2 Flow Rate FiO2 05/16/24 10:31 70 133/60 05/16/24 10:30 18 99 30 05/16/24 06:45 99.5 211.1 05/16/24 06:00 Mechanical Ventilator+ Intake/Output Intake and Output 05/16/24 07:00 Intake Total 320 ml Output Total 970 ml Balance -650 ml Intake Oral 150 ml IV Total 50 ml Tube Feeding 120 ml Output Urine Total 970 ml General Appearance: Alert, Cooperative, mild distress HEENT: Atraumatic, PERRLA Lungs: Clear to auscultation, Other (Mechanical ventilation. Bilateral rhonchi) Cardiovascular: Normal S1, Normal S2 Abdomen: No tenderness, No hepatospenomegaly, Other (bowel sounds heard - little hypo) Genitourinary: No Apparent Abnormalities (Case catheter) Extremities: No edema Neuro: Other (Withdraws to painful stimuli. Positive coughing gag) Skin: Dry, Intact Psych/Mental Status: Other (Unable to assess) Medications Current Medications Medications Dose Ordered Sig/Jerome Route Start Time Stop Time Status Last Admin Dose Admin Midazolam HCl 50 ml @ 1 mls/hr Q24H IV 05/07/24 13:30 05/12/24 10:46 3 MLS/HR Fentanyl Citrate 250 ml @ 2.5 mls/hr Q24H IV 05/07/24 13:30 05/12/24 04:40 10 MLS/HR Nitroglycerin 0.4 mg Q5MINP PRN SL 05/07/24 17:15 Morphine Sulfate 2 mg Q30M PRN IV 05/07/24 17:15 05/15/24 22:16 2 MG Cefepime HCl 50 ml @ 12.5 mls/hr Q12HR IV 05/07/24 22:00 UNV Ipratropium [place] 0.5 mg Q6HR NEB 05/07/24 18:00 05/16/24 06:19 0.5 MG Pantoprazole Sodium 40 mg DAILY IV 05/08/24 10:00 05/16/24 10:29 40 MG Vasopressin 20 units/Sodium Chloride 100 ml @ 9 mls/hr Q11H7M IV 05/07/24 17:15 Norepinephrine Bitartrate 32 mg/ Sodium Chloride 250 ml @ 0.938 mls/ hr Q24H IV 05/07/24 18:00 05/09/24 00:01 5.625 MLS/HR Acetaminophen 650 mg Q6HP PRN GT 05/08/24 08:30 05/15/24 23:17 650 MG Enteral Nutritional Formula 1,000 ml 30ML/HR GT 05/09/24 08:30 05/15/24 20:07 1,000 ML Phenylephrine HCl 80 mg/Sodium Chloride 250 ml @ 7.5 mls/hr Q24H IV 05/09/24 16:00 05/13/24 17:29 7.5 MLS/HR Levalbuterol HCl 1.25 mg Q6HR NEB 05/10/24 12:00 05/16/24 06:19 1.25 MG Acetylcysteine 100 mg Q6HR NEB 05/10/24 12:00 05/16/24 06:19 100 MG Apixaban 5 mg BID PO 05/10/24 10:00 05/16/24 10:31 5 MG Budesonide 0.5 mg BID NEB 05/10/24 22:00 05/16/24 06:19 0.5 MG Ceftriaxone Sodium 50 ml @ 100 mls/hr DAILY@09 IV 05/11/24 09:00 05/16/24 08:30 100 MLS/HR Lactulose 30 ml BID PO 05/11/24 22:00 05/16/24 10:30 30 ML Docusate Sodium 200 mg BID GT 05/12/24 22:00 05/16/24 10:30 200 MG Atorvastatin Calcium 10 mg HS PO 05/13/24 22:00 05/15/24 21:41 10 MG Metoprolol Tartrate 50 mg BID GT 05/15/24 10:00 05/16/24 10:31 50 MG Labetalol HCl 10 mg Q2HPRN PRN IV 05/15/24 09:30 05/16/24 00:54 10 MG Morphine Sulfate 2 mg Q4HPRN PRN IV 05/15/24 17:45 05/16/24 02:15 2 MG Dexmedetomidine HCl 400 mcg/ Dextrose 100 ml @ 4.21 mls/hr [id number] IV 05/15/24 17:45 Methylprednisolone Sodium Succinate 40 mg Q12H IV 05/16/24 18:00 Laboratory Results Laboratory Tests 05/16/24 03:00 Chemistry Test 05/16/24 03:00 Calcium Level 9.7 mg/dL (8.7-10.4) Urinalysis Test 05/07/24 15:06 Urine Color Dark-yellow (Yellow) Urine Clarity Turbid (Clear) H Urine pH 5.5 (5.0-9.0) Urine Specific [place] 1.021 (1.001-1.035) Urine Protein 2+ (Negative) H Urine Ketones Negative (Negative) Urine Blood 1+ /uL (Negative) H Urine Nitrite Negative (Negative) Urine Bilirubin Negative (Negative) Urine Urobilinogen 2 mg/dL (Negative) H Urine Leukocyte Esterase Negative /uL (Negative) Urine RBC 28 /hpf (0 - 4) Urine Microscopic WBC 4 /HPF (0-5) Urine Squamous Epithelial Cells Few /hpf (<5) Urine Bacteria Few /hpf (None Seen) H Urine Hyaline Casts Many /lpf (0 - 2) Urine Mucus Few (None Seen) Urine Yeast (Budding) Occasional /hpf (None Urine Glucose 1+ mg/dL (Normal) H Blood Gas Results Test 05/16/24 06:33 Arterial Blood pH 7.532 (7.350-7.450) FiO2 % 35.0 Microbiology Microbiology Date/Time Source Procedure Growth Status 05/11/24 15:54 Other Pending Resulted 05/11/24 15:54 Other Pending Resulted 05/11/24 15:54 Other Pending Resulted 05/11/24 15:54 Other Pending Resulted 05/11/24 15:54 Other - Final See Separate Report... Resulted 05/10/24 18:10 Blood Blood Culture - Final NO GROWTH AFTER 5 DAYS OF INCUBATION. Complete 05/08/24 02:17 Sputum Gram Stain - Final Complete 05/08/24 02:17 Respiratory Culture - Final Klebsiella pneumoniae Complete 05/07/24 15:06 Urine - Case Port Urine Culture - Final Complete Labs and/or images reviewed: Labs reviewed by me, Image(s) reviewed by me Assessment/Plan Assessment/Plan Impression: -cardiopulmonary arrest in the field -acute hypoxic and hypercarbic respiratory failure with mechanical ventilation -full mouth pulmonary embolism -NSTEMI, rule out type 1 -hyperkalemia -acute kidney injury -shock liver -septic shock -community-acquired pneumonia, Klebsiella pneumoniae -primary hypertension -AFib with RVR Plan: Events: Patient had prolonged CPAP trial yesterday, with patient becoming fatigued according to nursing staff. Patient was assessed today to be alert, oriented, moving all extremities, raising head off the bed, nodding to all questions. Educated nurse that patient should have spontaneous breathing trial, obtain weaning parameters with high probability of patient being extubated. This was also discussed with family who was bedside. -p.r.n. antihypertensives. -continue Xopenex and Atrovent, Pulmicort, Mucomyst -MRI of the brain: Plans to be performed today. -continue current antibiotic therapy -continue tube feedings -PUD, DVT prophylaxis -repeat labs, chest x-ray, ABG in a.m. Discussed care with the patient's [id number] who was bedside. Critical care time spent with patient discussing and formulating plan of care: 40 minutes. This does not include time spent performing procedures. This medical document was created using an electronic medical record system with [employer] dictation system. Although this document has been carefully reviewed, there may still be some phonetic and typographical errors. These areas are purely typographical due to imperfections of the software programs, and do not reflect any compromise in the patient's medical care. Plan discussed with: Patient, Other (RN) My Orders Orders - KELLEY GARCIA NP Procedure Category Date Status Time Methylprednisolone PHA 05/16/24 In Process Sod Succ (Solu Medrol 18:00 Date of Service: May 16, 2024 Billing Provider: KELLEY GARCIA NP Common Visit Codes: [id number] CARE 30-74 MIN KELLEY GARCIA NP May 16, 2024 11:18
[2024-05-16 12:04] LABS: Base Excess 0.3 mmol/L (-2.0-3.0)
[2024-05-16] MEDS: methylPREDNISolone SOD SUCC 40 MG/ML VL IV SCH (17:34)
--- NOTE | 2024-05-16 22:54 | DVHPN2 ---
Progress Note - Dictate Date Seen: May 16, 2024 Medical Necessity Reason Pt with a Central, PICC or Fol: Yes The following are medically ne: Central Line, West Catheter Reason for west catheter: Strict I&O Subjective Patient seen and examined at bedside. S/p extubation, on supplemental oxygen Overnight events reviewed. vital signs Vital Sign Date Time Temp Pulse Resp B/P (MAP) Pulse Ox O2 Delivery O2 Flow Rate FiO2 05/16/24 22:19 78 159/69 05/16/24 21:15 99.7 14 91 211.5 05/16/24 20:00 Nasal Cannula* 4 36 Total Intake and Output 05/15/24 05/15/24 05/16/24 15:00 23:00 07:00 Intake Total 50 ml 30 ml 240 ml Output Total 500 ml 470 ml Balance 50 ml -470 ml -230 ml medications Current Medications Medications Dose Ordered Sig/Jerome Route Start Time Stop Time Status Last Admin Dose Admin Midazolam HCl 50 ml @ 1 mls/hr Q24H IV 05/07/24 13:30 05/12/24 10:46 3 MLS/HR Fentanyl Citrate 250 ml @ 2.5 mls/hr Q24H IV 05/07/24 13:30 05/12/24 04:40 10 MLS/HR Nitroglycerin 0.4 mg Q5MINP PRN SL 05/07/24 17:15 Morphine Sulfate 2 mg Q30M PRN IV 05/07/24 17:15 05/15/24 22:16 2 MG Cefepime HCl 50 ml @ 12.5 mls/hr Q12HR IV 05/07/24 22:00 UNV Ipratropium [place] 0.5 mg Q6HR NEB 05/07/24 18:00 05/16/24 18:21 0.5 MG Pantoprazole Sodium 40 mg DAILY IV 05/08/24 10:00 05/16/24 10:29 40 MG Vasopressin 20 units/Sodium Chloride 100 ml @ 9 mls/hr Q11H7M IV 05/07/24 17:15 Norepinephrine Bitartrate 32 mg/ Sodium Chloride 250 ml @ 0.938 mls/ hr Q24H IV 05/07/24 18:00 05/09/24 00:01 5.625 MLS/HR Acetaminophen 650 mg Q6HP PRN GT 05/08/24 08:30 05/15/24 23:17 650 MG Enteral Nutritional Formula 1,000 ml 30ML/HR GT 05/09/24 08:30 05/15/24 20:07 1,000 ML Phenylephrine HCl 80 mg/Sodium Chloride 250 ml @ 7.5 mls/hr Q24H IV 05/09/24 16:00 05/13/24 17:29 7.5 MLS/HR Levalbuterol HCl 1.25 mg Q6HR NEB 05/10/24 12:00 05/16/24 18:21 1.25 MG Acetylcysteine 100 mg Q6HR NEB 05/10/24 12:00 05/16/24 18:21 100 MG Apixaban 5 mg BID PO 05/10/24 10:00 05/16/24 22:19 5 MG Budesonide 0.5 mg BID NEB 05/10/24 22:00 05/16/24 18:21 0.5 MG Ceftriaxone Sodium 50 ml @ 100 mls/hr DAILY@09 IV 05/11/24 09:00 05/16/24 08:30 100 MLS/HR Lactulose 30 ml BID PO 05/11/24 22:00 05/16/24 22:20 30 ML Docusate Sodium 200 mg BID GT 05/12/24 22:00 05/16/24 22:20 200 MG Atorvastatin Calcium 10 mg HS PO 05/13/24 22:00 05/16/24 22:20 10 MG Metoprolol Tartrate 50 mg BID GT 05/15/24 10:00 05/16/24 22:19 50 MG Labetalol HCl 10 mg Q2HPRN PRN IV 05/15/24 09:30 05/16/24 00:54 10 MG Morphine Sulfate 2 mg Q4HPRN PRN IV 05/15/24 17:45 05/16/24 02:15 2 MG Dexmedetomidine HCl 400 mcg/ Dextrose 100 ml @ 4.21 mls/hr [id number] IV 05/15/24 17:45 Methylprednisolone Sodium Succinate 40 mg Q12H IV 05/16/24 18:00 05/16/24 17:34 40 MG objective Gen.: Patient lying in bed in no apparent distress. On supplemental oxygen. Head: Normocephalic, atraumatic. Eyes: EOMI/PERRLA. Ears: Normal hearing. Normal anatomy. Neck/trachea: Trachea midline, supple. Nose: Normal external anatomy. Mouth: Moist mucous membranes. Chest: Decreased air entry bilaterally. No wheezing or rhonchi. Cardiovascular: Positive S1, positive S2. Regular rate and rhythm. Abdomen: Positive bowel sounds in all 4 quadrants. Soft, non-tender, non- distended. : Deferred. Rectal: Deferred. Skin: Warm, dry. Intact. Extremities: 2+ radial pulses bilaterally. No lower extremity edema. Neuro: Awake, alert, oriented x3. No gross motor or sensory deficits. Cranial nerves II through XII intact. Gait not assessed. laboratory and microbiology Laboratory Tests 05/16/24 03:00 Test 05/16/24 03:00 Range/Units Serum Glucose 171 H 74-106 mg/dL Assessment/Plan Impression: Acute hypoxic respiratory failure On mechanical ventilator Acute kidney injury Septic shock Non-ST elevation myocardial infarction Hx of nicotine dependence Metabolic acidosis CVA stroke in left basal ganglia Pulmonary hypertension, RVSP 45 mmHg, moderate COPD/emphysema Hx of small cell lung CA Events: ABG reviewed for CPAP trial, compensated Patient tolerated CPAP and was extubated uneventfully Currently on supplemental oxygen Off pressors, hemodynamically stable. Continue antibiotics. WBC now 13.7 K, trended up Blood cultures show no growth after 5 days Follow up BAL culture results - Klebsiella pneumoniae Monitor Hgb Tube feeds for nutritional support Labs and imaging reviewed. Rest of plan as noted below. Plan: S/p extubation On supplemental oxygen Titrate to keep O2 sats above 90%. ECHO report Reviewed: Left ventricular ejection fraction 55%. RV enlarged, r ight ventricular systolic pressure 45 mmHg Brain MRI demonstrates acute infarct in the left basal ganglia as seen on prior CT. Cardiology recs appreciated Continue antibiotics. F/u cultures. Pressors if necessary for hemodynamic support Titrate to keep mean arterial pressure greater than 65 mmHg Tube feeds for nutritional support Monitor renal function d/t acute kidney injury Monitor electrolytes. Supplement as necessary. Monitor ins and outs. Maintain euvolemia. GI prophylaxis. DVT prophylaxis. Prognosis: Guarded given patient's multiple co-morbidities. Condition: Critical Rest of plan per hospitalist and other consultants. A total of 35 minutes of critical care time was spent reviewing the patient record, examining the patient, making a diagnostic and therapeutic plan, discussing this plan with the medical personnel, following up on diagnostic studies and following the patient for clinical stability excluding any and all procedures. At least 50% of this time was spent in direct, [id number] contact. Thank you, ADORE Bonilla, for allowing me to participate in this patient's care. Further recommendations will depend on the patient's clinical course. Please do not hesitate to contact me if you have any questions or concerns. This medical document was created using an electronic medical record system with [employer] dictation system. Although these documentations are being carefully reviewed, there may still be some phonetic and typographical changes. The errors are purely typographical, due to imperfection on the software program, and do not reflect any compromise in the patient's medical care. Dietary Evaluation Review Recommendations by RD: PPN/TPN Comments: 1) Increase TF rate as tolerated to goal rate of 50 mL/hr. Goal rate will provide 1440 kcals, 67g Pro, and 1768 mL free H2O (including flushes) per 24 hours. Goal TF rate will meet ~ 90% daily estimated energy needs and 70% daily esimated protein needs. 2) Flush with 200 mL free H2O Q6 3) Adance to 2g Na diet when medically feasible, pending [employer] approval 4) Continue current plan of care Expected Outcomes/Goals: 1) labs to improve 2) diet to advance 3) f/u in 2 days Plan discussed with: Other (RN) Critical Care Time(min): 35 EFRA DALE MD May 16, 2024 22:54
[2024-05-17] VITALS (58 sets, daily range): BP systolic 102–169; BP diastolic 52–95; PULSE 66–98; RESP 6–45; TEMP 98.4–100.2; O2SAT 75–100
[2024-05-17 03:40] LABS: Anion Gap 9 (5-15); Carbon Dioxide 26 mmol/L (20-31); Potassium 3.9 mmol/L (3.5-5.1); Sodium 142 mmol/L (136-145)
[2024-05-17 03:42] LABS: Calcium 9.4 mg/dL (8.7-10.4)
[2024-05-17 03:46] LABS: BUN/Creatinine Ratio 37.7 (10.0-20.0); Basophils # (auto) 0 10 ^3/uL (0-0.2); Eosinophils # (auto) 0 10 ^3/uL (0-0.8); Hematocrit 32.5 % (36.0-46.0); Hemoglobin 10.7 g/dL (12.2-16.2); Lymphocytes # (auto) 0.7 10 ^3/uL (0.4-5.4); Lymphocytes % (auto) 4.6 % (10.0-50.0); Mean Corpuscular Hgb Conc. 32.9 g/dL (32.0-36.0); Mean Corpuscular Volume 100.3 fL (80.0-100.0); Monocytes # (auto) 0.7 10 ^3/uL (0-1.3); Monocytes % (auto) 4.1 % (0.0-12.0); Neutrophils # (auto) 14.7 10 ^3/uL (1.6-8.6); Neutrophils % (auto) 91.3 % (37.0-80.0); Platelet Count (auto) 345 10^3/uL (140-450); Red Blood Cells 3.24 10^6/uL (4.0-5.20); White Blood Cell 16.2 10^3/uL (4.4-10.8)
[2024-05-17 03:54] LABS: Blood Urea Nitrogen 26 mg/dL (9-23); Chloride 107 mmol/L (98-107); Glucose 146 mg/dL (74-106)
--- NOTE | 2024-05-17 05:52 | DVH ---
EXAM: XR Chest, 1 View CLINICAL INDICATION: Pneumonia TECHNIQUE: Frontal view of the chest. COMPARISON: XY CHEST PORTABLE on DOS: 05/16/24, XY CHEST PORTABLE on DOS: 05/15/24, XY CHEST XRAY 1 V IEW on DOS: 05/12/24, XY CHEST PORTABLE on DOS: 05/12/24, XY CHEST PORTABLE on DOS: 05/11/24 FINDINGS: LUNGS AND PLEURAL SPACES: See below. HEART: Cardiomegaly with pulmonary congestion and edema. Superimposed pneumonia cannot be excluded. MEDIASTINUM: Unremarkable. Normal mediastinal contour. BONES/JOINTS: Unremarkable. No acute fracture. TUBES, LINES AND DEVICES: Right-sided Mediport with the distal tip in the SVC. No pneumothorax. OTHER FINDINGS: . IMPRESSION: Cardiomegaly with pulmonary congestion and edema. Superimposed pneumonia cannot be excluded.
--- NOTE | 2024-05-17 08:37 | DVHPN2 ---
Subjective Patient following some commands. Reviewed: Care Plan, H&P, Labs Changes from previous H/P or p: No Changes General: Per HPI Objective Vitals Vital Signs Date Time Temp Pulse Resp B/P (MAP) Pulse Ox O2 Delivery O2 Flow Rate FiO2 05/17/24 08:02 89 159/74 05/17/24 07:40 95 Nasal Cannula* 6 44 05/17/24 07:15 99.5 29 211.1 Intake/Output Intake and Output 05/17/24 07:00 Intake Total 350 ml Output Total 1050 ml Balance -700 ml Intake Oral 350 ml Output Urine Total 1050 ml General Appearance: Alert, Cooperative, mild distress HEENT: Atraumatic, PERRLA Lungs: Clear to auscultation, Other (Mechanical ventilation. Bilateral rhonchi) Cardiovascular: Normal S1, Normal S2 Abdomen: No tenderness, No hepatospenomegaly, Other (bowel sounds heard - little hypo) Genitourinary: No Apparent Abnormalities (Case catheter) Extremities: No edema Neuro: Other (Withdraws to painful stimuli. Positive coughing gag) Skin: Dry, Intact Psych/Mental Status: Other (Patient presenting with ICU delirium) Medications Current Medications Medications Dose Ordered Sig/Jerome Route Start Time Stop Time Status Last Admin Dose Admin Midazolam HCl 50 ml @ 1 mls/hr Q24H IV 05/07/24 13:30 05/12/24 10:46 3 MLS/HR Fentanyl Citrate 250 ml @ 2.5 mls/hr Q24H IV 05/07/24 13:30 05/12/24 04:40 10 MLS/HR Nitroglycerin 0.4 mg Q5MINP PRN SL 05/07/24 17:15 Morphine Sulfate 2 mg Q30M PRN IV 05/07/24 17:15 05/15/24 22:16 2 MG Cefepime HCl 50 ml @ 12.5 mls/hr Q12HR IV 05/07/24 22:00 UNV Ipratropium [place] 0.5 mg Q6HR NEB 05/07/24 18:00 05/17/24 00:22 0.5 MG Pantoprazole Sodium 40 mg DAILY IV 05/08/24 10:00 05/16/24 10:29 40 MG Vasopressin 20 units/Sodium Chloride 100 ml @ 9 mls/hr Q11H7M IV 05/07/24 17:15 Norepinephrine Bitartrate 32 mg/ Sodium Chloride 250 ml @ 0.938 mls/ hr Q24H IV 05/07/24 18:00 05/09/24 00:01 5.625 MLS/HR Acetaminophen 650 mg Q6HP PRN GT 05/08/24 08:30 05/15/24 23:17 650 MG Enteral Nutritional Formula 1,000 ml 30ML/HR GT 05/09/24 08:30 05/15/24 20:07 1,000 ML Phenylephrine HCl 80 mg/Sodium Chloride 250 ml @ 7.5 mls/hr Q24H IV 05/09/24 16:00 05/13/24 17:29 7.5 MLS/HR Levalbuterol HCl 1.25 mg Q6HR NEB 05/10/24 12:00 05/17/24 00:22 1.25 MG Acetylcysteine 100 mg Q6HR NEB 05/10/24 12:00 05/17/24 00:22 100 MG Apixaban 5 mg BID PO 05/10/24 10:00 05/16/24 22:19 5 MG Budesonide 0.5 mg BID NEB 05/10/24 22:00 05/16/24 18:21 0.5 MG Ceftriaxone Sodium 50 ml @ 100 mls/hr DAILY@09 IV 05/11/24 09:00 05/16/24 08:30 100 MLS/HR Lactulose 30 ml BID PO 05/11/24 22:00 05/16/24 22:20 30 ML Docusate Sodium 200 mg BID GT 05/12/24 22:00 05/16/24 22:20 200 MG Atorvastatin Calcium 10 mg HS PO 05/13/24 22:00 05/16/24 22:20 10 MG Metoprolol Tartrate 50 mg BID GT 05/15/24 10:00 05/16/24 22:19 50 MG Labetalol HCl 10 mg Q2HPRN PRN IV 05/15/24 09:30 05/17/24 08:02 10 MG Morphine Sulfate 2 mg Q4HPRN PRN IV 05/15/24 17:45 05/17/24 02:25 2 MG Dexmedetomidine HCl 400 mcg/ Dextrose 100 ml @ 4.21 mls/hr [id number] IV 05/15/24 17:45 Methylprednisolone Sodium Succinate 40 mg Q12H IV 05/16/24 18:00 05/17/24 05:42 40 MG Furosemide 20 mg DAILY IV 05/17/24 07:45 Doxycycline Hyclate 100 ml @ 50 mls/hr Q12H IV 05/17/24 07:45 Laboratory Results Laboratory Tests 05/17/24 03:00 Chemistry Test 05/17/24 03:00 Calcium Level 9.4 mg/dL (8.7-10.4) Urinalysis Test 05/07/24 15:06 Urine Color Dark-yellow (Yellow) Urine Clarity Turbid (Clear) H Urine pH 5.5 (5.0-9.0) Urine Specific [place] 1.021 (1.001-1.035) Urine Protein 2+ (Negative) H Urine Ketones Negative (Negative) Urine Blood 1+ /uL (Negative) H Urine Nitrite Negative (Negative) Urine Bilirubin Negative (Negative) Urine Urobilinogen 2 mg/dL (Negative) H Urine Leukocyte Esterase Negative /uL (Negative) Urine RBC 28 /hpf (0 - 4) Urine Microscopic WBC 4 /HPF (0-5) Urine Squamous Epithelial Cells Few /hpf (<5) Urine Bacteria Few /hpf (None Seen) H Urine Hyaline Casts Many /lpf (0 - 2) Urine Mucus Few (None Seen) Urine Yeast (Budding) Occasional /hpf (None Urine Glucose 1+ mg/dL (Normal) H Blood Gas Results Test 05/16/24 11:58 Arterial Blood pH 7.453 (7.350-7.450) FiO2 % 30.0 Microbiology Microbiology Date/Time Source Procedure Growth Status 05/11/24 15:54 Other - Final Resulted 05/11/24 15:54 Other - Final Resulted 05/11/24 15:54 Other Pending Resulted 05/11/24 15:54 Other Pending Resulted 05/11/24 15:54 Other - Final See Separate Report... Resulted 05/10/24 18:10 Blood Blood Culture - Final NO GROWTH AFTER 5 DAYS OF INCUBATION. Complete 05/08/24 02:17 Sputum Gram Stain - Final Complete 05/08/24 02:17 Respiratory Culture - Final Klebsiella pneumoniae Complete 05/07/24 15:06 Urine - Case Port Urine Culture - Final Complete Labs and/or images reviewed: Labs reviewed by me, Image(s) reviewed by me Assessment/Plan Assessment/Plan Impression: -cardiopulmonary arrest in the field -acute hypoxic and hypercarbic respiratory failure with mechanical ventilation -full mouth pulmonary embolism -NSTEMI, rule out type 1 -hyperkalemia -acute kidney injury -shock liver -septic shock -community-acquired pneumonia, Klebsiella pneumoniae -primary hypertension -AFib with RVR Plan: Events: Patient noted to be somewhat delirious, agitated. Chest x-ray with pulmonary vascular congestion. Blood pressure uncontrolled. Discussed with primary nurse. -start Lasix 20 mg IV daily, 1st dose now. -start diet, swallow evaluation if needed -discontinue central line, A-line -p.r.n. antihypertensives. -continue Xopenex and Atrovent, Pulmicort, Mucomyst -MRI of the brain: Plans to be performed today. -continue Rocephin, add doxycycline -PUD, DVT prophylaxis -repeat labs, chest x-ray, ABG in a.m. Transfer to step-down ICU Critical care time spent with patient discussing and formulating plan of care: 40 minutes. This does not include time spent performing procedures. This medical document was created using an electronic medical record system with [employer] dictation system. Although this document has been carefully reviewed, there may still be some phonetic and typographical errors. These areas are purely typographical due to imperfections of the software programs, and do not reflect any compromise in the patient's medical care. Plan discussed with: Patient, Other (RN) My Orders Orders - KELLEY GARCIA SLAG M[employer]ER Procedure Category Date Status Time Methylprednisolone PHA 05/16/24 In Process Sod Succ (Solu Medrol 18:00 Abg W/ Co-Ox RT 05/16/24 Logged 12:00 Extubate SHANIQUA 05/16/24 In Process 12:09 Furosemide Injection PHA 05/17/24 In Process (Lasix Injection) 07:45 * Swallow Request ST 05/17/24 Transmitted 07:39 Routine Care: Central ORDERS 05/17/24 Transmitted Line 07:39 Communication Order ORDERS 05/17/24 Transmitted 07:39 Doxycycline PHA 05/17/24 In Process 100mg/100ml 07:45 Complete Blood Count LAB 05/18/24 Verified 05:00 Complete Blood Count LAB 05/19/24 Verified 05:00 Basic Metabolic Panel LAB 05/18/24 Verified 04:00 Pt Request For Service PT 05/17/24 Logged 07:45 Transfer Orders XFER 05/17/24 Transmitted 07:46 Cardiac DIET 05/17/24 Transmitted Diet-2gna,Lofat,Lochol Breakfast Date of Service: May 17, 2024 Billing Provider: KELLEY GARCIA NP Common Visit Codes: [id number] CARE 30-74 MIN KELLEY GARCIA NP May 17, 2024 08:37
[2024-05-17] MEDS: FUROSEMIDE 20 MG/2 ML VIAL IV SCH (08:40)
[2024-05-17] MEDS: DOXYCYCLINE 100MG/100ML 100 ML IV SCH (08:41)
[2024-05-17] MEDS ORDERED: TEMAZEPAM 15 MG CAP PO PRN (21:00)
--- NOTE | 2024-05-17 21:09 | DVHPN2 ---
Progress Note - Dictate Date Seen: May 17, 2024 Medical Necessity Reason Pt with a Central, PICC or Fol: Yes The following are medically ne: Central Line, West Catheter Reason for west catheter: Strict I&O Subjective Ms. Aquino is a 74 years old right-handed female with a history of hypertension, AFib, colon cancer, lung cancer with brain metastatic disease status post chemo and radiation treatment, she was brought to the [facility] on 05/07/2024 with a chief complaint of cardiac arrest with ROSC. I have seen and examined the patient, I have discussed with her nurse, she was doing fine, awake, oriented to person only but her nurse relates she was oriented x3 last night She was extubated on 05/16/24 UDS, 05/07/2024: Fentanyl, benzo Urinalysis, 05/07/2024: WBC: 4, urine leukocyte esterase: Negative ABG, 05/07/2024: Combined metabolic and respiratory acidosis, WBC/HB/PLT/MCV, 04/28/2024: 20.1/12.9/249/99.8 K, 05/07/2024: 2.4, 205, 05/08/2024: 3.2 BUN/CR, 05/07/2024: 22/1.73, 05/08/2024: 23/1.37 TBI/AST/ALT/AP, 05/08/2024: 0.5/187/210/75 TG/HDL/LDL/HDL, 05/07/2024: 143/177/85/67 TSH, 05/07/2024: 3.46 Venous Doppler, 05/08/2024: No right or left lower extremity deep venous thrombosis Echocardiogram, 05/08/2024: lvef 55% by visaul estimate severe septal hypertrophy RV enlarged mild, normal function left atrium enlarged mild aortic sclerosis Carotid Doppler, 05/10/2024: No hemodynamically significant stenosis noted in the right carotid system. No hemodynamically significant stenosis noted in the left carotid system. CT head, 05/08/2024: 1. Age-indeterminate infarcts in the left basal ganglia, possibly subacute. MRI of the brain without intravenous contrast is recommended for further evaluation. 2. No evidence of acute intracranial hemorrhage MRI headache, 05/10/2024: Acute infarct in the left basal ganglia as seen on prior CT vital signs Vital Sign Date Time Temp Pulse Resp B/P (MAP) Pulse Ox O2 Delivery O2 Flow Rate FiO2 05/17/24 20:01 100.0 77 24 102/55 (71) 95 212.0 05/17/24 20:00 Nasal Cannula* 6 44 Total Intake and Output 05/16/24 05/16/24 05/17/24 15:00 23:00 07:00 Intake Total 150 ml 200 ml Output Total 550 ml 500 ml Balance -400 ml -300 ml medications Current Medications Medications Dose Ordered Sig/Jerome Route Start Time Stop Time Status Last Admin Dose Admin Midazolam HCl 50 ml @ 1 mls/hr Q24H IV 05/07/24 13:30 05/12/24 10:46 3 MLS/HR Fentanyl Citrate 250 ml @ 2.5 mls/hr Q24H IV 05/07/24 13:30 05/12/24 04:40 10 MLS/HR Nitroglycerin 0.4 mg Q5MINP PRN SL 05/07/24 17:15 Morphine Sulfate 2 mg Q30M PRN IV 05/07/24 17:15 05/15/24 22:16 2 MG Cefepime HCl 50 ml @ 12.5 mls/hr Q12HR IV 05/07/24 22:00 UNV Ipratropium [place] 0.5 mg Q6HR NEB 05/07/24 18:00 05/17/24 18:34 0.5 MG Pantoprazole Sodium 40 mg DAILY IV 05/08/24 10:00 05/17/24 10:55 40 MG Vasopressin 20 units/Sodium Chloride 100 ml @ 9 mls/hr Q11H7M IV 05/07/24 17:15 Norepinephrine Bitartrate 32 mg/ Sodium Chloride 250 ml @ 0.938 mls/ hr Q24H IV 05/07/24 18:00 05/09/24 00:01 5.625 MLS/HR Acetaminophen 650 mg Q6HP PRN GT 05/08/24 08:30 05/17/24 12:39 650 MG Enteral Nutritional Formula 1,000 ml 30ML/HR GT 05/09/24 08:30 05/15/24 20:07 1,000 ML Phenylephrine HCl 80 mg/Sodium Chloride 250 ml @ 7.5 mls/hr Q24H IV 05/09/24 16:00 05/13/24 17:29 7.5 MLS/HR Levalbuterol HCl 1.25 mg Q6HR NEB 05/10/24 12:00 05/17/24 18:34 1.25 MG Acetylcysteine 100 mg Q6HR NEB 05/10/24 12:00 05/17/24 18:34 100 MG Apixaban 5 mg BID PO 05/10/24 10:00 05/17/24 11:13 5 MG Budesonide 0.5 mg BID NEB 05/10/24 22:00 05/16/24 18:21 0.5 MG Ceftriaxone Sodium 50 ml @ 100 mls/hr DAILY@09 IV 05/11/24 09:00 05/17/24 08:40 100 MLS/HR Lactulose 30 ml BID PO 05/11/24 22:00 05/17/24 10:59 30 ML Docusate Sodium 200 mg BID GT 05/12/24 22:00 05/17/24 11:01 200 MG Atorvastatin Calcium 10 mg HS PO 05/13/24 22:00 05/16/24 22:20 10 MG Metoprolol Tartrate 50 mg BID GT 05/15/24 10:00 05/17/24 11:14 50 MG Labetalol HCl 10 mg Q2HPRN PRN IV 05/15/24 09:30 05/17/24 08:02 10 MG Morphine Sulfate 2 mg Q4HPRN PRN IV 05/15/24 17:45 05/17/24 02:25 2 MG Dexmedetomidine HCl 400 mcg/ Dextrose 100 ml @ 4.21 mls/hr [id number] IV 05/15/24 17:45 Methylprednisolone Sodium Succinate 40 mg Q12H IV 05/16/24 18:00 05/17/24 18:26 40 MG Furosemide 20 mg DAILY IV 05/17/24 07:45 05/17/24 10:55 20 MG Doxycycline Hyclate 100 ml @ 50 mls/hr Q12H IV 05/17/24 07:45 05/17/24 20:02 50 MLS/HR Temazepam 15 mg HSPRN PRN PO 05/17/24 21:00 UNV objective The patient is well-nourished and well-developed with no distress MENTAL STATUS: Subjective CRANIAL NERVES: Pupils are equal, round and reactive.There are normal conjugated eye movement. Normal motor and sensory examination on bilateral trigeminal distribution. No signs of facial weakness. SENSATION: Okay to painful stimuli and light touch MOTOR: Normal tone in the upper and lower extremity. Normal muscle bulk. No fasciculations. She moves her extremities REFLEXES: Deep tendon reflexes are symmetrical. No pathological reflexes. CEREBELLAR/COORDINATION: Deferred GAIT/STATION: deferred. laboratory and microbiology Laboratory Tests 05/17/24 03:00 Test 05/17/24 03:00 Range/Units Serum Glucose 146 H 74-106 mg/dL Problem List Acute/subacute stroke Cardiopulmonary arrest Respiratory failure Metabolic acidosis Respiratory acidosis Atrial fibrillation History of lung cancer with brain metastatic disease Assessment/Plan Monitoring Supportive treatment Follow-up labs ICU care Stabilize vitals Respiratory support Oxygen IV antibiotics Eliquis 5 mg b.i.d. Lipitor 10mg Qd GI prophylaxis More recommendation per clinical course This medical document was created using an electronic medical record system with [employer] dictation system. Although this document has been carefully reviewed, there may still be some phonetic and typographical errors. These areas are purely typographical due to imperfections of the software programs, and do not reflect any compromise in the patient's medical care Prognosis poor Dietary Evaluation Review Recommendations by RD: PPN/TPN Comments: 1) Increase TF rate as tolerated to goal rate of 50 mL/hr. Goal rate will provide 1440 kcals, 67g Pro, and 1768 mL free H2O (including flushes) per 24 hours. Goal TF rate will meet ~ 90% daily estimated energy needs and 70% daily esimated protein needs. 2) Flush with 200 mL free H2O Q6 3) Adance to 2g Na diet when medically feasible, pending CHIEF II DISPATCHER approval 4) Continue current plan of care Expected Outcomes/Goals: 1) labs to improve 2) diet to advance 3) f/u in 2 days Plan discussed with: CE Paiz MD May 17, 2024 21:09
--- NOTE | 2024-05-17 23:00 | DVHPN2 ---
Progress Note - Dictate Date Seen: May 17, 2024 Medical Necessity Reason Pt with a Central, PICC or Fol: Yes The following are medically ne: Central Line, West Catheter Reason for west catheter: Strict I&O Subjective Patient seen and examined at bedside. Remains on supplemental oxygen Overnight events reviewed. vital signs Vital Sign Date Time Temp Pulse Resp B/P (MAP) Pulse Ox O2 Delivery O2 Flow Rate FiO2 05/17/24 21:32 75 120/69 05/17/24 20:01 100.0 24 95 212.0 05/17/24 20:00 Nasal Cannula* 6 44 Total Intake and Output 05/16/24 05/16/24 05/17/24 15:00 23:00 07:00 Intake Total 150 ml 200 ml Output Total 550 ml 500 ml Balance -400 ml -300 ml medications Current Medications Medications Dose Ordered Sig/Jerome Route Start Time Stop Time Status Last Admin Dose Admin Midazolam HCl 50 ml @ 1 mls/hr Q24H IV 05/07/24 13:30 05/12/24 10:46 3 MLS/HR Fentanyl Citrate 250 ml @ 2.5 mls/hr Q24H IV 05/07/24 13:30 05/12/24 04:40 10 MLS/HR Nitroglycerin 0.4 mg Q5MINP PRN SL 05/07/24 17:15 Morphine Sulfate 2 mg Q30M PRN IV 05/07/24 17:15 05/15/24 22:16 2 MG Cefepime HCl 50 ml @ 12.5 mls/hr Q12HR IV 05/07/24 22:00 UNV Ipratropium [place] 0.5 mg Q6HR NEB 05/07/24 18:00 05/17/24 18:34 0.5 MG Pantoprazole Sodium 40 mg DAILY IV 05/08/24 10:00 05/17/24 10:55 40 MG Vasopressin 20 units/Sodium Chloride 100 ml @ 9 mls/hr Q11H7M IV 05/07/24 17:15 Norepinephrine Bitartrate 32 mg/ Sodium Chloride 250 ml @ 0.938 mls/ hr Q24H IV 05/07/24 18:00 05/09/24 00:01 5.625 MLS/HR Acetaminophen 650 mg Q6HP PRN GT 05/08/24 08:30 05/17/24 12:39 650 MG Enteral Nutritional Formula 1,000 ml 30ML/HR GT 05/09/24 08:30 05/15/24 20:07 1,000 ML Phenylephrine HCl 80 mg/Sodium Chloride 250 ml @ 7.5 mls/hr Q24H IV 05/09/24 16:00 05/13/24 17:29 7.5 MLS/HR Levalbuterol HCl 1.25 mg Q6HR NEB 05/10/24 12:00 05/17/24 18:34 1.25 MG Acetylcysteine 100 mg Q6HR NEB 05/10/24 12:00 05/17/24 18:34 100 MG Apixaban 5 mg BID PO 05/10/24 10:00 05/17/24 21:32 5 MG Budesonide 0.5 mg BID NEB 05/10/24 22:00 05/16/24 18:21 0.5 MG Ceftriaxone Sodium 50 ml @ 100 mls/hr DAILY@09 IV 05/11/24 09:00 05/17/24 08:40 100 MLS/HR Lactulose 30 ml BID PO 05/11/24 22:00 05/17/24 10:59 30 ML Docusate Sodium 200 mg BID GT 05/12/24 22:00 05/17/24 11:01 200 MG Atorvastatin Calcium 10 mg HS PO 05/13/24 22:00 05/17/24 21:32 10 MG Metoprolol Tartrate 50 mg BID GT 05/15/24 10:00 05/17/24 21:32 50 MG Labetalol HCl 10 mg Q2HPRN PRN IV 05/15/24 09:30 05/17/24 08:02 10 MG Morphine Sulfate 2 mg Q4HPRN PRN IV 05/15/24 17:45 05/17/24 02:25 2 MG Dexmedetomidine HCl 400 mcg/ Dextrose 100 ml @ 4.21 mls/hr [id number] IV 05/15/24 17:45 Methylprednisolone Sodium Succinate 40 mg Q12H IV 05/16/24 18:00 05/17/24 18:26 40 MG Furosemide 20 mg DAILY IV 05/17/24 07:45 05/17/24 10:55 20 MG Doxycycline Hyclate 100 ml @ 50 mls/hr Q12H IV 05/17/24 07:45 05/17/24 20:02 50 MLS/HR Temazepam 15 mg HSPRN PRN PO 05/17/24 22:30 objective Gen.: Patient lying in bed in no apparent distress. On supplemental oxygen. Head: Normocephalic, atraumatic. Eyes: EOMI/PERRLA. Ears: Normal hearing. Normal anatomy. Neck/trachea: Trachea midline, supple. Nose: Normal external anatomy. Mouth: Moist mucous membranes. Chest: Decreased air entry bilaterally. No wheezing or rhonchi. Cardiovascular: Positive S1, positive S2. Regular rate and rhythm. Abdomen: Positive bowel sounds in all 4 quadrants. Soft, non-tender, non- distended. : Deferred. Rectal: Deferred. Skin: Warm, dry. Intact. Extremities: 2+ radial pulses bilaterally. No lower extremity edema. Neuro: Awake, alert, oriented x3. No gross motor or sensory deficits. Cranial nerves II through XII intact. Gait not assessed. laboratory and microbiology Laboratory Tests 05/17/24 03:00 Test 05/17/24 03:00 Range/Units Serum Glucose 146 H 74-106 mg/dL Assessment/Plan Impression: Acute hypoxic respiratory failure Acute kidney injury Septic shock Non-ST elevation myocardial infarction Hx of nicotine dependence Metabolic acidosis CVA stroke in left basal ganglia Pulmonary hypertension, RVSP 45 mmHg, moderate COPD/emphysema Hx of small cell lung CA Events: Remains on supplemental oxygen 5 LPM NC Taper O2 as tolerated Received Lasix for diuresis Off pressors, hemodynamically stable. Continue bronchodilators - patient refused Continue antibiotics - started ceftriaxone. WBC now 16.2 K, trended up Blood cultures show no growth after 5 days Follow up BAL culture results - Klebsiella pneumoniae Monitor hemoglobin Tube feeds for nutritional support CHARISSA status Labs and imaging reviewed. Rest of plan as noted below. Plan: S/p extubation on 05/16/24 On supplemental oxygen Titrate to keep O2 sats above 90%. ECHO report Reviewed: Left ventricular ejection fraction 55%. RV enlarged, r ight ventricular systolic pressure 45 mmHg Brain MRI demonstrates acute infarct in the left basal ganglia as seen on prior CT. Cardiology recs appreciated Continue antibiotics. F/u cultures. Pressors if necessary for hemodynamic support Titrate to keep mean arterial pressure greater than 65 mmHg Tube feeds for nutritional support Monitor renal function d/t acute kidney injury Monitor electrolytes. Supplement as necessary. Monitor ins and outs. Maintain euvolemia. GI prophylaxis. DVT prophylaxis. Prognosis: Guarded given patient's multiple co-morbidities. Rest of plan per hospitalist and other consultants. Thank you, ADORE Bonilla, for allowing me to participate in this patient's care. Further recommendations will depend on the patient's clinical course. Please do not hesitate to contact me if you have any questions or concerns. This medical document was created using an electronic medical record system with [employer] dictation system. Although these documentations are being carefully reviewed, there may still be some phonetic and typographical changes. The errors are purely typographical, due to imperfection on the software program, and do not reflect any compromise in the patient's medical care. Dietary Evaluation Review Recommendations by RD: PPN/TPN Comments: 1) Increase TF rate as tolerated to goal rate of 50 mL/hr. Goal rate will provide 1440 kcals, 67g Pro, and 1768 mL free H2O (including flushes) per 24 hours. Goal TF rate will meet ~ 90% daily estimated energy needs and 70% daily esimated protein needs. 2) Flush with 200 mL free H2O Q6 3) Adance to 2g Na diet when medically feasible, pending EMAIL MARKETING MANAGER approval 4) Continue current plan of care Expected Outcomes/Goals: 1) labs to improve 2) diet to advance 3) f/u in 2 days Plan discussed with: Patient, Other (BENJA Lynch) EFRA DALE MD May 17, 2024 23:00
[2024-05-17] MEDS: TEMAZEPAM 15 MG CAP PO PRN (23:37)
[2024-05-18] VITALS (42 sets, daily range): BP systolic 92–133; BP diastolic 45–90; PULSE 65–98; RESP 18–29; TEMP 98–100.4; O2SAT 90–98
[2024-05-18 04:05] LABS: Basophils # (auto) 0 10 ^3/uL (0-0.2); Basophils % (auto) 0.2 % (0.0-2.0); Eosinophils # (auto) 0 10 ^3/uL (0-0.8); Eosinophils % (auto) 0.2 % (0.0-7.0); Hematocrit 34.5 % (36.0-46.0); Hemoglobin 11.9 g/dL (12.2-16.2); Lymphocytes # (auto) 0.7 10 ^3/uL (0.4-5.4); Mean Corpuscular Hemoglobin 33.6 pg (28.0-32.0); Mean Corpuscular Hgb Conc. 34.4 g/dL (32.0-36.0); Mean Corpuscular Volume 97.9 fL (80.0-100.0); Monocytes # (auto) 0.6 10 ^3/uL (0-1.3); Monocytes % (auto) 3.5 % (0.0-12.0); Neutrophils # (auto) 15.3 10 ^3/uL (1.6-8.6); Neutrophils % (auto) 92.1 % (37.0-80.0); Platelet Count (auto) 380 10^3/uL (140-450); Red Blood Cells 3.52 10^6/uL (4.0-5.20); Red Cell Distribution Width 13.9 % (11.8-14.3); White Blood Cell 16.6 10^3/uL (4.4-10.8)
[2024-05-18 04:21] LABS: Calcium 9.6 mg/dL (8.7-10.4); Chloride 102 mmol/L (98-107); Potassium 3.8 mmol/L (3.5-5.1); Sodium 139 mmol/L (136-145)
[2024-05-18 04:22] LABS: Anion Gap 9 (5-15); Carbon Dioxide 28 mmol/L (20-31)
[2024-05-18 04:27] LABS: BUN/Creatinine Ratio 37.3 (10.0-20.0)
[2024-05-18 04:34] LABS: Blood Urea Nitrogen 25 mg/dL (9-23); Glucose 137 mg/dL (74-106)
--- NOTE | 2024-05-18 05:43 | DVH ---
CHEST RADIOGRAPH Indication: Pneumonia Technique: Single frontal view of the chest was obtained COMPARISON: XY CHEST PORTABLE on DOS: 05/17/24, XY CHEST PORTABLE on DOS: 05/16/24, XY CHEST PORTABLE o n DOS: 05/15/24, XY CHEST XRAY 1 VIEW on DOS: 05/12/24, XY CHEST PORTABLE on DOS: 05/12/24 FINDINGS: Lines and Tubes: Right chest port in satisfactory position. Lungs: Focal airspace disease. Pleura: No effusion. No pneumothorax. Cardiomediastinal contours: Unremarkable Bones: Unremarkable IMPRESSION: No significant interval change.
--- NOTE | 2024-05-18 12:43 | DVHPN2 ---
Assessment/Plan Assessment/Plan ICU Progress note seen today bedside, oriented to self and time, not place. able to move all extremities, however weak on R. Discussed plan with family bedside. on and off confused. need assisted feeding Physical exam alert, oriented to time and self protecting airway, adequate cough clear breath sound s1 s2 rrr abdomen soft nontender no le edema moving all 4 extremities, L>R Labs imaging and EKG reviewed Assessment and plan s/p cardiac arrest acute hypoxic hypercarbic respiratory failure requiring mechanical ventilation, s/p extubation ruled out PE acute left basal ganglia infarct NSTEMI type 2 hyperK BAO VMN shock liver klebsiella penumonia HTN afib with RVR lung cancer with brain mets speech saw pt PT c/w ceft and doxy neuro recs appreciated okay with slightly higher bp considering stroke dc metop as rate is well controlled delirium precaution encourage family bedside open blinds avoid benzos add melatonin downgrade telemetry Lines west Diet cardiac per speech DVT prophylaxis eliquis GI prophylaxis Protonix Condition critical poor prognosis Full code 69 minutes of critical care time spent Plan discussed with: Patient, Daughter My Orders Orders - KILEY BRANCH MD Procedure Category Date Status Time Melatonin (Melatonin) PHA 05/18/24 Logged 22:00 Acetaminophen Tablet PHA 05/18/24 Logged (Tylenol Tablet) 14:00 Metoprolol Tartrate PHA 05/18/24 Verified Tablet (Lopressor Ta 22:00 Basic Metabolic Panel LAB 05/19/24 Verified 04:00 Complete Blood Count LAB 05/19/24 Verified 04:00 Magnesium LAB 05/19/24 Verified 04:00 Phosphorus LAB 05/19/24 Verified 04:00 Date of Service: May 18, 2024 Billing Provider: KILEY BRANCH MD Common Visit Codes: [id number] CARE 30-74 MIN KILEY BRANCH MD May 18, 2024 12:43
[2024-05-18] MEDS: Ensure HIGH Protein Chocolate 8oz Bottle PO SCH (15:06)
[2024-05-18] MEDS: MUPIROCIN 2% OINT 15gm or 22gm FOR MRSA NARES EACHNOSTRI SCH (15:06)
[2024-05-18] MEDS: ACETAMINOPHEN 325 MG TAB PO SCH (15:07)
[2024-05-18] MEDS: MELATONIN 5 MG TAB PO SCH (22:03)
[2024-05-18] MEDS: METOPROLOL TARTRATE 25 MG TAB GT SCH (22:04)
--- NOTE | 2024-05-18 23:44 | DVHPN2 ---
Progress Note - Dictate Date Seen: May 18, 2024 Medical Necessity Reason Pt with a Central, PICC or Fol: Yes The following are medically ne: Central Line, West Catheter Reason for west catheter: Strict I&O Subjective Patient seen and examined at bedside. Remains on supplemental oxygen Overnight events reviewed. vital signs Vital Sign Date Time Temp Pulse Resp B/P (MAP) Pulse Ox O2 Delivery O2 Flow Rate FiO2 05/18/24 23:04 79 103/67 05/18/24 20:00 18 96 Nasal Cannula* 05 1705/18/24 15:00 99.5 211.1 Total Intake and Output 05/17/24 05/17/24 05/18/24 15:00 23:00 07:00 Intake Total 500 ml 150 ml Output Total 3000 ml 800 ml Balance -2500 ml -650 ml medications Current Medications Medications Dose Ordered Sig/Jerome Route Start Time Stop Time Status Last Admin Dose Admin Nitroglycerin 0.4 mg Q5MINP PRN SL 05/07/24 17:15 Morphine Sulfate 2 mg Q30M PRN IV 05/07/24 17:15 05/15/24 22:16 2 MG Cefepime HCl 50 ml @ 12.5 mls/hr Q12HR IV 05/07/24 22:00 UNV Ipratropium [place] 0.5 mg Q6HR NEB 05/07/24 18:00 05/18/24 19:19 0.5 MG Pantoprazole Sodium 40 mg DAILY IV 05/08/24 10:00 05/18/24 09:58 40 MG Enteral Nutritional Formula 1,000 ml 30ML/HR GT 05/09/24 08:30 05/15/24 20:07 1,000 ML Levalbuterol HCl 1.25 mg Q6HR NEB 05/10/24 12:00 05/18/24 19:19 1.25 MG Acetylcysteine 100 mg Q6HR NEB 05/10/24 12:00 05/18/24 19:19 100 MG Apixaban 5 mg BID PO 05/10/24 10:00 05/18/24 22:03 5 MG Budesonide 0.5 mg BID NEB 05/10/24 22:00 05/18/24 19:19 0.5 MG Ceftriaxone Sodium 50 ml @ 100 mls/hr DAILY@09 IV 05/11/24 09:00 05/18/24 09:00 100 MLS/HR Lactulose 30 ml BID PO 05/11/24 22:00 05/18/24 22:05 30 ML Docusate Sodium 200 mg BID GT 05/12/24 22:00 05/18/24 22:05 200 MG Atorvastatin Calcium 10 mg HS PO 05/13/24 22:00 05/18/24 22:02 10 MG Morphine Sulfate 2 mg Q4HPRN PRN IV 05/15/24 17:45 05/17/24 02:25 2 MG Methylprednisolone Sodium Succinate 40 mg Q12H IV 05/16/24 18:00 05/18/24 17:36 40 MG Furosemide 20 mg DAILY IV 05/17/24 07:45 05/18/24 09:58 20 MG Doxycycline Hyclate 100 ml @ 50 mls/hr Q12H IV 05/17/24 07:45 05/18/24 22:01 50 MLS/HR Mupirocin 1 applic BID EACHNOSTRI 05/18/24 10:00 05/23/24 09:59 05/18/24 22:06 1 APPLIC Enteral Nutritional Formula 240 ml TIDWM PO 05/18/24 12:00 05/18/24 15:06 240 ML Melatonin 10 mg HS PO 05/18/24 22:00 05/18/24 22:03 10 MG Acetaminophen 650 mg Q8HR PO 05/18/24 14:00 05/18/24 22:05 650 MG Metoprolol Tartrate 25 mg BID GT 05/18/24 22:00 05/18/24 22:04 25 MG objective Gen.: Patient lying in bed in no apparent distress. On supplemental oxygen. Head: Normocephalic, atraumatic. Eyes: EOMI/PERRLA. Ears: Normal hearing. Normal anatomy. Neck/trachea: Trachea midline, supple. Nose: Normal external anatomy. Mouth: Moist mucous membranes. Chest: Decreased air entry bilaterally. No wheezing or rhonchi. Cardiovascular: Positive S1, positive S2. Regular rate and rhythm. Abdomen: Positive bowel sounds in all 4 quadrants. Soft, non-tender, non- distended. : Deferred. Rectal: Deferred. Skin: Warm, dry. Intact. Extremities: 2+ radial pulses bilaterally. No lower extremity edema. Neuro: Awake, alert, oriented x3. No gross motor or sensory deficits. Cranial nerves II through XII intact. Gait not assessed. laboratory and microbiology Laboratory Tests 05/18/24 03:50 Test 05/18/24 03:50 Range/Units Serum Glucose 137 H 74-106 mg/dL Assessment/Plan Impression: Acute hypoxic respiratory failure Acute kidney injury Septic shock Non-ST elevation myocardial infarction Hx of nicotine dependence Metabolic acidosis CVA stroke in left basal ganglia Pulmonary hypertension, RVSP 45 mmHg, moderate COPD/emphysema Hx of small cell lung CA Events: Remains on supplemental oxygen 2 LPM NC Taper O2 as tolerated Improved O2 requirements Received Lasix for diuresis Continue bronchodilators Continue steroids -taper as tolerated Continue antibiotics - ceftriaxone, doxycycline. Incentive spirometry WBC now 16.6 K, stable Monitor hemoglobin Tube feeds for nutritional support Patient is stable for downgrade from the pulmonary standpoint. Labs and imaging reviewed. Rest of plan as noted below. Plan: S/p extubation on 05/16/24 On supplemental oxygen Titrate to keep O2 sats above 90%. ECHO report Reviewed: Left ventricular ejection fraction 55%. RV enlarged, r ight ventricular systolic pressure 45 mmHg Brain MRI demonstrates acute infarct in the left basal ganglia as seen on prior CT. Cardiology recs appreciated Continue antibiotics. F/u cultures. Blood cultures show no growth after 5 days Follow up BAL culture results - Klebsiella pneumoniae Pressors if necessary for hemodynamic support Titrate to keep mean arterial pressure greater than 65 mmHg Tube feeds for nutritional support Monitor renal function d/t acute kidney injury Monitor electrolytes. Supplement as necessary. Monitor ins and outs. Maintain euvolemia. GI prophylaxis. DVT prophylaxis. Prognosis: Guarded given patient's multiple co-morbidities. Rest of plan per hospitalist and other consultants. Thank you, ADORE Bonilla, for allowing me to participate in this patient's care. Further recommendations will depend on the patient's clinical course. Please do not hesitate to contact me if you have any questions or concerns. This medical document was created using an electronic medical record system with [employer] system. Although these documentations are being carefully reviewed, there may still be some phonetic and typographical changes. The errors are purely typographical, due to imperfection on the software program, and do not reflect any compromise in the patient's medical care. Dietary Evaluation Review Recommendations by RD: PPN/TPN Comments: 1) Increase TF rate as tolerated to goal rate of 50 mL/hr. Goal rate will provide 1440 kcals, 67g Pro, and 1768 mL free H2O (including flushes) per 24 hours. Goal TF rate will meet ~ 90% daily estimated energy needs and 70% daily esimated protein needs. 2) Flush with 200 mL free H2O Q6 3) Adance to 2g Na diet when medically feasible, pending MANAGER OF INFORMATION approval 4) Continue current plan of care Expected Outcomes/Goals: 1) labs to improve 2) diet to advance 3) f/u in 2 days Plan discussed with: Patient, Other (BENJA Espinosa) EFRA DALE MD May 18, 2024 23:44
[2024-05-19] VITALS (16 sets, daily range): BP systolic 97–120; BP diastolic 54–71; PULSE 68–89; RESP 18–22; TEMP 97.4–98.2; O2SAT 91–100
[2024-05-19 08:15] LABS: Basophils # (auto) 0 10 ^3/uL (0-0.2); Basophils % (auto) 0.1 % (0.0-2.0); Eosinophils # (auto) 0 10 ^3/uL (0-0.8); Eosinophils % (auto) 0.1 % (0.0-7.0); Hematocrit 40.2 % (36.0-46.0); Hemoglobin 13.2 g/dL (12.2-16.2); Lymphocytes # (auto) 0.7 10 ^3/uL (0.4-5.4); Lymphocytes % (auto) 3.9 % (10.0-50.0); Mean Corpuscular Hemoglobin 32.8 pg (28.0-32.0); Mean Corpuscular Hgb Conc. 32.8 g/dL (32.0-36.0); Mean Corpuscular Volume 99.9 fL (80.0-100.0); Monocytes # (auto) 0.6 10 ^3/uL (0-1.3); Monocytes % (auto) 3.8 % (0.0-12.0); Neutrophils # (auto) 15.5 10 ^3/uL (1.6-8.6); Neutrophils % (auto) 92.1 % (37.0-80.0); Nucleated Red Blood Cells % 0.1 %; Platelet Count (auto) 395 10^3/uL (140-450); Red Blood Cells 4.02 10^6/uL (4.0-5.20); Red Cell Distribution Width 13.8 % (11.8-14.3); White Blood Cell 16.9 10^3/uL (4.4-10.8)
[2024-05-19 10:54] LABS: Anion Gap 13 (5-15); Carbon Dioxide 22 mmol/L (20-31); Chloride 103 mmol/L (98-107); Potassium 3.7 mmol/L (3.5-5.1); Sodium 138 mmol/L (136-145)
[2024-05-19 10:55] LABS: Calcium 9.5 mg/dL (8.7-10.4)
[2024-05-19 11:00] LABS: BUN/Creatinine Ratio 40.3 (10.0-20.0); Magnesium 1.8 mg/dL (1.6-2.6)
[2024-05-19 11:12] LABS: Blood Urea Nitrogen 27 mg/dL (9-23); Glucose 124 mg/dL (74-106); Phosphorus 2.4 mg/dL (2.4-5.1)
--- NOTE | 2024-05-19 13:33 | DVHPN2 ---
Assessment/Plan Assessment/Plan ICU Progress note seen bedside, AOx3, delirium precaution, avoid beers meds. tolerating diet with supervised feeding Physical exam alert, oriented to time and self protecting airway, adequate cough clear breath sound s1 s2 rrr abdomen soft nontender no le edema moving all 4 extremities, L>R Labs imaging and EKG reviewed Assessment and plan s/p cardiac arrest acute hypoxic hypercarbic respiratory failure requiring mechanical ventilation, s/p extubation ruled out PE acute left basal ganglia infarct NSTEMI type 2 hyperK BAO VMN shock liver klebsiella penumonia HTN afib with RVR lung cancer with brain mets speech saw pt PT c/w ceft and doxy neuro recs appreciated okay with slightly higher bp considering stroke dc metop as rate is well controlled delirium precaution encourage family bedside open blinds avoid benzos add melatonin downgrade telemetry Lines west Diet cardiac per speech DVT prophylaxis eliquis GI prophylaxis Protonix Condition critical poor prognosis Full code Plan discussed with: Patient Date of Service: May 19, 2024 Billing Provider: KILEY BRANCH MD Common Visit Codes: [id number] INP/OBS CARE(HIGH) KILEY BRANCH MD May 19, 2024 13:33
--- NOTE | 2024-05-19 21:15 | DVHPN2 ---
Progress Note - Dictate Date Seen: May 19, 2024 Medical Necessity Reason Pt with a Central, PICC or Fol: Yes The following are medically ne: Central Line, West Catheter Reason for west catheter: Strict I&O Subjective Patient seen and examined at bedside. Remains on supplemental oxygen Overnight events reviewed. vital signs Vital Sign Date Time Temp Pulse Resp B/P (MAP) Pulse Ox O2 Delivery O2 Flow Rate FiO2 05/19/24 20:36 72 124/68 05/19/24 18:45 18 100 05/19/24 18:35 Nasal Cannula 3.0 05/19/24 18:35 32 05/19/24 17:00 98.2 98.2 Total Intake and Output 05/18/24 05/18/24 05/19/24 15:00 23:00 07:00 Intake Total 150 ml 480 ml Output Total 1300 ml Balance 150 ml -820 ml medications Current Medications Medications Dose Ordered Sig/Jerome Route Start Time Stop Time Status Last Admin Dose Admin Nitroglycerin 0.4 mg Q5MINP PRN SL 05/07/24 17:15 Morphine Sulfate 2 mg Q30M PRN IV 05/07/24 17:15 05/15/24 22:16 2 MG Cefepime HCl 50 ml @ 12.5 mls/hr Q12HR IV 05/07/24 22:00 UNV Ipratropium [place] 0.5 mg Q6HR NEB 05/07/24 18:00 05/19/24 18:34 0.5 MG Pantoprazole Sodium 40 mg DAILY IV 05/08/24 10:00 05/19/24 11:00 40 MG Enteral Nutritional Formula 1,000 ml 30ML/HR GT 05/09/24 08:30 05/15/24 20:07 1,000 ML Levalbuterol HCl 1.25 mg Q6HR NEB 05/10/24 12:00 05/19/24 18:34 1.25 MG Acetylcysteine 100 mg Q6HR NEB 05/10/24 12:00 05/19/24 18:34 100 MG Apixaban 5 mg BID PO 05/10/24 10:00 05/19/24 20:36 5 MG Budesonide 0.5 mg BID NEB 05/10/24 22:00 05/19/24 18:34 0.5 MG Ceftriaxone Sodium 50 ml @ 100 mls/hr DAILY@09 IV 05/11/24 09:00 05/19/24 12:25 100 MLS/HR Lactulose 30 ml BID PO 05/11/24 22:00 05/19/24 20:35 30 ML Docusate Sodium 200 mg BID GT 05/12/24 22:00 05/19/24 20:35 200 MG Atorvastatin Calcium 10 mg HS PO 05/13/24 22:00 05/19/24 20:37 10 MG Morphine Sulfate 2 mg Q4HPRN PRN IV 05/15/24 17:45 05/17/24 02:25 2 MG Methylprednisolone Sodium Succinate 40 mg Q12H IV 05/16/24 18:00 05/19/24 17:32 40 MG Furosemide 20 mg DAILY IV 05/17/24 07:45 05/19/24 11:00 20 MG Doxycycline Hyclate 100 ml @ 50 mls/hr Q12H IV 05/17/24 07:45 05/19/24 20:34 50 MLS/HR Mupirocin 1 applic BID EACHNOSTRI 05/18/24 10:00 05/23/24 09:59 05/19/24 20:35 1 APPLIC Enteral Nutritional Formula 240 ml TIDWM PO 05/18/24 12:00 05/19/24 12:25 240 ML Melatonin 10 mg HS PO 05/18/24 22:00 05/19/24 20:37 10 MG Acetaminophen 650 mg Q8HR PO 05/18/24 14:00 05/19/24 20:37 650 MG Metoprolol Tartrate 25 mg BID GT 05/18/24 22:00 05/19/24 20:36 25 MG objective Gen.: Patient lying in bed in no apparent distress. On supplemental oxygen. Head: Normocephalic, atraumatic. Eyes: EOMI/PERRLA. Ears: Normal hearing. Normal anatomy. Neck/trachea: Trachea midline, supple. Nose: Normal external anatomy. Mouth: Moist mucous membranes. Chest: Decreased air entry bilaterally. No wheezing or rhonchi. Cardiovascular: Positive S1, positive S2. Regular rate and rhythm. Abdomen: Positive bowel sounds in all 4 quadrants. Soft, non-tender, non- distended. : Deferred. Rectal: Deferred. Skin: Warm, dry. Intact. Extremities: 2+ radial pulses bilaterally. No lower extremity edema. Neuro: Awake, alert, oriented x3. No gross motor or sensory deficits. Cranial nerves II through XII intact. Gait not assessed. laboratory and microbiology Laboratory Tests 05/19/24 07:02 Test 05/19/24 07:02 Range/Units Serum Glucose 124 H 74-106 mg/dL Assessment/Plan Impression: Acute hypoxic respiratory failure Acute kidney injury Septic shock Non-ST elevation myocardial infarction Hx of nicotine dependence Metabolic acidosis CVA stroke in left basal ganglia Pulmonary hypertension, RVSP 45 mmHg, moderate COPD/emphysema Hx of small cell lung CA Events: Remains on supplemental oxygen 2 LPM NC Taper O2 as tolerated Continue bronchodilators Continue steroids -taper as tolerated Continue antibiotics - ceftriaxone, doxycycline. Incentive spirometry WBC now 16.9 K, stable Monitor hemoglobin Tube feeds for nutritional support Head of bed elevation Aspiration precautions Physical therapy Labs and imaging reviewed. Rest of plan as noted below. Plan: S/p extubation on 05/16/24 On supplemental oxygen Titrate to keep O2 sats above 92%. ECHO report Reviewed: Left ventricular ejection fraction 55%. RV enlarged, r ight ventricular systolic pressure 45 mmHg Brain MRI demonstrates acute infarct in the left basal ganglia as seen on prior CT. Cardiology recs appreciated Continue antibiotics. F/u cultures. Blood cultures show no growth after 5 days Follow up BAL culture results - Klebsiella pneumoniae Pressors if necessary for hemodynamic support Titrate to keep mean arterial pressure greater than 65 mmHg Tube feeds for nutritional support Monitor renal function d/t acute kidney injury Monitor electrolytes. Supplement as necessary. Monitor ins and outs. Maintain euvolemia. GI prophylaxis. DVT prophylaxis. Prognosis: Guarded given patient's multiple co-morbidities. Rest of plan per hospitalist and other consultants. Thank you, ADORE Bonilla, for allowing me to participate in this patient's care. Further recommendations will depend on the patient's clinical course. Please do not hesitate to contact me if you have any questions or concerns. This medical document was created using an electronic medical record system with [employer] system. Although these documentations are being carefully reviewed, there may still be some phonetic and typographical changes. The errors are purely typographical, due to imperfection on the software program, and do not reflect any compromise in the patient's medical care. Dietary Evaluation Review Recommendations by RD: PPN/TPN Comments: 1) Increase TF rate as tolerated to goal rate of 50 mL/hr. Goal rate will provide 1440 kcals, 67g Pro, and 1768 mL free H2O (including flushes) per 24 hours. Goal TF rate will meet ~ 90% daily estimated energy needs and 70% daily esimated protein needs. 2) Flush with 200 mL free H2O Q6 3) Adance to 2g Na diet when medically feasible, pending DENTAL HYGIENE INSTRUCTOR approval 4) Continue current plan of care Expected Outcomes/Goals: 1) labs to improve 2) diet to advance 3) f/u in 2 days Plan discussed with: Patient, Other (BENJA Dillon) EFRA DALE MD May 19, 2024 21:15
[2024-05-20] VITALS (17 sets, daily range): BP systolic 85–114; BP diastolic 50–62; PULSE 75–104; RESP 15–19; TEMP 97.6–98.8; O2SAT 90–100
[2024-05-20 05:59] LABS: Basophils # (auto) 0 10 ^3/uL (0-0.2); Eosinophils # (auto) 0 10 ^3/uL (0-0.8); Eosinophils % (auto) 0.1 % (0.0-7.0); Hematocrit 38.6 % (36.0-46.0); Hemoglobin 12.7 g/dL (12.2-16.2); Lymphocytes # (auto) 0.8 10 ^3/uL (0.4-5.4); Lymphocytes % (auto) 4.8 % (10.0-50.0); Mean Corpuscular Hemoglobin 32.8 pg (28.0-32.0); Mean Corpuscular Volume 99.5 fL (80.0-100.0); Monocytes # (auto) 0.9 10 ^3/uL (0-1.3); Monocytes % (auto) 5.8 % (0.0-12.0); Neutrophils # (auto) 14.5 10 ^3/uL (1.6-8.6); Neutrophils % (auto) 89.3 % (37.0-80.0); Platelet Count (auto) 407 10^3/uL (140-450); Red Blood Cells 3.88 10^6/uL (4.0-5.20); Red Cell Distribution Width 13.8 % (11.8-14.3); White Blood Cell 16.2 10^3/uL (4.4-10.8)
[2024-05-20 06:09] LABS: Anion Gap 11 (5-15); Carbon Dioxide 26 mmol/L (20-31); Chloride 101 mmol/L (98-107); Potassium 3.8 mmol/L (3.5-5.1); Sodium 138 mmol/L (136-145)
[2024-05-20 06:11] LABS: Calcium 9.4 mg/dL (8.7-10.4)
[2024-05-20 06:16] LABS: BUN/Creatinine Ratio 37.5 (10.0-20.0)
[2024-05-20 06:32] LABS: Blood Urea Nitrogen 27 mg/dL (9-23); Glucose 173 mg/dL (74-106)
[2024-05-20] MEDS: SODIUM CHLORIDE 0.9% 200 ML IV ONE (13:15)
[2024-05-20] MEDS ORDERED: traMADol HCL 50 MG TAB PO PRN (14:00)
[2024-05-20] MEDS ORDERED: LACTULOSE 20Gm/30ML SOLN PO PRN (14:00)
--- NOTE | 2024-05-20 14:03 | DVHPN2 ---
Subjective Patient following some commands. Reviewed: Care Plan, H&P, Labs Changes from previous H/P or p: No Changes General: Per HPI Objective Vitals Vital Signs Date Time Temp Pulse Resp B/P (MAP) Pulse Ox O2 Delivery O2 Flow Rate FiO2 05/20/24 11:22 75 16 98 05/20/24 09:15 107/58 05/20/24 07:56 Nasal Cannula* 2 28 05/20/24 06:00 98.7 98.7 Intake/Output Intake and Output 05/20/24 07:00 Intake Total 1010 ml Output Total 2200 ml Balance -1190 ml Intake Oral 860 ml IV Total 150 ml Output Urine Total 2200 ml # Bowel Movements 1 General Appearance: Alert, Cooperative, mild distress HEENT: Atraumatic, PERRLA Lungs: Clear to auscultation, Other (Mechanical ventilation. Bilateral rhonchi) Cardiovascular: Normal S1, Normal S2 Abdomen: No tenderness, No hepatospenomegaly, Other (bowel sounds heard - little hypo) Genitourinary: No Apparent Abnormalities (Case catheter) Extremities: No edema Neuro: Other (Withdraws to painful stimuli. Positive coughing gag) Skin: Dry, Intact Psych/Mental Status: Other (Patient presenting with ICU delirium) Medications Current Medications Medications Dose Ordered Sig/Jerome Route Start Time Stop Time Status Last Admin Dose Admin Nitroglycerin 0.4 mg Q5MINP PRN SL 05/07/24 17:15 Morphine Sulfate 2 mg Q30M PRN IV 05/07/24 17:15 05/15/24 22:16 2 MG Cefepime HCl 50 ml @ 12.5 mls/hr Q12HR IV 05/07/24 22:00 UNV Ipratropium [place] 0.5 mg Q6HR NEB 05/07/24 18:00 05/20/24 11:21 0.5 MG Pantoprazole Sodium 40 mg DAILY IV 05/08/24 10:00 05/20/24 08:44 40 MG Enteral Nutritional Formula 1,000 ml 30ML/HR GT 05/09/24 08:30 05/15/24 20:07 1,000 ML Levalbuterol HCl 1.25 mg Q6HR NEB 05/10/24 12:00 05/20/24 11:21 1.25 MG Acetylcysteine 100 mg Q6HR NEB 05/10/24 12:00 3/3/25 11:21 100 MG Apixaban 5 mg BID PO 05/10/24 10:00 05/20/24 08:44 5 MG Budesonide 0.5 mg BID NEB 05/10/24 22:00 05/20/24 08:48 0.5 MG Ceftriaxone Sodium 50 ml @ 100 mls/hr DAILY@09 IV 05/11/24 09:00 05/20/24 08:43 100 MLS/HR Lactulose 30 ml BID PO 05/11/24 22:00 05/19/24 20:35 30 ML Docusate Sodium 200 mg BID GT 05/12/24 22:00 05/19/24 20:35 200 MG Atorvastatin Calcium 10 mg HS PO 05/13/24 22:00 05/19/24 20:37 10 MG Morphine Sulfate 2 mg Q4HPRN PRN IV 05/15/24 17:45 05/20/24 08:45 2 MG Methylprednisolone Sodium Succinate 40 mg Q12H IV 05/16/24 18:00 05/20/24 06:12 40 MG Furosemide 20 mg DAILY IV 05/17/24 07:45 05/20/24 08:44 20 MG Doxycycline Hyclate 100 ml @ 50 mls/hr Q12H IV 05/17/24 07:45 05/20/24 08:44 50 MLS/HR Mupirocin 1 applic BID EACHNOSTRI 05/18/24 10:00 05/23/24 09:59 05/20/24 08:46 1 APPLIC Enteral Nutritional Formula 240 ml TIDWM PO 05/18/24 12:00 05/20/24 12:16 240 ML Melatonin 10 mg HS PO 05/18/24 22:00 05/19/24 20:37 10 MG Acetaminophen 650 mg Q8HR PO 05/18/24 14:00 05/20/24 06:12 650 MG Metoprolol Tartrate 25 mg BID GT 05/18/24 22:00 05/19/24 20:36 25 MG Laboratory Results Laboratory Tests 05/20/24 04:32 Chemistry Test 05/20/24 04:32 Calcium Level 9.4 mg/dL (8.7-10.4) Urinalysis Test 05/07/24 15:06 Urine Color Dark-yellow (Yellow) Urine Clarity Turbid (Clear) H Urine pH 5.5 (5.0-9.0) Urine Specific [place] 1.021 (1.001-1.035) Urine Protein 2+ (Negative) H Urine Ketones Negative (Negative) Urine Blood 1+ /uL (Negative) H Urine Nitrite Negative (Negative) Urine Bilirubin Negative (Negative) Urine Urobilinogen 2 mg/dL (Negative) H Urine Leukocyte Esterase Negative /uL (Negative) Urine RBC 28 /hpf (0 - 4) Urine Microscopic WBC 4 /HPF (0-5) Urine Squamous Epithelial Cells Few /hpf (<5) Urine Bacteria Few /hpf (None Seen) H Urine Hyaline Casts Many /lpf (0 - 2) Urine Mucus Few (None Seen) Urine Yeast (Budding) Occasional /hpf (None Urine Glucose 1+ mg/dL (Normal) H Microbiology Microbiology Date/Time Source Procedure Growth Status 05/11/24 15:54 Other - Final Resulted 05/11/24 15:54 Other - Final Resulted 05/11/24 15:54 Other Pending Resulted 05/11/24 15:54 Other Pending Resulted 05/11/24 15:54 Other - Final See Separate Report... Resulted 05/10/24 18:10 Blood Blood Culture - Final NO GROWTH AFTER 5 DAYS OF INCUBATION. Complete 05/08/24 02:17 Sputum Gram Stain - Final Complete 05/08/24 02:17 Respiratory Culture - Final Klebsiella pneumoniae Complete 05/07/24 15:06 Urine - Case Port Urine Culture - Final Complete Labs and/or images reviewed: Labs reviewed by me, Image(s) reviewed by me Assessment/Plan Assessment/Plan Impression: -cardiopulmonary arrest in the field -acute hypoxic and hypercarbic respiratory failure with mechanical ventilation -full mouth pulmonary embolism -NSTEMI, rule out type 1 -hyperkalemia -acute kidney injury -shock liver -septic shock -community-acquired pneumonia, Klebsiella pneumoniae -primary hypertension -AFib with RVR Plan: Events: Patient was awake, alert, oriented. Tolerating p.o. intake. Noted hypotension. -stop Lasix -continue nutritional supplementation with meals -physical therapy -continue bronchodilators, discontinue Mucomyst -continue Rocephin, add doxycycline -PUD, DVT prophylaxis Repeat chest x-ray in a.m. Total time spent with patient discussing and formulating plan of care: 35 minutes. This medical document was created using an electronic medical record system with [employer] dictation system. Although this document has been carefully reviewed, there may still be some phonetic and typographical errors. These areas are purely typographical due to imperfections of the software programs, and do not reflect any compromise in the patient's medical care. Plan discussed with: Patient, Other (RN) My Orders Orders - KELLEY GARCIA NP Procedure Category Date Status Time Sodium Chloride 0.9% PHA 05/20/24 In Process 13:15 Ipratropium Medneb PHA 05/20/24 Verified (Atrovent Medneb) 18:00 Lactulose Oral PHA 05/20/24 Verified 14:00 Levalbuterol Hcl PHA 05/20/24 Verified (Xopenex Medneb) 18:00 Methylprednisolone PHA 05/21/24 Verified Sod Succ (Solu Medrol 10:00 Tramadol Hcl (Ultram) PHA 05/20/24 Verified 14:00 Chest Portable XY 05/21/24 Verified 04:00 Date of Service: May 20, 2024 Billing Provider: KELLEY GARCIA NP Common Visit Codes: [id number] INP/OBS CARE(HIGH) KELLEY GARCIA NP May 20, 2024 14:03
[2024-05-20] MEDS: IPRATROPIUM BROM 0.5 MG/2.5ML INH SOL NEB SCH (19:14)
[2024-05-20] MEDS: LEVALBUTEROL HCL 1.25 MG/3 ML NEB NEB SCH (19:14)
[2024-05-20] MEDS: THROAT LOZENGES(CEPASTAT) MT PRN (20:44)
--- NOTE | 2024-05-20 22:58 | DVHPN2 ---
Progress Note - Dictate Date Seen: May 20, 2024 Medical Necessity Reason Pt with a Central, PICC or Fol: Yes The following are medically ne: Central Line, West Catheter Reason for west catheter: Strict I&O Subjective Patient seen and examined at bedside. Remains on supplemental oxygen Overnight events reviewed. vital signs Vital Sign Date Time Temp Pulse Resp B/P (MAP) Pulse Ox O2 Delivery O2 Flow Rate FiO2 05/20/24 21:00 98.8 100 18 99/52 (68) 93 98.8 05/20/24 19:14 Nasal Cannula* 3 32 Total Intake and Output 05/19/24 05/19/24 05/20/24 15:00 23:00 07:00 Intake Total 150 ml 860 ml Output Total 2200 ml Balance 150 ml -1340 ml medications Current Medications Medications Dose Ordered Sig/Jerome Route Start Time Stop Time Status Last Admin Dose Admin Nitroglycerin 0.4 mg Q5MINP PRN SL 05/07/24 17:15 Morphine Sulfate 2 mg Q30M PRN IV 05/07/24 17:15 05/15/24 22:16 2 MG Cefepime HCl 50 ml @ 12.5 mls/hr Q12HR IV 05/07/24 22:00 UNV Apixaban 5 mg BID PO 05/10/24 10:00 05/20/24 22:04 5 MG Budesonide 0.5 mg BID NEB 05/10/24 22:00 05/20/24 19:14 0.5 MG Ceftriaxone Sodium 50 ml @ 100 mls/hr DAILY@09 IV 05/11/24 09:00 05/20/24 08:43 100 MLS/HR Atorvastatin Calcium 10 mg HS PO 05/13/24 22:00 05/20/24 22:04 10 MG Morphine Sulfate 2 mg Q4HPRN PRN IV 05/15/24 17:45 05/20/24 08:45 2 MG Doxycycline Hyclate 100 ml @ 50 mls/hr Q12H IV 05/17/24 07:45 05/20/24 20:03 50 MLS/HR Mupirocin 1 applic BID EACHNOSTRI 05/18/24 10:00 05/23/24 09:59 05/20/24 08:46 1 APPLIC Enteral Nutritional Formula 240 ml TIDWM PO 05/18/24 12:00 05/20/24 17:41 240 ML Melatonin 10 mg HS PO 05/18/24 22:00 05/20/24 22:03 10 MG Acetaminophen 650 mg Q8HR PO 05/18/24 14:00 05/20/24 22:04 650 MG Metoprolol Tartrate 25 mg BID GT 05/18/24 22:00 05/19/24 20:36 25 MG Ipratropium [place] 0.5 mg Q6HWA NEB 05/20/24 18:00 05/20/24 19:14 0.5 MG Lactulose 30 ml Q12H PRN PO 05/20/24 14:00 Levalbuterol HCl 1.25 mg Q6HWA NEB 05/20/24 18:00 05/20/24 19:14 1.25 MG Methylprednisolone Sodium Succinate 40 mg DAILY IV 05/21/24 10:00 Tramadol HCl 50 mg Q6HP PRN PO 05/20/24 14:00 Throat Lozenges 1 rose mary Q2HP PRN MT 05/20/24 18:00 05/20/24 20:44 1 ROSE MARY objective Gen.: Patient lying in bed in no apparent distress. On supplemental oxygen. Head: Normocephalic, atraumatic. Eyes: EOMI/PERRLA. Ears: Normal hearing. Normal anatomy. Neck/trachea: Trachea midline, supple. Nose: Normal external anatomy. Mouth: Moist mucous membranes. Chest: Decreased air entry bilaterally. No wheezing or rhonchi. Cardiovascular: Positive S1, positive S2. Regular rate and rhythm. Abdomen: Positive bowel sounds in all 4 quadrants. Soft, non-tender, non- distended. : Deferred. Rectal: Deferred. Skin: Warm, dry. Intact. Extremities: 2+ radial pulses bilaterally. No lower extremity edema. Neuro: Awake, alert, oriented x3. No gross motor or sensory deficits. Cranial nerves II through XII intact. Gait not assessed. laboratory and microbiology Laboratory Tests 05/20/24 04:32 Test 05/20/24 04:32 Range/Units Serum Glucose 173 H 74-106 mg/dL Assessment/Plan Impression: Acute hypoxic respiratory failure Acute kidney injury Septic shock Non-ST elevation myocardial infarction Hx of nicotine dependence Metabolic acidosis CVA stroke in left basal ganglia Pulmonary hypertension, RVSP 45 mmHg, moderate COPD/emphysema Hx of small cell lung CA Events: Remains on supplemental oxygen 2 LPM NC Taper O2 as tolerated Continue bronchodilators Continue steroids -taper as tolerated Continue antibiotics - ceftriaxone, doxycycline. Incentive spirometry Cepacol lozenges WBC now 16.2 K, stable Monitor hemoglobin Monitor blood pressure Head of bed elevation Aspiration precautions Physical therapy evaluation Disposition per hospitalist Labs and imaging reviewed. Rest of plan as noted below. Plan: S/p extubation on 05/16/24 On supplemental oxygen Titrate to keep O2 sats above 92%. ECHO report Reviewed: Left ventricular ejection fraction 55%. RV enlarged, r ight ventricular systolic pressure 45 mmHg Brain MRI demonstrates acute infarct in the left basal ganglia as seen on prior CT. Cardiology recs appreciated Continue antibiotics. F/u cultures. Blood cultures show no growth after 5 days Follow up BAL culture results - Klebsiella pneumoniae Pressors if necessary for hemodynamic support Titrate to keep mean arterial pressure greater than 65 mmHg Monitor renal function d/t acute kidney injury Monitor electrolytes. Supplement as necessary. Monitor ins and outs. Maintain euvolemia. GI prophylaxis. DVT prophylaxis. Prognosis: Guarded given patient's multiple co-morbidities. Rest of plan per hospitalist and other consultants. Thank you, ADORE Bonilla, for allowing me to participate in this patient's care. Further recommendations will depend on the patient's clinical course. Please do not hesitate to contact me if you have any questions or concerns. This medical document was created using an electronic medical record system with [employer] dictation system. Although these documentations are being carefully reviewed, there may still be some phonetic and typographical changes. The errors are purely typographical, due to imperfection on the software program, and do not reflect any compromise in the patient's medical care. Dietary Evaluation Review Recommendations by RD: PPN/TPN Comments: 1) Increase TF rate as tolerated to goal rate of 50 mL/hr. Goal rate will provide 1440 kcals, 67g Pro, and 1768 mL free H2O (including flushes) per 24 hours. Goal TF rate will meet ~ 90% daily estimated energy needs and 70% daily esimated protein needs. 2) Flush with 200 mL free H2O Q6 3) Adance to 2g Na diet when medically feasible, pending SPECIALTY PLANT SUPERVISOR approval 4) Continue current plan of care Expected Outcomes/Goals: 1) labs to improve 2) diet to advance 3) f/u in 2 days Plan discussed with: Patient, Other (RN Irma V.) EFRA DALE MD May 20, 2024 22:58
[2024-05-21] VITALS (16 sets, daily range): BP systolic 80–113; BP diastolic 41–61; PULSE 80–106; RESP 16–19; TEMP 97.7–98.9; O2SAT 90–100
--- NOTE | 2024-05-21 07:38 | DVH ---
EXAM: XR Chest, 1 View CLINICAL INDICATION: pna TECHNIQUE: Frontal view of the chest. COMPARISON: XY CHEST PORTABLE on DOS: 05/18/24, XY CHEST PORTABLE on DOS: 05/17/24, XY CHEST PORTABLE on DOS: 05/16/24, XY CHEST PORTABLE on DOS: 05/15/24, XY CHEST XRAY 1 VIEW on DOS: 05/12/24 FINDINGS: LUNGS AND PLEURAL SPACES: Left basilar atelectasis or pneumonia. Mild pulmonary congestion. HEART: Unremarkable. No cardiomegaly. MEDIASTINUM: Unremarkable. Normal mediastinal contour. BONES/JOINTS: Unremarkable. No acute fracture. TUBES, LINES AND DEVICES: Right-sided Mediport with the distal tip in the SVC. No pneumothorax. OTHER FINDINGS: . IMPRESSION: 1. Left basilar atelectasis or pneumonia. 2. Mild pulmonary congestion.
[2024-05-21] MEDS: methylPREDNISolone SOD SUCC 40 MG/ML VL IV SCH (08:59)
--- NOTE | 2024-05-21 14:43 | DVHPN2 ---
Subjective Patient was alert and oriented x4. Reviewed: Care Plan, H&P, Labs Changes from previous H/P or p: No Changes General: Per HPI Objective Vitals Vital Signs Date Time Temp Pulse Resp B/P (MAP) Pulse Ox O2 Delivery O2 Flow Rate FiO2 05/21/24 13:30 97.7 80 17 101/56 (71) 96 97.7 05/21/24 11:11 Nasal Cannula 3.0 05/21/24 11:11 32 Intake/Output Intake and Output 05/21/24 07:00 Intake Total 1050 ml Output Total 775 ml Balance 275 ml Intake Oral 600 ml IV Total 450 ml Output Urine Total 775 ml General Appearance: Alert, Oriented X3, Cooperative, mild distress HEENT: Atraumatic, PERRLA Lungs: Clear to auscultation, Other (Mechanical ventilation. Bilateral rhonchi) Cardiovascular: Normal S1, Normal S2 Abdomen: No tenderness, No hepatospenomegaly, Other (bowel sounds heard - little hypo) Genitourinary: No Apparent Abnormalities (Case catheter) Extremities: No edema Neuro: Other (Withdraws to painful stimuli. Positive coughing gag) Skin: Dry, Intact Psych/Mental Status: Other (Patient presenting with ICU delirium) Medications Current Medications Medications Dose Ordered Sig/Jerome Route Start Time Stop Time Status Last Admin Dose Admin Nitroglycerin 0.4 mg Q5MINP PRN SL 05/07/24 17:15 Morphine Sulfate 2 mg Q30M PRN IV 05/07/24 17:15 05/15/24 22:16 2 MG Cefepime HCl 50 ml @ 12.5 mls/hr Q12HR IV 05/07/24 22:00 UNV Apixaban 5 mg BID PO 05/10/24 10:00 05/21/24 09:07 5 MG Budesonide 0.5 mg BID NEB 05/10/24 22:00 05/21/24 06:22 0.5 MG Ceftriaxone Sodium 50 ml @ 100 mls/hr DAILY@09 IV 05/11/24 09:00 05/21/24 08:59 100 MLS/HR Atorvastatin Calcium 10 mg HS PO 05/13/24 22:00 05/20/24 22:04 10 MG Doxycycline Hyclate 100 ml @ 50 mls/hr Q12H IV 05/17/24 07:45 05/21/24 09:16 50 MLS/HR Mupirocin 1 applic BID EACHNOSTRI 05/18/24 10:00 05/23/24 09:59 05/21/24 09:19 1 APPLIC Enteral Nutritional Formula 240 ml TIDWM PO 05/18/24 12:00 05/21/24 12:09 240 ML Melatonin 10 mg HS PO 05/18/24 22:00 05/20/24 22:03 10 MG Acetaminophen 650 mg Q8HR PO 05/18/24 14:00 05/21/24 13:30 650 MG Ipratropium [place] 0.5 mg Q6HWA NEB 05/20/24 18:00 05/21/24 11:11 0.5 MG Lactulose 30 ml Q12H PRN PO 05/20/24 14:00 Levalbuterol HCl 1.25 mg Q6HWA NEB 05/20/24 18:00 05/21/24 11:10 1.25 MG Methylprednisolone Sodium Succinate 40 mg DAILY IV 05/21/24 10:00 05/21/24 08:59 40 MG Tramadol HCl 50 mg Q6HP PRN PO 05/20/24 14:00 Throat Lozenges 1 rose mary Q2HP PRN MT 05/20/24 18:00 05/21/24 13:31 1 ROSE MARY Laboratory Results Laboratory Tests 05/20/24 04:32 Urinalysis Test 05/07/24 15:06 Urine Color Dark-yellow (Yellow) Urine Clarity Turbid (Clear) H Urine pH 5.5 (5.0-9.0) Urine Specific [place] 1.021 (1.001-1.035) Urine Protein 2+ (Negative) H Urine Ketones Negative (Negative) Urine Blood 1+ /uL (Negative) H Urine Nitrite Negative (Negative) Urine Bilirubin Negative (Negative) Urine Urobilinogen 2 mg/dL (Negative) H Urine Leukocyte Esterase Negative /uL (Negative) Urine RBC 28 /hpf (0 - 4) Urine Microscopic WBC 4 /HPF (0-5) Urine Squamous Epithelial Cells Few /hpf (<5) Urine Bacteria Few /hpf (None Seen) H Urine Hyaline Casts Many /lpf (0 - 2) Urine Mucus Few (None Seen) Urine Yeast (Budding) Occasional /hpf (None Urine Glucose 1+ mg/dL (Normal) H Microbiology Microbiology Date/Time Source Procedure Growth Status 2/22/25 15:54 Other - Final Resulted 05/11/24 15:54 Other - Final Resulted 05/11/24 15:54 Other Pending Resulted 05/11/24 15:54 Other Pending Resulted 05/11/24 15:54 Other - Final See Separate Report... Resulted 05/10/24 18:10 Blood Blood Culture - Final NO GROWTH AFTER 5 DAYS OF INCUBATION. Complete 05/08/24 02:17 Sputum Gram Stain - Final Complete 05/08/24 02:17 Respiratory Culture - Final Klebsiella pneumoniae Complete 05/07/24 15:06 Urine - Case [place] Urine Culture - Final Complete Labs and/or images reviewed: Labs reviewed by me, Image(s) reviewed by me Assessment/Plan Assessment/Plan Impression: -cardiopulmonary arrest in the field -acute hypoxic and hypercarbic respiratory failure with mechanical ventilation -full mouth pulmonary embolism -NSTEMI, rule out type 1 -hyperkalemia -acute kidney injury -shock liver -septic shock -community-acquired pneumonia, Klebsiella pneumoniae -primary hypertension -AFib with RVR Plan: Events: Patient continues to report having sore throat. States she ambulated a few steps with physical therapy. Continues to have marginal blood pressure. -start nystatin swish and swallow. Continue Cepacol lozenges -stop metoprolol tartrate -continue nutritional supplementation with meals -physical therapy -continue bronchodilators, discontinue Mucomyst -continue Rocephin, add doxycycline -PUD, DVT prophylaxis Repeat chest x-ray in a.m. Total time spent with patient discussing and formulating plan of care: 35 minutes. This medical document was created using an electronic medical record system with [employer] dictation system. Although this document has been carefully reviewed, there may still be some phonetic and typographical errors. These areas are purely typographical due to imperfections of the software programs, and do not reflect any compromise in the patient's medical care. Plan discussed with: Patient, Other (RN) My Orders Orders - KELLEY GARCIA NP Procedure Category Date Status Time Basic Metabolic Panel LAB 05/22/24 Verified 04:00 Date of Service: May 21, 2024 Billing Provider: KELLEY GARCIA NP Common Visit Codes: [id number] INP/OBS CARE(HIGH) KELLEY GARCIA NP May 21, 2024 14:43
[2024-05-21] MEDS ORDERED: SORE THROAT SPRAY 6OZ BOTTLE MT PRN (17:45)
[2024-05-21] MEDS: NYSTATIN (MOUTH-THROAT) 500,000 UNITS/5 ML SUSP MT SCH (17:51)
--- NOTE | 2024-05-21 19:33 | DVHPN2 ---
Progress Note - Dictate Date Seen: May 21, 2024 Medical Necessity Reason Pt with a Central, PICC or Fol: Yes The following are medically ne: Central Line, West Catheter Reason for west catheter: Strict I&O Subjective Patient seen and examined at bedside. Remains on supplemental oxygen Overnight events reviewed. vital signs Vital Sign Date Time Temp Pulse Resp B/P (MAP) Pulse Ox O2 Delivery O2 Flow Rate FiO2 05/21/24 16:53 97.9 80 18 93/52 (66) 94 97.9 05/21/24 11:11 Nasal Cannula 3.0 05/21/24 11:11 32 Total Intake and Output 05/20/24 05/20/24 05/21/24 15:00 23:00 07:00 Intake Total 150 ml 300 ml 600 ml Output Total 775 ml Balance 150 ml 300 ml -175 ml medications Current Medications Medications Dose Ordered Sig/Jerome Route Start Time Stop Time Status Last Admin Dose Admin Nitroglycerin 0.4 mg Q5MINP PRN SL 05/07/24 17:15 Morphine Sulfate 2 mg Q30M PRN IV 05/07/24 17:15 05/15/24 22:16 2 MG Cefepime HCl 50 ml @ 12.5 mls/hr Q12HR IV 05/07/24 22:00 UNV Apixaban 5 mg BID PO 05/10/24 10:00 05/21/24 09:07 5 MG Budesonide 0.5 mg BID NEB 05/10/24 22:00 05/21/24 06:22 0.5 MG Ceftriaxone Sodium 50 ml @ 100 mls/hr DAILY@09 IV 05/11/24 09:00 05/21/24 08:59 100 MLS/HR Atorvastatin Calcium 10 mg HS PO 05/13/24 22:00 05/20/24 22:04 10 MG Doxycycline Hyclate 100 ml @ 50 mls/hr Q12H IV 05/17/24 07:45 05/21/24 09:16 50 MLS/HR Mupirocin 1 applic BID EACHNOSTRI 05/18/24 10:00 05/23/24 09:59 05/21/24 09:19 1 APPLIC Enteral Nutritional Formula 240 ml TIDWM PO 05/18/24 12:00 05/21/24 19:24 240 ML Melatonin 10 mg HS PO 05/18/24 22:00 05/20/24 22:03 10 MG Acetaminophen 650 mg Q8HR PO 05/18/24 14:00 05/21/24 13:30 650 MG Ipratropium [place] 0.[address] [facility] 05/20/24 18:00 05/21/24 11:11 0.5 MG Lactulose 30 ml Q12H PRN PO 05/20/24 14:00 Levalbuterol HCl 1.[address] [facility] 05/20/24 18:00 05/21/24 11:10 1.25 MG Methylprednisolone Sodium Succinate 40 mg DAILY IV 05/21/24 10:00 05/21/24 08:59 40 MG Tramadol HCl 50 mg Q6HP PRN PO 05/20/24 14:00 Throat Lozenges 1 rose mary Q2HP PRN MT 05/20/24 18:00 05/21/24 13:31 1 ROSE MARY Nystatin 5 ml QID MT 05/21/24 18:00 05/21/24 17:51 5 ML Phenol/Menthol 1 spr Q2HP PRN MT 05/21/24 17:45 objective Gen.: Patient lying in bed in no apparent distress. On supplemental oxygen. Head: Normocephalic, atraumatic. Eyes: EOMI/PERRLA. Ears: Normal hearing. Normal anatomy. Neck/trachea: Trachea midline, supple. Nose: Normal external anatomy. Mouth: Moist mucous membranes. Chest: Decreased air entry bilaterally. No wheezing or rhonchi. Cardiovascular: Positive S1, positive S2. Regular rate and rhythm. Abdomen: Positive bowel sounds in all 4 quadrants. Soft, non-tender, non- distended. : Deferred. Rectal: Deferred. Skin: Warm, dry. Intact. Extremities: 2+ radial pulses bilaterally. No lower extremity edema. Neuro: Awake, alert, oriented x3. No gross motor or sensory deficits. Cranial nerves II through XII intact. Gait not assessed. laboratory and microbiology Laboratory Tests 05/20/24 04:32 Test 05/20/24 04:32 Range/Units Serum Glucose 173 H 74-106 mg/dL Assessment/Plan Impression: Acute hypoxic respiratory failure Acute kidney injury Septic shock Non-ST elevation myocardial infarction Hx of nicotine dependence Metabolic acidosis CVA stroke in left basal ganglia Pulmonary hypertension, RVSP 45 mmHg, moderate COPD/emphysema Hx of small cell lung CA Events: Remains on supplemental oxygen 3 LPM NC Taper O2 as tolerated Continue bronchodilators Continue steroids -taper as tolerated Continue antibiotics - ceftriaxone, doxycycline. Chloraseptic spray Nystatin Incentive spirometry WBC now 16.2 K, stable Monitor hemoglobin Monitor blood pressure Head of bed elevation Aspiration precautions Physical therapy evaluation Disposition per hospitalist Labs and imaging reviewed. Rest of plan as noted below. Plan: S/p extubation on 05/16/24 On supplemental oxygen Titrate to keep O2 sats above 92%. ECHO report Reviewed: Left ventricular ejection fraction 55%. RV enlarged, r ight ventricular systolic pressure 45 mmHg Brain MRI demonstrates acute infarct in the left basal ganglia as seen on prior CT. Cardiology recs appreciated Continue antibiotics. F/u cultures. Blood cultures show no growth after 5 days Follow up BAL culture results - Klebsiella pneumoniae Pressors if necessary for hemodynamic support Titrate to keep mean arterial pressure greater than 65 mmHg Monitor renal function d/t acute kidney injury Monitor electrolytes. Supplement as necessary. Monitor ins and outs. Maintain euvolemia. GI prophylaxis. DVT prophylaxis. Prognosis: Guarded given patient's multiple co-morbidities. Rest of plan per hospitalist and other consultants. Thank you, ADORE Bonilla, for allowing me to participate in this patient's care. Further recommendations will depend on the patient's clinical course. Please do not hesitate to contact me if you have any questions or concerns. This medical document was created using an electronic medical record system with [employer] dictation system. Although these documentations are being carefully reviewed, there may still be some phonetic and typographical changes. The errors are purely typographical, due to imperfection on the software program, and do not reflect any compromise in the patient's medical care. Dietary Evaluation Review Recommendations by RD: PPN/TPN Comments: 1) Increase TF rate as tolerated to goal rate of 50 mL/hr. Goal rate will provide 1440 kcals, 67g Pro, and 1768 mL free H2O (including flushes) per 24 hours. Goal TF rate will meet ~ 90% daily estimated energy needs and 70% daily esimated protein needs. 2) Flush with 200 mL free H2O Q6 3) Adance to 2g Na diet when medically feasible, pending [employer] approval 4) Continue current plan of care Expected Outcomes/Goals: 1) labs to improve 2) diet to advance 3) f/u in 2 days Plan discussed with: Patient, Other (BENJA Zhu) EFRA DALE MD May 21, 2024 19:33
--- NOTE | 2024-05-21 22:39 | DVHPN2 ---
Progress Note - Dictate Date Seen: May 21, 2024 Medical Necessity Reason Pt with a Central, PICC or Fol: Yes The following are medically ne: Central Line, West Catheter Reason for west catheter: Strict I&O Subjective Ms. Aquino is a 74 years old right-handed female with a history of hypertension, AFib, colon cancer, lung cancer with brain metastatic disease status post chemo and radiation treatment, she was brought to the [facility] on 05/07[facility]2024 with a chief complaint of cardiac arrest with ROSC. I have seen and examined the patient, I have discussed with her nurse, she was doing fine, awake, oriented x 4 UDS, 05/07/2024: Fentanyl, benzo Urinalysis, 05/07/2024: WBC: 4, urine leukocyte esterase: Negative ABG, 05/07/2024: Combined metabolic and respiratory acidosis, WBC/HB/PLT/MCV, 04/28/2024: 20.1/12.9/249/99.8 K, 05/07/2024: 2.4, 205, 05/08/2024: 3.2 BUN/CR, 05/07/2024: 22/1.73, 05/08/2024: 23/1.37 TBI/AST/ALT/AP, 05/08/2024: 0.5/187/210/75 TG/HDL/LDL/HDL, 05/07/2024: 143/177/85/67 TSH, 05/07/2024: 3.46 Venous Doppler, 05/08/2024: No right or left lower extremity deep venous thrombosis Echocardiogram, 05/08/2024: lvef 55% by visaul estimate severe septal hypertrophy RV enlarged mild, normal function left atrium enlarged mild aortic sclerosis Carotid Doppler, 05/10/2024: No hemodynamically significant stenosis noted in the right carotid system. No hemodynamically significant stenosis noted in the left carotid system. CT head, 05/08/2024: 1. Age-indeterminate infarcts in the left basal ganglia, possibly subacute. MRI of the brain without intravenous contrast is recommended for further evaluation. 2. No evidence of acute intracranial hemorrhage MRI headache, 05/10/2024: Acute infarct in the left basal ganglia as seen on prior CT vital signs Vital Sign Date Time Temp Pulse Resp B/P (MAP) Pulse Ox O2 Delivery O2 Flow Rate FiO2 3//25 21:00 98.9 106 16 113/61 (78) 90 98.9 05/21/24 20:00 Nasal Cannula* 3 32 Total Intake and Output 05/20/24 05/20/24 05/21/24 15:00 23:00 07:00 Intake Total 150 ml 300 ml 600 ml Output Total 775 ml Balance 150 ml 300 ml -175 ml medications Current Medications Medications Dose Ordered Sig/Jerome Route Start Time Stop Time Status Last Admin Dose Admin Nitroglycerin 0.4 mg Q5MINP PRN SL 05/07/24 17:15 Morphine Sulfate 2 mg Q30M PRN IV 05/07/24 17:15 05/15/24 22:16 2 MG Cefepime HCl 50 ml @ 12.5 mls/hr Q12HR IV 05/07/24 22:00 UNV Apixaban 5 mg BID PO 05/10/24 10:00 05/21/24 21:07 5 MG Budesonide 0.5 mg BID NEB 05/10/24 22:00 05/21/24 19:31 0.5 MG Ceftriaxone Sodium 50 ml @ 100 mls/hr DAILY@09 IV 05/11/24 09:00 05/21/24 08:59 100 MLS/HR Atorvastatin Calcium 10 mg HS PO 05/13/24 22:00 05/21/24 21:07 10 MG Doxycycline Hyclate 100 ml @ 50 mls/hr Q12H IV 05/17/24 07:45 05/21/24 19:30 50 MLS/HR Mupirocin 1 applic BID EACHNOSTRI 05/18/24 10:00 05/23/24 09:59 05/21/24 21:08 1 APPLIC Enteral Nutritional Formula 240 ml TIDWM PO 05/18/24 12:00 05/21/24 19:24 240 ML Melatonin 10 mg HS PO 05/18/24 22:00 05/21/24 21:17 10 MG Acetaminophen 650 mg Q8HR PO 05/18/24 14:00 05/21/24 21:07 650 MG Ipratropium [place] 0.5 mg Q6HWA NEB 05/20/24 18:00 05/21/24 19:30 0.5 MG Lactulose 30 ml Q12H PRN PO 05/20/24 14:00 Levalbuterol HCl 1.25 mg Q6HWA NEB 05/20/24 18:00 05/21/24 19:30 1.25 MG Methylprednisolone Sodium Succinate 40 mg DAILY IV 05/21/24 10:00 05/21/24 08:59 40 MG Tramadol HCl 50 mg Q6HP PRN PO 05/20/24 14:00 Throat Lozenges 1 rose mary Q2HP PRN MT 05/20/24 18:00 05/21/24 13:31 1 ROSE MARY Nystatin 5 ml QID MT 05/21/24 18:00 05/21/24 21:07 5 ML Phenol/Menthol 1 spr Q2HP PRN MT 05/21/24 17:45 objective The patient is well-nourished and well-developed with no distress MENTAL STATUS: Subjective CRANIAL NERVES: Pupils are equal, round and reactive.There are normal conjugated eye movement. Normal motor and sensory examination on bilateral trigeminal distribution. No signs of facial weakness. SENSATION: Okay to painful stimuli and light touch MOTOR: Normal tone in the upper and lower extremity. Normal muscle bulk. No fasciculations. Muscle power is no less 4/5 in all extremities REFLEXES: Deep tendon reflexes are symmetrical. No pathological reflexes. CEREBELLAR/COORDINATION: Unremarkable finger-nose test bilaterally GAIT/STATION: deferred. laboratory and microbiology Laboratory Tests 05/20/24 04:32 Test 05/20/24 04:32 Range/Units Serum Glucose 173 H 74-106 mg/dL Problem List Acute/subacute stroke Cardiopulmonary arrest Respiratory failure Metabolic acidosis Respiratory acidosis Atrial fibrillation History of lung cancer with brain metastatic disease Assessment/Plan Monitoring Supportive treatment Telemetry IV antibiotics Eliquis 5 mg b.i.d. Lipitor 10mg Qd GI prophylaxis Up to chair Physical therapy More recommendation per clinical course This medical document was created using an electronic medical record system with [employer] dictation system. Although this document has been carefully reviewed, there may still be some phonetic and typographical errors. These areas are purely typographical due to imperfections of the software programs, and do not reflect any compromise in the patient's medical care Prognosis poor Dietary Evaluation Review Recommendations by RD: PPN/TPN Comments: 1) Increase TF rate as tolerated to goal rate of 50 mL/hr. Goal rate will provide 1440 kcals, 67g Pro, and 1768 mL free H2O (including flushes) per 24 hours. Goal TF rate will meet ~ 90% daily estimated energy needs and 70% daily esimated protein needs. 2) Flush with 200 mL free H2O Q6 3) Adance to 2g Na diet when medically feasible, pending [employer]CH[employer] approval 4) Continue current plan of care Expected Outcomes/Goals: 1) labs to improve 2) diet to advance 3) f/u in 2 days Plan discussed with: Patient, Other CE FERREIRA MD May 21, 2024 22:39
[2024-05-22] VITALS (15 sets, daily range): BP systolic 94–105; BP diastolic 51–61; PULSE 88–112; RESP 16–18; TEMP 97.3–98.8; O2SAT 91–99
[2024-05-22 07:11] LABS: Calcium 9.6 mg/dL (8.7-10.4); Chloride 103 mmol/L (98-107); Potassium 3.8 mmol/L (3.5-5.1); Sodium 136 mmol/L (136-145)
[2024-05-22 07:12] LABS: Anion Gap 9 (5-15); Carbon Dioxide 24 mmol/L (20-31)
[2024-05-22 07:17] LABS: BUN/Creatinine Ratio 30.4 (10.0-20.0); Blood Urea Nitrogen 21 mg/dL (9-23)
[2024-05-22 07:20] LABS: Glucose 145 mg/dL (74-106)
[2024-05-22] MEDS: DOXYCYCLINE 100 MG TAB/CAP PO SCH (22:21)
--- NOTE | 2024-05-22 23:32 | DVHPN2 ---
Progress Note - Dictate Date Seen: May 22, 2024 Medical Necessity Reason Pt with a Central, PICC or Fol: Yes The following are medically ne: Central Line, West Catheter Reason for west catheter: Strict I&O Subjective Patient seen and examined at bedside. Remains on supplemental oxygen Overnight events reviewed. vital signs Vital Sign Date Time Temp Pulse Resp B/P (MAP) Pulse Ox O2 Delivery O2 Flow Rate FiO2 05/22/24 21:25 97.3 105 18 97/59 (72) 96 97.3 05/22/24 20:00 Nasal Cannula* 3 32 Total Intake and Output 05/21/24 05/21/24 05/22/24 15:00 23:00 07:00 Intake Total 150 ml 100 ml Balance 150 ml 100 ml medications Current Medications Medications Dose Ordered Sig/Jerome Route Start Time Stop Time Status Last Admin Dose Admin Nitroglycerin 0.4 mg Q5MINP PRN SL 05/07/24 17:15 Morphine Sulfate 2 mg Q30M PRN IV 05/07/24 17:15 05/15/24 22:16 2 MG Cefepime HCl 50 ml @ 12.5 mls/hr Q12HR IV 05/07/24 22:00 UNV Apixaban 5 mg BID PO 05/10/24 10:00 05/22/24 22:20 5 MG Budesonide 0.5 mg BID NEB 05/10/24 22:00 05/22/24 18:35 0.5 MG Atorvastatin Calcium 10 mg HS PO 05/13/24 22:00 05/22/24 22:20 10 MG Mupirocin 1 applic BID EACHNOSTRI 05/18/24 10:00 05/23/24 09:59 05/22/24 22:21 1 APPLIC Enteral Nutritional Formula 240 ml TIDWM PO 05/18/24 12:00 05/22/24 18:20 240 ML Melatonin 10 mg HS PO 05/18/24 22:00 05/22/24 22:20 10 MG Acetaminophen 650 mg Q8HR PO 05/18/24 14:00 05/22/24 22:21 650 MG Ipratropium [place] 0.5 mg Q6HWA NEB 05/20/24 18:00 05/22/24 18:35 0.5 MG Lactulose 30 ml Q12H PRN PO 05/20/24 14:00 Levalbuterol HCl 1.25 mg Q6HWA NEB 05/20/24 18:00 05/22/24 18:35 1.25 MG Methylprednisolone Sodium Succinate 40 mg DAILY IV 05/21/24 10:00 05/22/24 09:43 40 MG Tramadol HCl 50 mg Q6HP PRN PO 05/20/24 14:00 Throat Lozenges 1 rose mary Q2HP PRN MT 05/20/24 18:00 05/22/24 22:22 1 ROSE MARY Nystatin 5 ml QID MT 05/21/24 18:00 05/22/24 22:21 5 ML Phenol/Menthol 1 spr Q2HP PRN MT 05/21/24 17:45 Doxycycline Monohydrate 100 mg Q12HR PO 05/22/24 22:00 05/22/24 22:21 100 MG objective Gen.: Patient lying in bed in no apparent distress. On supplemental oxygen. Head: Normocephalic, atraumatic. Eyes: EOMI/PERRLA. Ears: Normal hearing. Normal anatomy. Neck/trachea: Trachea midline, supple. Nose: Normal external anatomy. Mouth: Moist mucous membranes. Chest: Decreased air entry bilaterally. No wheezing or rhonchi. Cardiovascular: Positive S1, positive S2. Regular rate and rhythm. Abdomen: Positive bowel sounds in all 4 quadrants. Soft, non-tender, non- distended. : Deferred. Rectal: Deferred. Skin: Warm, dry. Intact. Extremities: 2+ radial pulses bilaterally. No lower extremity edema. Neuro: Awake, alert, oriented x3. No gross motor or sensory deficits. Cranial nerves II through XII intact. Gait not assessed. laboratory and microbiology Laboratory Tests 05/22/24 05:59 05/20/24 04:32 Test 05/22/24 05:59 Range/Units Serum Glucose 145 H 74-106 mg/dL Assessment/Plan Impression: Acute hypoxic respiratory failure Acute kidney injury Septic shock Non-ST elevation myocardial infarction Hx of nicotine dependence Metabolic acidosis CVA stroke in left basal ganglia Pulmonary hypertension, RVSP 45 mmHg, moderate COPD/emphysema Hx of small cell lung CA Events: Remains on supplemental oxygen 3 LPM NC Taper O2 as tolerated Continue bronchodilators Continue steroids -taper as tolerated Continue antibiotics Cepastat lozenges Nystatin Incentive spirometry Monitor WBC Monitor hemoglobin Monitor blood pressure Head of bed elevation Aspiration precautions Physical therapy evaluation Disposition per hospitalist Labs and imaging reviewed. Rest of plan as noted below. Plan: S/p extubation on 05/16/24 On supplemental oxygen Titrate to keep O2 sats above 92%. ECHO report Reviewed: Left ventricular ejection fraction 55%. RV enlarged, r ight ventricular systolic pressure 45 mmHg Brain MRI demonstrates acute infarct in the left basal ganglia as seen on prior CT. Cardiology recs appreciated Continue antibiotics. F/u cultures. Blood cultures show no growth after 5 days Follow up BAL culture results - Klebsiella pneumoniae Pressors if necessary for hemodynamic support Titrate to keep mean arterial pressure greater than 65 mmHg Monitor renal function d/t acute kidney injury Monitor electrolytes. Supplement as necessary. Monitor ins and outs. Maintain euvolemia. GI prophylaxis. DVT prophylaxis. Prognosis: Guarded given patient's multiple co-morbidities. Rest of plan per hospitalist and other consultants. Thank you, ADORE Bonilla, for allowing me to participate in this patient's care. Further recommendations will depend on the patient's clinical course. Please do not hesitate to contact me if you have any questions or concerns. This medical document was created using an electronic medical record system with [employer] dictation system. Although these documentations are being carefully reviewed, there may still be some phonetic and typographical changes. The errors are purely typographical, due to imperfection on the software program, and do not reflect any compromise in the patient's medical care. Dietary Evaluation Review Recommendations by RD: PPN/TPN Comments: 1) Increase TF rate as tolerated to goal rate of 50 mL/hr. Goal rate will provide 1440 kcals, 67g Pro, and 1768 mL free H2O (including flushes) per 24 hours. Goal TF rate will meet ~ 90% daily estimated energy needs and 70% daily esimated protein needs. 2) Flush with 200 mL free H2O Q6 3) Adance to 2g Na diet when medically feasible, pending [employer] approval 4) Continue current plan of care Expected Outcomes/Goals: 1) labs to improve 2) diet to advance 3) f/u in 2 days Plan discussed with: Patient, Other (BENJA Clarke) EFRA DALE MD May 22, 2024 23:32
[2024-05-23] VITALS (16 sets, daily range): BP systolic 94–122; BP diastolic 46–69; PULSE 90–106; RESP 16–19; TEMP 97.2–98.4; O2SAT 95–100
--- NOTE | 2024-05-23 06:04 | DVH ---
EXAM: XR Chest, 1 View CLINICAL INDICATION: pna TECHNIQUE: Frontal view of the chest. COMPARISON: XY CHEST PORTABLE on DOS: 05/21/24, XY CHEST PORTABLE on DOS: 05/18/24, XY CHEST PORTABLE o n DOS: 05/17/24, XY CHEST PORTABLE on DOS: 05/16/24, XY CHEST PORTABLE on DOS: 05/15/24 FINDINGS: LUNGS AND PLEURAL SPACES: Mild pulmonary congestion. HEART: Unremarkable. No cardiomegaly. MEDIASTINUM: Unremarkable. Normal mediastinal contour. BONES/JOINTS: Unremarkable. No acute fracture. TUBES, LINES AND DEVICES: Right-sided Mediport with the distal tip in the SVC. No pneumothorax. OTHER FINDINGS: . IMPRESSION: Mild pulmonary congestion.
[2024-05-23 06:58] LABS: Chloride 103 mmol/L (98-107); Potassium 4.1 mmol/L (3.5-5.1)
[2024-05-23 06:59] LABS: Anion Gap 9 (5-15); Calcium 9.8 mg/dL (8.7-10.4); Carbon Dioxide 23 mmol/L (20-31)
[2024-05-23 07:01] LABS: Sodium 135 mmol/L (136-145)
[2024-05-23 07:04] LABS: BUN/Creatinine Ratio 28.4 (10.0-20.0); Blood Urea Nitrogen 21 mg/dL (9-23); Glucose 119 mg/dL (74-106)
[2024-05-23 07:16] LABS: Basophils # (auto) 0 10 ^3/uL (0-0.2); Lymphocytes % (auto) 10.9 % (10.0-50.0); Monocytes # (auto) 1.1 10 ^3/uL (0-1.3)
[2024-05-23 07:18] LABS: Basophils % (auto) 0.3 % (0.0-2.0); Eosinophils # (auto) 0.1 10 ^3/uL (0-0.8); Eosinophils % (auto) 0.6 % (0.0-7.0); Hematocrit 38.5 % (36.0-46.0); Hemoglobin 13.1 g/dL (12.2-16.2); Lymphocytes # (auto) 1.4 10 ^3/uL (0.4-5.4); Mean Corpuscular Hemoglobin 34.8 pg (28.0-32.0); Mean Corpuscular Hgb Conc. 34.1 g/dL (32.0-36.0); Monocytes % (auto) 8.7 % (0.0-12.0); Neutrophils % (auto) 79.5 % (37.0-80.0); Platelet Count (auto) 362 10^3/uL (140-450); Red Blood Cells 3.78 10^6/uL (4.0-5.20); Red Cell Distribution Width 14.1 % (11.8-14.3); White Blood Cell 12.5 10^3/uL (4.4-10.8)
--- NOTE | 2024-05-23 11:12 | DVHPN2 ---
Subjective Patient denies any symptoms. Reports that her sore throat has improved. Reviewed: Care Plan, H&P, Labs Changes from previous H/P or p: Changes General: Per HPI Objective Vitals Vital Signs Date Time Temp Pulse Resp B/P (MAP) Pulse Ox O2 Delivery O2 Flow Rate FiO2 05/23/24 11:09 95 Nasal Cannula* 3 32 05/23/24 11:09 90 18 05/23/24 08:53 97.2 102/61 (75) 97.2 Intake/Output Intake and Output 05/23/24 07:00 Intake Total 600 ml Output Total 800 ml Balance -200 ml Intake Oral 500 ml IV Total 100 ml Output Urine Total 800 ml General Appearance: Alert, Oriented X3, Cooperative, mild distress HEENT: Atraumatic, PERRLA Lungs: Clear to auscultation, Other (Mechanical ventilation. Bilateral rhonchi) Cardiovascular: Normal S1, Normal S2 Abdomen: No tenderness, No hepatospenomegaly, Other (bowel sounds heard - little hypo) Genitourinary: No Apparent Abnormalities (Case catheter) Extremities: No edema Neuro: Other (Withdraws to painful stimuli. Positive coughing gag) Skin: Dry, Intact Psych/Mental Status: Other (Patient presenting with ICU delirium) Medications Current Medications Medications Dose Ordered Sig/Jerome Route Start Time Stop Time Status Last Admin Dose Admin Nitroglycerin 0.4 mg Q5MINP PRN SL 05/07/24 17:15 Morphine Sulfate 2 mg Q30M PRN IV 05/07/24 17:15 05/15/24 22:16 2 MG Cefepime HCl 50 ml @ 12.5 mls/hr Q12HR IV 05/07/24 22:00 UNV Apixaban 5 mg BID PO 05/10/24 10:00 05/22/24 22:20 5 MG Budesonide 0.5 mg BID NEB 05/10/24 22:00 05/23/24 05:47 0.5 MG Atorvastatin Calcium 10 mg HS PO 05/13/24 22:00 05/22/24 22:20 10 MG Enteral Nutritional Formula 240 ml TIDWM PO 05/18/24 12:00 05/22/24 18:20 240 ML Melatonin 10 mg HS PO 05/18/24 22:00 05/22/24 22:20 10 MG Acetaminophen 650 mg Q8HR PO 05/18/24 14:00 05/23/24 05:20 650 MG Ipratropium [place] 0.5 mg Q6HWA NEB 05/20/24 18:00 05/23/24 11:09 0.5 MG Lactulose 30 ml Q12H PRN PO 05/20/24 14:00 Levalbuterol HCl 1.25 mg Q6HWA NEB 05/20/24 18:00 05/23/24 11:09 1.25 MG Methylprednisolone Sodium Succinate 40 mg DAILY IV 05/21/24 10:00 05/22/24 09:43 40 MG Tramadol HCl 50 mg Q6HP PRN PO 05/20/24 14:00 Throat Lozenges 1 rose mary Q2HP PRN MT 05/20/24 18:00 05/23/24 05:24 1 ROSE MARY Nystatin 5 ml QID MT 05/21/24 18:00 05/23/24 05:20 5 ML Phenol/Menthol 1 spr Q2HP PRN MT 05/21/24 17:45 Doxycycline Monohydrate 100 mg Q12HR PO 05/22/24 22:00 05/22/24 22:21 100 MG Mupirocin 1 applic BID EACHNOSTRI 05/23/24 22:00 05/28/24 21:59 Amiodarone HCl 400 mg DAILY PO 05/23/24 10:15 Laboratory Results Laboratory Tests 05/23/24 05:38 Chemistry Test 05/23/24 05:38 Calcium Level 9.8 mg/dL (8.7-10.4) Urinalysis Test 05/07/24 15:06 Urine Color Dark-yellow (Yellow) Urine Clarity Turbid (Clear) H Urine pH 5.5 (5.0-9.0) Urine Specific [place] 1.021 (1.001-1.035) Urine Protein 2+ (Negative) H Urine Ketones Negative (Negative) Urine Blood 1+ /uL (Negative) H Urine Nitrite Negative (Negative) Urine Bilirubin Negative (Negative) Urine Urobilinogen 2 mg/dL (Negative) H Urine Leukocyte Esterase Negative /uL (Negative) Urine RBC 28 /hpf (0 - 4) Urine Microscopic WBC 4 /HPF (0-5) Urine Squamous Epithelial Cells Few /hpf (<5) Urine Bacteria Few /hpf (None Seen) H Urine Hyaline Casts Many /lpf (0 - 2) Urine Mucus Few (None Seen) Urine Yeast (Budding) Occasional /hpf (None Urine Glucose 1+ mg/dL (Normal) H Microbiology Microbiology Date/Time Source Procedure Growth Status 05/11/24 15:54 Other - Final Resulted 05/11/24 15:54 Other - Final Resulted 05/11/24 15:54 Other Pending Resulted 05/11/24 15:54 Other Pending Resulted 05/11/24 15:54 Other - Final See Separate Report... Resulted 05/10/24 18:10 Blood Blood Culture - Final NO GROWTH AFTER 5 DAYS OF INCUBATION. Complete 05/08/24 02:17 Sputum Gram Stain - Final Complete 05/08/24 02:17 Respiratory Culture - Final Klebsiella pneumoniae Complete 05/07/24 15:06 Urine - Case Port Urine Culture - Final Complete Labs and/or images reviewed: Labs reviewed by me, Image(s) reviewed by me Assessment/Plan Assessment/Plan Impression: -cardiopulmonary arrest in the field -acute hypoxic and hypercarbic respiratory failure with mechanical ventilation -full mouth pulmonary embolism -NSTEMI, rule out type 1 -hyperkalemia -acute kidney injury -shock liver -septic shock -community-acquired pneumonia, Klebsiella pneumoniae -primary hypertension -AFib with RVR Plan: Events: Her throat resolved. Heart rate is starting to increase with beta- azalia stopped. We will introduce amiodarone p.o.. Patient still deconditioned and requires extensive PT. -start nystatin swish and swallow. Continue Cepacol lozenges -continue nutritional supplementation with meals -physical therapy -continue bronchodilators, discontinue Mucomyst -continue Rocephin, add doxycycline -PUD, DVT prophylaxis Repeat chest x-ray in a.m. Total time spent with patient discussing and formulating plan of care: 35 minutes. This medical document was created using an electronic medical record system with [employer] dictation system. Although this document has been carefully reviewed, there may still be some phonetic and typographical errors. These areas are purely typographical due to imperfections of the software programs, and do not reflect any compromise in the patient's medical care. Plan discussed with: Patient, Other (RN) My Orders Orders - KELLEY GARCIA NP Procedure Category Date Status Time Mupirocin 2% Oint PHA 05/23/24 In Process Mrsa Nares (Bactroban 22:00 Amiodarone Tablet PHA 05/23/24 In Process (Cordarone Tablet) 10:15 Date of Service: May 23, 2024 Billing Provider: KELLEY GARCIA NP Common Visit Codes: [id number] INP/OBS CARE(HIGH) KELLEY GARCIA NP May 23, 2024 11:12
[2024-05-23] MEDS: AMIODARONE HCL 200 MG TAB PO SCH (11:25)
--- NOTE | 2024-05-23 21:37 | DVHPN2 ---
Progress Note - Dictate Date Seen: May 23, 2024 Medical Necessity Reason Pt with a Central, PICC or Fol: Yes The following are medically ne: Central Line, West Catheter Reason for west catheter: Strict I&O Subjective Ms. Aquino is a 74 years old right-handed female with a history of hypertension, AFib, colon cancer, lung cancer with brain metastatic disease status post chemo and radiation treatment, she was brought to the [facility] on 05/07/2024 with a chief complaint of cardiac arrest with ROSC. I have seen and examined the patient, I have discussed with her nurse, she was doing fine, awake, oriented x 4, no new complaints Respiratory culture, 05/08/2024: Klebsiella pneumoniae the MRSA screening, 05/07/2024: MRSA Blood culture, 05/07/2024: Staphylococcus warneri UDS, 05/07/2024: Fentanyl, benzo Urinalysis, 05/07/2024: WBC: 4, urine leukocyte esterase: Negative ABG, 05/07/2024: Combined metabolic and respiratory acidosis, WBC/HB/PLT/MCV, 04/28/2024: 20.1/12.9/249/99.8 K, 05/07/2024: 2.4, 205, 05/08/2024: 3.2 BUN/CR, 05/07/2024: 22/1.73, 05/08/2024: 23/1.37 TBI/AST/ALT/AP, 05/08/2024: 0.5/187/210/75 TG/HDL/LDL/HDL, 05/07/2024: 143/177/85/67 TSH, 05/07/2024: 3.46 Venous Doppler, 05/08/2024: No right or left lower extremity deep venous thrombosis Echocardiogram, 05/08/2024: lvef 55% by visaul estimate severe septal hypertrophy RV enlarged mild, normal function left atrium enlarged mild aortic sclerosis Carotid Doppler, 05/10/2024: No hemodynamically significant stenosis noted in the right carotid system. No hemodynamically significant stenosis noted in the left carotid system. CT head, 05/08/2024: 1. Age-indeterminate infarcts in the left basal ganglia, possibly subacute. MRI of the brain without intravenous contrast is recommended for further evaluation. 2. No evidence of acute intracranial hemorrhage MRI headache, 05/10/2024: Acute infarct in the left basal ganglia as seen on prior CT vital signs Vital Sign Date Time Temp Pulse Resp B/P (MAP) Pulse Ox O2 Delivery O2 Flow Rate FiO2 05/23/24 18:33 95 18 99 05/23/24 17:03 97.7 98/57 (71) 97.7 05/23/24 11:09 Nasal Cannula* 3 32 Total Intake and Output 05/22/24 05/22/24 05/23/24 15:00 23:00 07:00 Intake Total 100 ml 100 ml 400 ml Output Total 400 ml 400 ml Balance 100 ml -300 ml 0 ml medications Current Medications Medications Dose Ordered Sig/Jerome Route Start Time Stop Time Status Last Admin Dose Admin Nitroglycerin 0.4 mg Q5MINP PRN SL 05/07/24 17:15 Cefepime HCl 50 ml @ 12.5 mls/hr Q12HR IV 05/07/24 22:00 UNV Apixaban 5 mg BID PO 05/10/24 10:00 05/23/24 11:25 5 MG Budesonide 0.5 mg BID NEB 05/10/24 22:00 05/23/24 18:13 0.5 MG Atorvastatin Calcium 10 mg HS PO 05/13/24 22:00 05/22/24 22:20 10 MG Enteral Nutritional Formula 240 ml TIDWM PO 05/18/24 12:00 05/23/24 18:35 240 ML Melatonin 10 mg HS PO 05/18/24 22:00 05/22/24 22:20 10 MG Acetaminophen 650 mg Q8HR PO 05/18/24 14:00 05/23/24 05:20 650 MG Ipratropium Opp 0.5 mg Q6HWA NEB 05/20/24 18:00 05/23/24 18:13 0.5 MG Lactulose 30 ml Q12H PRN PO 05/20/24 14:00 Levalbuterol HCl 1.25 mg Q6HWA NEB 05/20/24 18:00 05/23/24 18:13 1.25 MG Methylprednisolone Sodium Succinate 40 mg DAILY IV 05/21/24 10:00 05/23/24 11:24 40 MG Tramadol HCl 50 mg Q6HP PRN PO 05/20/24 14:00 Throat Lozenges 1 rose mary Q2HP PRN MT 05/20/24 18:00 05/23/24 05:24 1 ROSE MARY Nystatin 5 ml QID MT 05/21/24 18:00 05/23/24 18:34 5 ML Phenol/Menthol 1 spr Q2HP PRN MT 05/21/24 17:45 Doxycycline Monohydrate 100 mg Q12HR PO 05/22/24 22:00 05/23/24 11:25 100 MG Mupirocin 1 applic BID EACHNOSTRI 05/23/24 22:00 05/28/24 21:59 Amiodarone HCl 400 mg DAILY PO 05/23/24 10:15 05/23/24 11:25 400 MG objective The patient is well-nourished and well-developed with no distress MENTAL STATUS: Subjective CRANIAL NERVES: Pupils are equal, round and reactive.There are normal conjugated eye movement. Normal motor and sensory examination on bilateral trigeminal distribution. No signs of facial weakness. SENSATION: Okay to painful stimuli and light touch MOTOR: Normal tone in the upper and lower extremity. Normal muscle bulk. No fasciculations. Muscle power is no less 4/5 in all extremities REFLEXES: Deep tendon reflexes are symmetrical. No pathological reflexes. CEREBELLAR/COORDINATION: Unremarkable finger-nose test bilaterally GAIT/STATION: deferred. laboratory and microbiology Laboratory Tests 05/23/24 05:38 Test 05/23/24 05:38 Range/Units Serum Glucose 119 H 74-106 mg/dL Problem List Acute/subacute stroke Cardiopulmonary arrest Respiratory failure Metabolic acidosis Respiratory acidosis Atrial fibrillation History of lung cancer with brain metastatic disease Klebsiella pneumonia Sepsis Assessment/Plan Monitoring Supportive treatment Telemetry IV antibiotics Eliquis 5 mg b.i.d. Lipitor 10mg Qd Amiodarone GI prophylaxis Up to chair Physical therapy More recommendation per clinical course This medical document was created using an electronic medical record system with [employer] dictation system. Although this document has been carefully reviewed, there may still be some phonetic and typographical errors. These areas are purely typographical due to imperfections of the software programs, and do not reflect any compromise in the patient's medical care Prognosis poor Dietary Evaluation Review Recommendations by RD: PPN/TPN Comments: 1) Increase TF rate as tolerated to goal rate of 50 mL/hr. Goal rate will provide 1440 kcals, 67g Pro, and 1768 mL free H2O (including flushes) per 24 hours. Goal TF rate will meet ~ 90% daily estimated energy needs and 70% daily esimated protein needs. 2) Flush with 200 mL free H2O Q6 3) Adance to 2g Na diet when medically feasible, pending GROUND WATER TECHNICIAN approval 4) Continue current plan of care Expected Outcomes/Goals: 1) labs to improve 2) diet to advance 3) f/u in 2 days Plan discussed with: Other CE FERREIRA MD May 23, 2024 21:37
[2024-05-23] MEDS: MUPIROCIN 2% OINT 15gm or 22gm FOR MRSA NARES EACHNOSTRI SCH (22:12)
--- NOTE | 2024-05-23 23:06 | DVHPN2 ---
Progress Note - Dictate Date Seen: May 23, 2024 Medical Necessity Reason Pt with a Central, PICC or Fol: Yes The following are medically ne: Central Line, West Catheter Reason for west catheter: Strict I&O Subjective Patient seen and examined at bedside. Remains on supplemental oxygen Overnight events reviewed. vital signs Vital Sign Date Time Temp Pulse Resp B/P (MAP) Pulse Ox O2 Delivery O2 Flow Rate FiO2 05/23/24 22:36 97 Nasal Cannula* 3 32 05/23/24 21:00 98.4 94 18 122/69 (86) 98.4 Total Intake and Output 05/22/24 05/22/24 05/23/24 15:00 23:00 07:00 Intake Total 100 ml 100 ml 400 ml Output Total 400 ml 400 ml Balance 100 ml -300 ml 0 ml medications Current Medications Medications Dose Ordered Sig/Jerome Route Start Time Stop Time Status Last Admin Dose Admin Nitroglycerin 0.4 mg Q5MINP PRN SL 05/07/24 17:15 Cefepime HCl 50 ml @ 12.5 mls/hr Q12HR IV 05/07/24 22:00 UNV Apixaban 5 mg BID PO 05/10/24 10:00 05/23/24 22:10 5 MG Budesonide 0.5 mg BID NEB 05/10/24 22:00 05/23/24 18:13 0.5 MG Atorvastatin Calcium 10 mg HS PO 05/13/24 22:00 05/23/24 22:10 10 MG Enteral Nutritional Formula 240 ml TIDWM PO 05/18/24 12:00 05/23/24 18:35 240 ML Melatonin 10 mg HS PO 05/18/24 22:00 05/23/24 22:11 10 MG Acetaminophen 650 mg Q8HR PO 05/18/24 14:00 05/23/24 22:11 650 MG Ipratropium [place] 0.5 mg Q6HWA NEB 05/20/24 18:00 05/23/24 18:13 0.5 MG Lactulose 30 ml Q12H PRN PO 05/20/24 14:00 Levalbuterol HCl 1.25 mg Q6HWA NEB 05/20/24 18:00 05/23/24 18:13 1.25 MG Methylprednisolone Sodium Succinate 40 mg DAILY IV 05/21/24 10:00 05/23/24 11:24 40 MG Tramadol HCl 50 mg Q6HP PRN PO 05/20/24 14:00 Throat Lozenges 1 rose mary Q2HP PRN MT 05/20/24 18:00 05/23/24 05:24 1 ROSE MARY Nystatin 5 ml QID MT 05/21/24 18:00 05/23/24 22:11 5 ML Phenol/Menthol 1 spr Q2HP PRN MT 05/21/24 17:45 Doxycycline Monohydrate 100 mg Q12HR PO 05/22/24 22:00 05/23/24 22:10 100 MG Mupirocin 1 applic BID EACHNOSTRI 05/23/24 22:00 05/28/24 21:59 05/23/24 22:12 1 APPLIC Amiodarone HCl 400 mg DAILY PO 05/23/24 10:15 05/23/24 11:25 400 MG objective Gen.: Patient lying in bed in no apparent distress. On supplemental oxygen. Head: Normocephalic, atraumatic. Eyes: EOMI/PERRLA. Ears: Normal hearing. Normal anatomy. Neck/trachea: Trachea midline, supple. Nose: Normal external anatomy. Mouth: Moist mucous membranes. Chest: Decreased air entry bilaterally. No wheezing or rhonchi. Cardiovascular: Positive S1, positive S2. Regular rate and rhythm. Abdomen: Positive bowel sounds in all 4 quadrants. Soft, non-tender, non- distended. : Deferred. Rectal: Deferred. Skin: Warm, dry. Intact. Extremities: 2+ radial pulses bilaterally. No lower extremity edema. Neuro: Awake, alert, oriented x3. No gross motor or sensory deficits. Cranial nerves II through XII intact. Gait not assessed. laboratory and microbiology Laboratory Tests 05/23/24 05:38 Test 05/23/24 05:38 Range/Units Serum Glucose 119 H 74-106 mg/dL Assessment/Plan Impression: Acute hypoxic respiratory failure Acute kidney injury Septic shock Non-ST elevation myocardial infarction Hx of nicotine dependence Metabolic acidosis CVA stroke in left basal ganglia Pulmonary hypertension, RVSP 45 mmHg, moderate COPD/emphysema Hx of small cell lung CA Events: Remains on supplemental oxygen 3 LPM NC Taper O2 as tolerated Continue bronchodilators Continue steroids -taper as tolerated On IV Solu-Medrol 40 mg QD Continue antibiotics Cepastat lozenges Nystatin Incentive spirometry Monitor WBC Monitor hemoglobin Monitor blood pressure Head of bed elevation Aspiration precautions Physical therapy evaluation Disposition per hospitalist Labs and imaging reviewed. Rest of plan as noted below. Plan: S/p extubation on 05/16/24 On supplemental oxygen Titrate to keep O2 sats above 92%. ECHO report Reviewed: Left ventricular ejection fraction 55%. RV enlarged, r ight ventricular systolic pressure 45 mmHg Brain MRI demonstrates acute infarct in the left basal ganglia as seen on prior CT. Cardiology recs appreciated Continue antibiotics. F/u cultures. Blood cultures show no growth after 5 days Follow up BAL culture results - Klebsiella pneumoniae Pressors if necessary for hemodynamic support Titrate to keep mean arterial pressure greater than 65 mmHg Monitor renal function d/t acute kidney injury Monitor electrolytes. Supplement as necessary. Monitor ins and outs. Maintain euvolemia. GI prophylaxis. DVT prophylaxis. Prognosis: Guarded given patient's multiple co-morbidities. Rest of plan per hospitalist and other consultants. Thank you, ADORE Bonilla, for allowing me to participate in this patient's care. Further recommendations will depend on the patient's clinical course. Please do not hesitate to contact me if you have any questions or concerns. This medical document was created using an electronic medical record system with [employer] dictation system. Although these documentations are being carefully reviewed, there may still be some phonetic and typographical changes. The errors are purely typographical, due to imperfection on the software program, and do not reflect any compromise in the patient's medical care. Dietary Evaluation Review Recommendations by RD: PPN/TPN Comments: 1) Increase TF rate as tolerated to goal rate of 50 mL/hr. Goal rate will provide 1440 kcals, 67g Pro, and 1768 mL free H2O (including flushes) per 24 hours. Goal TF rate will meet ~ 90% daily estimated energy needs and 70% daily esimated protein needs. 2) Flush with 200 mL free H2O Q6 3) Adance to 2g Na diet when medically feasible, pending MATHEMATICAL PHYSICIST approval 4) Continue current plan of care Expected Outcomes/Goals: 1) labs to improve 2) diet to advance 3) f/u in 2 days Plan discussed with: Patient, Other (BENJA Hassan) EFRA DALE MD May 23, 2024 23:06
[2024-05-24] VITALS (17 sets, daily range): BP systolic 94–110; BP diastolic 54–64; PULSE 78–100; RESP 16–19; TEMP 97.6–98; O2SAT 91–100
--- NOTE | 2024-05-24 11:04 | DVHPN2 ---
Subjective Patient denies any symptoms. Reports that her sore throat has improved. Reviewed: Care Plan, H&P, Labs Changes from previous H/P or p: No Changes General: Per HPI Objective Vitals Vital Signs Date Time Temp Pulse Resp B/P (MAP) Pulse Ox O2 Delivery O2 Flow Rate FiO2 05/24/24 09:00 97.9 84 16 99/58 (72) 99 97.9 05/24/24 06:30 Nasal Cannula 3.0 05/24/24 06:30 32 Intake/Output Intake and Output 05/24/24 07:00 Intake Total 720 ml Output Total 700 ml Balance 20 ml Intake Oral 720 ml Output Urine Total 700 ml General Appearance: Alert, Oriented X3, Cooperative, mild distress HEENT: Atraumatic, PERRLA Lungs: Clear to auscultation, Other (Mechanical ventilation. Bilateral rhonchi) Cardiovascular: Normal S1, Normal S2 Abdomen: No tenderness, No hepatospenomegaly, Other (bowel sounds heard - little hypo) Genitourinary: No Apparent Abnormalities (Case catheter) Extremities: No edema Neuro: Other (Withdraws to painful stimuli. Positive coughing gag) Skin: Dry, Intact Psych/Mental Status: Other (Patient presenting with ICU delirium) Medications Current Medications Medications Dose Ordered Sig/Jerome Route Start Time Stop Time Status Last Admin Dose Admin Nitroglycerin 0.4 mg Q5MINP PRN SL 05/07/24 17:15 Cefepime HCl 50 ml @ 12.5 mls/hr Q12HR IV 05/07/24 22:00 UNV Apixaban 5 mg BID PO 05/10/24 10:00 05/24/24 09:59 5 MG Budesonide 0.5 mg BID NEB 05/10/24 22:00 05/24/24 06:30 0.5 MG Atorvastatin Calcium 10 mg HS PO 05/13/24 22:00 05/23/24 22:10 10 MG Enteral Nutritional Formula 240 ml TIDWM PO 05/18/24 12:00 05/24/24 09:59 240 ML Melatonin 10 mg HS PO 05/18/24 22:00 05/23/24 22:11 10 MG Acetaminophen 650 mg Q8HR PO 05/18/24 14:00 05/24/24 06:20 650 MG Ipratropium [place] 0.5 mg Q6HWA NEB 05/20/24 18:00 05/24/24 06:30 0.5 MG Lactulose 30 ml Q12H PRN PO 05/20/24 14:00 Levalbuterol HCl 1.25 mg Q6HWA [facility] [place] 05/20/24 18:00 05/24/24 06:30 1.25 MG Methylprednisolone Sodium Succinate 40 mg DAILY IV 05/21/24 10:00 05/24/24 09:59 40 MG Tramadol HCl 50 mg Q6HP PRN PO 05/20/24 14:00 Throat Lozenges 1 rose mary Q2HP PRN MT 05/20/24 18:00 05/23/24 05:24 1 ROSE MARY Nystatin 5 ml QID MT 05/21/24 18:00 05/24/24 06:20 5 ML Phenol/Menthol 1 spr Q2HP PRN MT 05/21/24 17:45 Doxycycline Monohydrate 100 mg Q12HR PO 05/22/24 22:00 05/24/24 09:59 100 MG Mupirocin 1 applic BID EACHNOSTRI 05/23/24 22:00 05/28/24 21:59 05/24/24 10:00 1 APPLIC Amiodarone HCl 400 mg DAILY PO 05/23/24 10:15 05/24/24 09:59 400 MG Laboratory Results Laboratory Tests 05/23/24 05:38 Urinalysis Test 05/07/24 15:06 Urine Color Dark-yellow (Yellow) Urine Clarity Turbid (Clear) H Urine pH 5.5 (5.0-9.0) Urine Specific [place] 1.021 (1.001-1.035) Urine Protein 2+ (Negative) H Urine Ketones Negative (Negative) Urine Blood 1+ /uL (Negative) H Urine Nitrite Negative (Negative) Urine Bilirubin Negative (Negative) Urine Urobilinogen 2 mg/dL (Negative) H Urine Leukocyte Esterase Negative /uL (Negative) Urine RBC 28 /hpf (0 - 4) Urine Microscopic WBC 4 /HPF (0-5) Urine Squamous Epithelial Cells Few /hpf (<5) Urine Bacteria Few /hpf (None Seen) H Urine Hyaline Casts Many /lpf (0 - 2) Urine Mucus Few (None Seen) Urine Yeast (Budding) Occasional /hpf (None Urine Glucose 1+ mg/dL (Normal) H Microbiology Microbiology Date/Time Source Procedure Growth Status 05/11/24 15:54 Other - Final Resulted 05/11/24 15:54 Other - Final Resulted 05/11/24 15:54 Other Pending Resulted 05/11/24 15:54 Other Pending Resulted 05/11/24 15:54 Other - Final See Separate Report... Resulted 05/10/24 18:10 Blood Blood Culture - Final NO GROWTH AFTER 5 DAYS OF INCUBATION. Complete 05/08/24 02:17 Sputum Gram Stain - Final Complete 05/08/24 02:17 Respiratory Culture - Final Klebsiella pneumoniae Complete 05/07/24 15:06 Urine - Case Port Urine Culture - Final Complete Labs and/or images reviewed: Labs reviewed by me, Image(s) reviewed by me Assessment/Plan Assessment/Plan Impression: -cardiopulmonary arrest in the field -acute hypoxic and hypercarbic respiratory failure with mechanical ventilation -full mouth pulmonary embolism -NSTEMI, rule out type 1 -hyperkalemia -acute kidney injury -shock liver -septic shock -community-acquired pneumonia, Klebsiella pneumoniae -primary hypertension -AFib with RVR Plan: Events: No events overnight. Patient out of bed to chair with nursing staff. Continues to have minimal ambulation with walker. Heart rate controlled with amiodarone. Blood pressure maintained. -continue nystatin swish and swallow and Cepacol lozenges -continue nutritional supplementation with meals -physical therapy -continue bronchodilators, discontinue Mucomyst -continue p.o. doxycycline -PUD, DVT prophylaxis -social service consultation for DC planning to SNF. Estimate patient was strong enough to transfer in 2-3 days -Repeat labs in a.m. -wean O2 Total time spent with patient discussing and formulating plan of care: 35 minutes. This medical document was created using an electronic medical record system with [employer] dictation system. Although this document has been carefully reviewed, there may still be some phonetic and typographical errors. These areas are purely typographical due to imperfections of the software programs, and do not reflect any compromise in the patient's medical care. Plan discussed with: Patient, Other (RN) My Orders Orders - KELLEY GARCIA NP Procedure Category Date Status Time Oob To Chair SHANIQUA 05/23/24 In Process 11:13 Transfer Orders XFER 05/24/24 Verified 10:59 * Inside Technical Sales Representative CONS 3/7/25 Verified Consult Basic Metabolic Panel LAB 05/25/24 Verified 04:00 Complete Blood Count LAB 05/25/24 Verified 04:00 Date of Service: May 24, 2024 Billing Provider: KELLEY GARCIA NP Common Visit Codes: [id number] INP/OBS CARE(HIGH) KELLEY GARCIA NP May 24, 2024 11:04
--- NOTE | 2024-05-24 22:10 | DVHPN2 ---
Progress Note - Dictate Date Seen: May 24, 2024 Medical Necessity Reason Pt with a Central, PICC or Fol: Yes The following are medically ne: Central Line, West Catheter Reason for west catheter: Strict I&O Subjective Ms. Aquino is a 74 years old right-handed female with a history of hypertension, AFib, colon cancer, lung cancer with brain metastatic disease status post chemo and radiation treatment, she was brought to the [facility] on 05/07/2024 with a chief complaint of cardiac arrest with ROSC. I have seen and examined the patient, I have discussed with her nurse, she is doing fine, awake, oriented x 4, no new complaints According to his nurse, he walked 25 steps with physical therapist today Respiratory culture, 05/08/2024: Klebsiella pneumoniae the MRSA screening, 05/07/2024: MRSA Blood culture, 05/07/2024: Staphylococcus warneri UDS, 05/07/2024: Fentanyl, benzo Urinalysis, 05/07/2024: WBC: 4, urine leukocyte esterase: Negative ABG, 05/07/2024: Combined metabolic and respiratory acidosis, WBC/HB/PLT/MCV, 04/28/2024: 20.1/12.9/249/99.8 K, 05/07/2024: 2.4, 205, 05/08/2024: 3.2 BUN/CR, 05/07/2024: 22/1.73, 05/08/2024: 23/1.37 TBI/AST/ALT/AP, 05/08/2024: 0.5/187/210/75 TG/HDL/LDL/HDL, 05/07/2024: 143/177/85/67 TSH, 05/07/2024: 3.46 Venous Doppler, 05/08/2024: No right or left lower extremity deep venous thrombosis Echocardiogram, 05/08/2024: lvef 55% by visaul estimate severe septal hypertrophy RV enlarged mild, normal function left atrium enlarged mild aortic sclerosis Carotid Doppler, 05/10/2024: No hemodynamically significant stenosis noted in the right carotid system. No hemodynamically significant stenosis noted in the left carotid system. CT head, 05/08/2024: 1. Age-indeterminate infarcts in the left basal ganglia, possibly subacute. MRI of the brain without intravenous contrast is recommended for further evaluation. 2. No evidence of acute intracranial hemorrhage MRI headache, 05/10/2024: Acute infarct in the left basal ganglia as seen on prior CT vital signs Vital Sign Date Time Temp Pulse Resp B/P (MAP) Pulse Ox O2 Delivery O2 Flow Rate FiO2 05/24/24 21:00 97.8 94 18 101/57 (72) 93 97.8 05/24/24 20:40 1.0 05/24/24 18:48 Nasal Cannula 05/24/24 18:48 24 Total Intake and Output 05/23/24 05/23/24 05/24/24 15:00 23:00 07:00 Intake Total 720 ml Output Total 700 ml Balance 20 ml medications Current Medications Medications Dose Ordered Sig/Jerome Route Start Time Stop Time Status Last Admin Dose Admin Nitroglycerin 0.4 mg Q5MINP PRN SL 05/07/24 17:15 Cefepime HCl 50 ml @ 12.5 mls/hr Q12HR IV 05/07/24 22:00 UNV Apixaban 5 mg BID PO 05/10/24 10:00 05/24/24 09:59 5 MG Budesonide 0.5 mg BID NEB 05/10/24 22:00 05/24/24 18:48 0.5 MG Atorvastatin Calcium 10 mg HS PO 05/13/24 22:00 05/23/24 22:10 10 MG Enteral Nutritional Formula 240 ml TIDWM PO 05/18/24 12:00 05/24/24 18:37 240 ML Melatonin 10 mg HS PO 05/18/24 22:00 05/23/24 22:11 10 MG Acetaminophen 650 mg Q8HR PO 05/18/24 14:00 05/24/24 06:20 650 MG Ipratropium [place] 0.5 mg Q6HWA NEB 05/20/24 18:00 05/24/24 18:48 0.5 MG Lactulose 30 ml Q12H PRN PO 05/20/24 14:00 Levalbuterol HCl 1.25 mg Q6HWA NEB 05/20/24 18:00 05/24/24 18:48 1.25 MG Methylprednisolone Sodium Succinate 40 mg DAILY IV 05/21/24 10:00 05/24/24 09:59 40 MG Tramadol HCl 50 mg Q6HP PRN PO 05/20/24 14:00 Throat Lozenges 1 rose mary Q2HP PRN MT 05/20/24 18:00 05/23/24 05:24 1 ROSE MARY Nystatin 5 ml QID MT 05/21/24 18:00 05/24/24 18:37 5 ML Phenol/Menthol 1 spr Q2HP PRN MT 05/21/24 17:45 Doxycycline Monohydrate 100 mg Q12HR PO 05/22/24 22:00 05/24/24 09:59 100 MG Mupirocin 1 applic BID EACHNOSTRI 05/23/24 22:00 05/28/24 21:59 05/24/24 10:00 1 APPLIC Amiodarone HCl 400 mg DAILY PO 05/23/24 10:15 05/24/24 09:59 400 MG objective The patient is well-nourished and well-developed with no distress MENTAL STATUS: Subjective CRANIAL NERVES: Pupils are equal, round and reactive.There are normal conjugated eye movement. Normal motor and sensory examination on bilateral trigeminal distribution. No signs of facial weakness. SENSATION: Okay to painful stimuli and light touch MOTOR: Normal tone in the upper and lower extremity. Normal muscle bulk. No fasciculations. Muscle power is no less 4/5 in all extremities REFLEXES: Deep tendon reflexes are symmetrical. No pathological reflexes. CEREBELLAR/COORDINATION: Unremarkable finger-nose test bilaterally GAIT/STATION: deferred. laboratory and microbiology Laboratory Tests 05/23/24 05:38 Test 05/23/24 05:38 Range/Units Serum Glucose 119 H 74-106 mg/dL Problem List Acute/subacute stroke Cardiopulmonary arrest Respiratory failure Metabolic acidosis Respiratory acidosis Atrial fibrillation History of lung cancer with brain metastatic disease Klebsiella pneumonia Sepsis Assessment/Plan Monitoring Supportive treatment Telemetry IV antibiotics Eliquis 5 mg b.i.d. Lipitor 10mg Qd Amiodarone GI prophylaxis Up to chair Physical therapy More recommendation per clinical course This medical document was created using an electronic medical record system with [employer] dictation system. Although this document has been carefully reviewed, there may still be some phonetic and typographical errors. These areas are purely typographical due to imperfections of the software programs, and do not reflect any compromise in the patient's medical care Prognosis poor Dietary Evaluation Review Recommendations by RD: PPN/TPN Comments: 1) Increase TF rate as tolerated to goal rate of 50 mL/hr. Goal rate will provide 1440 kcals, 67g Pro, and 1768 mL free H2O (including flushes) per 24 hours. Goal TF rate will meet ~ 90% daily estimated energy needs and 70% daily esimated protein needs. 2) Flush with 200 mL free H2O Q6 3) Adance to 2g Na diet when medically feasible, pending BOTTLE WASHING MACHINE OPERATOR approval 4) Continue current plan of care Expected Outcomes/Goals: 1) labs to improve 2) diet to advance 3) f/u in 2 days Plan discussed with: Patient, Other CE FERREIRA MD May 24, 2024 22:10
--- NOTE | 2024-05-24 23:29 | DVHPN2 ---
Progress Note - Dictate Date Seen: May 24, 2024 Medical Necessity Reason Pt with a Central, PICC or Fol: Yes The following are medically ne: Central Line, West Catheter Reason for west catheter: Strict I&O Subjective Patient seen and examined at bedside. Remains on supplemental oxygen Overnight events reviewed. vital signs Vital Sign Date Time Temp Pulse Resp B/P (MAP) Pulse Ox O2 Delivery O2 Flow Rate FiO2 05/24/24 21:00 97.8 94 18 101/57 (72) 93 97.8 05/24/24 20:40 1.0 05/24/24 18:48 Nasal Cannula 05/24/24 18:48 24 Total Intake and Output 05/23/24 05/23/24 05/24/24 15:00 23:00 07:00 Intake Total 720 ml Output Total 700 ml Balance 20 ml medications Current Medications Medications Dose Ordered Sig/Jerome Route Start Time Stop Time Status Last Admin Dose Admin Nitroglycerin 0.4 mg Q5MINP PRN SL 05/07/24 17:15 Cefepime HCl 50 ml @ 12.5 mls/hr Q12HR IV 05/07/24 22:00 UNV Apixaban 5 mg BID PO 05/10/24 10:00 05/24/24 22:48 5 MG Budesonide 0.5 mg BID NEB 05/10/24 22:00 05/24/24 18:48 0.5 MG Atorvastatin Calcium 10 mg HS PO 05/13/24 22:00 05/24/24 22:48 10 MG Enteral Nutritional Formula 240 ml TIDWM PO 05/18/24 12:00 05/24/24 18:37 240 ML Melatonin 10 mg HS PO 05/18/24 22:00 05/24/24 22:47 10 MG Acetaminophen 650 mg Q8HR PO 05/18/24 14:00 05/24/24 22:48 650 MG Ipratropium [place] 0.5 mg Q6HWA NEB 05/20/24 18:00 05/24/24 18:48 0.5 MG Lactulose 30 ml Q12H PRN PO 05/20/24 14:00 Levalbuterol HCl 1.25 mg Q6HWA NEB 05/20/24 18:00 05/24/24 18:48 1.25 MG Methylprednisolone Sodium Succinate 40 mg DAILY IV 05/21/24 10:00 05/24/24 09:59 40 MG Tramadol HCl 50 mg Q6HP PRN PO 05/20/24 14:00 Throat Lozenges 1 rose mary Q2HP PRN MT 05/20/24 18:00 05/23/24 05:24 1 ROSE MARY Nystatin 5 ml QID MT 05/21/24 18:00 05/24/24 22:46 5 ML Phenol/Menthol 1 spr Q2HP PRN MT 05/21/24 17:45 Doxycycline Monohydrate 100 mg Q12HR PO 05/22/24 22:00 05/24/24 22:48 100 MG Mupirocin 1 applic BID EACHNOSTRI 05/23/24 22:00 05/28/24 21:59 05/24/24 22:53 1 APPLIC Amiodarone HCl 400 mg DAILY PO 05/23/24 10:15 05/24/24 09:59 400 MG objective Gen.: Patient lying in bed in no apparent distress. On supplemental oxygen. Head: Normocephalic, atraumatic. Eyes: EOMI/PERRLA. Ears: Normal hearing. Normal anatomy. Neck/trachea: Trachea midline, supple. Nose: Normal external anatomy. Mouth: Moist mucous membranes. Chest: Decreased air entry bilaterally. No wheezing or rhonchi. Cardiovascular: Positive S1, positive S2. Regular rate and rhythm. Abdomen: Positive bowel sounds in all 4 quadrants. Soft, non-tender, non- distended. : Deferred. Rectal: Deferred. Skin: Warm, dry. Intact. Extremities: 2+ radial pulses bilaterally. No lower extremity edema. Neuro: Awake, alert, oriented x3. No gross motor or sensory deficits. Cranial nerves II through XII intact. Gait not assessed. laboratory and microbiology Laboratory Tests 05/23/24 05:38 Test 05/23/24 05:38 Range/Units Serum Glucose 119 H 74-106 mg/dL Assessment/Plan Impression: Acute hypoxic respiratory failure Acute kidney injury Septic shock Non-ST elevation myocardial infarction Hx of nicotine dependence Metabolic acidosis CVA stroke in left basal ganglia Pulmonary hypertension, RVSP 45 mmHg, moderate COPD/emphysema Hx of small cell lung CA Events: Remains on supplemental oxygen 2 LPM NC Taper O2 as tolerated Patient is out of bed to chair. Continue bronchodilators Continue steroids -taper as tolerated On IV Solu-Medrol 40 mg QD Continue antibiotics Nystatin Incentive spirometry Monitor WBC Monitor hemoglobin Monitor blood pressure Head of bed elevation Aspiration precautions Physical therapy evaluation Disposition per hospitalist Labs and imaging reviewed. Rest of plan as noted below. Plan: S/p extubation on 05/16/24 On supplemental oxygen Titrate to keep O2 sats above 92%. ECHO report Reviewed: Left ventricular ejection fraction 55%. RV enlarged, r ight ventricular systolic pressure 45 mmHg Brain MRI demonstrates acute infarct in the left basal ganglia as seen on prior CT. Cardiology recs appreciated Continue antibiotics. F/u cultures. Blood cultures show no growth after 5 days Follow up BAL culture results - Klebsiella pneumoniae Pressors if necessary for hemodynamic support Titrate to keep mean arterial pressure greater than 65 mmHg Monitor renal function d/t acute kidney injury Monitor electrolytes. Supplement as necessary. Monitor ins and outs. Maintain euvolemia. GI prophylaxis. DVT prophylaxis. Prognosis: Guarded given patient's multiple co-morbidities. Rest of plan per hospitalist and other consultants. Thank you, ADORE Bonilla, for allowing me to participate in this patient's care. Further recommendations will depend on the patient's clinical course. Please do not hesitate to contact me if you have any questions or concerns. This medical document was created using an electronic medical record system with [employer] computerized dictation system. Although these documentations are being carefully reviewed, there may still be some phonetic and typographical changes. The errors are purely typographical, due to imperfection on the software program, and do not reflect any compromise in the patient's medical care. Dietary Evaluation Review Recommendations by RD: PPN/TPN Comments: 1) Increase TF rate as tolerated to goal rate of 50 mL/hr. Goal rate will provide 1440 kcals, 67g Pro, and 1768 mL free H2O (including flushes) per 24 hours. Goal TF rate will meet ~ 90% daily estimated energy needs and 70% daily esimated protein needs. 2) Flush with 200 mL free H2O Q6 3) Adance to 2g Na diet when medically feasible, pending COLOR DEVELOPER approval 4) Continue current plan of care Expected Outcomes/Goals: 1) labs to improve 2) diet to advance 3) f/u in 2 days Plan discussed with: Patient, Other (BENJA Hassan) EFRA DALE MD May 24, 2024 23:29
[2024-05-25] VITALS (15 sets, daily range): BP systolic 91–121; BP diastolic 55–86; PULSE 76–113; RESP 0–19; TEMP 97.4–98.1; O2SAT 96–100
[2024-05-25 06:01] LABS: Basophils # (auto) 0 10 ^3/uL (0-0.2); Basophils % (auto) 0.2 % (0.0-2.0); Eosinophils # (auto) 0 10 ^3/uL (0-0.8); Eosinophils % (auto) 0.4 % (0.0-7.0); Hematocrit 36.9 % (36.0-46.0); Hemoglobin 12.3 g/dL (12.2-16.2); Lymphocytes # (auto) 1.3 10 ^3/uL (0.4-5.4); Lymphocytes % (auto) 10.9 % (10.0-50.0); Mean Corpuscular Hemoglobin 33.7 pg (28.0-32.0); Mean Corpuscular Hgb Conc. 33.4 g/dL (32.0-36.0); Monocytes % (auto) 8.5 % (0.0-12.0); Neutrophils # (auto) 9.6 10 ^3/uL (1.6-8.6); Platelet Count (auto) 357 10^3/uL (140-450); Red Blood Cells 3.65 10^6/uL (4.0-5.20); White Blood Cell 12.1 10^3/uL (4.4-10.8)
[2024-05-25 06:17] LABS: Chloride 105 mmol/L (98-107); Potassium 3.7 mmol/L (3.5-5.1); Sodium 137 mmol/L (136-145)
[2024-05-25 06:18] LABS: Anion Gap 6 (5-15); Carbon Dioxide 26 mmol/L (20-31)
[2024-05-25 06:19] LABS: Calcium 9.5 mg/dL (8.7-10.4)
[2024-05-25 06:24] LABS: BUN/Creatinine Ratio 29.6 (10.0-20.0)
[2024-05-25 06:28] LABS: Blood Urea Nitrogen 24 mg/dL (9-23); Glucose 109 mg/dL (74-106)
--- NOTE | 2024-05-25 13:04 | DVHPN2 ---
Subjective The patient is seen and examined at bedside. No complaint today. Reviewed: Care Plan, H&P, Labs Changes from previous H/P or p: No Changes General: Per HPI Objective Vitals Vital Signs Date Time Temp Pulse Resp B/P (MAP) Pulse Ox O2 Delivery O2 Flow Rate FiO2 05/25/24 12:53 91 18 99 05/25/24 08:43 97.6 104/62 (76) 97.6 05/25/24 08:05 Nasal Cannula* 2 28 Intake/Output Intake and Output 05/25/24 07:00 Intake Total 1100 ml Output Total 800 ml Balance 300 ml Intake Oral 1100 ml Output Urine Total 800 ml General Appearance: Alert, Oriented X3, Cooperative, mild distress HEENT: Atraumatic, PERRLA Lungs: Clear to auscultation, Other (Mechanical ventilation. Bilateral rhonchi) Cardiovascular: Normal S1, Normal S2 Abdomen: No tenderness, No hepatospenomegaly, Other (bowel sounds heard - little hypo) Genitourinary: No Apparent Abnormalities (Case catheter) Extremities: No edema Neuro: Other (Withdraws to painful stimuli. Positive coughing gag) Skin: Dry, Intact Psych/Mental Status: Other (Patient presenting with ICU delirium) Medications Current Medications Medications Dose Ordered Sig/Jerome Route Start Time Stop Time Status Last Admin Dose Admin Nitroglycerin 0.4 mg Q5MINP PRN SL 05/07/24 17:15 Cefepime HCl 50 ml @ 12.5 mls/hr Q12HR IV 05/07/24 22:00 UNV Apixaban 5 mg BID PO 05/10/24 10:00 05/25/24 10:28 5 MG Budesonide 0.5 mg BID NEB 05/10/24 22:00 05/25/24 06:25 0.5 MG Atorvastatin Calcium 10 mg HS PO 05/13/24 22:00 05/24/24 22:48 10 MG Enteral Nutritional Formula 240 ml TIDWM PO 05/18/24 12:00 05/24/24 18:37 240 ML Melatonin 10 mg HS PO 05/18/24 22:00 05/24/24 22:47 10 MG Acetaminophen 650 mg Q8HR PO 05/18/24 14:00 05/25/24 05:52 650 MG Ipratropium [place] 0.5 mg Q6HWA NEB 05/20/24 18:00 05/25/24 12:47 0.5 MG Lactulose 30 ml Q12H PRN PO 05/20/24 14:00 Levalbuterol HCl 1.25 mg Q6HWA NEB 05/20/24 18:00 05/25/24 12:47 1.25 MG Methylprednisolone Sodium Succinate 40 mg DAILY IV 05/21/24 10:00 05/25/24 10:28 40 MG Tramadol HCl 50 mg Q6HP PRN PO 05/20/24 14:00 Throat Lozenges 1 rose mary Q2HP PRN MT 05/20/24 18:00 05/23/24 05:24 1 ROSE MARY Nystatin 5 ml QID MT 05/21/24 18:00 05/25/24 11:32 5 ML Phenol/Menthol 1 spr Q2HP PRN MT 05/21/24 17:45 Doxycycline Monohydrate 100 mg Q12HR PO 05/22/24 22:00 05/25/24 10:28 100 MG Mupirocin 1 applic BID EACHNOSTRI 05/23/24 22:00 05/28/24 21:59 05/25/24 10:29 1 APPLIC Amiodarone HCl 400 mg DAILY PO 05/23/24 10:15 05/25/24 10:28 400 MG Laboratory Results Laboratory Tests 05/25/24 05:22 Chemistry Test 05/25/24 05:22 Calcium Level 9.5 mg/dL (8.7-10.4) Urinalysis Test 05/07/24 15:06 Urine Color Dark-yellow (Yellow) Urine Clarity Turbid (Clear) H Urine pH 5.5 (5.0-9.0) Urine Specific [place] 1.021 (1.001-1.035) Urine Protein 2+ (Negative) H Urine Ketones Negative (Negative) Urine Blood 1+ /uL (Negative) H Urine Nitrite Negative (Negative) Urine Bilirubin Negative (Negative) Urine Urobilinogen 2 mg/dL (Negative) H Urine Leukocyte Esterase Negative /uL (Negative) Urine RBC 28 /hpf (0 - 4) Urine Microscopic WBC 4 /HPF (0-5) Urine Squamous Epithelial Cells Few /hpf (<5) Urine Bacteria Few /hpf (None Seen) H Urine Hyaline Casts Many /lpf (0 - 2) Urine Mucus Few (None Seen) Urine Yeast (Budding) Occasional /hpf (None Urine Glucose 1+ mg/dL (Normal) H Microbiology Microbiology Date/Time Source Procedure Growth Status 05/11/24 15:54 Other - Final Resulted 05/11/24 15:54 Other - Final Resulted 05/11/24 15:54 Other Pending Resulted 05/11/24 15:54 Other Pending Resulted 05/11/24 15:54 Other - Final See Separate Report... Resulted 05/10/24 18:10 Blood Blood Culture - Final NO GROWTH AFTER 5 DAYS OF INCUBATION. Complete 05/08/24 02:17 Sputum Gram Stain - Final Complete 05/08/24 02:17 Respiratory Culture - Final Klebsiella pneumoniae Complete 05/07/24 15:06 Urine - Case [place] Urine Culture - Final Complete Labs and/or images reviewed: Labs reviewed by me Assessment/Plan Assessment/Plan -cardiopulmonary arrest in the field -acute hypoxic and hypercarbic respiratory failure with mechanical ventilation -full mouth pulmonary embolism -NSTEMI, rule out type 1 -hyperkalemia -acute kidney injury -shock liver -septic shock -community-acquired pneumonia, Klebsiella pneumoniae -primary hypertension -AFib with RVR Plan: Continuing current management. No events overnight. Patient out of bed to chair with nursing staff. Continues to have minimal ambulation with walker. Heart rate controlled with amiodarone. Blood pressure maintained. -continue nystatin swish and swallow and Cepacol lozenges -continue nutritional supplementation with meals -physical therapy -continue bronchodilators, discontinue Mucomyst -continue p.o. doxycycline -PUD, DVT prophylaxis -social service consultation for DC planning to SNF. Estimate patient was strong enough to transfer in 2-3 days -Repeat labs in a.m. -wean O2 Waiting for fpc home facility when the patient's stronger to discharge to a fdc for further rehab This medical document was created using an electronic medical record system with [employer] computerized dictation system. Although this document has been carefully reviewed, there may still be some phonetic and typographical errors. These areas are purely typographical due to imperfections of the software programs, and do not reflect any compromise in the patient's medical care. Plan discussed with: Patient Date of Service: May 25, 2024 Billing Provider: TABATHA STEWART MD Common Visit Codes: [id number] INP/OBS CARE(HIGH) TABATHA STEWART MD May 25, 2024 13:04
--- NOTE | 2024-05-25 23:13 | DVHPN2 ---
Progress Note - Dictate Date Seen: May 25, 2024 Medical Necessity Reason Pt with a Central, PICC or Fol: Yes The following are medically ne: Central Line, West Catheter Reason for west catheter: Strict I&O Subjective Patient seen and examined at bedside. Remains on supplemental oxygen Overnight events reviewed. vital signs Vital Sign Date Time Temp Pulse Resp B/P (MAP) Pulse Ox O2 Delivery O2 Flow Rate FiO2 05/25/24 21:00 98.1 106 18 91/60 (70) 97 98.1 05/25/24 20:00 Nasal Cannula* 2 28 Total Intake and Output 05/24/24 05/24/24 05/25/24 15:00 23:00 07:00 Intake Total 1100 ml Output Total 800 ml Balance 300 ml medications Current Medications Medications Dose Ordered Sig/Jerome Route Start Time Stop Time Status Last Admin Dose Admin Nitroglycerin 0.4 mg Q5MINP PRN SL 05/07/24 17:15 Cefepime HCl 50 ml @ 12.5 mls/hr Q12HR IV 05/07/24 22:00 UNV Apixaban 5 mg BID PO 05/10/24 10:00 05/25/24 22:27 5 MG Budesonide 0.5 mg BID NEB 05/10/24 22:00 05/25/24 18:39 0.5 MG Atorvastatin Calcium 10 mg HS PO 05/13/24 22:00 05/25/24 22:30 10 MG Enteral Nutritional Formula 240 ml TIDWM PO 05/18/24 12:00 05/24/24 18:37 240 ML Melatonin 10 mg HS PO 05/18/24 22:00 05/25/24 22:28 10 MG Acetaminophen 650 mg Q8HR PO 05/18/24 14:00 05/25/24 22:29 650 MG Ipratropium [place] 0.5 mg Q6HWA NEB 05/20/24 18:00 05/25/24 18:39 0.5 MG Lactulose 30 ml Q12H PRN PO 05/20/24 14:00 Levalbuterol HCl 1.25 mg Q6HWA NEB 05/20/24 18:00 05/25/24 18:40 1.25 MG Methylprednisolone Sodium Succinate 40 mg DAILY IV 05/21/24 10:00 05/25/24 10:28 40 MG Tramadol HCl 50 mg Q6HP PRN PO 05/20/24 14:00 Throat Lozenges 1 rose mary Q2HP PRN MT 05/20/24 18:00 05/23/24 05:24 1 ROSE MARY Nystatin 5 ml QID MT 05/21/24 18:00 05/25/24 22:31 5 ML Phenol/Menthol 1 spr Q2HP PRN MT 05/21/24 17:45 Doxycycline Monohydrate 100 mg Q12HR PO 05/22/24 22:00 05/25/24 22:31 100 MG Mupirocin 1 applic BID EACHNOSTRI 05/23/24 22:00 05/28/24 21:59 05/25/24 22:31 1 APPLIC Amiodarone HCl 400 mg DAILY PO 05/23/24 10:15 05/25/24 10:28 400 MG objective Gen.: Patient lying in bed in no apparent distress. On supplemental oxygen. Head: Normocephalic, atraumatic. Eyes: EOMI/PERRLA. Ears: Normal hearing. Normal anatomy. Neck/trachea: Trachea midline, supple. Nose: Normal external anatomy. Mouth: Moist mucous membranes. Chest: Decreased air entry bilaterally. No wheezing or rhonchi. Cardiovascular: Positive S1, positive S2. Regular rate and rhythm. Abdomen: Positive bowel sounds in all 4 quadrants. Soft, non-tender, non- distended. : Deferred. Rectal: Deferred. Skin: Warm, dry. Intact. Extremities: 2+ radial pulses bilaterally. No lower extremity edema. Neuro: Awake, alert, oriented x3. No gross motor or sensory deficits. Cranial nerves II through XII intact. Gait not assessed. laboratory and microbiology Laboratory Tests 05/25/24 05:22 Test 05/25/24 05:22 Range/Units Serum Glucose 109 H 74-106 mg/dL Assessment/Plan Impression: Acute hypoxic respiratory failure Acute kidney injury Septic shock Non-ST elevation myocardial infarction Hx of nicotine dependence Metabolic acidosis CVA stroke in left basal ganglia Pulmonary hypertension, RVSP 45 mmHg, moderate COPD/emphysema Hx of small cell lung CA Events: Remains on supplemental oxygen 2 LPM NC Taper O2 as tolerated Patient is out of bed to chair. Continue bronchodilators Continue steroids -taper as tolerated On IV Solu-Medrol 40 mg QD Continue antibiotics Nystatin Incentive spirometry Monitor WBC Monitor hemoglobin Monitor blood pressure Head of bed elevation Aspiration precautions Physical therapy Disposition per hospitalist Labs and imaging reviewed. Rest of plan as noted below. Plan: S/p extubation on 05/16/24 On supplemental oxygen Titrate to keep O2 sats above 92%. ECHO report Reviewed: Left ventricular ejection fraction 55%. RV enlarged, r ight ventricular systolic pressure 45 mmHg Brain MRI demonstrates acute infarct in the left basal ganglia as seen on prior CT. Cardiology recs appreciated Continue antibiotics. F/u cultures. Blood cultures show no growth after 5 days Follow up BAL culture results - Klebsiella pneumoniae Pressors if necessary for hemodynamic support Titrate to keep mean arterial pressure greater than 65 mmHg Monitor renal function d/t acute kidney injury Monitor electrolytes. Supplement as necessary. Monitor ins and outs. Maintain euvolemia. GI prophylaxis. DVT prophylaxis. Prognosis: Guarded given patient's multiple co-morbidities. Rest of plan per hospitalist and other consultants. Thank you, ADORE Bonilla, for allowing me to participate in this patient's care. Further recommendations will depend on the patient's clinical course. Please do not hesitate to contact me if you have any questions or concerns. This medical document was created using an electronic medical record system with [employer] dictation system. Although these documentations are being carefully reviewed, there may still be some phonetic and typographical changes. The errors are purely typographical, due to imperfection on the software program, and do not reflect any compromise in the patient's medical care. Dietary Evaluation Review Recommendations by RD: PPN/TPN Comments: 1) Increase TF rate as tolerated to goal rate of 50 mL/hr. Goal rate will provide 1440 kcals, 67g Pro, and 1768 mL free H2O (including flushes) per 24 hours. Goal TF rate will meet ~ 90% daily estimated energy needs and 70% daily esimated protein needs. 2) Flush with 200 mL free H2O Q6 3) Adance to 2g Na diet when medically feasible, pending INCLINOMETER TESTER approval 4) Continue current plan of care Expected Outcomes/Goals: 1) labs to improve 2) diet to advance 3) f/u in 2 days Plan discussed with: Patient, Other (BENJA Faustin) EFRA DALE MD May 25, 2024 23:13
[2024-05-26] VITALS (15 sets, daily range): BP systolic 94–121; BP diastolic 52–68; PULSE 75–106; RESP 16–19; TEMP 97.4–98.5; O2SAT 94–100
--- NOTE | 2024-05-26 12:42 | DVHPN2 ---
Subjective The patient is seen and examined at bedside. No complaint today. Doing better. Reviewed: Care Plan, H&P, Labs Changes from previous H/P or p: No Changes General: Per HPI Objective Vitals Vital Signs Date Time Temp Pulse Resp B/P (MAP) Pulse Ox O2 Delivery O2 Flow Rate FiO2 05/26/24 11:40 87 18 99 05/26/24 11:34 Nasal Cannula 1.0 05/26/24 11:34 24 05/26/24 09:00 97.4 97/53 (68) 97.4 Intake/Output Intake and Output 05/26/24 07:00 Intake Total 400 ml Output Total 1300 ml Balance -900 ml Intake Oral 400 ml Output Urine Total 1300 ml General Appearance: Alert, Oriented X3, Cooperative, mild distress HEENT: Atraumatic, PERRLA Lungs: Clear to auscultation, Other (Mechanical ventilation. Bilateral rhonchi) Cardiovascular: Normal S1, Normal S2 Abdomen: No tenderness, No hepatospenomegaly, Other (bowel sounds heard - little hypo) Genitourinary: No Apparent Abnormalities (Case catheter) Extremities: No edema Neuro: Other (Withdraws to painful stimuli. Positive coughing gag) Skin: Dry, Intact Psych/Mental Status: Other (Patient presenting with ICU delirium) Medications Current Medications Medications Dose Ordered Sig/Jerome Route Start Time Stop Time Status Last Admin Dose Admin Nitroglycerin 0.4 mg Q5MINP PRN SL 05/07/24 17:15 Cefepime HCl 50 ml @ 12.5 mls/hr Q12HR IV 05/07/24 22:00 UNV Apixaban 5 mg BID PO 05/10/24 10:00 05/26/24 09:04 5 MG Budesonide 0.5 mg BID NEB 05/10/24 22:00 05/26/24 06:42 0.5 MG Atorvastatin Calcium 10 mg HS PO 05/13/24 22:00 05/25/24 22:30 10 MG Enteral Nutritional Formula 240 ml TIDWM PO 05/18/24 12:00 05/24/24 18:37 240 ML Melatonin 10 mg HS PO 05/18/24 22:00 05/25/24 22:28 10 MG Acetaminophen 650 mg Q8HR PO 05/18/24 14:00 05/26/24 06:36 650 MG Ipratropium Deposit 0.5 mg Q6HWA NEB 05/20/24 18:00 05/26/24 11:34 0.5 MG Lactulose 30 ml Q12H PRN PO 05/20/24 14:00 Levalbuterol HCl 1.25 mg Q6HWA NEB 05/20/24 18:00 05/26/24 11:34 1.25 MG Methylprednisolone Sodium Succinate 40 mg DAILY IV 05/21/24 10:00 05/26/24 09:03 40 MG Tramadol HCl 50 mg Q6HP PRN PO 05/20/24 14:00 Throat Lozenges 1 rose mary Q2HP PRN MT 05/20/24 18:00 05/23/24 05:24 1 ROSE MARY Nystatin 5 ml QID MT 05/21/24 18:00 05/26/24 12:16 5 ML Phenol/Menthol 1 spr Q2HP PRN MT 05/21/24 17:45 Doxycycline Monohydrate 100 mg Q12HR PO 05/22/24 22:00 05/26/24 09:03 100 MG Mupirocin 1 applic BID EACHNOSTRI 05/23/24 22:00 05/28/24 21:59 05/26/24 09:01 1 APPLIC Amiodarone HCl 400 mg DAILY PO 05/23/24 10:15 05/26/24 09:03 400 MG Laboratory Results Laboratory Tests 05/25/24 05:22 Urinalysis Test 05/07/24 15:06 Urine Color Dark-yellow (Yellow) Urine Clarity Turbid (Clear) H Urine pH 5.5 (5.0-9.0) Urine Specific [place] 1.021 (1.001-1.035) Urine Protein 2+ (Negative) H Urine Ketones Negative (Negative) Urine Blood 1+ /uL (Negative) H Urine Nitrite Negative (Negative) Urine Bilirubin Negative (Negative) Urine Urobilinogen 2 mg/dL (Negative) H Urine Leukocyte Esterase Negative /uL (Negative) Urine RBC 28 /hpf (0 - 4) Urine Microscopic WBC 4 /HPF (0-5) Urine Squamous Epithelial Cells Few /hpf (<5) Urine Bacteria Few /hpf (None Seen) H Urine Hyaline Casts Many /lpf (0 - 2) Urine Mucus Few (None Seen) Urine Yeast (Budding) Occasional /hpf (None Urine Glucose 1+ mg/dL (Normal) H Microbiology Microbiology Date/Time Source Procedure Growth Status 05/11/24 15:54 Other - Final Resulted 05/11/24 15:54 Other - Final Resulted 05/11/24 15:54 Other Pending Resulted 05/11/24 15:54 Other Pending Resulted 05/11/24 15:54 Other - Final See Separate Report... Resulted 05/10/24 18:10 Blood Blood Culture - Final NO GROWTH AFTER 5 DAYS OF INCUBATION. Complete 05/08/24 02:17 Sputum Gram Stain - Final Complete 05/08/24 02:17 Respiratory Culture - Final Klebsiella pneumoniae Complete 05/07/24 15:06 Urine - Case Port Urine Culture - Final Complete Labs and/or images reviewed: Labs reviewed by me Assessment/Plan Assessment/Plan -cardiopulmonary arrest in the field -acute hypoxic and hypercarbic respiratory failure with mechanical ventilation -full mouth pulmonary embolism -NSTEMI, rule out type 1 -hyperkalemia -acute kidney injury -shock liver -septic shock -community-acquired pneumonia, Klebsiella pneumoniae -primary hypertension -AFib with RVR Plan: Continuing current management. No events overnight. Patient out of bed to chair with nursing staff. Continues to have minimal ambulation with walker. Heart rate controlled with amiodarone. Blood pressure maintained. -continue nystatin swish and swallow and Cepacol lozenges -continue nutritional supplementation with meals -physical therapy -continue bronchodilators, discontinue Mucomyst -continue p.o. doxycycline -PUD, DVT prophylaxis -social service consultation for DC planning to SNF. Estimate patient was strong enough to transfer in 2-3 days -Repeat labs in a.m. -wean O2 Waiting for residential home facility when the patient's stronger to discharge to a assisted for further rehab This medical document was created using an electronic medical record system with [employer] computerized dictation system. Although this document has been carefully reviewed, there may still be some phonetic and typographical errors. These areas are purely typographical due to imperfections of the software programs, and do not reflect any compromise in the patient's medical care. Plan discussed with: Patient Date of Service: May 26, 2024 Billing Provider: TABATHA STEWART MD Common Visit Codes: [id number] INP/OBS CARE(HIGH) TABATHA STEWART MD May 26, 2024 12:42
--- NOTE | 2024-05-26 20:22 | DVHPN2 ---
Progress Note - Dictate Date Seen: May 26, 2024 Medical Necessity Reason Pt with a Central, PICC or Fol: Yes The following are medically ne: Central Line, West Catheter Reason for west catheter: Strict I&O Subjective Patient seen and examined at bedside. Remains on supplemental oxygen Overnight events reviewed. vital signs Vital Sign Date Time Temp Pulse Resp B/P (MAP) Pulse Ox O2 Delivery O2 Flow Rate FiO2 05/26/24 19:31 75 18 100 05/26/24 19:08 Nasal Cannula* 1 24 05/26/24 16:57 97.6 97/56 (70) 97.6 Total Intake and Output 05/25/24 05/25/24 05/26/24 15:00 23:00 07:00 Intake Total 400 ml Output Total 1300 ml Balance -900 ml medications Current Medications Medications Dose Ordered Sig/Jerome Route Start Time Stop Time Status Last Admin Dose Admin Nitroglycerin 0.4 mg Q5MINP PRN SL 05/07/24 17:15 Cefepime HCl 50 ml @ 12.5 mls/hr Q12HR IV 05/07/24 22:00 UNV Apixaban 5 mg BID PO 05/10/24 10:00 05/26/24 09:04 5 MG Budesonide 0.5 mg BID NEB 05/10/24 22:00 05/26/24 19:11 0.5 MG Atorvastatin Calcium 10 mg HS PO 05/13/24 22:00 05/25/24 22:30 10 MG Enteral Nutritional Formula 240 ml TIDWM PO 05/18/24 12:00 05/24/24 18:37 240 ML Melatonin 10 mg HS PO 05/18/24 22:00 05/25/24 22:28 10 MG Acetaminophen 650 mg Q8HR PO 05/18/24 14:00 05/26/24 13:40 650 MG Ipratropium [place] 0.5 mg Q6HWA NEB 05/20/24 18:00 05/26/24 19:11 0.5 MG Lactulose 30 ml Q12H PRN PO 05/20/24 14:00 Levalbuterol HCl 1.25 mg Q6HWA NEB 05/20/24 18:00 05/26/24 19:11 1.25 MG Methylprednisolone Sodium Succinate 40 mg DAILY IV 05/21/24 10:00 05/26/24 09:03 40 MG Tramadol HCl 50 mg Q6HP PRN PO 05/20/24 14:00 Throat Lozenges 1 rose mary Q2HP PRN MT 05/20/24 18:00 05/23/24 05:24 1 ROSE MARY Nystatin 5 ml QID MT 05/21/24 18:00 05/26/24 17:32 5 ML Phenol/Menthol 1 spr Q2HP PRN MT 05/21/24 17:45 Doxycycline Monohydrate 100 mg Q12HR PO 05/22/24 22:00 05/26/24 09:03 100 MG Mupirocin 1 applic BID EACHNOSTRI 05/23/24 22:00 05/28/24 21:59 05/26/24 09:01 1 APPLIC Amiodarone HCl 400 mg DAILY PO 05/23/24 10:15 05/26/24 09:03 400 MG objective Gen.: Patient lying in bed in no apparent distress. On supplemental oxygen. Head: Normocephalic, atraumatic. Eyes: EOMI/PERRLA. Ears: Normal hearing. Normal anatomy. Neck/trachea: Trachea midline, supple. Nose: Normal external anatomy. Mouth: Moist mucous membranes. Chest: Decreased air entry bilaterally. No wheezing or rhonchi. Cardiovascular: Positive S1, positive S2. Regular rate and rhythm. Abdomen: Positive bowel sounds in all 4 quadrants. Soft, non-tender, non- distended. : Deferred. Rectal: Deferred. Skin: Warm, dry. Intact. Extremities: 2+ radial pulses bilaterally. No lower extremity edema. Neuro: Awake, alert, oriented x3. No gross motor or sensory deficits. Cranial nerves II through XII intact. Gait not assessed. laboratory and microbiology Laboratory Tests 05/25/24 05:22 Test 05/25/24 05:22 Range/Units Serum Glucose 109 H 74-106 mg/dL Assessment/Plan Impression: Acute hypoxic respiratory failure Acute kidney injury Septic shock Non-ST elevation myocardial infarction Hx of nicotine dependence Metabolic acidosis CVA stroke in left basal ganglia Pulmonary hypertension, RVSP 45 mmHg, moderate COPD/emphysema Hx of small cell lung CA Events: Remains on supplemental oxygen 1 LPM NC Taper O2 as tolerated Continue bronchodilators/Pulmicort Continue steroids -taper as tolerated On IV Solu-Medrol 40 mg QD Continue antibiotics Nystatin Incentive spirometry Amiodarone PO + Eliquis for atrial fibrillation Monitor WBC Monitor hemoglobin Monitor blood pressure Head of bed elevation Aspiration precautions Ensure for nutritional support Physical therapy Disposition per hospitalist Labs and imaging reviewed. Rest of plan as noted below. Plan: S/p extubation on 05/16/24 On supplemental oxygen Titrate to keep O2 sats above 92%. ECHO report Reviewed: Left ventricular ejection fraction 55%. RV enlarged, r ight ventricular systolic pressure 45 mmHg Brain MRI demonstrates acute infarct in the left basal ganglia as seen on prior CT. Cardiology recs appreciated Continue antibiotics. F/u cultures. Blood cultures show no growth after 5 days Follow up BAL culture results - Klebsiella pneumoniae Pressors if necessary for hemodynamic support Titrate to keep mean arterial pressure greater than 65 mmHg Monitor renal function d/t acute kidney injury Monitor electrolytes. Supplement as necessary. Monitor ins and outs. Maintain euvolemia. GI prophylaxis. DVT prophylaxis. Prognosis: Guarded given patient's multiple co-morbidities. Rest of plan per hospitalist and other consultants. Thank you, ADORE Bonilla, for allowing me to participate in this patient's care. Further recommendations will depend on the patient's clinical course. Please do not hesitate to contact me if you have any questions or concerns. This medical document was created using an electronic medical record system with [employer] computerized dictation system. Although these documentations are being carefully reviewed, there may still be some phonetic and typographical changes. The errors are purely typographical, due to imperfection on the software program, and do not reflect any compromise in the patient's medical care. Dietary Evaluation Review Recommendations by RD: PPN/TPN Comments: 1) Increase TF rate as tolerated to goal rate of 50 mL/hr. Goal rate will provide 1440 kcals, 67g Pro, and 1768 mL free H2O (including flushes) per 24 hours. Goal TF rate will meet ~ 90% daily estimated energy needs and 70% daily esimated protein needs. 2) Flush with 200 mL free H2O Q6 3) Adance to 2g Na diet when medically feasible, pending EKG TECHNICIAN approval 4) Continue current plan of care Expected Outcomes/Goals: 1) labs to improve 2) diet to advance 3) f/u in 2 days Plan discussed with: Patient, Other (BENJA Faustin) EFRA DALE MD May 26, 2024 20:22
[2024-05-27] VITALS (9 sets, daily range): BP systolic 96–126; BP diastolic 55–69; PULSE 70–103; RESP 14–19; TEMP 98–98.6; O2SAT 92–100
--- NOTE | 2024-05-27 10:23 | DVHDS2 ---
Discharge Summary Date of Admission May 07, 2024 at 17:02 Date of Discharge: May 27, 2024 Admitting Diagnosis Cardiopulmonary arrest Labs/Diagnostic Data: Laboratory Results Test 05/25/24 05:22 05/19/24 07:02 05/16/24 11:58 05/16/24 06:33 White Blood Count 12.1 10^3/uL (4.4-10.8) Red Blood Count 3.65 10^6/uL (4.0-5.20) Hemoglobin 12.3 g/dL (12.2-16.2) Hematocrit 36.9 % (36.0-46.0) Mean Corpuscular Volume 101.0 fL (80.0-100.0) Mean Corpuscular Hemoglobin 33.7 pg (28.0-32.0) Mean Corpuscular Hemoglobin Concent 33.4 g/dL (32.0-36.0) Red Cell Distribution Width 14.0 % (11.8-14.3) Platelet Count 357 10^3/uL (140-450) Mean Platelet Volume 7.2 fL (6.9-10.8) Neutrophils (%) (Auto) 80.0 % (37.0-80.0) Lymphocytes (%) (Auto) 10.9 % (10.0-50.0) Monocytes (%) (Auto) 8.5 % (0.0-12.0) Eosinophils (%) (Auto) 0.4 % (0.0-7.0) Basophils (%) (Auto) 0.2 % (0.0-2.0) Neutrophils # (Auto) 9.6 10 ^3/uL (1.6-8.6) Lymphocytes # (Auto) 1.3 10 ^3/uL (0.4-5.4) Monocytes # (Auto) 1.0 10 ^3/uL (0-1.3) Eosinophils # (Auto) 0 10 ^3/uL (0-0.8) Basophils # (Auto) 0 10 ^3/uL (0-0.2) Nucleated Red Blood Cells 0.0 % Sodium Level 137 mmol/L (136-145) Potassium Level 3.7 mmol/L (3.5-5.1) Chloride Level 105 mmol/L (98-107) Carbon Dioxide Level 26 mmol/L (20-31) Anion Gap 6 (5-15) Blood Urea Nitrogen 24 mg/dL (9-23) Creatinine 0.81 mg/dL (0.550-1.02) Glomerular Filtration Rate Calc 76 mL/min (>90) BUN/Creatinine Ratio 29.6 (10.0-20.0) Serum Glucose 109 mg/dL (74-106) Calcium Level 9.5 mg/dL (8.7-10.4) Phosphorus Level 2.4 mg/dL (2.4-5.1) Magnesium Level 1.8 mg/dL (1.6-2.6) Blood Gas Specimen Type Arterial Blood Gas Sample Site Arterial line Blood Gas Patient Temperature 37.0 Arterial Blood Date Drawn [id number] Arterial Blood pH 7.453 (7.350-7.450) Arterial Blood Partial Pressure CO2 34.9 mmHg (32.0-45.0) Arterial Blood Partial Pressure O2 70.6 mmHg (83.0-108.0) Arterial Blood HCO3 23.9 mmol/L (21.0-28.0) Arterial Blood Oxygen Saturation 92.5 % (94.0-98.0) Arterial Blood Base Excess 0.3 mmol/L (-2.0-3.0) Arterial Blood Oxyhemoglobin 92.3 % (94.0-98.0) Arterial Blood Carboxyhemoglobin 0.0 % (0.5-1.5) Arterial Blood Methemoglobin 0.2 % (0.0-1.5) Germán Test N/a Blood Gas Total Hemoglobin 11.50 g/dL (12.0-16.0) Blood Gas Modality Vent - cpap FiO2 % 30.0 Blood Gas Pressure Support 8 Blood Gas PEEP or CPAP 5.0 Blood Gas Critical Value Read Back Yes Blood Gas Set Respiration Rate 22.0 Blood Gas Tidal Volume 550.0 Test 05/13/24 08:50 05/12/24 19:27 05/12/24 03:12 05/09/24 07:51 Ammonia 25 umol/L (11-32) Vitamin D 25-Hydroxy 144.4 ng/mL (30.0-100) Blood Gas Spontaneous Rate 14 Total Bilirubin 0.6 mg/dL (0.2-1.0) Aspartate Amino Transferase (AST) 48 U/L (13-40) Alanine Aminotransferase (ALT) 53 U/L (7-40) Alkaline Phosphatase 132 U/L (46-116) Total Protein 6.0 g/dL (5.7-8.2) Albumin 3.5 g/dL (3.2-4.8) Vancomycin Level Trough 15.0 ug/mL (5-10) Blood Gas Inspiratory Pressure 27.0 Bl Gas Inspiratory/Expiratory Ratio 1:1.5 Specimen Drawn By tomy rt Test 05/08/24 06:20 05/07/24 22:00 05/07/24 19:05 05/07/24 16:50 Troponin I High Sensitivity 172 ng/L (</=34) B-Type Natriuretic Peptide 560.10 pg/mL (0-100) Random Vancomycin Level 13.1 ug/mL (5-10) Lactic Acid Level 6.8 mmol/L (0.4-2.0) POC Glucose 142 mg/dl (70-106) Triglycerides Level 143 mg/dL (< 150) Cholesterol Level 177 mg/dL (< 200) LDL Cholesterol 85 mg/dL (< 100) HDL Cholesterol 67 mg/dL (40-59) Thyroid Stimulating Hormone (TSH) 3.46 uIU/mL (0.55-4.78) Test 05/07/24 16:22 05/07/24 15:06 05/07/24 14:20 Blood Gas Notified Whom ethan Calabrese Blood Gas Notified Time [id number] Blood Gas Notified By Inspector Crystal jorge a vela Urine Color Dark-yellow (Yellow) Urine Clarity Turbid (Clear) Urine pH 5.5 (5.0-9.0) Urine Specific [place] 1.021 (1.001-1.035) Urine Protein 2+ (Negative) Urine Ketones Negative (Negative) Urine Blood 1+ /uL (Negative) Urine Nitrite Negative (Negative) Urine Bilirubin Negative (Negative) Urine Urobilinogen 2 mg/dL (Negative) Urine Leukocyte Esterase Negative /uL (Negative) Urine RBC 28 /hpf (0 - 4) Urine Microscopic WBC 4 /HPF (0-5) Urine Squamous Epithelial Cells Few /hpf (<5) Urine Bacteria Few /hpf (None Seen) Urine Hyaline Casts Many /lpf (0 - 2) Urine Mucus Few (None Seen) Urine Yeast (Budding) Occasional /hpf (None Urine Glucose 1+ mg/dL (Normal) Urine Opiates Screen Neg (NEGATIVE) Urine Fentanyl Screen Pos (NEGATIVE) Urine Barbiturates Screen Neg (NEGATIVE) Urine Phencyclidine Screen Neg (NEGATIVE) Urine Amphetamines Screen Neg (NEGATIVE) Urine Benzodiazepines Screen Pos (NEGATIVE) Urine Cocaine Screen Neg (NEGATIVE) Urine Cannabinoids Screen Neg (NEGATIVE) Erythrocyte Sedimentation Rate 30 mm/hr (0-20) Prothrombin Time 11.4 sec (9.3-11.8) Prothrombin Time INR 1.08 (0.9-1.15) Activated Partial Thromboplast Time 27.3 SEC (24.5-34.5) D-Dimer, Quantitative 16.00 mg/L FEU (0.0-0.49) Hemoglobin A1c 5.4 % A1C (<5.7) C-Reactive Protein High Sensitivity 0.75 mg/dL (<1.0) Other Laboratory Tests 05/25/24 05:22 Brief Hx & Hospital Course: History of Present Illness The patient was a 74-year-old female transport to the emergency room by EMS after being found unresponsive. Bystander CPR was performed by the patient was son as well as the medical assistant float's, with the patient having ROSC min route to the hospital. Patient was endotracheally intubated in the field. According to the patient's daughters, the patient is visiting this area and only recalls the patient having some dyspnea walking up stairs. They deny any other symptoms prior to today's events. 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 Last treatment was two years ago. Patient was being followed by oncology services at [facility]. Patient was reported to have atrial fibrillation, currently being treated with Eliquis as well as hypertension. Course of hospitalization: Patient was weaned off of vasopressor therapy as well as mechanical ventilation. Neurologically, the patient has no deficits. Patient had pulmonary consultation, undergoing bronchoscopy with respiratory secretions positive for Klebsiella pneumonia. Patient has completed adequate course of antibiotics. Patient has been ambulating with physical therapy, noted requirements for walker. Patient did have issues with AFib with RVR, which the patient was continued on anticoagulation with Eliquis as well as initial rate control with amiodarone drip, as well as beta-azalia therapy. The patient was noted to have problems with hypotension, with rate control achieved with amiodarone p.o.. Long discussion was made with both patient and family who were agreeable for discharge to rehab facility. Patient will be transferred to [facility]. Physical examination General: Alert and Oriented x3. No acute distress. Well-nourished. Eyes: EOMI. Anicteric. HENT: Moist mucous membranes. Lungs: Clear to auscultation bilaterally. No accessory muscle use. Cardiovascular: Regular rate and rhythm. No murmur. No JVD. Abdomen: Soft, non-tender and non-distended. No palpable masses. Extremities: No edema. Non-tender. Skin: No rashes or lesions. Warm. Neurologic: No focal neurological deficits. CN II-XII grossly intact, but not individually tested. Psychiatric: Cooperative. Appropriate mood and affect. Total time spent with patient discussing and formulating plan of care: 35 minutes. This medical document was created using an electronic medical record system with [employer] dictation system. Although this document has been carefully reviewed, there may still be some phonetic and typographical errors. These areas are purely typographical due to imperfections of the software programs, and do not reflect any compromise in the patient's medical care. Consults/Reason for consult Cardiology: AFib with RVR Pulmonology: Mechanical ventilation Neurology: Cardiopulmonary arrest Condition at Discharge: Guarded Final Diagnosis/Problems List Cardiac arrest Secondary Diagnosis: -acute hypoxic and hypercarbic respiratory failure with mechanical ventilation -full mouth pulmonary embolism -NSTEMI, rule out type 1 -hyperkalemia -acute kidney injury -shock liver -septic shock -community-acquired pneumonia, Klebsiella pneumoniae -primary hypertension -AFib with RVR Discharge Disposition: Half-Way Facility Discharge Instruct/Medications Diet: Cardiac 2g Na,low cholest Activity: No Restrictions, As Tolerated Follow Up/Referral: Per accepting provider Medications: Refer to medication reconciliation form 36 Discharge Statement: "Patient was advised to return to the ER or call 911 if any headaches, dizziness, shortness of breath, chest pain, abdominal pain, bleeding, fevers, or worsening of medical condition. Patient was counseled about treatment plan, medications, possible side effects, patientverbalized understanding. All questions were answered to the best of my ability. This discharge took greater then 30 minutes in planning, reviewing documentation, counseling the patient, and discussing with other team members." ASSESSMENT ASSESSMENT Assessment Cardiac arrest Date of Service: May 27, 2024 Billing Provider: KELLEY GARCIA NP Common Visit Codes: [id number] DISCH DAY >30min KELLEY GARCIA NP May 27, 2024 10:23
--- NOTE | 2024-05-27 21:40 | DVHPN2 ---
Progress Note - Dictate Date Seen: May 27, 2024 Medical Necessity Reason Pt with a Central, PICC or Fol: Yes The following are medically ne: Central Line, West Catheter Reason for west catheter: Strict I&O Subjective Patient seen and examined at bedside. Remains on supplemental oxygen Overnight events reviewed. vital signs Vital Sign Date Time Temp Pulse Resp B/P (MAP) Pulse Ox O2 Delivery O2 Flow Rate FiO2 05/27/24 12:57 98.6 103 17 96/60 (72) 92 98.6 05/27/24 08:00 Nasal Cannula* 1 24 Total Intake and Output 05/26/24 05/26/24 05/27/24 15:00 23:00 07:00 Intake Total 250 ml Balance 250 ml medications Current Medications Medications Dose Ordered Sig/Jerome Route Start Time Stop Time Status Last Admin Dose Admin Cefepime HCl 50 ml @ 12.5 mls/hr Q12HR IV 05/07/24 22:00 UNV objective Gen.: Patient lying in bed in no apparent distress. On supplemental oxygen. Head: Normocephalic, atraumatic. Eyes: EOMI/PERRLA. Ears: Normal hearing. Normal anatomy. Neck/trachea: Trachea midline, supple. Nose: Normal external anatomy. Mouth: Moist mucous membranes. Chest: Decreased air entry bilaterally. No wheezing or rhonchi. Cardiovascular: Positive S1, positive S2. Regular rate and rhythm. Abdomen: Positive bowel sounds in all 4 quadrants. Soft, non-tender, non- distended. : Deferred. Rectal: Deferred. Skin: Warm, dry. Intact. Extremities: 2+ radial pulses bilaterally. No lower extremity edema. Neuro: Awake, alert, oriented x3. No gross motor or sensory deficits. Cranial nerves II through XII intact. Gait not assessed. laboratory and microbiology Laboratory Tests 05/25/24 05:22 Test 05/25/24 05:22 Range/Units Serum Glucose 109 H 74-106 mg/dL Assessment/Plan Impression: Acute hypoxic respiratory failure Acute kidney injury Septic shock Non-ST elevation myocardial infarction Hx of nicotine dependence Metabolic acidosis CVA stroke in left basal ganglia Pulmonary hypertension, RVSP 45 mmHg, moderate COPD/emphysema Hx of small cell lung CA Events: Remains on supplemental oxygen 1 LPM NC Taper O2 as tolerated Continue bronchodilators/Pulmicort Continue steroids -taper as tolerated On IV Solu-Medrol 40 mg QD Continue antibiotics Nystatin Incentive spirometry Amiodarone PO + Eliquis for atrial fibrillation Monitor WBC Monitor hemoglobin Monitor blood pressure Head of bed elevation Aspiration precautions Ensure for nutritional support Physical therapy Disposition per hospitalist Labs and imaging reviewed. Rest of plan as noted below. Plan: S/p extubation on 05/16/24 On supplemental oxygen Titrate to keep O2 sats above 92%. ECHO report Reviewed: Left ventricular ejection fraction 55%. RV enlarged, r ight ventricular systolic pressure 45 mmHg Brain MRI demonstrates acute infarct in the left basal ganglia as seen on prior CT. Cardiology recs appreciated Continue antibiotics. F/u cultures. Blood cultures show no growth after 5 days Follow up BAL culture results - Klebsiella pneumoniae Pressors if necessary for hemodynamic support Titrate to keep mean arterial pressure greater than 65 mmHg Monitor renal function d/t acute kidney injury Monitor electrolytes. Supplement as necessary. Monitor ins and outs. Maintain euvolemia. GI prophylaxis. DVT prophylaxis. Prognosis: Guarded given patient's multiple co-morbidities. Rest of plan per hospitalist and other consultants. Thank you, ADORE Bonilla, for allowing me to participate in this patient's care. Further recommendations will depend on the patient's clinical course. Please do not hesitate to contact me if you have any questions or concerns. This medical document was created using an electronic medical record system with [employer] dictation system. Although these documentations are being carefully reviewed, there may still be some phonetic and typographical changes. The errors are purely typographical, due to imperfection on the software program, and do not reflect any compromise in the patient's medical care. Dietary Evaluation Review Recommendations by RD: PPN/TPN Comments: 1) Increase TF rate as tolerated to goal rate of 50 mL/hr. Goal rate will provide 1440 kcals, 67g Pro, and 1768 mL free H2O (including flushes) per 24 hours. Goal TF rate will meet ~ 90% daily estimated energy needs and 70% daily esimated protein needs. 2) Flush with 200 mL free H2O Q6 3) Adance to 2g Na diet when medically feasible, pending PEDIATRIC NEUROLOGIST approval 4) Continue current plan of care Expected Outcomes/Goals: 1) labs to improve 2) diet to advance 3) f/u in 2 days Plan discussed with: Patient, Other (BENJA Sher) EFRA DALE MD May 27, 2024:40
[2024-05-28] MEDS ORDERED: AMIODARONE HCL 200 MG TAB PO SCH (10:00)
== END 2024-05-27 15:55 | DRG 870 ==
LOC: ER 12:50 → EDBD 12:50 → OVERFLOW 17:02 → ICU WEST 18:45 → TELE-WESTW 05-18 15:38 → TELE-EAST 05-22 21:13 → EAST 05-25 02:37
PROVIDERS: ADMIT Nurse Practitioner Acute Care; ATTEND Nurse Practitioner Acute Care
PROC: 5A1955Z Respiratory Ventilation, Greater than 96 Consecutive Hours (ICD-10-PCS; principal; 2024-05-07)
PROC: 0BH17EZ Insertion of Endotracheal Airway into Trachea, Via Natural or Artificial Opening (ICD-10-PCS; 2024-05-07)
PROC: 02HV33Z Insertion of Infusion Device into Superior Vena Cava, Percutaneous Approach (ICD-10-PCS; 2024-05-07)
PROC: 06HY33Z Insertion of Infusion Device into Lower Vein, Percutaneous Approach (ICD-10-PCS; 2024-05-07)
PROC: B54BZZA Ultrasonography of Right Lower Extremity Veins, Guidance (ICD-10-PCS; 2024-05-07)
PROC: 5A12012 Performance of Cardiac Output, Single, Manual (ICD-10-PCS; 2024-05-07)
PROC: 0B9D8ZX Drainage of Right Middle Lung Lobe, Via Natural or Artificial Opening Endoscopic, Diagnostic (ICD-10-PCS; 2024-05-11)
PROC: 0BC78ZZ Extirpation of Matter from Left Main Bronchus, Via Natural or Artificial Opening Endoscopic (ICD-10-PCS; 2024-05-11)
PROC: 0BC38ZZ Extirpation of Matter from Right Main Bronchus, Via Natural or Artificial Opening Endoscopic (ICD-10-PCS; 2024-05-11)
PROC: 03HY32Z Insertion of Monitoring Device into Upper Artery, Percutaneous Approach (ICD-10-PCS; 2024-05-11)
DX: A41.9 Sepsis, unspecified organism (principal); I46.9 Cardiac arrest, cause unspecified; K72.00 Acute and subacute hepatic failure without coma; R65.21 Severe sepsis with septic shock; J15.0 Pneumonia due to Klebsiella pneumoniae; I26.99 Other pulmonary embolism without acute cor pulmonale; J96.21 Acute and chronic respiratory failure with hypoxia; J96.22 Acute and chronic respiratory failure with hypercapnia; G93.41 Metabolic encephalopathy; I21.A1 Myocardial infarction type 2; N17.9 Acute kidney failure, unspecified; J44.1 Chronic obstructive pulmonary disease with (acute) exacerbation; J44.0 Chronic obstructive pulmonary disease with (acute) lower respiratory infection; E87.5 Hyperkalemia; I48.91 Unspecified atrial fibrillation; E11.65 Type 2 diabetes mellitus with hyperglycemia; I10 Essential (primary) hypertension; I27.20 Pulmonary hypertension, unspecified; J43.9 Emphysema, unspecified; Z85.118 Personal history of other malignant neoplasm of bronchus and lung; Z79.01 Long term (current) use of anticoagulants; Z80.0 Family history of malignant neoplasm of digestive organs; Z82.49 Family history of ischemic heart disease and other diseases of the circulatory system; Z85.038 Personal history of other malignant neoplasm of large intestine; Z79.1 Long term (current) use of non-steroidal anti-inflammatories (NSAID); Z79.899 Other long term (current) drug therapy; Z90.710 Acquired absence of both cervix and uterus; Z87.891 Personal history of nicotine dependence; Z86.73 Personal history of transient ischemic attack (TIA), and cerebral infarction without residual deficits; Z90.49 Acquired absence of other specified parts of digestive tract; Z92.21 Personal history of antineoplastic chemotherapy; Z92.3 Personal history of irradiation; Z93.1 Gastrostomy status
CPT/HCPCS: 31500; 36415; 36600; 36620; 70450; 70551; 71045; 71260; 74018; 74177; 80048; 80053; 80061; 80202; 80307; 81001; 82140; 82306; 82805; 82962; 83036; 83605; 83735; 83880; 84100; 84132; 84443; 84484; 85025; 85379; 85610; 85652; 85730; 86141; 87040; 87070; 87077; 87081; 87086; 87186; 87205; 92610; 93005; 93306; 93886; 93970; 94002; 94003; 94640; 95819; 97110; 97116; 97163; 97530; 99291; 99292; G0378; J0692; J1815; J2250; J2470; J2543; J3480; J3490; J7060